=== PATIENT | female | born 1960 | race Caucasian/White ===

== ENCOUNTER 2023-08-18 08:45 | Emergency (ER) | payer SELFPAY ==
[2023-08-18 08:50] VITALS: BP 130/80; PULSE 67; RESP 18; TEMP 36.3; O2SAT 98; BMI 19.5
--- NOTE | 2023-08-18 08:56 | ED_ITS ---
HPI - SOB/Dyspnea General Chief Complaint: Shortness of Breath/Dyspnea Stated Complaint: SHORTNESS OF BREATH Time Seen by Provider: 08/18/23 08:55 History of Present Illness HPI Narrative: patient states three days ago she developed shortness of breath.she also has body aches and pains. She took a home Covid test that is negative. She does not have pulse oximetry at home. It is ninety-eight percent on room air here.she states that five or six weeks ago she did have Covid. She said she had minimal cough but at a very high fever at that time. She states that her sputum is still clear. She smokes regularly and has a [id number] tobacco history. She has not had a CT scan of her chest. She's not seen any blood in her sputum. She does not have any gastrointestinal symptoms today but with Covid she did. She does have a little bit of sore throat, additionally she has some body aches and pains but is not running a fever over the last three days. She did receive the influenza vaccine and Covid vaccine but has not had respiratory syncytial virus or pneumococcal vaccine. Related Data Home Medications Medication Instructions Recorded Confirmed No Known Home Medications 08/18/23 08/18/23 Allergies Allergy/AdvReac Type Severity Reaction Status Date / Time Penicillins AdvReac Intermediate Verified 08/18/23 08:49 [facility] Social History Smoking status: Current every day smoker Exam Narrative Exam Narrative: awakke alert oriented ?3 excellent story's historian. Pulse oximetry is normal. She has a wet raspy bronchospastic spastic cough. Her color is good her skin is warm and dry. Mucous members are moist and pink. She has no scleral icterus. No cranial facial trauma or injury. Her lungs showed scattered rhonchi and some wheezing. Heart sounds are normal with no arrhythmia or murmur. Extremities have no evidence of phlebitis edema tenderness or swelling. Neurological intact. Constitutional Vital Signs, click to edit/add: Last Vital Signs Temp 97.3 F L 08/18/23 08:50 Pulse 67 08/18/23 08:50 Resp 18 08/18/23 08:50 BP 130/80 08/18/23 08:50 Pulse Ox 98 08/18/23 08:50 Course Vital Signs Vital signs: Vital Signs Temperature 97.3 F L 08/18/23 08:50 Pulse Rate 67 08/18/23 08:50 Respiratory Rate 18 08/18/23 08:50 Blood Pressure 130/80 08/18/23 08:50 Pulse Oximetry 98 08/18/23 08:50 Temperature 97.3 F L 08/18/23 08:50 Pulse Rate 67 08/18/23 08:50 Respiratory Rate 18 08/18/23 08:50 Blood Pressure 130/80 08/18/23 08:50 Pulse Oximetry 98 08/18/23 08:50 MDM - SOB/Dyspnea MDM Narrative Medical decision making narrative: this patient told me that she's not had a CT scan and with her having the large smoking history one was done today. As it turns out she did have one previously but there's been no interval change and her findings are consistent with early emphysematous changes. There is no pneumonia. She is not a candidate for any antiviral therapy. I believe this is an exacerbation of chronic obstructive pulmonary disease. She will be placed on steroid/we'll teach her how to use an inhaler censored dual nebulizer didn't make her feel better. It should be placed on a Z-Garrick with her underlying chronic obstructive pulmonary disease Discharge Plan Discharge Chief Complaint: Shortness of Breath/Dyspnea Clinical Impression: Acute infective exacerbation of chronic obstructive airway disease Patient Disposition: Home, Self-Care Time of Disposition Decision: 11:26 Prescriptions / Home Meds: No Action No Known Home Medications Additional Instructions: Z-Paks/prednisone/albuterol Stand Alone Forms: Portal Instructions Referrals: Physician,Non-Staff, MD [Primary Care Provider] - 1 week
[2023-08-18 09:04] VITALS: PULSE 62
--- NOTE | 2023-08-18 09:10 | CT_ITS ---
[address] [address] Patient Name: RICARDO ELIAS MRN: [id number] date: 1960 Sex: F Assigned Patient Location: ER Current Patient Location: ER Accession/Order Number: [id number] Exam Date: 08/18/2023 10:10 Report Date: 08/18/2023 10:50 At the request of: MAE ANN Procedure: CT chest w con EXAMINATION: CT chest w con HISTORY: cough/shortness of breath/tobacco ?41 years ; shortness of breath with exertion, cough, chills, body aches COMPARISON: CTA chest 12/03/2021 TECHNIQUE: Multi-planar CT images were obtained without and/or with IV contrast as indicated by examination type. Axial, Coronal, and Sagittal images. Dose reduction techniques were achieved by using automated exposure control and/or adjustment of mA and/or kV according to patient size and/or use of iterative reconstruction technique. FINDINGS: LUNGS: Stable appearance of a few small nodules scattered within the lungs, largest is within posterior lateral right lower lobe, 6 mm. No new nodules or acute infiltrates. Mild emphysematous changes. PLEURA: No mass, effusion, or pneumothorax. VASCULATURE: No abnormality. ESTELLE: No mass or adenopathy. MEDIASTINUM: No mass or adenopathy. CARDIAC: Atherosclerotic coronary artery disease. No cardiac enlargement or pericardial effusion. AORTA: No aneurysm or dissection. CHEST WALL: No mass or axillary adenopathy. BONES: Stable marked compression fracture C7 and T6. Stable mild Compression fracture of T3. LIMITED ABDOMEN: No suspicious findings Limited images of the upper abdomen. OTHER: Negative. CT/CT chest w con IMPRESSION: 1. No pulmonary embolism, acute infiltrates, or specific findings to account for patient's symptoms. 2. Stable mild emphysematous changes and a few small scattered nodules; nonspecific but favoring benign etiology. 3. Stable multilevel compression fractures. No new findings. Electronically authenticated by: TREV PHILLIPS Date: 08/18/2023 10:50
[2023-08-18] MEDS: IPRATROPIUM/ALBUTEROL SULFATE 3 ML AMPUL.NEB IH (09:22)
[2023-08-18 09:37] LABS: pH VBG 7.476 (7.330-7.430)
[2023-08-18 09:38] LABS: Basophils Percent Auto 0.8 % (0.2-2.0); Eosinophils Absolute Auto 0.1 10^3/uL (0.0-0.7); Eosinophils Percent Auto 1.9 % (0.9-7.0); Hematocrit 42.7 % (36.0-48.0); Hemoglobin 13.8 g/dL (12.0-16.0); Immature Granulocytes Abs Auto 0.01 10^3/uL (0.00-0.03); Immature Granulocytes Pct Auto 0.2 % (0.0-0.5); Lymphocytes Absolute Auto 1.6 10^3/uL (1.2-3.8); Lymphocytes Percent Auto 31.1 % (20.5-60.0); Mean Corpuscular HGB Conc 32.3 g/dL (29.9-35.2); Mean Corpuscular Hemoglobin 29.8 pg (26.7-34.0); Mean Corpuscular Volume 92.2 fL (81.0-99.0); Mean Platelet Volume 10.2 fL (9.5-13.5); Monocytes Absolute Auto 0.4 10^3/uL (0.3-0.8); Neutrophils Absolute Auto 3.1 10^3/uL (1.4-6.5); Platelet Count 232 10^3/uL (150-450); Red Blood Count 4.63 10^6/uL (4.20-5.40); Red Cell Distribution Width 13.5 % (11.0-15.0); White Blood Count 5.3 10^3/uL (4.0-11.0)
[2023-08-18 09:56] LABS: Alanine Aminotransferase 50 U/L (14-59); Albumin Globulin Ratio 0.9; Albumin Level 3.3 g/dL (3.4-5.0); Alkaline Phosphatase 62 U/L (46-116); Anion Gap 15.1; Aspartate Amino Transferase 40 U/L (15-37); BUN Creatinine Ratio 14.1; Bilirubin Total 0.3 mg/dL (0.2-1.0); Calcium 9.3 mg/dL (8.5-10.1); Carbon Dioxide 23.7 mmol/L (21.0-32.0); Chloride 106 mmol/L (98-107); Estimated GFR (African America >60 (>=60); Estimated GFR (Non-African Ame >60 (>=60); Globulin 3.7 g/dL; Glucose 105 mg/dL (74-106); Potassium 3.8 mmol/L (3.5-5.1); Sodium 141 mmol/L (136-145)
[2023-08-18 10:05] LABS: Troponin I High Sensitivity 6.2 pg/mL (4.0-51.3)
[2023-08-18 10:41] VITALS: BP 128/78; PULSE 70; RESP 18; O2SAT 98
== END 2023-08-18 11:38 | disposition home or self-care (01) ==
PROVIDERS: Emergency Provider Emergency Medicine Emergency Medical Services
DX: J44.1 Chronic obstructive pulmonary disease with (acute) exacerbation (principal); R06.02 Shortness of breath; F17.200 Nicotine dependence, unspecified, uncomplicated
CPT/HCPCS: 36415; 71260; 80053; 82800; 83880; 84484; 85025; 94640; 99284; Q9967

== ENCOUNTER 2024-06-07 17:28 | Emergency (ER) | payer SELFPAY ==
--- OUTSIDE RECORDS SUMMARY | 2024-06-07 17:34 | XMS_ITS | CCD ---
Author Organization [facility] Care Team Providers Care Application Designer Name Role Phone DERAS, LETY VIOLETTA Unavailable Unavailabl e DERAS, LETY VIOLETTA Unavailable Unavailabl e DERAS, LETY VIOLETTA Unavailable Unavailabl e DERAS, LETY VIOLETTA Unavailable Unavailabl e DERAS, LETY VIOLETTA Unavailable Unavailabl e DERAS, LETY VIOLETTA Unavailable Unavailabl e DERAS, LETY VIOLETTA Unavailable Unavailabl e DERAS, LETY VIOLETTA Unavailable Unavailabl e ELIZABETH, GURPREET Unavailable Unavailable DERAS, LETY VIOLETTA Unavailable Unavailabl e SUNSHINEKI, GURPREET Unavailable Unavailable DERAS, LETY VIOLETTA Unavailable Unavailabl e Lupe Snider Primary Care Provider Herson Amin Unavailable Unavailable Primary Care Provider UnavailVilma Recinos Unavailable RODRIGO, DR ARCEO Consulting Unavailable MISC, DR ARCEO Primary Care Unavailable MISC, DR ARCEO Attending Unavailable MISC, DR ARCEO Admitting Unavailable KATHE WHITMAN Consulting Unavailable OCONEE, DR HERSON Martinez Consulting Unavailable REQUEST, DR ALVAREZ LISTED Primary Care Unavailfamilia CORCORAN, DR DE LUNA Attending Unavailable NILO, DR DE LUNA Admitting Unavailable NILO, DR DE LUNA Consulting Unavailable REQUEST, DR ALVAREZ LISTED Primary Care Unavaila solomon CORCORAN, DR DE LUNA Attending Unavailable NILO, DR DE LUNA Admitting Unavailable JUANA BOB Attending Unavailable JUANA BOB Admitting Unavailable JUANA BOB Consulting Unavailable RODRIGO, DR ARCEO Primary Care Unavailable FELICE Alonso, DR VIEIRA Consulting Unavailable FELICE Alonso, DR VIEIRA Attending Unavailable FELICE Alonso, DR VIEIRA Admitting Unavailable RODRIGO, DR ARCEO Primary Care Unavailable NATI PRADO Consulting Unavailable ALAN, DR TREV Dawkins Consulting Unavailable BETTY VIDES Attending Unavailable BETTY VIDES Admitting Unavailable MISC, DR ARCEO Primary Care Unavailable MAHESH ., BETTY Consulting Unavailable ISIDORO STONE Consulting Unavailable ARMINDA NELSON Unavailable PAY ., DR MONTANO Consulting Unavailable MISC, DR ARCEO Primary Care Unavailable PAY ., DR MONTANO Attending Unavailable PAY ., DR MONTANO Admitting Unavailable JUANA BOB Consulting Unavailable JUANA BOB Attending Unavailable JUANA BOB Admitting Unavailable MISC, DR ARCEO Primary Care Unavailable GRECHNY ., SAUL BRISENO Consulting Unavailabl e JUANA BOB Attending Unavailable JUANA BOB Admitting Unavailable MISC, DR ARCEO Primary Care Unavailable MISC, DR ARCEO Primary Care Unavailable MISC, DR ARCEO Attending Unavailable MISC, DR ARCEO Admitting Unavailable REQUEST, DR ALVAREZ LISTED Primary Care Unavaila ble NILO, DR DE LUNA Consulting Unavailable NILO, DR DE LUNA Attending Unavailable NILO, DR DE LUNA Admitting Unavailable REQUEST, DR ALVAREZ LISTED Primary Care Unavaila ble MISC, DR ARCEO Attending Unavailable MISC, DR ARCEO Admitting Unavailable WEST, DR HERSON Martinez Consulting Unavailable MISC, DR ARCEO Primary Care Unavailable MISC, DR ARCEO Attending Unavailable MISC, DR ARCEO Admitting Unavailable MISC, DR ARCEO Consulting Unavailable Awais Comer Unavailable Vilma Sharma Attending Unavailable Vilma Sharma Admitting Unavailable Nomi Corcoran Primary Care Unavailable DO Nomi Corcoran Primary Care Provider [phone] VARGHESE Sharma Attending Provider Allergies Allergy Classification Reported Allergen(s) Allergy Type Date of Onset Reaction(s) Facility (2 sources) Erythromycin Drug Allergy erythromycin [facility] Work Phone: (3 sources) Penicillins; Translations: [Penicillins] Allergy to substance 2 [facility] Repository (2 sources) -No Environmental Allergies Allergy to substance [facility] Work Phone: (7 sources) Mold Extract Drug Allergy Unknown [facility] Other (7 sources) Penicillin G Drug Allergy hives [facility] Other (6 sources) Substance with sulfonamide structure and antibacterial mechanism of action (substance) Drug allergy Unknown [facility] Other (1 source) Penicillin Drug Allergy [facility] Repository (1 source) Sulfonamides (Antibiotic) Drug allergy (disorder) [facility] Repository Medications Current Medications Medication Drug Class(es) Dates Sig (Normalized) Sig (Original) acetaminophen 325 mg / HYDROcodone bitartrate 5 mg oral tablet (15 sources) Opioid Agonist Start: 12-16-2022 take 1 tablet by mouth every six hours HYDROcodone-Acetami nophen 5-325 MG 1 tablet as needed Orally every 6 hrs for 2 days This prescription is provided until there is clarification with her surgeon regarding the amount of medication to dispense. Nov, Active Start: 12-14-2022 take 1 tablet by wilber th every twelve hours HYDROcodone-Acetaminophen 5-325 MG 1 tab let as needed Orally every 12 hrs for 7 days Nov, Active ALPRAZolam 1 mg oral tablet (8 sources) Benzodiazepine Start: 12-01-2021 take 1 mg by mouth twice daily Alprazolam Active 1 MG PO Twice daily December 01, 2021 12:00am ibuprofen 200 mg oral tablet (1 source) Nonsteroidal Anti-inflammatory Drug Start: 08-01-2019 Motrin IB 200 MG Oral Tablet 08/01/2019 Provider: loratadine 10 mg oral tablet (1 source) Start: 08-01-2019 Loratadine 10 MG Oral Tablet 08/01/2019 Provider: nystatin [id number] unt/ml oral suspension (1 source) Polyene Antifungal Start: 08-01-2019 Nystatin 10 0000 UNIT/ML Mouth/Throat Suspension 08/01/2019 Provider: Lupe Snider BLENDING TANK TENDER Completed/Discontinued Medications Medication Drug Class(es) Dates Sig (Normalized) Sig (Original) aspirin 325 mg oral tablet (2 sources) Platelet Aggregation Inhibitor, Nonsteroidal Anti-inflammatory Drug Start: 09-16-2018 End: 09-16-2018 Aspirin 325 MG OR TABS 09/16/2018 - 09/16/2018 Provider: Conversion Provider azithromycin 250 mg oral tablet (2 sources) Macrolide Antimicrobial Start: 09-06-2017 End: 09-06-2017 Azithromycin 250 MG OR TABS 09/06/2017 - 09/06/2017 Provider: Cetirizine (7 sources) Histamine-1 Receptor Antagonist ZyrTEC Allergy Not-Taking ZyrTEC Allergy A ctive Clindamycin (4 sources) Lincosamide Antibacterial Start: 05-24-2017 End: 05-24-2017 CLINDAMYCIN HCL 300 MG MISC 05/24/2017 - 05/24/2017 Provider: Start: 11-05-2015 End: 11-05-2015 CLINDAMYCIN HCL 150 MG MISC 11/05/2015 - 11/05/2015 Provider: dexamethasone 4 mg oral tablet (2 sources) Corticosteroid Start: 07-24-2015 End: 07-24-2015 Dexamethasone 4 MG OR TABS 07/24/2015 - 07/24/2015 Provider: krill oil (7 sources) Krill Oil Not-Ta david Krill Oil Active Multivitamin Adult - (7 sources) Multivitamin Rene lt - as directed Orally Not-Taking Multivitamin Rene lt - as directed Orally Active Probiotic - (7 sources) Probiotic - as d irected Orally Not-Taking Probiotic - as d irected Orally Active Problems Active Problems Problem Classification Problem Date Documented Da te Episodic/Chronic Anxiety disorders (7 sources) Anxiety disorder; Translations: [Anxiety disorder, unspecified] Chronic Crushing injury or internal injury (4 sources) Crushing injury of right index finger, initial encounter; Translations: [Crushing injury of right little finger, initial encounter] Onset: 11-30-2022 Episodic Disorders of lipid metabolism (8 sources) Pure hypercholesterolemi a; Translations: [Pure hypercholesterolemi a, unspecified] Onset: 08-11-2022 Chronic E Codes: Fall (1 source) Unspecified fall, initial encounter; Translations: [UNSPECIFIED FALL INITIAL ENCOUNTER] Onset: 12-13-2022 Episodic E Codes: Natural/environment (2 sources) Exposure to other specified factors, subsequent encounter; Translations: [Exposure to other specified factors, initial encounter] Onset: 12-30-2021 Episodic E Codes: Other specified and classifiable (1 source) Caught, crushed, jammed, or pinched between moving objects, initial encounter; Translations: [CAUGHT CRUSH/PINCH BTWN MOV OBJ INT] Onset: 12-01-2022 Episodic E Codes: Unspecified (1 source) Activity, roller skating (inline) and skateboarding; Translations: [ACTV ROLLER SKATING SKATEBOARDING] Onset: 12-13-2022 Episodic Essential hypertension (7 sources) Elevated blood pressure; Translations: [Essential (primary) hypertension] Chronic Genitourinary symptoms and ill-defined conditions (5 sources) Gross hematuria; Translations: [Hematuria, unspecified] Onset: 12-13-2017 Episodic Hepatitis (7 sources) Chronic hepatitis C; Translations: [Chronic viral hepatitis C] Chronic Mycoses (1 source) Candidiasis of mouth; Translations: [Candidiasis Oral Thrush] Onset: 08-01-2019 Episodic Nutritional deficiencies (8 sources) Vitamin D deficiency; Translations: [Vitamin D deficiency, unspecified] Onset: 08-11-2022 Chronic Osteoporosis (8 sources) Senile osteoporosis; Translations: [Age-related osteoporosis without current pathological fracture] Onset: 02-19-2022 Chronic Other aftercare (1 source) Other sea captain (current) drug therapy; Translations: [OTH REHEAT FURNACE OPERATOR CURRENT DRUG THERAPY] Onset: 12-14-2022 Episodic Other aftercare (1 source) group manager (current) use of aspirin; Translations: [REHEAT FURNACE OPERATOR CURRENT USE OF ASPIRIN] Onset: 12-13-2022 Episodic Other fractures (1 source) Unspecified displaced fracture of seventh cervical vertebra, subsequent encounter for fracture with routine healing; Translations: [UNS DSPL FX 7TH CERV SUB FX RTN HL] Onset: 12-14-2022 Episodic Other fractures (1 source) Unspecified displaced fracture of seventh cervical vertebra, initial encounter for closed fracture; Translations: [UNS DSPL FX 7TH CERV INIT CLOS FX] Onset: 12-13-2022 Episodic Other fractures (1 source) Unspecified fracture of third thoracic vertebra, initial encounter for closed fracture; Translations: [UNS FX THIRD THOR VERT INIT CLOS FX] Onset: 12-13-2022 Episodic Other fractures (1 source) Unspecified fracture of T5-T6 vertebra, initial encounter for closed fracture; Translations: [UNS FX T5-T6 VERT INITIAL CLOS FX] Onset: 12-13-2022 Episodic Other fractures (4 sources) Other displaced fracture of seventh cervical vertebra, initial encounter for closed fracture Episodic Other lower respiratory disease (1 source) Cough; Translations: [Cough, unspecified type] Episodic Other nervous system disorders (1 source) Other chronic pain; Translations: [OTHER CHRONIC PAIN] Onset: 12-30-2021 Chronic Other screening for suspected conditions (not mental disorders or infectious disease) (4 sources) Encounter for screening for diabetes mellitus; Translations: [Encounter for screening for malignant neoplasm of colon] Onset: 2019 Resolved: 10-20-2021 Episodic Other upper respiratory disease (7 sources) Seasonal allergy; Translations: [Other allergic rhinitis] Chronic Residual codes; unclassified (6 sources) Menopause present; Translations: [Asymptomatic menopausal state] Episodic Spondylosis; intervertebral disc disorders; other back problems (12 sources) Cervicalgia; Translations: [Dorsalgia, unspecified] Onset: 12-30-2021 Episodic Substance-related disorders (8 sources) Cigarette smoker ; Translations: [Nicotine dependence, cigarettes, uncomplicated] Onset: 12-14-2022 Chronic Superficial injury; contusion (2 sources) Contusion of chest; Translations: [Abrasion of right index finger, initial encounter] Onset: 08-13-2019 Episodic Unclassified (3 sources) LOW BACK PAIN, UNSPECIFIED; Translations: [LOW BACK PAIN, UNSPECIFIED] Onset: 02-19-2022 Unclassified (1 source) Other displaced fracture of seventh cervical vertebra, initial encounter for closed fracture; Translations: [Other displaced fracture of seventh cervical vertebra, initial encounter for closed fracture] Onset: 12-21-2022 Urinary tract infections (3 sources) Acute cystitis with hematuria; Translations: [Acute cystitis with hematuria] Onset: 12-15-2017 Episodic Past or Other Problems Problem Classification Problem Date Documented Da te Episodic/Chronic Abdominal pain (5 sources) Unspecified abdominal pain; Translations: [Generalized abdominal pain] Onset: 12-13-2017 Episodic Diabetes mellitus without complication (1 source) Other abnormal glucose; Translations: [OTHER ABNORMAL GLUCOSE] Onset: 08-11-2022 Episodic Diabetes mellitus without complication (4 sources) Diabetes mellitus without complication; Translations: [Questionnaires Phq-9 Total Score] Onset: 2019 External cause codes: Fall (2 sources) Fall (on) (from) unspecified stairs and steps, subsequent encounter; Translations: [Assessment of Fall on and From Stairs and Steps] Onset: 2019 Hepatitis (2 sources) Unspecified viral hepatitis C without hepatic coma; Translations: [Unspecified viral hepatitis C without hepatic coma] Onset: 12-16-2017 Resolved: 10-20-2021 Episodic Nonspecific chest pain (3 sources) Other chest pain; Translations: [OTHER CHEST PAIN] Onset: 12-29-2021 Episodic Other fractures (4 sources) Wedge compression fracture of unspecified lumbar vertebra, initial encounter for closed fracture; Translations: [WEDGE COMPRS FX UNS LV INIT ADARSH FX] Onset: 02-17-2022 Episodic Other fractures (1 source) Unspecified fracture of unspecified thoracic vertebra, initial encounter for closed fracture; Translations: [UNS FX UNS THOR VERT INIT CLOS FX] Onset: 12-30-2021 Episodic Unclassified (4 sources) Finding of body mass index; Translations: [Body Mass Index] Onset: 2019 Unclassified (1 source) LOW BACK PAIN, UNSPECIFIED; Translations: [LOW BACK PAIN, UNSPECIFIED] Onset: 02-26-2022 Viral infection (1 source) Zoster without complications; Translations: [ZOSTER WITHOUT COMPLICATIONS] Onset: 05-11-2022 Episodic Results Test Name Value Interpretation Reference Range Facility CT CSPINE WO CONon [address] C[address] WO CON [address] CSPINE WO CON CLINICAL HISTORY: Neck pain. COMPARISON: 02/16/2022. CT CERVICAL TECHNIQUE: Noncontrast axial CT images of the cervical spine were obtained. Sagittal and coronal reconstructions were provided for review. Dose reduction techniques were achieved by using automated exposure control and/or adjustment of mA and/or kV according to patient size and/or use of iterative reconstruction technique. CT CERVICAL FINDINGS: Nearly 50% compression fracture of C7 vertebral body. There is associated retropulsion of up to 5 mm causing up to at least mild to moderate central canal narrowing. There is subtle endplate irregularity at superior C6 which is age indeterminate but possibly chronic. Remaining cervical spine is intact. No significant malalignment. Multilevel posterior disc osteophyte complexes with up to mild central canal narrowing. Multilevel uncovertebral spurring and facet arthropathy with multilevel minimal to mild foraminal narrowing. Visualized lung apices clear. Temporomandibular joints maintained. Mastoid air cells are aerated. IMPRESSION: C7 relatively severe acute compression fracture with retropulsion and mild to moderate central canal narrowing. Recommend stabilization and MRI to assess for any associated cord injury. Subtle deformity at the superior endplate C6 is age-indeterminate. MRI could also help assess if acute. Otherwise relatively mild degenerative change of the cervical spine. Case discussed with Dr. Flower on date of study at 3:08 PM. Electronically authenticated by: ISIDORO STONE Date: 2022-12-09 15:10 Normal [facility] CT TSPINE WO CONon 3 CT TSPINE WO CON EXAMINATION: CT TSPI NE WO CON HISTORY: Pain between shoulder blades after falling COMPARISON: MRI T-spine 02/16/2022 TECHNIQUE: Axial, Coronal, and Sagittal CT images obtained without and with IV contrast. Dose reduction techniques were achieved by using automated exposure control and/or adjustment of mA and/or kV according to patient size and/or use of iterative reconstruction technique. FINDINGS: PARASPINAL AREA: Normal with no visible mass. DISCS: Early degenerative disc disease is present without visible focal protrusion or neural impingement. BONES: C7 compression fracture with moderate loss of height and retropulsion of posterior wall. Stable mild compression fracture of T3 and marked compression fracture of T6. OTHER: Negative. IMPRESSION: 1. Moderate-marked compression fracture with expansion resulting in retropulsion of the posterior wall and anterior displacement of the anterior wall. This is age indeterminant, but new since 02/16/2022. 2. Grossly stable compression fractures of T3 and T6. Electronically authenticated by: TREV PHILLIPS Date: 2022-12-09 13:45 Normal [facility] XR CSPINE 2_3 VIEWSon 2022 XR CSPINE 2_3 VIEWS PLAIN FILM OF THE CE RVICAL SPINE HISTORY: Neck pain after falling while rollerskating at the region yesterday in a 62-year-old female. TECHNIQUE: 2 lateral views of the cervical spine in extension and flexion are submitted for review. COMPARISON: None. FINDINGS: Flexion demonstrate straightening of the cervical spine with compression of the C7 vertebral body which is incompletely imaged. Bone mineralization is decreased. Evaluation of the C7 vertebral body on extension is severely limited due to patient's shoulder positioning and patient's hand. Normal cervical lordosis is otherwise maintained. There is approximately 50% compression of the C7 vertebral body seen on the flexion exam. Vertebral body heights are otherwise maintained. Prevertebral soft tissues measure within normal limits. Disc spaces are maintained. IMPRESSION: 1. Compression fracture of C7 which is incompletely imaged. MRI of the cervical spine is recommended for further evaluation. 2. Straightening of the cervical spine with flexion. Electronically authenticated by: ARMINDA NELSON Date: 2022-12-09 18:07 Normal [facility] XR HAND RT MIN 3Von 12-01-19 23 XR HAND RT MIN 3V EXAM: XR HAND RT MIN 3V HISTORY: Injury of right hand. COMPARISON: None. TECHNIQUE: 3 views of the right hand. FINDINGS: There is mild soft tissue swelling of the second digit. No acute fracture. Bony demineralization is present. Moderate osteoarthritic changes are present at the DIP joint of the second through the fifth digits. Well-corticated ossicle adjacent to the ulnar styloid likely related to remote injury. IMPRESSION: 1. Mild edema of the second finger without acute fracture. 2. Bony demineralization and osteoarthritis as documented. Electronically authenticated by: NATI PRADO Date: 2022-11-30 01:36 Normal [facility] CBC AUTO DIFFon 08-06-2022 BASO # 0.0 103/ul Normal 0.0-0.[address] [facility] Comment on above: Performed By: #### C BC #### [facility] [address] [place] [address] Dr. Ana Belcher Basophils/100 WBC (Bld) 0.4 % Normal 0.2-2.0 [facility] Comment on above: Performed By: #### C BC #### [facility] [address] [address] [address] Ana Belcher EO # 0.0 103/ul Normal 0.0-0.[address] [facility] Comment on above: Performed By: #### C BC #### [facility] [address] [place] [address] Dr. Ana Belcher Eosinophils/100 WBC (Bld) 0.4 % Critically low 0.9-7.[address] [facility] Comment on above: Performed By: #### C BC #### [facility] [address] [address] [address] Ana Belcher Erythrocyte distribution width (RBC) [Ratio] 13.2 % Normal 11.0-15.0 [facility] Comment on above: Performed By: #### C BC #### [facility] [address] [place] [address] Dr. Ana Belcher Hematocrit (Bld) [Volume fraction] 48.0 % Normal 36.0-48.0 [facility] Comment on above: Performed By: #### C BC #### [facility] [address] [place] [address] Dr. Ana Belcher Hemoglobin (Bld) [Mass/Vol] 16.0 g/dL Normal 12.0-16.0 [facility] Comment on above: Performed By: #### C BC #### [facility] [address] [place] [address] Dr. Ana Belcher IG # 0.04 10e3/ul Critically high 0.00-0.03 [facility] Comment on above: Performed By: #### C BC #### [facility] [address] [place] [address] Dr. Ana Belcher IG % 0.4 % Normal 0.0-0.5 [facility] Comment on above: Performed By: #### C BC #### [facility] [address] [place] [address] Dr. Ana Belcher LYMPH # 2.4 103/ul Normal 1.2-3.8 [facility] Comment on above: Performed By: #### C BC #### [facility] [address] [place] [address] Dr. Ana Belcher Lymphocytes/100 WBC (Bld) 25.9 % Normal 20.5-60.0 [facility] Comment on above: Performed By: #### C BC #### [facility] [address] [place] [address] Dr. Ana Belcher MANUAL DIFF REQ NO Normal [facility] Comment on above: Performed By: #### C BC #### [facility] [address] [place] [address] Dr. Ana Belcher MCH (RBC) [Entitic mass] 29.7 pg Normal 26.7-34.[address] [facility] Comment on above: Performed By: #### C BC #### [facility] [address] [place] [address] Dr. Ana Belcher MCHC (RBC) [Mass/Vol] 33.3 g/dL Normal 29.9-35.[address] [facility] Comment on above: Performed By: #### C BC #### [facility] [address] [address] [address] Ana Belcher MCV (RBC) [Entitic vol] 89.2 fL Normal 81.0-99.0 [facility] Comment on above: Performed By: #### C BC #### [facility] [address] [address] [address] Ana Belcher MONO # 0.7 103/ul Normal 0.3-0.8 [facility] Comment on above: Performed By: #### C BC #### [facility] [address] [place] [address] Dr. Ana Belcher Monocytes/100 WBC (Bld) 7.7 % Normal 1.7-12.0 [facility] Comment on above: Performed By: #### C BC #### [facility] [address] [place] [address] Dr. Ana Belchre NEUT # 6.0 103/ul Normal 1.4-6.5 [facility] Comment on above: Performed By: #### C BC #### [facility] [address] [place] [address] Dr. Ana Belcher Neutrophils/100 WBC (Bld) 65.2 % Normal 43.0-75.0 [facility] Comment on above: Performed By: #### C BC #### [facility] [address] [place] [address] Dr. Ana Belcher Platelet mean volume (Bld) [Entitic vol] 10.1 fL Normal 9.5-13.[address] [facility] Comment on above: Performed By: #### C BC #### [facility] [address] [place] [address] Dr. Ana Belcher PLT 261 103/ul Normal 150-[address] [facility] Comment on above: Performed By: #### C BC #### [facility] [address] [place] [address] Dr. Ana Belcher RBC 5.38 106/ul Normal 4.20-5.[address] [facility] Comment on above: Performed By: #### C BC #### [facility] [address] [place] [address] Dr. Ana Belcher WBC 9.3 103/ul Normal 4.0-11.0 [facility] Comment on above: Performed By: #### C BC #### [facility] [address] [address] [address] Ana Belcher GLYCOHEMOGLOBIN A1Con 2021 ADA RECOMMENDATION SEE BELOW Normal [facility] Comment on above: Result Comment: ADA RECOMMENDED LIMIT 4.0 - 6.0 ADA THERAPEUTIC TARGET < 7.0 ACTION SUGGESTED > 7.0 Performed By: #### A 1C #### [facility] [address] [address] [address] Ana Belcher Glucose [Mass/Vol] 111 mg/dL Normal [facility] Comment on above: Performed By: #### A 1C #### [facility] [address] [address] [address] Ana Belcher HbA1c (Bld) [Mass fraction] 5.5 % Normal 4.5-6.2 [facility] Comment on above: Performed By: #### A 1C #### [facility] [address] [address] [address] Ana Belcher LIPID PROFILEon 08-06-2022 CHOL-HDL RATIO NORM SEE BELOW Normal [facility] Comment on above: Result Comment: 3.3 - 4.4 LOW RISK 4.4 - 7.1 AVERAGE RISK 7.1 - 11.0 MODERATE RISK >11.0 HIGH RISK Performed By: #### L IPID, CMP ####[facility] [address] [place] [address]Dr. Ana Belcher Cholesterol [Mass/Vol] 191 mg/dL Normal <=[address] [facility] Comment on above: Performed By: #### L IPID, CMP ####[facility] [address] [place] [id number]. Ana Belcher Cholesterol in HDL [Mass/Vol] 61 mg/dL Critically high 40-60 [facility] Comment on above: Performed By: #### L IPID, CMP ####[facility] [address] [place] [id number]. Ana Belcher Cholesterol in LDL [Mass/Vol] 117.0 mg/dL Normal [facility] Comment on above: Performed By: #### L IPID, CMP ####[facility] [address]wkluc[address] [place] [address]Dr. Ana Belcher Cholesterol.total/C holesterol in HDL [Mass ratio] 3.1 {ratio} Normal [facility] Comment on above: Performed By: #### L IPID, CMP ####[facility] [address] [place] [address]Dr. Ana Belcher HDL NORMAL > or = 60 mg/dl - LO W CARDIOVASCULAR RISK <40 mg/dl - HIGH CARDIOVASCULAR RISK Normal [facility] Comment on above: Performed By: #### L IPID, CMP ####[facility] [address] [place] [address]Dr. Ana Belcher LDL CALC NORMAL SEE BELOW Normal [facility] Comment on above: Result Comment: <100 mg/dl OPTIMAL 100 - 129 mg/dl NEAR OR ABOVE OPTIMAL 130 - 159 mg/dl BORDERLINE HIGH 160 - 189 mg/dl HIGH >190 mg/dl VERY HIGH Performed By: #### L IPID, CMP ####[facility] [address] [place] [address]Dr. Ana Belcher Triglyceride [Mass/Vol] 65 mg/dL Normal <=[address] [facility] Comment on above: Performed By: #### L IPID, CMP ####[facility] [address]hqsey[address] [place] [address]Dr. Ana Belcher VLDL CALC 13.0 mg/dL Normal [facility] Comment on above: Performed By: #### L IPID, CMP ####[facility] Qcarugmlkg[address] [place]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 neck pain for many years. No pain or paresthesia in the extremities 3. CTA chest 12/03/2021 (report): T6 wedge shaped compression deformity, relatively severe. T3, T4, T5, T8 compression deformities 4. CT thoracic spine (more content not included)... Normal [facility] Provider Letteron 01-21-2022 Provider Letter (Inserted Image. Demetria ble to display) Nomi Corcoran DO [address] [id number] Re: Brie Farrell Date of Visit: 01/21/2022 Dear Nomi Corcoran DO, Thank you for your referral and allowing me to contribute to the care of your patient: Brie Farrell. Attached is my office note where you will find my assessment and recommendations from our encounter. My office?s contact information: [facility] [address], [phone] Let me know if you have any questions or concerns. Sincerely, ROHIT Myles Providers: The following document(s) were included in the letter: January 21, 2022 09:52:54 EDT - (01/21/2022) Neurosurgery Office Visit Note Normal [facility] Progress Noteon 01-13-2018 HIM IP Note OR Molecular Genetic Pathologist Normal [facility] Cult,Urine,CCon 12-27-2017 Cult,Urine,CC Specimen Description .URINE Performed at [address] [place] [address] Special Requests NOT REPORTEDCulture NO GROWTH Performed at [address] [place], [place] [id number] [phone] Report Status FINAL 12/27/2017 Normal [facility] Comment on above: Performed By: #### U AMIC ####[address] [place] [address] Progress Noteon 12-26-2017 HIM IP Note OR Molecular Genetic Pathologist Normal [facility] HIM IP Note OR Molecular Genetic Pathologist Normal [facility] Urinalysis w/ Microon 2017 ----- Normal [facility] Comment on above: Performed By: #### U AMIC ####[address] [place] [address] Acetaminophen mass conc Negative Normal NEG [facility] Comment on above: Performed By: #### U AMIC ####[address] [place] [address] Bilirubin (direct) Negative Normal NEG [facility] Comment on above: Performed By: #### U AMIC ####[address] [place] [address] Hemoglobin mass conc (Bld) 2+ Abnormal NEG [facility] Comment on above: Performed By: #### U AMIC ####[address] [place] [address] Nitrite,Ur Negative Normal NEG [facility] Comment on above: Performed By: #### U AMIC ####[address] [place] [address] Turbidity CLEAR Normal CLEAR [facility] Comment on above: Performed By: #### U AMIC ####[address] [place] [address] Urine WBC's None Normal 0-5 [facility] Comment on above: Performed By: #### U AMIC ####[address] [place] [address] Urine, color YELLOW Normal YEL [facility] Comment on above: Performed By: #### U AMIC ####[address] [place] [address] Urine, epithelial cells in sediment 0 TO 2 Normal 0-25 [facility] Comment on above: Result Comment: Perf ormed at [address] [place] [address] Performed By: #### U AMIC ####[address] [place] [address] Urine, erythrocytes None Normal 0-2 [facility] Comment on above: Performed By: #### U AMIC ####[address] [place] [address] Urine, glucose presence Negative Normal NEG [facility] Comment on above: Performed By: #### U AMIC ####[address] [place] [address] Urine, leukocyte esterase presence Negative Normal NEG [facility] Comment on above: Performed By: #### U AMIC ####[address] [place] [address] Urine, pH 5.5 [pH] Normal 5.0-9.0 [facility] Comment on above: Performed By: #### U AMIC ####[address] [place] [address] Urine, protein presence Negative Normal NEG [facility] Comment on above: Performed By: #### U AMIC ####[address] [place] [address] Urine, specific gravity 1.015 Normal 1.010-1.020 [facility] Comment on above: Performed By: #### U AMIC ####[address] [place] [address] Urobilinogen,Ur Normal Normal NORM [facility] Comment on above: Performed By: #### U AMIC ####[address] [place] [address] Comment NOT REPORTED Normal [facility] Comment on above: Performed By: #### U AMIC ####[address] [place] [address] Epithelial, Renal NOT REPORTED Normal 0 [facility] Comment on above: Performed By: #### U AMIC ####[address] [place] [address] Mucus Strands NOT REPORTED Normal NONE [facility] Comment on above: Performed By: #### U AMIC ####[address] [place] [address] Other Observations NOT REPORTED Normal NREQ [facility] Comment on above: Performed By: #### U AMIC ####[address] [place] [address] Trichomonas NOT REPORTED Normal NONE [facility] Comment on above: Performed By: #### U AMIC ####[address] [place] [address] Urine, amorphous sediment presence in sediment NOT REPORTED Normal NONE [facility] Comment on above: Performed By: #### U AMIC ####[address] [place] [address] Urine, bacteria in sediment NOT REPORTED Normal NONE [facility] Comment on above: Performed By: #### U AMIC ####[address] [place] [address] Urine, casts in sediment NOT REPORTED Normal [facility] Comment on above: Performed By: #### U AMIC ####[address] , [place] [phone] Urine, crystals in sediment NOT REPORTED Normal NONE [facility] Comment on above: Performed By: #### U AMIC ####[address] , [place] [id number] Urine, yeast presence in sediment NOT REPORTED Normal NONE [facility] Comment on above: Performed By: #### U AMIC ####[address] [place] [address] HCV RNA,Quant,PCRon 12-21-19 18 HCV RNA,Quant,PCR Specimen Description .PLASMA Performed at [address] [place], [place] [id number] [phone] Special Requests NOT REPORTEDDirect Exam HCV RNA DETECTED [id number] IU/ML (6.79 LOG IU/ML) This test is a sensitive method for quantitating HCV RNA viral loads in plasma. It utilizes RT-PCR in the FDA approved Nicole Ampliprep/Taqman 48 System. This test is intended for detecting and quantifying HCV RNA viral loads in the range of 15 IU/mL to 100,000,000 IU/mL (1.18 log IU/mL to 8.00 log IU/mL). Patients should have confirmed HCV infection prior to RNA quantification. This test has been developed to monitor disease progression and efficacy of anti-HCV drug therapy. This test has been optimized for HCV genotypes 1-6. Results reported to the appropriate Health Department Performed at [address] [id number] [phone] Report Status FINAL 12/20/2017 Normal [facility] Comment on above: Performed By: #### H CVQ ####[address] [phone] [place] [address] HIV Ag/Abon 12-15-2017 HIV Ag/Ab NONREACTIVE Normal NR [facility] Comment on above: Result Comment: No l aboratory evidence of HIV infection. If acute HIV infection is suspected, consider testing for HIV-1 RNA.Performed at [address] [address] Performed By: #### Aury BC, AHCV, HIVCMB ####[address] [address] #### CP, LIPR ####[address] [place] [address] Hep C Abon 12-15-2017 Hep C Ab REACTIVE Abnormal NR [facility] Comment on above: Result Comment: The hepatitis C procedure used in our laboratory is a Chemiluminescent test specific for three recombinant HCV antigens. A negative anti-HCV result indicates that the antibodies to hepatitis C virus are not present at this time.Individuals with reactive anti-HCV should be considered infected and infectious until proven otherwise. Confirmation of all equivocal or reactive results is recommended by ordering HCV RNA by PCR.Performed at [address] [address] Performed By: #### Aury VALERO, AHCV, HIVCMB ####[address] [address] #### CP, LIPR ####[address] [place] [address] Progress Noteon 12-15-2017 HIM IP Note OR Molecular Genetic Pathologist Normal [facility] CBCon 12-14-2017 Erythrocyte distribution width Auto Ratio (RBC) 13.1 % Normal 11.8-14.4 [facility] Comment on above: Performed By: #### Aury BC, AHCV, HIVCMB ####[address] [address] #### CP, LIPR ####[address] [place] [address] Erythrocytes (RBC) 0.0 per 100 WBC Normal 0.0 M [facility] Comment on above: Result Comment: Perf ormed at [address] [address] Performed By: #### C BC, AHCV, HIVCMB ####[address] [address] #### CP, LIPR ####[address] [place] [address] Erythrocytes (RBC) 4.94 10*6/uL Normal 3.95-5.[address] [facility] Comment on above: Performed By: #### C BC, AHCV, HIVCMB ####[address] [address] #### CP, LIPR ####[address] [place] [address] Hematocrit (HCT) 44.6 % Normal 36.3-47.1 [facility] Comment on above: Performed By: #### C BC, AHCV, HIVCMB ####[address] [address] #### CP, LIPR ####[address] [place] [address] Hemoglobin mass conc (Bld) 14.5 g/dL Normal 11.9-15.1 [facility] Comment on above: Performed By: #### C BC, AHCV, HIVCMB ####[address] [address] #### CP, LIPR ####[address] [place] [address] MCH 29.4 pg Normal 25.2-33.5 [facility] Comment on above: Performed By: #### C BC, AHCV, HIVCMB ####[address] [address] #### CP, LIPR ####[address] [place] [address] MCHC mass conc (RBC) 32.5 g/dL Normal 28.4-34.8 [facility] Comment on above: Performed By: #### C BC, AHCV, HIVCMB ####[address] [address] #### CP, LIPR ####[address] [place] [address] MCV 90.3 fL Normal 82.6-102.9 [facility] Comment on above: Performed By: #### C BC, AHCV, HIVCMB ####[address] [address] #### CP, LIPR ####[address] [place] [id number] Platelet mean volume (PMV) 9.1 fL Normal 8.1-13.5 [facility] Comment on above: Performed By: #### C BC, AHCV, HIVCMB ####[address] [address] #### CP, LIPR ####[address] , [place] [address] Platelets 271 10*3/uL Normal 138-453 [facility] Comment on above: Performed By: #### C BC, AHCV, HIVCMB ####[address] [address] #### CP, LIPR ####[address] , [place] [address] WBC (Leukocytes) 5.0 10*3/uL Normal 3.5-11.3 [facility] Comment on above: Performed By: #### C BC, AHCV, HIVCMB ####[address] [address] #### CP, LIPR ####[address] [place] [address] Comp Metabolic Profon 2017 (cont.) Normal [facility] Comment on above: Result Comment: Aver age GFR for 50-59 years old: 93 mL/min/1.73sq mChronic Kidney Disease: <60 mL/min/1.73sq mKidney failure: <15 mL/min/1.73sq meGFR calculated using average adult body mass. Additional eGFR calculator available at:[email or web address]_[email or web address].htm Performed By: #### C BC, AHCV, HIVCMB ####[address] [address] #### CP, LIPR ####[address] [place] [address] Alanine aminotransferase (ALT) 39 U/L High 5-33 [facility] Comment on above: Performed By: #### C BC, AHCV, HIVCMB ####[address] [address] #### CP, LIPR ####[address] [place] [address] Albumin 4.3 g/dL Normal 3.5-5.2 [facility] Comment on above: Performed By: #### C BC, AHCV, HIVCMB ####[address] [address] #### CP, LIPR ####[address] [place] [address] Albumin/Globulin Ratio 1.3 {ratio} Normal 1.0-2.5 [facility] Comment on above: Performed By: #### C BC, AHCV, HIVCMB ####[address] [address] #### CP, LIPR ####[address] [place] [address] Alkaline Phos 54 U/L Normal 35-104 [facility] Comment on above: Performed By: #### C BC, AHCV, HIVCMB ####[address] [address] #### CP, LIPR ####[address] [place] [address] Anion gap 10 mmol/L Normal 9-17 [facility] Comment on above: Performed By: #### C BC, AHCV, HIVCMB ####[address] [address] #### CP, LIPR ####[address] [place] [address] Aspartate aminotransferase (AST) 37 U/L High <32 [facility] Comment on above: Performed By: #### C BC, AHCV, HIVCMB ####[address] [address] #### CP, LIPR ####[address] [place] [address] Bilirubin Ql (U) 0.51 mg/dL Normal 0.3-1.2 [facility] Comment on above: Performed By: #### C BC, AHCV, HIVCMB ####[address] [address] #### CP, LIPR ####[address] [place] [address] BUN/CRE Ratio 25 High 9-20 [facility] Comment on above: Performed By: #### C BC, AHCV, HIVCMB ####[address] [address] #### CP, LIPR ####[address] [place] [address] Calcium 9.6 mg/dL Normal 8.6-10.4 [facility] Comment on above: Performed By: #### C BC, AHCV, HIVCMB ####[address] [address] #### CP, LIPR ####[address] [place] [address] Chloride 101 mmol/L Normal 98-107 [facility] Comment on above: Performed By: #### C BC, AHCV, HIVCMB ####[address] [address] #### CP, LIPR ####[address] [place] [address] CO2 28 mmol/L Normal 20-31 [facility] Comment on above: Performed By: #### C BC, AHCV, HIVCMB ####[address] [address] #### CP, LIPR ####[address] [place] [address] Creatinine 0.57 mg/dL Normal 0.50-0.90 [facility] Comment on above: Performed By: #### C BC, AHCV, HIVCMB ####[address] [address] #### CP, LIPR ####[address] [place] [address] eGFR (non-black) mL/min/{1.73_m2} Normal >60 [facility] Comment on above: Performed By: #### C BC, AHCV, HIVCMB ####[address] [address] #### CP, LIPR ####[address] [place] [address] Glucose mass conc 99 mg/dL Normal 70-99 [facility] Comment on above: Performed By: #### C BC, AHCV, HIVCMB ####[address] [address] #### CP, LIPR ####[address] [place] [address] Potassium molar conc 4.5 mmol/L Normal 3.7-5.3 [facility] Comment on above: Performed By: #### C BC, AHCV, HIVCMB ####[address] [address] #### CP, LIPR ####[address] [place] [address] Protein 7.6 g/dL Normal 6.4-8.3 [facility] Comment on above: Performed By: #### C BC, AHCV, HIVCMB ####[address] [address] #### CP, LIPR ####[address] [place] [address] Sodium 139 mmol/L Normal 135-144 [facility] Comment on above: Performed By: #### C BC, AHCV, HIVCMB ####[address] [address] #### CP, LIPR ####[address] [place] [address] Staging: Normal [facility] Comment on above: Result Comment: Stag e 1: Some kidney damage normal GFRStage 2: Mild kidney damage GFR 60-89Stage 3: Moderate kidney damage GFR 30-59Stage 4: Severe kidney damage GFR 15-29Stage 5: Severe kidney damage GFR <15ESRD - chronic treatment by dialysis or transplantPerformed at [address] [place], [place] [address] [phone] Performed By: #### C BC, AHCV, HIVCMB ####[address] [address] #### CP, LIPR ####[address] [place] [address] Urea nitrogen 14 mg/dL Normal 6-20 [facility] Comment on above: Performed By: #### C BC, AHCV, HIVCMB ####[address] [address] #### CP, LIPR ####[address] [place] [address] Cult,Urineon 12-14-2017 Cult,Urine Specimen Description .CLEAN CATCH URINE Performed at [address] [place], [place] [address]83 [phone] Special Requests NOT REPORTEDCulture ESCHERICHIA COLI 50 to 100,000 CFU/ML Performed at [address] [address] Report Status FINAL 12/14/2017SUSCEPTIBILITYOrg anism ECMethod MICAmikacin NOT REPORTEDAmpicillin 8 SUSCEPTIBLEAmpicillin/Sulba ctam NOT REPORTEDAztreonam <=1 SUSCEPTIBLECefazolin <=4 SUSCEPTIBLE Cefazolin sensitivity results can be used to predict the effectiveness of oral cephalosporins (eg. Cephalexin) in uncomplicated Urinary Tract Infections due to E. coli, K. pneumoniae, and P. mirabilis Cefepime NOT REPORTEDCeftriaxone <=1 SUSCEPTIBLECiprofloxacin <=0.25 SUSCEPTIBLEErtapenem NOT REPORTEDESBL NEGATIVEGentamicin <=1 SUSCEPTIBLEMeropenem NOT REPORTEDNitrofurantoin <=16 SUSCEPTIBLETigecycline NOT REPORTEDTobramycin <=1 SUSCEPTIBLETrimethoprim/Sul fa <=20 SUSCEPTIBLEPiperacillin/Darrick obactam <=4 SUSCEPTIBLE Normal [facility] Comment on above: Performed By: #### U RC ####[address] [phone] [place] [address] Lipid Profileon 12-14-2017 Cholesterol 211 mg/dL High <200 [facility] Comment on above: Result Comment: Chol esterol Guidelines: <200 Desirable 200-240 Borderline >240 Undesirable Performed By: #### C BC, AHCV, HIVCMB ####[address] [address] #### CP, LIPR ####[address] [place] [id number] Cholesterol to HDL Ratio 2.6 {ratio} Normal <5 [facility] Comment on above: Performed By: #### C BC, AHCV, HIVCMB ####[address] [address] #### CP, LIPR ####[address] [place] [address] HDL Cholesterol 80 mg/dL Normal >40 [facility] Comment on above: Result Comment: HDL Guidelines: <40 Undesirable 40-59 Borderline >59 Desirable Performed By: #### C BC, AHCV, HIVCMB ####[address] [address] #### CP, LIPR ####[address] [place] [address] LDL Cholesterol 116 mg/dL Normal 0-130 [facility] Comment on above: Result Comment: LDL Guidelines: <100 Desirable 100-129 Near to/above Desirable 130-159 Borderline >159 UndesirableDirect (measured) LDL and calculated LDL are not interchangeable tests. Performed By: #### C BC, AHCV, HIVCMB ####[address] [address] #### CP, LIPR ####[address] [place] [address] Triglyceride 76 mg/dL Normal <150 [facility] Comment on above: Result Comment: Trig lyceride Guidelines: <150 Desirable 150- 199 Borderline 200-499 High >499 Very high Based on AHA Guidelines for fasting triglyceride, May 2012.Performed at [address] [place] [address] Performed By: #### C BC, AHCV, HIVCMB ####[address] [address] #### CP, LIPR ####[address] [place] [address] Cholesterol in VLDL mass conc NOT REPORTED Normal 1-30 [facility] Comment on above: Performed By: #### C BC, AHCV, HIVCMB ####[place] [place] [address] [place] [address] #### CP, LIPR ####[address] [place] [address] Progress Noteon 12-14-2017 HIM IP Note OR Molecular Genetic Pathologist Normal [facility] CT ABDOMEN PELVIS WO CONTRAS Ton 12-13-2017 CT ABDOMEN PELVIS WO CONTRAST FINAL REPORTEXAM: CT ABDOMEN PELVIS WO CONTRASTHISTORY: Right flank pain and hematuria. TECHNIQUE: Routine noncontrast CT scan of the abdomen and pelvis. Sagittal and coronal reconstructions were obtained. PRIORS: None.FINDINGS: No acute findings at the lung bases. Noncontrast imaging to the liver, spleen, pancreas, and kidneys are grossly unremarkable for acute disease. No renal stones or hydronephrosis.GI tract is nonobstructed. Evaluation of the GI tract is limited due to nondistention of the bowel and noncontrast imaging. No obvious, acute GI or mesenteric abnormalities. No free fluid. No fluid collections.No acute osseous findings.IMPRESSION: Impression: No significant findings. Interpreted by:Herson Cárdenas, MDSigned by:Herson Cárdenas MD12/13/18Final result Normal [facility] Urinalysis w/ Microon 2017 ----- Normal [facility] Comment on above: Performed By: #### U AMIC ####[address] [place] [address] Acetaminophen mass conc Negative Normal NEG [facility] Comment on above: Performed By: #### U AMIC ####[address] [place] [address] Bilirubin (direct) Negative Normal NEG [facility] Comment on above: Performed By: #### U AMIC ####[address] [place] [address] Hemoglobin mass conc (Bld) 1+ Abnormal NEG [facility] Comment on above: Performed By: #### U AMIC ####[address] [place] [address] Nitrite,Ur Negative Normal NEG [facility] Comment on above: Performed By: #### U AMIC ####[address] [place] [address] Turbidity CLEAR Normal CLEAR [facility] Comment on above: Performed By: #### U AMIC ####[address] [place] [address] Urine WBC's 20 TO 50 Normal 0-5 [facility] Comment on above: Performed By: #### U AMIC ####[address] [place] [address] Urine, bacteria in sediment TRACE Abnormal NONE [facility] Comment on above: Result Comment: Perf ormed at [address] [place] [address] Performed By: #### U AMIC ####[address] [place] [address] Urine, color YELLOW Normal YEL [facility] Comment on above: Performed By: #### U AMIC ####[address] [place] [address] Urine, epithelial cells in sediment 2 TO 5 Normal 0-25 [facility] Comment on above: Performed By: #### U AMIC ####[address] [place] [address] Urine, erythrocytes 0 TO 2 Normal 0-2 [facility] Comment on above: Performed By: #### U AMIC ####[address] [place] [address] Urine, glucose presence Negative Normal NEG [facility] Comment on above: Performed By: #### U AMIC ####[address] [place] [address] Urine, leukocyte esterase presence SMALL Abnormal NEG [facility] Comment on above: Performed By: #### U AMIC ####[address] [place] [address] Urine, pH 5.5 [pH] Normal 5.0-9.0 [facility] Comment on above: Performed By: #### U AMIC ####[address] [place] [address] Urine, protein presence Negative Normal NEG [facility] Comment on above: Performed By: #### U AMIC ####[address] [place] [address] Urine, specific gravity 1.010 Normal 1.010-1.020 [facility] Comment on above: Performed By: #### U AMIC ####[address] [place] [address] Urobilinogen,Ur Normal Normal NORM [facility] Comment on above: Performed By: #### U AMIC ####[address] [place] [address] Comment NOT REPORTED Normal [facility] Comment on above: Performed By: #### U AMIC ####[address] [place] [address] Epithelial, Renal NOT REPORTED Normal 0 [facility] Comment on above: Performed By: #### U AMIC ####[address] [place] [address] Mucus Strands NOT REPORTED Normal NONE [facility] Comment on above: Performed By: #### U AMIC ####[address] [place] [address] Other Observations NOT REPORTED Normal NREQ [facility] Comment on above: Performed By: #### U AMIC ####[address] [place] [address] Trichomonas NOT REPORTED Normal NONE [facility] Comment on above: Performed By: #### U AMIC ####[address] [place] [address] Urine, amorphous sediment presence in sediment NOT REPORTED Normal [facility] Comment on above: Performed By: #### U AMIC ####[address] [place] [address] Urine, casts in sediment NOT REPORTED Normal [facility] Comment on above: Performed By: #### U AMIC ####[address] [place] [address] Urine, crystals in sediment NOT REPORTED Normal NONE [facility] Comment on above: Performed By: #### U AMIC ####[address] [place] [address] Urine, yeast presence in sediment NOT REPORTED Normal [facility] Comment on above: Performed By: #### U AMIC ####[address] [place] [address] Vital Signs Date Time Vital Sign Value Performing Clinician Facility 12-23-2022 16:40-0400 Body height 160.02 cm Awais Comer Other [facility] Other 12-23-2022 16:40-0400 Body mass index (BMI) [Ratio] 21.25 kg/m2 Awais Comer Other [facility] Other 12-23-2022 16:40-0400 Body weight 54.43 kg Awais Comer Other [facility] Other 12-14-2022 15:30-0400 Body height 160.02 cm Vilma Sharma Other [facility] Other 12-14-2022 15:30-0400 Body mass index (BMI) [Ratio] 21.25 kg/m2 Vilma Sharma Other [facility] Other 12-14-2022 15:30-0400 Body weight 54.43 kg Vilma Sharma Other [facility] Other 10-20-2021 16:45-0500 Body height 160.02 cm Herson Amin Other [facility] Other 10-20-2021 16:45-0500 Body mass index (BMI) [Ratio] 21.61 kg/m2 Herson Amin Other [facility] Other 10-20-2021 16:45-0500 Body weight 55.34 kg Herson Amin Other [facility] Other 08-13-2019 10:12-0500 BMI (Body Mass Index) 21.5 kg/m2 Lupe Snider [facility] Work Phone: 08-13-2019 10:12-0500 Body Temperature 99.6 [degF] Lupe [facility] Work Phone: 08-13-2019 10:12-0500 Body weight 49.9 kg Lupe [facility] Work Phone: 08-13-2019 10:12-0500 BP Diastolic 78 mm[Hg] Lupe [facility] Work Phone: 08-13-2019 10:12-0500 BP Systolic 110 mm[Hg] Lupe [facility] Work Phone: 08-13-2019 10:12-0500 BSA (Body Surface Area) 1.45 m2 Lupe [facility] Work Phone: 08-13-2019 10:12-0500 Height 152.4 cm Lupe [facility] Work Phone: 08-13-2019 10:12-0500 Pulse (Heart Rate) 80 /min [facility] Work Phone: 08-13-2019 10:12-0500 Pulse Oximetry 96 % Lupe [facility] Work Phone: 08-13-2019 10:12-0500 Respiratory Rate 14 /min Lupe [facility] Work Phone: 08-01-2019 12:12-0500 BMI (Body Mass Index) 21.5 kg/m2 Lupe [facility] Work Phone: 08-01-2019 12:12-0500 Body Temperature 98.8 [degF] [facility]pe [facility] Work Phone: 08-01-2019 12:12-0500 Body weight 49.9 kg Lupe [facility] Work Phone: 08-01-2019 12:12-0500 BP Diastolic 80 mm[Hg] [facility] Work Phone: 08-01-2019 12:12-0500 BP Systolic 130 mm[Hg] Lupe [facility] Work Phone: 08-01-2019 12:12-0500 BSA (Body Surface Area) 1.45 m2 Lupe [facility] Work Phone: 08-01-2019 12:12-0500 Height 152.4 cm Lupe [facility] Work Phone: 08-01-2019 12:12-0500 Pulse (Heart Rate) 87 /min Lupe [facility] Work Phone: 08-01-2019 12:12-0500 Pulse Oximetry 96 % Lupe [facility] Work Phone: 08-01-2019 12:12-0500 Respiratory Rate 14 /min Lupe [facility] Work Phone: 2019 15:40-0500 BMI (Body Mass Index) 21.5 kg/m2 Lupe [facility] Work Phone: 2019 15:40-0500 Body Temperature 98 [degF] Lupe [facility] Work Phone: 2019 15:40-0500 Body weight 49.9 kg Lupe [facility] Work Phone: 2019 15:40-0500 BP Diastolic 80 mm[Hg] Lupe [facility] Work Phone: 2019 15:40-0500 BP Systolic 104 mm[Hg] [facility] 2019 15:40-0500 BSA (Body Surface Area) 1.45 m2 Lupe [facility] Work Phone: 2019 15:40-0500 Height 152.4 cm Lupe [facility] Work Phone: 2019 15:40-0500 Pulse (Heart Rate) 84 /[facility] 15:40-0500 Pulse Oximetry 95 % Lupe Tylor [facility] Work Phone: Encounters Encounter Date Encounter Type Care Provider Facility Start: 12-23-2022 End: 12-23-2022 ambulatory Awais Comer Other [facility] [employer] Other Start: 12-23-2022 Office outpatient visit 15 minutes Awais Comer [facility] Neuro[facility] Start: 12-21-2022 End: 12-21-2022 ambulatory Vilma Sharma Facility:[facility] Start: 12-21-2022 End: 12-21-2022 ambulatory DO Nomi Corcoran Work Phone: [facility] Work Phone: Start: 12-21-2022 End: 12-21-2022 Patient encounter procedure DO Nomi Corcoran Work Phone: [facility] Work Phone: Start: 12-16-2022 End: 12-16-2022 ambulatory Vilma Sharma Other [facility] [employer] Other Start: 12-16-2022 Telephone encounter Vilma Sharma [facility] Start: 12-15-2022 End: 12-15-2022 ambulatory Vilma Sharma Other [place] [employer] Other Start: 12-15-2022 Telephone encounter Vilma Sharma [facility] Neurosurgery Start: 12-14-2022 End: 12-14-2022 ambulatory Vilma Sharma Other [facility] [employer] Other Start: 12-14-2022 Office outpatient ne w 45 minutes Vilma Sharma [facility] Start: 12-14-2022 Telephone encounter Vilma Sharma [facility] Start: 12-13-2022 End: 12-13-2022 ambulatory JUANA BOB Facility:[facility] Start: 12-09-2022 End: 12-09-[address] TREV PHILLIPS Facility:[facility] Start: 11-30-2022 End: 11-30-[address] ISHA VIVEROS . Facility:[facility] Start: 11-26-2022 ambulatory NONE LISTED REQUEST Facility:[facility] Start: 08-24-2022 End: 08-24-2022 Phys/qhp telephone evaluation 11-20 min Aliza Guadarrama MD Work Phone: [facility] Comment on above: Cough, unspecified t ype (Primary Dx) Start: 08-06-2022 End: 08-07-[address] HERSON VANCE Facility:[facility] Start: 05-10-2022 End: 05-10-[address] CHARMAINE BATRES . Facility:[facility] Start: 05-10-2022 ambulatory NONE LISTED REQUEST Facility:[facility] Start: 05-04-2022 ambulatory NONE LISTED REQUEST Facility:[facility] Start: 03-04-[address] DOCTOR WALLACE Facility :[facility] Start: 02-26-2022 End: 02-26-2022 ambulatory JUANA BOB Facility:[facility] Start: 02-17-2022 End: 02-18-[address] HERSON VANCE Facility:[facility] Start: 02-16-2022 End: 02-17-[address] DOCTOR WALLACE Facility:[facility] Start: 12-29-2021 End: 12-29-2021 ambulatory SAUL IRVING . Facility:[facility] Start: 10-20-2021 End: 10-20-2021 ambulatory Herson Amin Other [facility] Other Start: 10-20-2021 Office outpatient ne w 45 minutes Herson Amin [facility] Gastroenterology Start: 08-13-2019 End: 08-13-2019 Established patient Porsche Vega Work Phone: [facility] Work Phone: Start: 08-01-2019 End: 08-01-2019 Established patient Lupe Snider Work Phone: [facility] Work Phone: Start: 2019 End: 2019 New patient Lupe Serratoer Work Phone: [facility] Work Phone: Start: 12-26-2017 End: 12-27-2017 Ambulatory GURPREET JOHNSON [facility] Start: 12-16-2017 End: 12-17-2017 Ambulatory [facility] Start: 12-14-2017 End: 12-15-2017 Ambulatory [facility] Start: 12-13-2017 End: 12-16-2017 Ambulatory [facility] Procedures Date Procedure Procedure Detail Performing Clinician Start: 12-21-2022 Dual energy X-ray absorptiometry DO Nomi Corcoran Work Phone: Start: 08-13-2019 Diast bp <80 mm hg [facility] [place] Work Phone: Start: 08-13-2019 Syst bp lt 130 mm hg Cy nthia [place] Work Phone: Start: 08-01-2019 Diast bp 80-89 mm hg Ca ssie Tylor Work Phone: Start: 08-01-2019 Syst bp ge 130 - 139mm hg Lupe Tylor Work Phone: Start: 2019 CARDIOVASCULAR DISORDERS Lupe Tylor Start: 2019 Diast bp <80 mm hg Sameera cifuentes [facility] Work Phone: Start: 2019 Hysterectomy Lupe [facility] Start: 2019 ORTHOPEDIC DISORDERS Ca ssie Tylor Start: 2019 Pt-focused hlth risk assmt score doc stnd instrm Lupe Tylor Work Phone: Start: 2019 Syst bp lt 130 mm hg Ca ssie Tylor Work Phone: Start: 12-26-2017 EKG 12-LEAD LETY SANFORD Start: 12-26-2017 URINE CULTURE CLEAN CATCH LETY YOUNGMAN Start: 12-26-2017 URINALYSIS WITH MICROSCOPIC LETY DERAS Start: 12-16-2017 HEPATITIS C RNA, PCR NO WILFRID DERAS Start: 12-14-2017 CBC LETY SANFORD Start: 12-14-2017 COMPREHENSIVE METABO LIC PANEL LETY DERAS Start: 12-14-2017 HEPATITIS C ANTIBODY NO WILFRID DERAS Start: 12-14-2017 HIV SCREEN LETY SANFORD Start: 12-14-2017 Lipid panel LETY SANFORD Start: 12-13-2017 Ct abdomen & pelvis w/o contrast material LETY DERAS Start: 12-13-2017 URINALYSIS WITH MICROSCOPIC LETY DERAS Start: 12-13-2017 URINE CULTURE LETY SAGE H/O: hysterectomy Herson garcia Other Screening for malign ant neoplasm of colon Herson Amin Other Plan of Treatment Date Care Activity Detail Author Start: 02-03-2026 Cholesterol [Mass/vo lume] in Serum or Plasma [facility]olesterol [facility] Start: 05-22-2022 Influenza vaccination Influenza Vacc ine (#1) [facility] Start: 2011 Measurement of occul t blood in single stool specimen FIT [facility] Start: 2011 Screening for malign ant neoplasm of colon CRC Screening [facility] Start: 2011 Shingles (RZV) Vacci ne (1 of 2) Shingles (RZV) Vaccine (1 of 2) [facility] Start: 2001 Screening for malign ant neoplasm of breast Mammography [facility] Start: 1982 Screening for malign ant neoplasm of cervix Pap Smear [facility] Start: 1979 Hepatitis C screening [facility] Start: 1979 Tetanus + diphtheria + acellular pertussis vaccine (product) Tdap Booster [facility] Start: 1976 HIV screening HIV Test [facility] Start: 1961 Screening for malign ant neoplasm of colon Colonoscopy [facility] Immunizations Immunization Date Immunization Notes Care Provider Stacy aguilera 07-13-2021 COVID-19 mRNA, Comirnatjinny (Pfizer) DO Nomi Corcoran Work Phone: [facility] 12-10-2020 COVID-19 mRNA, Comirnaty (Pfizer) DO Nomi Nilo Work Phone: [facility] 11-25-2020 diphtheria, tetanus toxoids and pertussis vaccine Aliza Guadarrama MD Work Phone: [facility] 11-13-2020 COVID-19 mRNA, Comirnaty (Pfizer) DO Nomi Corcoran Work Phone: [facility] Payers Date Payer Category Payer Medicaid PERSON MEDICA[place] [id number] 2020-Present [address] [address] [place] [address] Medicaid HMO [id number] 2017 Unknown [id number] 2014 Unknown [id number] 1961 Unknown [id number] 1961 Unknown [id number] [id number] 1961 Unknown [id number] [id number] 1961 Unknown [id number] [id number] 1961 Unknown [id number] [id number] 1961 Unknown [id number] [id number] 1961 Unknown [id number] [id number] 1961 Unknown [id number] [id number] 1961 Unknown [id number] [id number] 1961 Unknown [id number] [id number] 1961 Unknown [id number] [id number] 1961 Unknown [id number] [id number] 1961 Unknown [id number] [id number] 1959 Medicaid [id number] [id number] 1959 Self-pay Self-pay [id number] Unknown [id number] [id number] [facility] [id number] Social History Date Type Detail Facility Assertion [facility] Work Phone: Assertion Alcohol consumpt ion screening (procedure) [facility] Work Phone: Assertion Gender identity finding (finding) [facility] Work Phone: Assertion Finding of sexua l orientation (finding) [facility] Work Phone: Assertion Tobacco user (finding) [facility] Work Phone: Tobacco smoking status Unknown if ever smoked [facility] Work Phone: Sex Assigned At Sex Assigned At [facility] Other Start: 1960 Sex Assigned At Not on file [facility] Start: 12-01-2021 Tobacco smoking status NHIS Smoker (finding) [facility] Start: 1960 Sex Assigned At Female [facility] NEGATED: Highlighted row Assertion Illicit drug use (finding) [facility] Work Phone: NEGATED: Highlighted row Assertion Misuse of prescription only drugs (finding) [facility] Work Phone: NEGATED: Highlighted row Assertion She has not had 4 or more drinks in a day within the past year. [facility] Work Phone: NEGATED: Highlighted row Assertion Current drinker of alcohol (finding) [facility] Work Phone: NEGATED: Highlighted row Assertion Finding relating to drug misuse behavior (finding) [facility] Work Phone: NEGATED: Highlighted row Assertion Exposure to pollution (event) [facility] Work Phone: NEGATED: Highlighted row Assertion Tobacco user (finding) [facility] Work Phone: Mental Status Date Assessment Result Facility Cognitive function No disorienta tion was observed Finding related to orientation (finding) [facility] Work Phone: Clinical Notes 10-20-2021 to 12-23-2022 Note Date & Type Note Facility 12-23-2022 Evaluation note Encounter Date Diagnosis Assessment Notes December, Other closed displaced fracture of seventh cervical vertebra, initial encounter (ICD-10 - S12.690A) I spoke with the patient's insurance company today and got approval of an MRI that is needed. This MRI will tell me if the fracture is acute will also give me an idea if there is cord compression and/or signal change. Today the patient comes with no collar on as directed she states she has no pain but her neck is stiff and that she knows how her neck is and is taking care of herself without a collar and refuses to wear the collar. I do not feel comfortable with this situation. I will not give her a back to work I do not think it safe until I know more about the condition of her spinal cord her spinal canal etc. I have asked her to obtain an MRI of the cervical spine and a dynamic neck x-ray. [facility] Other 04-27-2023 Evaluation note* Encounter Date Diagnosis Assessment Notes Treatment Notes Treatment Clinical Notes 27 Apr, 2023 Other closed displaced fracture of seventh cervical vertebra, initial encounter (ICD-10 - S12.690A) [facility] Other 04-26-2023 Evaluation note* Encounter Date Diagnosis Assessment Notes Treatment Notes Treatment Clinical Notes Nov, Other closed displaced fracture of seventh cervical vertebra, initial encounter (ICD-10 - S12.690A) [facility] Other 04-25-2023 Evaluation note* Encounter Date Diagnosis Assessment Notes Treatment Notes Treatment Clinical Notes Nov, Other closed displaced fracture of seventh cervical vertebra, initial encounter (ICD-10 - S12.690A) I reviewed images face to face with patient and Independently reviewed the CT scan of the cervical spine and the plain x-rays showing a C7 fracture with probable or possible comminution. It is impossible to tell how much of the canal is exactly compromised the mortise or any cord compression. Because of this and the acute fracture will need an MRI of the cervical spine to evaluate the spinal cord specifically. Physical therapy will have no input into the outcome of this. In addition the patient has known osteoporosis has not had a DEXA scan for 3 years and needs a study. Based on these findings we will reevaluate in approximately 1 week-10 days and proceed with interventional procdures In the meantime we have given the patient pain medication as a bridge, OARRS Reviewed. She is to continue wearing the collar until follow up. Medical decision making shows a new problem to me with further workup planned or suggested with the potential for extensive treatment options that were considered with the most applicable given this patient's situation as noted above. Treatment options considered include a combination of physical therapy approaches, pharmacologic management, and interventional procedures. Those most applicable to the patient were discussed at this time. Risk of complications and/or morbidity and mortality is high given that acute and chronic pain poses a threat to life and bodily function if undertreated, poorly treated or with failure to maintain adequate treatment and timely follow up. Given the serious and fluctuating nature of pain with extensive consideration for whenever pain changes, there always remains the possibility of prolonged functional impairment requiring constant patient reassessment and high-level medical decision making. The amount and complexity of data reviewed is high given that patient labs, radiology reports, and other test were obtained, reviewed and summarized as applicable from the physician portal and/or outside medical records. Pertinent positive and negative findings were considered in medical decision-making. [facility] Other 01-03-2023 History of Present illness Narrative* Aliza Guadarrama MD - 08/24/2022 10:25 PM EST Phone numbers Preferred Documentation: Mode: Telephone Patient Patient Work Phone: Patient Cell Phone: Preferred phone: [phone] Consent: I confirmed patient understanding of the risks and benefits of telehealth visits and obtained consent to proceed with the telehealth visit. Location of Patient: Home of patient On Jul 28, she tested positive for COVID She then felt better, but on Aug 17 she started having fever of 102 - 103 till today + Cough + Shortness of breath IMP and PLAN Fever, cough, ad shortness of breath Come to medical attention to be evaluated for possible pneumoniae Aliza Guadarrama MD documented in this [id number] Evaluation note* Encounter Date Diagnosis Assessment Notes Treatment Notes Treatment Clinical Notes Oct, Hepatitis C (ICD-10 - B19.20) PT WOULD LIKE TO ADDRESS THIS AFTER HER COLONOSCOPY TREATMENT AND TESTING EXPLAINED TO PATIENT IN DETAIL SHE WILL CALL WHEN SHE IS READY TO START THIS PROCESS Oct, Screen for colon cancer (ICD-10 - Z12.11) COLONOSCOPY [facility] Other Evaluation note* Diagnosis Cough, unspecified type- Primary documented [facility] Other evaluation noteNo assessment information available [facility] Work Phone: Hiswdvo general Narrative - Reported* Type Description Date Medical History allergies Medical History anxiety Medical History arthritis Medical History hepatitis c Medical History IBS Medical History liver disease Medical History osteoarthritis Medical History osteoporosis Surgical History liver biopsy Surgical History total hysterectomy 1992 Surgical History skin graft to right hand Surgical History lymph node removed from necks [facility] Other Histeip general Narrative - Reported* Type Description Date Medical History allergies Medical History anxiety Medical History arthritis Medical History hepatitis c Medical History IBS Medical History liver disease Medical History osteoarthritis Medical History osteoporosis Surgical History liver biopsy Surgical History total hysterectomy 1992 Surgical History skin graft to right hand Surgical History lymph node removed from necks Hospitalization History see surg Hx [facility] [employer] Other Summary Purpose Family History Description Last Updated unknown family history, pt is adopted Relationship Condition Age at Onset Recorded Date/T taylor Not Specified Adopted Unknown Advance Directives Advance Directive Response Recorded Date/ Time Advance Directives No November 27 7:22am Reason for Referral No Reason for Referral RecordedNo Reason for Referral RecordedNo InformationNo InformationNo InformationNo InformationNo InformationNo InformationNo Information Assessments Findings Encounter Date Assessment of fall on and fr om stairs and steps Medical New Patient with Lupe Snider [facility] 2019 Body mass index [Body mass i ndex (BMI) 21.0-21.9 adult] Medical New Patient with Lupe Snider [facility] 2019 Diabetes Risk Test Score was two score 2019 Medical New Patient with Lupe Snider [facility] 2019 [place] Score was two 2019 [facility] New Patient with Lupe Snider [facility] 2019 PHQ-9: total score was 0 2019 [facility] New Patient with Lupe Snider [facility] 2019 Findings Encounter Date Contusion of back wall of thorax Medical Established Patient with Porsche Vega [facility] 08/13/2019 Z68.21 - Body mass index (BM I) 21.0-21.9 adult Medical Established Patient with Porsche Vega [facility] 08/13/2019 Body mass index [Body mass i ndex (BMI) 21.0-21.9 adult] Medical Established Patient with Lupe Snider [facility] 08/01/2019 Oral thrush [Candidal stomatitis] Medica l Established Patient with Lupe Snider [facility] 08/01/2019 Assessment of fall on and fr om stairs and steps Medical New Patient with Lupe Snider [facility] 2019 Body mass index [Body mass i ndex (BMI) 21.0-21.9 adult] Medical New Patient with Lupe Snider [facility] 2019 Diabetes Risk Test Score was two score 2019 Medical New Patient with Lupe Snider [facility] 2019 [place] Score was two 2019 [facility] New Patient with Lupe Snider [employer] 2019 PHQ-9: total score was 0 2019 [facility] New Patient with Lupe Snider [employer] 2019 Instructions Instructions not supported for this document type No Instructions Recorded Instructions not supported for this document type No Instructions Recorded History of Present Illness History of Present Illness not supported for this document type No History of Present Illness Recorded History of Present Illness not supported for this document type No History of Present Illness Recorded Review of System Review of Systems not supported for this document type No Review of Systems Recorded Review of Systems not supported for this document type No Review of Systems Recorded Physical Exam Physical Exam not supported for this document type No Physical Exam Recorded Physical Exam not supported for this document type No Physical Exam Recorded Chief Complaint and Reason for Visit Chief Complaint [id number] Additional Source Comments INFORMATION SOURCE (unrecogn ized section and content) DATE CREATED AUTHOR 02/23/2018 [facility] DATE CREATED AUTHOR AUTHOR'S ORGANIZ ATION 02/23/2018 [facility] DATE CREATED AUTHOR AUTHOR'S ORGANIZ ATION 04/16/2022 [facility] DATE CREATED AUTHOR AUTHOR'S ORGANIZ ATION 12/15/2022 [facility] DATE CREATED AUTHOR AUTHOR'S ORGANIZ ATION 12/22/2022 [facility] Evaluations & Outcomes (unre cognized section and content) Includes: Evaluations & Outcomes for active GoalsNo Outcomes Recorded Includes: Evaluations & Outcomes for active GoalsNo Outcomes Recorded REASON FOR VISIT (unrecogniz ed section and content) follow up MRI/dexa Reason Comments Cough Care Teams (unrecognized sec tion and content) Team Status: Active Member Role Status Dates Nomi Corcoran DO Primary Care Provider Active Team Status: Inactive Member Role Status Dates Nomi Corcoran DO Primary Care Provider Active VARGHESE Linder Attending Provider Active Goals (unrecognized section and content) Goals may be documented in a n alternate section FOR RECORDS PERTAINING TO PATIENTS WHO ARE OR HAVE BEEN ENROLLED IN A CHEMICAL DEPENDENCY/SUBSTANCEABUSE PROGRAM, SOME INFORMATION MAY BE OMITTED. This clinical summary was aggregated from multiple sources. Caution should be exercised in using it in the provision of clinical care. This summary normalizes information from multiple sources, and as a consequence, information in this document may materially change the coding, format and clinical context of patient data. In addition, data may be omitted in some cases. CLINICAL DECISIONS SHOULD BE BASED ON THE PRIMARY CLINICAL RECORDS. [employer] [facility]. provides no warranty or guarantee of the accuracy or completeness of information in this document.
[2024-06-07 17:39] VITALS: BP 143/80; PULSE 72; TEMP 36.8; O2SAT 96; BMI 18.6
--- NOTE | 2024-06-07 17:54 | ED_ITS ---
HPI HPI - Back Pain/Injury General Chief Complaint: Back Pain/Injury Stated Complaint: Back Injury Time Seen by Provider: 06/07/24 17:50 Source: patient Mode of arrival: walk-in Limitations: no limitations History of Present Illness HPI Narrative: Patient is a 63-year-old female who presents to the emergency department for evaluation of an injury to her back. She states that her basement door is metal, it swung and hit her in the back of the right ribs. She sustained small abrasions to the area and was concerned because she is recovering from COVID and wanted to make sure that everything will be okay. She had no fall to the ground, no head injury or other associated injuries. She is noted to be ambulatory, standing and sitting without difficulty. She is moving upper extremities without difficulty. She does not take blood thinners. Related Data Home Medications ?Medication ?Instructions ?Recorded ?Confirmed prednisone 20 mg tablet 20 mg PO Q12H 06/07/24 06/07/24 Allergies Allergy/AdvReac Type Severity Reaction Status Date / Time Penicillins AdvReac Intermediate Hives Verified 06/07/24 17:39 Opioid HPI Opioid Management Most Recent Opioid Data: No Data to Display Review of Systems ROS Constitutional Denies: fever or chills Ears, nose, mouth, and throat Denies: throat pain or nasal congestion Respiratory Reports: cough; Denies: shortness of breath Gastrointestinal Denies: nausea or vomiting Integumentary/Breast Denies: rash Neurological Denies: numbness in extremities or weakness in extremities Hematologic/Lymphatic Denies: easy bruising or easy bleeding PFSH PFSH Social History Smoking status: Current every day smoker Little interest or pleasure in doing things: not at all Feeling down, depressed, or hopeless: not at all Exam Narrative Exam Narrative: Gen.: Awake, alert, in no distress Head: Normocephalic, atraumatic ENT: Moist mucous membranes Respiratory: No respiratory distress, lungs clear bilaterally; abrasions noted over the right posterior chest wall, no bony point tenderness or obvious deformity of the thoracic spine Cardio: Regular rate and rhythm Extremities: Moves extremities equally, no injuries noted Psych: Normal mood and affect Neuro: No focal neuro deficit Skin: Warm, dry, intact Constitutional Vital Signs, click to edit/add: Last Vital Signs Temp 98.2 F 06/07/24 17:39 Pulse 72 06/07/24 17:39 Resp 16 06/07/24 17:39 BP 143/80 H 06/07/24 17:39 Pulse Ox 96 06/07/24 17:39 O2 Del Method Room Air 06/07/24 17:39 Course Vital Signs Vital signs: Vital Signs Temperature 98.2 F 06/07/24 17:39 Pulse Rate 72 06/07/24 17:39 Respiratory Rate 16 06/07/24 17:39 Blood Pressure 143/80 H 06/07/24 17:39 Pulse Oximetry 96 06/07/24 17:39 Oxygen Delivery Method Room Air 06/07/24 17:39 Temperature 98.2 F 06/07/24 17:39 Pulse Rate 72 06/07/24 17:39 Respiratory Rate 16 06/07/24 17:39 Blood Pressure 143/80 H 06/07/24 17:39 Pulse Oximetry 96 06/07/24 17:39 Oxygen Delivery Method Room Air 06/07/24 17:39 MDM - Back Pain/Injury MDM Narrative Medical decision making narrative: This patient is ambulatory, stable vital signs with no evidence of major injury. She was sent for x-rays of the ribs and spine. These x-ray results are pending. She complained to nursing of 7 out of 10 pain but when Toradol was ordered for her, she stated that that medication would interfere with serotonin and she refused the medications. While waiting for her x-ray results, the patient became agitated and tried to walk out of the ambulance bay, when she was redirected by nursing staff she became agitated and hostile stating that we are holding her hostage. She demanded her ID and wanted to leave. She was made aware that she has not hostage and she is free to leave the emergency department at any time, she eloped prior to the remainder of her evaluation. SUPERVISED APC VISIT, PHYSICIAN ATTESTATION: Based on the medical record the care appears appropriate. ? Medical Records Attestation: I reviewed the patient's medical records. Discharge Plan Discharge Stand Alone Forms: Portal Instructions Chief Complaint: Back Pain/Injury Clinical Impression: Contusion of right back wall of thorax Patient Disposition: Left Against Medical Advice Time of Disposition Decision: 18:44 Prescriptions / Home Meds: No Action prednisone 20 mg tablet 20 mg PO Q12H Rx Instructions: x 5 days Print Language: Sinhala Referrals: Physician,Non-Staff, MD [Primary Care Provider] - 1 week
--- NOTE | 2024-06-07 18:02 | XR_ITS ---
The [address] [address] Patient Name: RICARDO ELIAS MRN: [id number] date: 1960 Sex: F Assigned Patient Location: ER Current Patient Location: ED.MAIN Accession/Order Number: [id number] Exam Date: 06/07/2024 17:58 Report Date: 06/07/2024 19:12 At the request of: SUZANNA IRVING Procedure: XR ribs RT min 3V w CXR1V EXAM: XR ribs RT min 3V w CXR1V TECHNIQUE: PA view chest. PA view of the ribs above diaphragm, PA view ribs below diaphragm, oblique view ribs above diaphragm, oblique view ribs below diaphragm HISTORY: Contusion. COMPARISON: CT scan 08/18/2023 FINDINGS: The heart and mediastinum are unremarkable. Lungs are clear of any acute infiltrate, effusion or mass. There is no pneumothorax. Deformity of the right ninth rib posteriorly suspicious for acute rib fracture. No lytic or blastic lesion. No pneumothorax. XR/XR ribs RT min 3V w CXR1V IMPRESSION: Suspicious for nondisplaced fracture of the right ninth rib posteriorly. Electronically authenticated by: YOGESH BUENO Date: 06/07/2024 19:12
== END 2024-06-07 18:55 | disposition left against medical advice (07) ==
PROVIDERS: Emergency Provider Emergency Medicine
DX: S20.221A Contusion of right back wall of thorax, initial encounter (principal); W20.8XXA Other cause of strike by thrown, projected or falling object, initial encounter; F17.200 Nicotine dependence, unspecified, uncomplicated; Z53.29 Procedure and treatment not carried out because of patient's decision for other reasons
CPT/HCPCS: 71101; 99283

== ENCOUNTER 2024-10-05 11:36 | Emergency (ER) | payer OTHER, SELFPAY ==
[2024-10-05 11:48] VITALS: BP 127/83; PULSE 96; TEMP 36.8; O2SAT 96; BMI 19.0
--- OUTSIDE RECORDS SUMMARY | 2024-10-05 12:05 | XMS_ITS | CCD ---
Author Organization [facility] Care Team Providers Care X Ray Developer Name Role Phone DERAS, LETY VIOLETTA Unavailable [...] Unavailabl e Lupe Snider Primary Care Provider [phone] Herson Amin Unavailable Unavailable Primary Care Provider UnavailVilma Recinos Unavailable RODRIGO, DR ARCEO Consulting Unavailable MISC, DR ARCEO Primary Care Unavailable MISC, DR ARCEO Attending Unavailable MISC, DR ARCEO Admitting Unavailable KATHE WHITMAN Consulting Unavailable LEHIGH, DR HERSON Martinez Consulting Unavailable REQUEST, DR ALVAREZ LISTED Primary Care Unavaila solomon CORCORAN, DR DE LUNA Attending Unavailable NILO, DR DE LUNA Admitting Unavailable NILO, DR DE LUNA Consulting Unavailable REQUEST, DR ALVAREZ LISTED Primary Care Unavaila solomon CORCORAN, DR DE LUNA Attending Unavailable NILO, DR DE LUNA Admitting Unavailable JUNAA BOB Attending Unavailable JUANA BOB Admitting Unavailable [...] Admitting Unavailable JUANA BOB Consulting Unavailable JUANA BBO Attending Unavailable JUANA BOB Admitting Unavailable MISC, [...] Unavailable DO Nomi Corcoran Primary Care Provider VARGHESE Sharma Attending Provider Fahad Portillo DO Primary Care Provider FAHAD PORTILLO Attending Unavailable FAHAD PORTILLO Attending Unavailable FAHAD PORTILLO Attending Unavailable Allergies Allergy Classification Reported Allergen(s) Allergy Type Date of Onset Reaction(s) Facility (2 sources) Erythromycin Drug Allergy erythromycin [facility] Work Phone: (3 sources) Penicillins; Translations: [Penicillins] Allergy to substance 2 [facility] Repository (2 sources) -No Environmental Allergies Allergy to substance [facility] Work Phone: (7 sources) Mold Extract Drug Allergy Unknown [facility] Other (7 sources) Penicillin G Drug Allergy hives [facility] Other (6 sources) Substance with sulfonamide structure and antibacterial mechanism of action (substance) Drug allergy Unknown [facility] Other (1 source) Penicillin Drug Allergy [facility] (1 source) Sulfonamides (Antibiotic) Drug allergy (disorder) [facility] Repository Medications Current Medications Medication Drug Class(es) [...] Active Start: 12-14-2022 take 1 tablet by wilbre th every twelve hours HYDROcodone-Acetaminophen 5-325 MG 1 tab let as needed Orally every 12 hrs for 7 days Nov, Active ALPRAZolam 1 mg oral tablet (16 sources) Benzodiazepine Start: 10-03-2024 End: 11-02-2024 ALPRAZolam (Xanax) 1 MG tablet Indications: Anxiety attack (CMS/HCC) , Insomnia, unspecified type Take 1 tablet (1 mg) by mouth as needed at bedtime for anxiety or sleep 30 tablet 10/03/2024 11/02/2024 Active Start: 07-04-2024 End: 08-03-2024 ALPRAZolam (Xanax) 1 MG tabl et Indications: Anxiety attack (CMS/HCC) , Insomnia, unspecified type Take 1 tablet (1 mg) by mouth as needed at bedtime for anxiety or sleep 30 tablet 07/04/2024 07/17/2024 Discontinued (Therapy completed) Start: 12-01-2021 take 1 mg by mouth twice daily Alprazolam Active 1 MG PO Twice daily December 01, 2021 12:00am cholecalciferol 0.01 mg oral capsule (8 sources) Vitamin D take 1 capsule by mouth once daily cholecalciferol (Vitamin D-3) 10 MCG (400 UNIT) capsule Indications: Vitamin D Deficiency Take 400 Units by mouth Daily Active ibuprofen 200 mg oral tablet (1 source) Nonsteroidal Anti-inflammatory Drug Start: 019 Motrin IB 200 MG Oral Tablet 08/01/2019 Provider: krill oil 500 mg oral capsule (15 sources) take 1 tablet by mouth once daily Krill Oil 500 MG capsule Take 1 tablet by mouth Daily Active Krill Oil Not-Ta david Krill Oil Active loratadine 10 mg oral tablet (9 sources) Start: 08-01-2019 Loratadine 10 MG Oral Tablet 08/01/2019 Provider: Multiple Vitamin (multivitamin) tablet (8 sources) take 1 tablet by mouth once daily Multiple Vitamin (multivitamin) tablet Indications: Vitamin Deficiency Take 1 tablet by mouth Daily Active nystatin 323871 unt/ml oral suspension (1 source) Polyene Antifungal Start: 08-01-2019 Nystatin 213781 UNIT/ML Mouth/Throat Suspension 08/01/2019 Provider: Lupe Snider PRETZEL COOKER triamcinolone acetonide 1 mg/ml topical cream (8 sources) Corticosteroid Start: 07-04-2024 End: 07-18-2024 triamcinolone (Kenalog) 0.1 % cream Indications: Dermatitis Apply topically 2 (two) times a day for 14 days 15 g 07/04/2024 07/18/2024 Active triamcinolone (K enalog) 0.1 % cream Apply 1 application topically in the morning and 1 application before bedtime. Active Completed/Discontinued Medications Medication Drug Class(es) Dates Sig [...] MG OR TABS 07/24/2015 - 07/24/2015 Provider: Multivitamin Adult - (7 sources) Multivitamin Rene lt - as directed Orally Not-Taking Multivitamin Rene lt - as directed Orally Active Probiotic - (7 sources) Probiotic - as d irected Orally Not-Taking Probiotic - as d irected Orally Active Problems Active Problems Problem Classification Problem Date Documented Da te Episodic/Chronic Allergic reactions (6 sources) Inflammatory dermatosis; Translations: [Dermatitis, unspecified] 07-11-2024 Episodic Anxiety disorders (11 sources) Anxiety disorder; Translations: [Anxiety disorder, unspecified] 07-04-2024 Chronic Crushing injury or internal injury (4 sources) Crushing injury of right index finger, initial encounter; Translations: [Crushing injury of right little finger, initial encounter] Onset: 11-30-2022 Episodic Diseases of mouth; excluding dental (2 sources) Mucocele of mouth; Translations: [Other lesions of oral mucosa] 07-17-2024 Episodic Disorders of lipid metabolism (8 sources) [...] C; Translations: [Chronic viral hepatitis C] Chronic Hepatitis (4 sources) Unspecified viral hepatitis C without hepatic coma; Translations: [Viral hepatitis C] Onset: 12-16-2017 Resolved: 10-20-2021 Episodic Mycoses (1 source) Candidiasis of mouth; Translations: [Candidiasis Oral Thrush] Onset: 08-01-2019 Episodic Nutritional deficiencies (8 sources) Vitamin D deficiency; Translations: [Vitamin D deficiency, unspecified] Onset: 08-11-2022 Chronic Osteoporosis (10 sources) Senile osteoporosis; Translations: [Age-related osteoporosis without current pathological fracture] Onset: 02-19-2022 07-04-2024 Chronic Other aftercare (1 source) Other intermediate (current) drug therapy; Translations: [[employer]ER HELPER DISTILLERY CURRENT DRUG THERAPY] Onset: 12-14-2022 Episodic Other aftercare (1 source) long term acute care registered nurse (current) use of aspirin; Translations: [MILLER HELPER DISTILLERY CURRENT USE OF ASPIRIN] Onset: 12-13-2022 Episodic [...] conditions (not mental disorders or infectious disease) (8 sources) Encounter for screening for diabetes mellitus; Translations: [Encounter for screening for malignant neoplasm of colon] Onset: 2019 Resolved: 10-20-2021 Episodic Other upper respiratory disease (9 sources) Seasonal allergy; Translations: [Other allergic rhinitis] 07-04-2024 Chronic Residual codes; unclassified (6 sources) Menopause present; Translations: [Asymptomatic menopausal state] Episodic Residual codes; unclassified (4 sources) Insomnia; Translations: [Insomnia, unspecified] 07-04-2024 Episodic Residual codes; unclassified (2 sources) Nicotine user; Translations: [Tobacco use] 07-04-2024 Episodic Spondylosis; intervertebral disc disorders; other back [...] and From Stairs and Steps] Onset: 2019 Nonspecific chest pain (3 sources) Other chest [...] by: ISIDORO STONE Date: 2022-12-09 15:[address] [facility] [address] TSPINE WO CONon 3 CT TSPINE [...] by: TREV PHILLIPS Date: 2022-12-09 13:45 Normal [facility] XR CSPINE 2_3 VIEWSon 2022 XR CSPINE [...] ARMINDA NELSON Date: 2022-12-09 18:07 Normal [facility] XR HAND RT MIN 3Von 12-01-19 23 [...] NATI PRADO Date: 2022-11-30 01:36 Normal [facility] CBC AUTO DIFFon 08-06-2022 BASO # 0.0 103/ul Normal 0.0-0.1 [facility] Comment on above: Performed By: #### C BC #### [facility] [address] [place] [address] Dr. Ana Belcher Basophils/100 WBC (Bld) 0.4 % Normal 0.2-2.0 [facility] Comment on above: Performed By: #### C BC #### [facility] [address] [place] [address] Dr. Ana Belcher EO # 0.0 103/ul Normal 0.0-0.7 [facility] Comment on above: Performed By: #### C BC #### [facility] [address] [place] [address] Dr. Ana Belcher Eosinophils/100 WBC (Bld) 0.4 % Critically low 0.9-7.0 [facility] Comment on above: Performed By: #### C BC #### [facility] [address] [place] [address] Dr. Ana Belcher Erythrocyte distribution width (RBC) [Ratio] 13.2 % Normal 11.0-15.0 [facility] Comment on above: Performed By: #### C BC #### [facility] [address] [place] [address] Dr. Ana Belcher Hematocrit (Bld) [Volume fraction] 48.0 % Normal 36.0-48.0 [facility] Comment on above: Performed By: #### C BC #### [facility] [address] [place] [address] Dr. Ana Belcher Hemoglobin (Bld) [Mass/Vol] 16.0 g/dL Normal 12.0-16.0 [facility] Comment on above: Performed By: #### C BC #### [facility] [address] [place] [address] Dr. Ana Belcher IG # 0.04 10e3/ul Critically high 0.00-0.03 [facility] Comment on above: Performed By: #### C BC #### [facility] [address] [place] [address] Dr. Ana Belcher IG % 0.4 % Normal 0.0-0.5 [facility] Comment on above: Performed By: #### C BC #### [facility] [address] [place] [address] Dr. Ana Belcher LYMPH # 2.4 103/ul Normal 1.2-3.8 [facility] Comment on above: Performed By: #### C BC #### [facility] [address] [place] [address] Dr. Ana Belcher Lymphocytes/100 WBC (Bld) 25.9 % Normal 20.5-60.0 [facility] Comment on above: Performed By: #### C BC #### [facility] [address] [place] [address] Dr. Ana Belcher MANUAL DIFF REQ NO Normal [facility] Comment on above: Performed By: #### C BC #### [facility] [address] [place] [address] Dr. Ana Belcher MCH (RBC) [Entitic mass] 29.7 pg Normal 26.7-34.0 [facility] Comment on above: Performed By: #### C BC #### [facility] [address] [place] [address] Dr. Ana Belcher MCHC (RBC) [Mass/Vol] 33.3 g/dL Normal 29.9-35.2 [facility] Comment on above: Performed By: #### C BC #### [facility] [address] [place] [address] Dr. Ana Belcher MCV (RBC) [Entitic vol] 89.2 fL Normal 81.0-99.0 [facility] Comment on above: Performed By: #### C BC #### [facility] [address] [address] [address] Ana Belcher MONO # 0.7 103/ul Normal 0.3-0.8 [facility] Comment on above: Performed By: #### C BC #### [facility] [address] [place] [address] Dr. Ana Belcher Monocytes/100 WBC (Bld) 7.7 % Normal 1.7-12.0 [facility] Comment on above: Performed By: #### C BC #### [facility] [address] [place] [address] Dr. Ana Belcher NEUT # 6.0 103/ul Normal 1.4-6.5 [facility] Comment on above: Performed By: #### C BC #### [facility] [address] [place] [address] Dr. Ana Belcher Neutrophils/100 WBC (Bld) 65.2 % Normal 43.0-75.0 [facility] Comment on above: Performed By: #### C BC #### [facility] [address] [place] [address] Dr. Ana Belcher Platelet mean volume (Bld) [Entitic vol] 10.1 fL Normal 9.5-13.5 [facility] Comment on above: Performed By: #### C BC #### [facility] [address] [place] [address] Dr. Ana Belcher PLT 261 103/ul Normal 150-450 [facility] Comment on above: Performed By: #### C BC #### [facility] [address] [place] [address] Dr. Ana Belcher RBC 5.38 106/ul Normal 4.20-5.40 [facility] Comment on above: Performed By: #### C BC #### [facility] [address] [address] [address] Ana Belcher WBC 9.3 103/ul Normal 4.0-11.0 [facility] Comment on above: Performed By: #### C BC #### [facility] [address] [address] [address] Ana Belcher GLYCOHEMOGLOBIN A1Con 2021 ADA RECOMMENDATION SEE BELOW Normal [facility] Comment on above: Result Comment: ADA RECOMMENDED LIMIT 4.0 - 6.0 ADA THERAPEUTIC TARGET < 7.0 ACTION SUGGESTED > 7.0 Performed By: #### A 1C #### [facility] [address] [place] [address] Dr. Ana Belcher Glucose [Mass/Vol] 111 mg/dL Normal [facility] Comment on above: Performed By: #### A 1C #### [facility] [address] [address] [address] Ana Belcher HbA1c (Bld) [Mass fraction] 5.5 % Normal 4.5-6.2 [facility] Comment on above: Performed By: #### A 1C #### [facility] [address] [place] [address] Dr. Ana Belcher LIPID PROFILEon 08-06-2022 CHOL-HDL RATIO NORM SEE BELOW Normal [facility] Comment on above: Result Comment: 3.3 - 4.4 LOW RISK 4.4 - 7.1 AVERAGE RISK 7.1 - 11.0 MODERATE RISK >11.0 HIGH RISK Performed By: #### L IPID, CMP ####[facility] [address] [address]Dr. Ana Belcher Cholesterol [Mass/Vol] 191 mg/dL Normal <=200 [facility] Comment on above: Performed By: #### L IPID, CMP ####[facility] [address] [id number]. Ana Belcher Cholesterol in HDL [Mass/Vol] 61 mg/dL Critically high 40-60 [facility] Comment on above: Performed By: #### L IPID, CMP ####[facility] [address] [address]Dr. Ana Belcher Cholesterol in LDL [Mass/Vol] 117.0 mg/dL Normal [facility] Comment on above: Performed By: #### L IPID, CMP ####[facility] [address] [address]Dr. Ana Belcher Cholesterol.total/C holesterol in HDL [Mass ratio] 3.1 {ratio} Normal [facility] Comment on above: Performed By: #### L IPID, CMP ####[facility] [address] [address]Dr. Ana Belcher HDL NORMAL > or = 60 mg/dl - LO W CARDIOVASCULAR RISK <40 mg/dl - HIGH CARDIOVASCULAR RISK Normal [facility] Comment on above: Performed By: #### L IPID, CMP ####[facility] [address] [place], [place] [address]Dr. Ana Belcher LDL CALC NORMAL SEE BELOW Normal [facility] Comment on above: Result Comment: <100 mg/dl OPTIMAL 100 - 129 mg/dl NEAR OR ABOVE OPTIMAL 130 - 159 mg/dl BORDERLINE HIGH 160 - 189 mg/dl HIGH >190 mg/dl VERY HIGH Performed By: #### L IPID, CMP ####[facility] [address] [address]Dr. Ana Belcher Triglyceride [Mass/Vol] 65 mg/dL Normal <=150 [facility] Comment on above: Performed By: #### L IPID, CMP ####[facility] [address] [address]Dr. Ana Belcher VLDL CALC 13.0 mg/dL Normal [facility] Comment on above: Performed By: #### L IPID, CMP ####[facility] [address] [address]Dr. Ana Belcher PROF 14(COMP METB)on 022 Albumin [Mass/Vol] 4.1 g/dL Normal 3.4-5.0 [facility] Comment on above: Performed By: #### L IPID, CMP ####[facility] [address] [address]Dr. Ana Belcher Albumin/Globulin [Mass ratio] 1.0 {ratio} Normal [facility] Comment on above: Performed By: #### L IPID, CMP ####[facility] [address] [address]Dr. Ana Belcher ALP [Catalytic activity/Vol] 69 U/L Normal 46-116 [facility] Comment on above: Performed By: #### L IPID, CMP ####[facility] [address] [place], [place] [address]Dr. Ana Belcher ALT [Catalytic activity/Vol] 67 U/L Critically high 14-59 [facility] Comment on above: Performed By: #### L IPID, CMP ####[facility] [address] [place], [place] [address]Dr. Ana Belcher Anion gap [Moles/Vol] 13.9 mmol/L Normal [facility] Comment on above: Performed By: #### L IPID, CMP ####[facility] [address] [place], [place] [address]Dr. Ana Belcher AST [Catalytic activity/Vol] 53 U/L Critically high 15-37 [facility] Comment on above: Performed By: #### L IPID, CMP ####[facility] [address] [place], [place] [address]Dr. Ana Belcher Bilirubin [Mass/Vol] 0.6 mg/dL Normal 0.2-1.0 [facility] Comment on above: Performed By: #### L IPID, CMP ####[facility] [address] [place], [place] [address]Dr. Ana Belcher Calcium [Mass/Vol] 9.6 mg/dL Normal 8.5-10.1 [facility] Comment on above: Performed By: #### L IPID, CMP ####[facility] [address] [place], [place] [address]Dr. Ana Belcher Chloride [Moles/Vol] 102 mmol/L Normal 98-107 [facility] Comment on above: Performed By: #### L IPID, CMP ####[facility] [address] [address]Dr. Ana Belcher CO2 [Moles/Vol] 25.5 mmol/L Normal 21.0-32.0 [facility] Comment on above: Performed By: #### L IPID, CMP ####[facility] [address] [address]Dr. Ana Ye Creatinine [Mass/Vol] 0.70 mg/dL Normal 0.55-1.02 [facility] Comment on above: Performed By: #### L IPID, CMP ####[facility] [address] [address]Dr. Ana Ye EGFR-AF FAROESE >60 Normal >=60 [facility] Comment on above: Performed By: #### L IPID, CMP ####[facility] [address] [place], [place] [address]Dr. Ana Belcher EGFR-NON AF FAROESE >60 Normal >=60 [facility] Comment on above: Performed By: #### L IPID, CMP ####[facility] [address] [address]Dr. Ana Ye Globulin (S) [Mass/Vol] 4.0 g/dL Normal [facility] Comment on above: Performed By: #### L IPID, CMP ####[facility] [address] [address]Dr. Ana Belcher Glucose [Mass/Vol] 109 mg/dL Critically high 74-106 [facility] Comment on above: Performed By: #### L IPID, CMP ####[facility] [address] [address]Dr. Ana Belcher Potassium [Moles/Vol] 3.4 mmol/L Critically low 3.5-5.1 [facility] Comment on above: Performed By: #### L IPID, CMP ####[facility] [address] [address]Dr. Ana Belcher Protein [Mass/Vol] 8.1 g/dL Normal 6.4-8.2 [facility] Comment on above: Performed By: #### L IPID, CMP ####[facility] [address] [address]Dr. Ana Belcher Sodium [Moles/Vol] 138 mmol/L Normal 136-145 [facility] Comment on above: Performed By: #### L IPID, CMP ####[facility] [address] [address]DrGavin Belcher Urea nitrogen [Mass/Vol] 23.0 mg/dL Critically high 7.0-18.0 [facility] Comment on above: Performed By: #### L IPID, CMP ####[facility] [address] [address]Dr. Ana Belcher Urea nitrogen/Creatinine [Mass ratio] 32.9 mg/mg Normal [facility] Comment on above: Performed By: #### L IPID, CMP ####[facility] [address] [place], [place] [address]Dr. Ana Belcher UA (CLEAN/CATCH) MARKER MACHINE ATTENDANT/MICRO I F IND.on 08-06-2022 Bilirubin Ql (U) SMALL Abnormal NEGATIVE [facility] Comment on above: Performed By: #### U ACSFIDENCIO UMICRO #### [facility] [address] [place] [address] Dr. Ana Belcher Clarity (U) CLEAR Normal CLEAR [facility] Comment on above: Performed By: #### U ACSFIDENCIO UMICRO #### [facility] [address] [address] [address] Ana Belcher Color (U) DK. YELLOW Normal YELLOW [facility] Comment on above: Performed By: #### U ACSFIDENCIO UMICRO #### [facility] [address] [address] [address] Ana Belcher Glucose Ql (U) Negative Normal NEGATIVE [facility] Comment on above: Performed By: #### U ACSIND, UMICRO #### [facility] [address] [address] [address] Ana Belcher Hemoglobin Ql (U) MODERATE Abnormal NEGATIVE [facility] Comment on above: Performed By: #### U ACSIND, UMICRO #### [facility] [address] [address] [address] Ana Belcher Ketones Ql (U) TRACE Abnormal NEGATIVE [facility] Comment on above: Performed By: #### U ACSIND, UMICRO #### [facility] [address] [address] [address] Ana Belcher LEUKOCYTES Negative Normal NEGATIVE [facility] Comment on above: Performed By: #### U ACSIND, UMICRO #### [facility] [address] [address] [address] Ana Belcher Nitrite Ql (U) Negative Normal NEGATIVE [facility] Comment on above: Performed By: #### U ACSIND, UMICRO #### [facility] [address] [address] [address] Ana Belhcer pH (U) 5.0 [pH] Normal 5-9 [facility] Comment on above: Performed By: #### U ACSFIDENCIO, UMICRO #### [facility] [address] [place] [address] Dr. Ana Belcher SPEC GRAVITY >=1.030 Abnormal 1.005-<=1.02 5 [facility] Comment on above: Performed By: #### U ACSFIDENCIO, UMICRO #### [facility] [address] [address] [address] Ana Belcher UA PROTEIN TRACE Normal NEGATIVE/ TRACE [facility] Comment on above: Performed By: #### U ACSFIDENCIO, UMICRO #### [facility] [address] [place] [address] Dr. Ana Belcher UR MICRO IND INDICATED Normal [facility] Comment on above: Performed By: #### U ACSFIDENCIO, UMICRO #### [facility] [address] [address] [address] Ana Belcher Urobilinogen Qn (U) 0.2 {Bi'U}/dL Normal 0.2 - 1. 0 [facility] Comment on above: Performed By: #### U ACSIND, UMICRO #### [facility] [address] [address] [address] Ana Belcher URINE MICROSCOPIC ONLYon BACTERIA NONE SEEN Normal NONE SEEN [facility] Comment on above: Performed By: #### U TRENT UMICRO ####[facility] [address] [address]Dr. Ana Belcher Bacteria identified Cx Nom (U) NOT INDICATED Normal [facility] Comment on above: Performed By: #### U TRENT UMICRO ####[facility] [address] [address]Dr. Ana Belcher CAST NONE SEEN Normal NONE SEEN [facility] Comment on above: Performed By: #### U KAREEM NEWMANICRO ####[facility] [address] [address]DrGavin Belcher Crystals LM Nom (Urine sed) NONE SEEN Normal NONE SEEN [facility] Comment on above: Performed By: #### KAREEM CASILLASICRO ####[facility] [address] [address]Dr. Ana Belcher Epithelial cells LM Ql (Urine sed) FEW Abnormal NONE SEEN /RARE [facility] Comment on above: Performed By: #### KAREEM CASILLASICRO ####[facility] [address] [address]Dr. Ana Belcher MUCOUS NONE SEEN Normal NONE SEEN [facility] Comment on above: Performed By: #### U TRENT UMICRO ####[facility] [address] [address]Dr. Ana eBlcher RBC 5-10 Abnormal 0-2 [facility] Comment on above: Performed By: #### U TRENT UMICRO ####[facility] [address] [address]DrGavin Belcher WBC NONE SEEN Normal NONE SEEN [facility] Comment on above: Performed By: #### U TRENT UMICRO ####[facility] [address] [address]DrGavin Belcher VITAMIN D 25 OHon 08-06-2022 VIT D 25-OH 47.2 ng/mL Normal [facility] Comment on above: Performed By: #### V ITAD ####[facility] [address] [place], [place] [address]Vc. Ana Belcher VIT D RANGES SEE BELOW Normal [facility] Comment on above: Result Comment: <20 ng/mL Vit D deficient 20 - <30 ng/mL Vit D insufficient 30 - 100 ng/mL Vit D sufficient >100 ng/mL Potential Toxicity Performed By: #### V ITAD ####[facility] [address] [place], [place] [address]Np. Ana Belcher XR KUB 1 VIEWon 08-06-2022 XR [...] HERSON VANCE Date: 2022-08-06 15:26 Normal [facility] Neurosurgery Office/Clinic N oteon 03-01-2022 Neurosurgery Office/Clinic [...] pain. She went to the ED in [place], a CTA chest was done which showed [...] CT thorac (more content not included)... Normal [facility] Provider Letteron 03-01-2022 Provider Letter (Inserted Image. Demetria ble to display) Nomi Corcoran DO [address] [id number] Re: Brie Farrell Date of Visit: 03/01/2022 Dear Nomi Corcoran DO, Thank you for allowing me to contribute to the care of your patient: Brie Farrell. Attached is my office note where you will find my assessment and recommendations from our encounter. My office?s contact information: [facility] [address] [place], [phone] Let me know if you have any questions or concerns. Sincerely, ROHIT Myles Providers: The following document(s) were included in the letter: March 01, 2022 12:05:06 EDT - (03/01/2022) Neurosurgery Office Visit Note Normal [facility] MRI LSPINE WO CONon 02-18-[address] [facility] WO CON EXAMINATION: MRI LSP [...] by: HERSON VANCE Date: 2022-02-17 17:39 Normal [facility] MRI CSPINE WO CONon 02-17-20 22 MRI [...] by: KATHE WHITMAN Date: 2022-02-16 14:44 Normal [facility] MRI TSPINE WO CONon 02-17-20 22 MRI [facility] WO CON EXAM: MRI TSPINE WO CON [...] KATHE WHITMAN Date: 2022-02-16 14:55 Normal [facility] Neurosurgery Office/Clinic N josé manuelet[place] 01-21-2022 Neurosurgery Office/Clinic Note Chief Complaint Patient [...] pain. She went to the ED in [place], a CTA chest was done which showed [...] thoracic spine (more content not included)... Normal [facility] Provider Letteron 01-21-2022 Provider Letter (Inserted Image. Demetria ble to display) Nomi Corcoran DO [address] [phone] Re: Brie Farrell Date of Visit: 01/21/2022 Dear Nomi Corcoran DO, Thank you for your referral and allowing me to contribute to the care of your patient: Brie Farrell. Attached is my office note where you will find my assessment and recommendations from our encounter. My office?s contact information: [facility] [address], [phone] Let me know if you have any questions or concerns. Sincerely, ROHIT Myles Providers: The following document(s) were included in the letter: January 21, 2022 09:52:54 EDT - (01/21/2022) Neurosurgery Office Visit Note Normal [facility] Progress Noteon 01-13-2018 HIM IP Note OR Hog Buyer Normal [facility] Cult,Urine,CCon 12-27-2017 Cult,Urine,CC Specimen Description .URINE Performed at [address] [place] [address] Special Requests NOT REPORTEDCulture NO GROWTH Performed at [address] [id number] [phone] Report Status FINAL 12/27/2017 [facility] Comment on above: Performed By: #### U AMIC ####[address] [place] [address] Progress Noteon 12-26-2017 HIM IP Note OR Hog Buyer Normal [facility] HIM IP Note OR Hog Buyer Normal [facility] Urinalysis w/ Microon 2017 ----- Normal [facility] Comment on above: Performed By: #### U AMIC ####[address] [place] [address] Acetaminophen mass conc Negative Normal NEG [facility] Comment on above: Performed By: #### U AMIC ####[address] [place] [address] Bilirubin (direct) Negative Normal NEG [facility] Comment on above: Performed By: #### U AMIC ####[address] [place] [address] Hemoglobin mass conc (Bld) 2+ Abnormal NEG [facility] Comment on above: Performed By: #### U AMIC ####[address] [place] [address] Nitrite,Ur Negative Normal NEG [facility] Comment on above: Performed By: #### U AMIC ####[address] [place] [address] Turbidity CLEAR Normal CLEAR [facility] Comment on above: Performed By: #### U AMIC ####[address] [place] [address] Urine WBC's None Normal 0-5 [facility] Comment on above: Performed By: #### U AMIC ####[address] [place] [address] Urine, color YELLOW Normal YEL [facility] Comment on above: Performed By: #### U AMIC ####[address] [place] [address] Urine, epithelial cells in sediment 0 TO 2 Normal 0-25 [facility] Comment on above: Result Comment: Perf ormed at [facility] [address] [place] [address] Performed By: #### U AMIC ####[address] [place] [address] Urine, erythrocytes None Normal 0-2 [facility] Comment on above: Performed By: #### U AMIC ####[address] [place] [address] Urine, glucose presence Negative Normal NEG [facility] Comment on above: Performed By: #### U AMIC ####[address] [place] [address] Urine, leukocyte esterase presence Negative Normal NEG [facility] Comment on above: Performed By: #### U AMIC ####[address] [place] [address] Urine, pH 5.5 [pH] Normal 5.0-9.0 [facility] Comment on above: Performed By: #### U AMIC ####[address] [place] [address] Urine, protein presence Negative Normal NEG [facility] Comment on above: Performed By: #### U AMIC ####[address] [place] [address] Urine, specific gravity 1.015 Normal 1.010-1.020 [facility] Comment on above: Performed By: #### U AMIC ####[address] [place] [address] Urobilinogen,Ur Normal Normal NORM [facility] Comment on above: Performed By: #### U AMIC ####[address] [place] [address] Comment NOT REPORTED Normal [facility] Comment on above: Performed By: #### U AMIC ####[address] [place] [address] Epithelial, Renal NOT REPORTED Normal 0 [facility] Comment on above: Performed By: #### U AMIC ####[address] [place] [address] Mucus Strands NOT REPORTED Normal NONE [facility] Comment on above: Performed By: #### U AMIC ####[address] [place] [address] Other Observations NOT REPORTED Normal NREQ [facility] Comment on above: Performed By: #### U AMIC ####[address] [place] [address] Trichomonas NOT REPORTED Normal NONE [facility] Comment on above: Performed By: #### U AMIC ####[address] [place] [address] Urine, amorphous sediment presence in sediment NOT REPORTED Normal NONE [facility] Comment on above: Performed By: #### U AMIC ####[address] [place] [address] Urine, bacteria in sediment NOT REPORTED Normal NONE [facility] Comment on above: Performed By: #### U AMIC ####[address] [place] [address] Urine, casts in sediment NOT REPORTED Normal [facility] Comment on above: Performed By: #### U AMIC ####[address] [place] [address] Urine, crystals in sediment NOT REPORTED Normal NONE [facility] Comment on above: Performed By: #### U AMIC ####[address] [place] [address] Urine, yeast presence in sediment NOT REPORTED Normal NONE [facility] Comment on above: Performed By: #### U AMIC ####[address] [place] [address] HCV RNA,Quant,PCRon 12-21-19 18 HCV RNA,Quant,PCR Specimen Description .PLASMA Performed at [address] [place], [place] [id number] [phone] Special Requests NOT REPORTEDDirect Exam HCV RNA DETECTED [id number] IU/ML (6.79 LOG IU/ML) This test is [...] to the appropriate Health Department Performed at [address] [place], [place] [id number] [phone] Report Status FINAL 12/20/2017 [facility] Comment on above: Performed By: #### H CVQ ####[address] [place] [phone] , [place] [id number] HIV Ag/Abon 12-15-2017 HIV Ag/Ab NONREACTIVE Normal NR [facility] Comment on above: Result Comment: No l aboratory evidence of HIV infection. If acute HIV infection is suspected, consider testing for HIV-1 RNA.Performed at [address] [address] Performed By: #### C BC, AHCV, HIVCMB ####[address] [address] #### CP, LIPR ####[address] [place], [place] [id number] Hep C Abon 12-15-2017 Hep C Ab REACTIVE Abnormal NR [facility] Comment on above: Result Comment: The hepatitis [...] by ordering HCV RNA by PCR.Performed at [address] [address] Performed By: #### C MARYLU, AHCV, HIVCMB ####[address] [address] #### CP, LIPR ####[address] [place], [place] [address] Progress Noteon 12-15-2017 HIM IP Note OR Hog Buyer Normal [facility] CBCon 12-14-2017 Erythrocyte distribution width Auto Ratio (RBC) 13.1 % Normal 11.8-14.4 [facility] Comment on above: Performed By: #### C BC, AHCV, HIVCMB ####[address] [address] #### CP, LIPR ####[address] [place], [place] [address] Erythrocytes (RBC) 0.0 per 100 WBC Normal 0.0 M [facility] Comment on above: Result Comment: Perf ormed at [address] [address] Performed By: #### C BC, AHCV, HIVCMB ####[address] [address] #### CP, LIPR ####[address] [place] [id number] Erythrocytes (RBC) 4.94 10*6/uL Normal 3.95-5.11 [facility] Comment on above: Performed By: #### C BC, AHCV, HIVCMB ####[address] [address] #### CP, LIPR ####[address] [place] [address] Hematocrit (HCT) 44.6 % Normal 36.3-47.1 [facility] Comment on above: Performed By: #### C BC, AHCV, HIVCMB ####[address] [address] #### CP, LIPR ####[address] [place] [address] Hemoglobin mass conc (Bld) 14.5 g/dL Normal 11.9-15.1 [facility] Comment on above: Performed By: #### C BC, AHCV, HIVCMB ####[address] [address] #### CP, LIPR ####[address] [place] [address] MCH 29.4 pg Normal 25.2-33.5 [facility] Comment on above: Performed By: #### C BC, AHCV, HIVCMB ####[address] [address] #### CP, LIPR ####[address] [place] [address] MCHC mass conc (RBC) 32.5 g/dL Normal 28.4-34.8 [facility] Comment on above: Performed By: #### C BC, AHCV, HIVCMB ####[address] [address] #### CP, LIPR ####[address] [place] [address] MCV 90.3 fL Normal 82.6-102.9 [facility] Comment on above: Performed By: #### C BC, AHCV, HIVCMB ####[address] [address] #### CP, LIPR ####[address] , [place] [address] Platelet mean volume (PMV) 9.1 fL Normal 8.1-13.5 [facility] Comment on above: Performed By: #### C BC, AHCV, HIVCMB ####[address] [address] #### CP, LIPR ####[address] , [place] [address] Platelets 271 10*3/uL Normal 138-453 [facility] Comment on above: Performed By: #### C BC, AHCV, HIVCMB ####[address] [address] #### CP, LIPR ####[address] , [facility] WBC (Leukocytes) 5.0 10*3/uL Normal 3.5-11.3 [facility] Comment on above: Performed By: #### C BC, AHCV, HIVCMB ####[address] [place] [address] #### CP, LIPR ####[address] [place] [address] Comp Metabolic Profon 2017 (cont.) Normal [facility] Comment on above: Result Comment: Aver age GFR for 50-59 years old: 93 mL/min/1.73sq mChronic Kidney Disease: <60 mL/min/1.73sq mKidney failure: <15 mL/min/1.73sq meGFR calculated using average adult body mass. Additional eGFR calculator available at:http://www.Cleeng/multiple_crcl_2012.htm Performed By: #### C BC, AHCV, HIVCMB ####[address] [address] #### CP, LIPR ####[address] , [place] [address] Alanine aminotransferase (ALT) 39 U/L High 5-33 [facility] Comment on above: Performed By: #### C BC, AHCV, HIVCMB ####[address] [address] #### CP, LIPR ####[address] , [place] [address] Albumin 4.3 g/dL Normal 3.5-5.2 [facility] Comment on above: Performed By: #### C BC, AHCV, HIVCMB ####[address] [address] #### CP, LIPR ####[address] [place] [address] Albumin/Globulin Ratio 1.3 {ratio} Normal 1.0-2.5 [facility] Comment on above: Performed By: #### C BC, AHCV, HIVCMB ####[address] [address] #### CP, LIPR ####[address] [place] [address] Alkaline Phos 54 U/L Normal 35-104 [facility] Comment on above: Performed By: #### C BC, AHCV, HIVCMB ####[address] [address] #### CP, LIPR ####[address] [place] [address] Anion gap 10 mmol/L Normal 9-17 [facility] Comment on above: Performed By: #### C BC, AHCV, HIVCMB ####[address] [address] #### CP, LIPR ####[address] [place] [phone] Aspartate aminotransferase (AST) 37 U/L High <32 [facility] Comment on above: Performed By: #### C BC, AHCV, HIVCMB ####[address] [address] #### CP, LIPR ####[address] [place] [address] Bilirubin Ql (U) 0.51 mg/dL Normal 0.3-1.2 [facility] Comment on above: Performed By: #### C BC, AHCV, HIVCMB ####[address] [address] #### CP, LIPR ####[address] [place] [address] BUN/CRE Ratio 25 High 9-20 [facility] Comment on above: Performed By: #### C BC, AHCV, HIVCMB ####[address] [address] #### CP, LIPR ####[address] [place] [address] Calcium 9.6 mg/dL Normal 8.6-10.4 [facility] Comment on above: Performed By: #### C BC, AHCV, HIVCMB ####[address] [address] #### CP, LIPR ####[address] [place] [address] Chloride 101 mmol/L Normal 98-107 [facility] Comment on above: Performed By: #### C BC, AHCV, HIVCMB ####[address] [address] #### CP, LIPR ####[address] [place] [address] CO2 28 mmol/L Normal 20-31 [facility] Comment on above: Performed By: #### C BC, AHCV, HIVCMB ####[address] [address] #### CP, LIPR ####[address] [place] [address] Creatinine 0.57 mg/dL Normal 0.50-0.90 [facility] Comment on above: Performed By: #### C BC, AHCV, HIVCMB ####[address] [address] #### CP, LIPR ####[address] [place] [address] eGFR (non-black) mL/min/{1.73_m2} Normal >60 [facility] Comment on above: Performed By: #### C BC, AHCV, HIVCMB ####[address] [address] #### CP, LIPR ####[address] [place] [address] Glucose mass conc 99 mg/dL Normal 70-99 [facility] Comment on above: Performed By: #### C BC, AHCV, HIVCMB ####[address] [address] #### CP, LIPR ####[address] [place] [address] Potassium molar conc 4.5 mmol/L Normal 3.7-5.3 [facility] Comment on above: Performed By: #### C BC, AHCV, HIVCMB ####[address] [address] #### CP, LIPR ####[address] [place] [address] Protein 7.6 g/dL Normal 6.4-8.3 [facility] Comment on above: Performed By: #### C BC, AHCV, HIVCMB ####[address] [address] #### CP, LIPR ####[address] [place] [address] Sodium 139 mmol/L Normal 135-144 [facility] Comment on above: Performed By: #### C BC, AHCV, HIVCMB ####[address] [address] #### CP, LIPR ####[address] [place] [address] Staging: Normal [facility] Comment on above: Result Comment: Stag e 1: Some kidney damage normal GFRStage 2: Mild kidney damage GFR 60-89Stage 3: Moderate kidney damage GFR 30-59Stage 4: Severe kidney damage GFR 15-29Stage 5: Severe kidney damage GFR <15ESRD - chronic treatment by dialysis or transplantPerformed at [address] [place] [id number] [phone] Performed By: #### C BC, AHCV, HIVCMB ####[address] [address] #### CP, LIPR ####[address] [place] [address] Urea nitrogen 14 mg/dL Normal 6-20 [facility] Comment on above: Performed By: #### C BC, AHCV, HIVCMB ####[address] [address] #### CP, LIPR ####[address] [place] [address] Cult,Urineon 12-14-2017 Cult,Urine Specimen Description .CLEAN CATCH URINE Performed at [address] [place], [place] 7[address]50 [phone] Special Requests NOT REPORTEDCulture ESCHERICHIA COLI 50 to 100,000 CFU/ML Performed at [address] [address] [phone] Report Status FINAL 12/14/2017SUSCEPTIBILITYOrg anism ECMethod MICAmikacin [...] fa <=20 SUSCEPTIBLEPiperacillin/Darrick obactam <=4 SUSCEPTIBLE Normal [facility] Comment on above: Performed By: #### U RC ####[address] [phone] [place] [address] Lipid Profileon 12-14-2017 Cholesterol 211 mg/dL High <200 [facility] Comment on above: Result Comment: Chol esterol Guidelines: <200 Desirable 200-240 Borderline >240 Undesirable Performed By: #### C BC, AHCV, HIVCMB ####[address] [address] #### CP, LIPR ####[address] [place] [address] Cholesterol to HDL Ratio 2.6 {ratio} Normal <5 [facility] Comment on above: Performed By: #### C BC, AHCV, HIVCMB ####[address] [address] #### CP, LIPR ####[address] [place] [address] HDL Cholesterol 80 mg/dL Normal >40 [facility] Comment on above: Result Comment: HDL Guidelines: <40 Undesirable 40-59 Borderline >59 Desirable Performed By: #### C BC, AHCV, HIVCMB ####[address] [address] #### CP, LIPR ####[address] [place] [address] LDL Cholesterol 116 mg/dL Normal 0-130 [facility] Comment on above: Result Comment: LDL Guidelines: <100 Desirable 100-129 Near to/above Desirable 130-159 Borderline >159 UndesirableDirect (measured) LDL and calculated LDL are not interchangeable tests. Performed By: #### C BC, AHCV, HIVCMB ####[facility] [address] [place] [address] #### CP, LIPR ####[address] [place] [address] Triglyceride 76 mg/dL Normal <150 [facility] Comment on above: Result Comment: Trig lyceride Guidelines: <150 Desirable 150- 199 Borderline 200-499 High >499 Very high Based on AHA Guidelines for fasting triglyceride, May 2012.Performed at [address] [place] [address] Performed By: #### C BC, AHCV, HIVCMB ####[address] [address] #### CP, LIPR ####[address] [place] [address] Cholesterol in VLDL mass conc NOT REPORTED Normal 09-20 [facility] Comment on above: Performed By: #### C BC, AHCV, HIVCMB ####[address] [address] #### CP, LIPR ####[address] [place] [address] Progress Noteon 12-14-2017 HIM IP Note OR Hog Buyer Normal [facility] CT ABDOMEN PELVIS WO CONTRAS Ton 12-13-2017 [...] osseous findings.IMPRESSION: Impression: No significant findings. Interpreted by:IVANNA Leblancigned by:Herson Cárdenas MD18Final result Normal [facility] Urinalysis w/ Microon 2017 ----- Normal [facility] Comment on above: Performed By: #### U AMIC ####[address] [place] [address] Acetaminophen mass conc Negative Normal NEG [facility] Comment on above: Performed By: #### U AMIC ####[address] [place] [address] Bilirubin (direct) Negative Normal NEG [facility] Comment on above: Performed By: #### U AMIC ####[address] [place] [address] Hemoglobin mass conc (Bld) 1+ Abnormal NEG [facility] Comment on above: Performed By: #### U AMIC ####[address] [place] [address] Nitrite,Ur Negative Normal NEG [facility] Comment on above: Performed By: #### U AMIC ####[address] [place] [address] Turbidity CLEAR Normal CLEAR [facility] Comment on above: Performed By: #### U AMIC ####[address] [place] [address] Urine WBC's 20 TO 50 Normal 0-5 [facility] Comment on above: Performed By: #### U AMIC ####[address] [place] [address] Urine, bacteria in sediment TRACE Abnormal NONE [facility] Comment on above: Result Comment: Perf ormed at [address] [place] [address] Performed By: #### U AMIC ####[address] [place] [address] Urine, color YELLOW Normal YEL [facility] Comment on above: Performed By: #### U AMIC ####[address] [place] [address] Urine, epithelial cells in sediment 2 TO 5 Normal 0-25 [facility] Comment on above: Performed By: #### U AMIC ####[address] [place] [address] Urine, erythrocytes 0 TO 2 Normal 0-2 [facility] Comment on above: Performed By: #### U AMIC ####[address] [place] [address] Urine, glucose presence Negative Normal NEG [facility] Comment on above: Performed By: #### U AMIC ####[address] [place] [address] Urine, leukocyte esterase presence SMALL Abnormal NEG [facility] Comment on above: Performed By: #### U AMIC ####[address] [place] [address] Urine, pH 5.5 [pH] Normal 5.0-9.0 [facility] Comment on above: Performed By: #### U AMIC ####[address] [place] [address] Urine, protein presence Negative Normal NEG [facility] Comment on above: Performed By: #### U AMIC ####[address] [place] [address] Urine, specific gravity 1.010 Normal 1.010-1.020 [facility] Comment on above: Performed By: #### U AMIC ####[address] [place] [address] Urobilinogen,Ur Normal Normal NORM [facility] Comment on above: Performed By: #### U AMIC ####[address] [place] [address] Comment NOT REPORTED Normal [facility] Comment on above: Performed By: #### U AMIC ####[address] [place] [address] Epithelial, Renal NOT REPORTED Normal 0 [facility] Comment on above: Performed By: #### U AMIC ####[address] [place] [address] Mucus Strands NOT REPORTED Normal NONE [facility] Comment on above: Performed By: #### U AMIC ####[address] [place] [address] Other Observations NOT REPORTED Normal NREQ [facility] Comment on above: Performed By: #### U AMIC ####[address] [place] [address] Trichomonas NOT REPORTED Normal NONE [facility] Comment on above: Performed By: #### U AMIC ####[address] [place] [address] Urine, amorphous sediment presence in sediment NOT REPORTED Normal [facility] Comment on above: Performed By: #### U AMIC ####[address] [place] [address] Urine, casts in sediment NOT REPORTED Normal [facility] Comment on above: Performed By: #### U AMIC ####[address] [place] [address] Urine, crystals in sediment NOT REPORTED Normal [facility] Comment on above: Performed By: #### U AMIC ####[address] [place] [address] Urine, yeast presence in sediment NOT REPORTED Normal NONE [facility] Comment on above: Performed By: #### U AMI ####[facility] [place] [address] Vital Signs Date Time Vital Sign Value Performing Clinician Facility 10-03-2024 15:49-0500 Body height 160 cm Fahad Baint DO Work Phone: [facility] 10-03-2024 15:49-0500 Body mass index (BMI) [Ratio] 19.13 kg/m2 Fahad Bandar DO Work Phone: [facility] 10-03-2024 15:49-0500 Body temperature 98.01 [degF] Fahad Castillouitt DO Work Phone: [facility] 10-03-2024 15:49-0500 Body weight 48.99 kg Fahad Castillouitt DO Work Phone: [facility] 10-03-2024 15:49-0500 Diastolic blood pressure 60 mm[Hg] Fahad Bandar DO Work Phone: [facility] 10-03-2024 15:49-0500 Heart rate 68 /min Fahad Bandar DO Work Phone: [facility] 10-03-2024 15:49-0500 Respiratory rate 20 /min Fahad Castillouitt DO Work Phone: [facility] 10-03-2024 15:49-0500 SaO2% (BldA) [Mass fraction] 96 % Fahad Castillouitt DO Work Phone: [facility] 10-03-2024 15:49-0500 Systolic blood pressure 100 mm[Hg] Fahad Bandar DO Work Phone: [facility] 07-17-2024 15:10-0500 Body height 160 cm Fahad Bandar DO Work Phone: [facility] 07-17-2024 15:10-0500 Body mass index (BMI) [Ratio] 18.25 kg/m2 Fahad Bandar DO Work Phone: [facility] 07-17-2024 15:10-0500 Body temperature 98.01 [degF] Fahad Bandar DO Work Phone: [facility] 07-17-2024 15:10-0500 Body weight 46.72 kg Fahad Bandar DO Work Phone: [facility] 07-17-2024 15:10-0500 Diastolic blood pressure 82 mm[Hg] Fahad Bandar DO Work Phone: [facility] 07-17-2024 15:10-0500 Heart rate 77 /min Fahad Abndar DO Work Phone: [facility] 07-17-2024 15:10-0500 Respiratory rate 20 /min Fahad Bandar DO Work Phone: [facility] 07-17-2024 15:10-0500 SaO2% (BldA) [Mass fraction] 96 % Fahad Bandar DO Work Phone: [facility] 07-17-2024 15:10-0500 Systolic blood pressure 126 mm[Hg] Fahad Bandar DO Work Phone: [facility] 07-11-2024 10:19-0500 Body height 160 cm Fahad Bandar DO Work Phone: [facility] 07-11-2024 10:19-0500 Body mass index (BMI) [Ratio] 18.42 kg/m2 Fahad Bandar DO Work Phone: [facility] 07-11-2024 10:19-0500 Body temperature 98.29 [degF] Fahad Bandar DO Work Phone: [facility] 07-11-2024 10:19-0500 Body weight 47.17 kg Fahad Bandar DO Work Phone: [facility] 07-11-2024 10:19-0500 Diastolic blood pressure 84 mm[Hg] Fahad Bandar DO Work Phone: [facility] 07-11-2024 10:19-0500 Heart rate 84 /min Fahad Bandar DO Work Phone: [facility] 07-11-2024 10:19-0500 Respiratory rate 20 /min Fahad Bandar DO Work Phone: [facility] 07-11-2024 10:19-0500 SaO2% (BldA) [Mass fraction] 96 % Fahad Bandar DO Work Phone: [facility] 07-11-2024 10:19-0500 Systolic blood pressure 132 mm[Hg] Fahad Bandar DO Work Phone: [facility] 07-04-2024 14:51-0500 Body height 160 cm Fahad Bandar DO Work Phone: [facility] 07-04-2024 14:51-0500 Body mass index (BMI) [Ratio] 18.78 kg/m2 Fahad Bandar DO Work Phone: [facility] 07-04-2024 14:51-0500 Body temperature 98.2 [degF] Fahad Castillouitt DO Work Phone: [facility] 07-04-2024 14:51-0500 Body weight 48.08 kg Fahad Castillouitt DO Work Phone: [facility] 07-04-2024 14:51-0500 Diastolic blood pressure 82 mm[Hg] Fahad Bandar DO Work Phone: [facility] 07-04-2024 14:51-0500 Heart rate 78 /min Fahad Bandar DO Work Phone: [facility] 07-04-2024 14:51-0500 Respiratory rate 20 /min Fahad Bandar DO Work Phone: [facility] 07-04-2024 14:51-0500 SaO2% (BldA) [Mass fraction] 98 % Fahad Bandar DO Work Phone: [facility] 07-04-2024 14:51-0500 Systolic blood pressure 120 mm[Hg] Fahad Bandar DO Work Phone: [facility] 12-23-2022 16:40-0400 Body height 160.02 cm Awaisjeniffer Comer Other [employer] Other 12-23-2022 16:40-0400 Body mass index (BMI) [Ratio] 21.25 kg/m2 Awais Comer Other [employer] Other 12-23-2022 16:40-0400 Body weight 54.43 kg Awais Nahomi Other [employer] Other 12-14-2022 15:30-0400 Body height 160.02 cm Vilma Sharma Other [employer] Other 12-14-2022 15:30-0400 Body mass index (BMI) [Ratio] 21.25 kg/m2 Vilma Sharma Other [employer] Other 12-14-2022 15:30-0400 Body weight 54.43 kg Vilma Sharma Other [employer] Other 10-20-2021 16:45-0500 Body height 160.02 cm Herson Amin Other [employer] Other 10-20-2021 16:45-0500 Body mass index (BMI) [Ratio] 21.61 kg/m2 Herson Amin Other [employer] [facility] 10-20-2021 16:45-0500 Body weight 55.34 kg Herson Amin Other [employer] [facility] 08-13-2019 10:12-0500 BMI (Body Mass Index) 21.5 kg/m2 Lupe Snider [facility] Work Phone: 08-13-2019 10:12-0500 Body Temperature 99.6 [degF] [facility]pe [facility] Work Phone: 08-13-2019 10:12-0500 Body weight 49.9 kg [facility] Work Phone: 08-13-2019 10:12-0500 BP Diastolic 78 mm[Hg] [facility] Work Phone: 08-13-2019 10:12-0500 BP Systolic 110 mm[Hg] Lupe [facility] Work Phone: 08-13-2019 10:12-0500 BSA (Body Surface Area) 1.45 m2 Lupe [facility] Work Phone: 08-13-2019 10:12-0500 Height 152.4 cm Lupe [facility] Work Phone: 08-13-2019 10:12-0500 Pulse (Heart Rate) 80 /min [facility] Work Phone: 08-13-2019 10:12-0500 Pulse Oximetry 96 % Lupe [facility] Work Phone: 08-13-2019 10:12-0500 Respiratory Rate 14 /min Lupe [facility] Work Phone: 08-01-2019 12:12-0500 BMI (Body Mass Index) 21.5 kg/m2 Lupe [facility] Work Phone: 08-01-2019 12:12-0500 Body Temperature 98.8 [degF] Lupe [facility] Work Phone: 08-01-2019 12:12-0500 Body weight 49.9 kg Lupe [facility] Work Phone: 08-01-2019 12:12-0500 BP Diastolic 80 mm[Hg] Lupe [facility] Work Phone: 08-01-2019 12:12-0500 BP Systolic 130 mm[Hg] Lupe [facility] Work Phone: 08-01-2019 12:12-0500 BSA (Body Surface Area) 1.45 m2 Lupe [facility] Work Phone: 08-01-2019 12:12-0500 Height 152.4 cm [facility] Work Phone: 08-01-2019 12:12-0500 Pulse (Heart Rate) 87 /min Lupe [facility] Work Phone: 08-01-2019 12:12-0500 Pulse Oximetry 96 % Lupe [facility] Work Phone: 08-01-2019 12:12-0500 Respiratory Rate 14 /min Lupe [facility] Work Phone: 2019 15:40-0500 BMI (Body Mass Index) 21.5 kg/m2 [facility] Work Phone: 2019 15:40-0500 Body Temperature 98 [degF] Lupe [facility] Work Phone: 2019 15:40-0500 Body weight 49.9 kg [facility] Work Phone: 2019 15:40-0500 BP Diastolic 80 mm[Hg] Lupe [facility] Work Phone: 2019 15:40-0500 BP Systolic 104 mm[Hg] [facility] Work Phone: 2019 15:40-0500 BSA (Body Surface Area) 1.45 m2 Lupe [facility] Work Phone: 2019 15:40-0500 Height 152.4 cm [facility] Work Phone: 2019 15:40-0500 Pulse (Heart Rate) 84 /min [facility] Work Phone: 2019 15:40-0500 Pulse Oximetry 95 % [facility] Work Phone: Encounters Encounter Date Encounter Type Care Provider Facility Start: 10-03-2024 End: 10-03-2024 Office outpatient visit 25 minutes Fahad Bandar DO Work Phone: [employer] [facility] Comment on above: Anxiety attack (CMS/ HCC) (Primary Dx); Insomnia, unspecified type Start: 07-17-2024 End: 07-17-2024 Office outpatient visit 15 minutes Fahad Bandar DO Work Phone: [facility] Comment on above: Dermatitis (Primary Dx); Mucocele of mouth Start: 07-17-2024 End: 07-17-2024 ambulatory FAHAD BANDAR Not Available Start: 07-11-2024 End: 07-11-2024 Office outpatient visit 15 minutes Fahad Bandar DO Work Phone: [facility] [employer] Comment on above: Dermatitis (Primary Dx) Start: 07-11-2024 End: 07-11-2024 ambulatory FAHAD BANDAR Not Available Start: 07-04-2024 End: 07-04-2024 ambulatory FAHAD BANDAR Not Available Start: 07-04-2024 End: 07-04-2024 Office outpatient new 45 minutes Fahad Bandar DO Work Phone: [employer] [facility] Comment on above: Anxiety attack (CMS/ HCC) (Primary Dx); Insomnia, unspecified type; Dermatitis; Screening for lipid disorders; Hepatitis C virus infection without hepatic coma, unspecified chronicity (CMS/HCC); Seasonal allergies; Age related osteoporosis, unspecified pathological fracture presence (CMS/HCC); Encounter for screening mammogram for malignant neoplasm of breast; Nicotine use Start: 07-04-2024 End: 07-04-2024 Bamboo flowsheet Fahad Bandar DO Work Phone: [facility] [employer] Start: 07-04-2024 End: 07-04-2024 Bamboo flowsheet Fahad Bandar DO Work Phone: [facility] Start: 12-23-2022 End: 12-23-2022 ambulatory Awais Comer Other [employer] Other Start: 12-23-2022 Office outpatient visit 15 minutes Awais Comer [facility] Start: 12-21-2022 End: 12-21-2022 ambulatory Vilma Sharma Facility:[facility] Start: 12-21-2022 End: 12-21-2022 ambulatory DO Nomi Patelrer Work Phone: [facility] Work Phone: Start: 12-21-2022 End: 12-21-2022 Patient encounter procedure DO Nomi Patelrer Work Phone: [facility] Work Phone: Start: 12-16-2022 End: 12-16-2022 ambulatory Vilma Sharma Other [employer] Other Start: 12-16-2022 Telephone encounter Vilma Sharma [facility] Start: 12-15-2022 End: 12-15-2022 ambulatory Vilma Sharma Other [employer] Other Start: 12-15-2022 Telephone encounter Vilma Sharma [facility] Start: 12-14-2022 End: 12-14-2022 ambulatory Vilma Sharma Other [employer] Other Start: 12-14-2022 Office outpatient ne w 45 minutes Vilma Sharma [facility] Start: 12-14-2022 Telephone encounter Vilma Sharma [facility] Start: 12-13-2022 End: 12-13-2022 ambulatory JUANA BOB Facility:[facility] Start: 12-09-2022 End: 12-09-[address] TREV PHILLIPS Facility:[facility] Start: 11-30-2022 End: 04-11-[address] ISHA VIVEROS . Facility:[facility] Start: 11-26-2022 ambulatory NONE LISTED REQUEST Facility:[facility] Start: 08-24-2022 End: 08-24-2022 Phys/qhp telephone evaluation 11-20 min Aliza Guadarrama MD Work Phone: [facility] Comment on above: [...] 10-20-2021 End: 10-20-2021 ambulatory Herson Amin Other [employer] Other Start: 10-20-2021 Office outpatient ne w 45 minutes Herson Amin [facility] G[facility] Start: 08-13-2019 End: 08-13-2019 Established patient Porsche Vega Work Phone: [facility] Work Phone: Start: 08-01-2019 End: 08-01-2019 Established patient Lupe Snider Work Phone: [facility] Work Phone: Start: 2019 End: 2019 New patient Lupe Snider Work Phone: [facility] Work Phone: Start: 12-26-2017 End: 12-27-2017 Ambulatory GURPREET JOHNSON [facility] Start: 12-16-2017 End: 12-17-2017 Ambulatory [facility] Start: 12-14-2017 End: 12-15-2017 Ambulatory [facility] Start: 12-13-2017 End: 12-16-2017 Ambulatory [facility] Procedures Date Procedure Procedure Detail Performing Clinician Start: 12-21-2022 Dual energy X-ray absorptiometry DO Nomi Corcoran Work Phone: Start: 12-01-2021 Colonoscopy Fahad Valdes itt DO Work Phone: Start: 04-29-2021 Mammography Fahad Valdes itt DO Work Phone: Start: 08-13-2019 Diast bp <80 mm hg Cynt hia [place] Work Phone: Start: 08-13-2019 Syst bp lt 130 mm hg Cy nthia [place] Work Phone: Start: 08-01-2019 Diast bp 80-89 mm hg Ca ssie Tylor Work Phone: Start: 08-01-2019 Syst bp ge 130 - 139mm hg Lupe Tylor Work Phone: Start: 2019 CARDIOVASCULAR DISORDERS Lupe Tylor Start: 2019 Diast bp <80 mm hg Sameera ie Tylor Work Phone: Start: 2019 Hysterectomy Lupe Tab er Start: 2019 ORTHOPEDIC DISORDERS Ca ssie Tylor Start: 2019 Pt-focused hlth risk assmt score doc stnd instrm Lupe Tylor Work Phone: Start: 2019 Syst bp lt 130 mm hg Ca ssie Tylor Work Phone: Start: 12-26-2017 EKG 12-LEAD LETY SANFORD Start: 12-26-2017 URINE CULTURE CLEAN CATCH LETY DERAS Start: 12-26-2017 URINALYSIS WITH MICROSCOPIC LETY DERAS [...] URINE CULTURE LETY SAGE H/O: hysterectomy Herson Cortes s Other Screening for malign ant neoplasm of colon Herson Amin Other Plan of Treatment Date Care Activity Detail Author Start: 12-02-2031 Screening for malign ant neoplasm of colon [facility] Start: 02-03-2026 Cholesterol [Mass/volume] in Serum or Plasma [facility] Start: 12-26-2024 End: 12-26-2024 Patient encounter procedure 12/26/2024 3:40 PM EDT Office Visit [facility] [address] [place] [id number] Fahad Portillo DO [address] [place] [address] [facility] Start: 10-03-2024 End: 10-03-2024 Patient encounter procedure 10/03/2024 3:40 PM EST Office Visit [facility] [address] [place] [id number] Fahad Portillo DO [address] [place] [address] [facility] Start: 07-04-2024 End: 07-04-2025 CBC panel - Blood by Automated count CBC Lab Routine Hepatitis C virus infection without hepatic coma, unspecified chronicity (CMS/HCC) Seasonal allergies Expected: 07/04/2024 (Approximate), Expires: 07/04/[address] [facility] Comment on above: Expected: 07/04/2024 (Approximate), Expires: 07/04/2025 Start: 07-04-2024 End: 07-04-2025 Comprehensive metabolic 2000 panel - Serum or Plasma Comprehensive metabolic panel Lab Routine Hepatitis C virus infection without hepatic coma, unspecified chronicity (CMS/HCC) Seasonal allergies Expected: 07/04/2024 (Approximate), Expires: 07/04/[address] [facility] Work Phone: Comment on above: Expected: 07/04/2024 (Approximate), Expires: 07/04/2025 Start: 07-04-2024 End: 07-04-2025 Lipid 1996 panel - Serum or Plasma Lipid panel Lab Routine Screening for lipid disorders Expected: 07/04/2024 (Approximate), Expires: 07/04/[address] [facility] Comment on above: Expected: 07/04/2024 (Approximate), Expires: 07/04/2025 Start: 07-04-2024 End: 09-03-2025 MG Breast - bilateral Screening Bilateral screening mammogram Imaging Routine Encounter for screening mammogram for malignant neoplasm of breast Expected: 07/04/2024, Expires: 09/03/[address] [facility] Comment on above: Expected: 07/04/2024 , Expires: 09/03/2025 Start: 04-22-2024 Influenza vaccination Influenza Vacc ine (#1) [facility] Start: 05-22-2022 Influenza vaccination Influ[facility] Start: 04-29-2022 Screening for malign ant neoplasm of breast Mammogram [facility] Start: 2011 Measurement of occul t blood [...] Hepatitis C screening Hepatitis C An tibody [facility] Start: 1979 Tetanus + diphtheria + acellular pertussis vaccine (product) Tdap Booster [facility] Start: 1976 HIV screening HIV Test [facility] Start: 1961 Screening for malign ant neoplasm of colon [facility] Immunizations Immunization Date Immunization Notes Care Provider Stacy aguilera 06-02-2023 Influenza, injectabl e, Madin Kelly Canine Kidney, preservative free, quadrivalent Fahad Bandar DO Work Phone: [facility] 06-02-2023 influenza virus vaccine, unspecified formulation Fahad Bandar DO Work Phone: [facility] 07-13-2021 COVID-19 mRNA Comirnaty (Pfizer) DO [employer] Work Phone: [facility] 06-08-2021 influenza, injectabl e, quadrivalent, preservative free Fahad Bandar DO Work Phone: [facility] 12-10-2020 COVID-19 mRNA, Comirnaty (Pfizer) DO [employer] Work Phone: [facility] 11-25-2020 diphtheria, tetanus toxoids and pertussis vaccine Aliza Guadarrama MD Work Phone: [facility] 11-25-2020 tetanus toxoid, reduced diphtheria toxoid, and acellular pertussis vaccine, adsorbed Fahad Bandar DO Work Phone: [facility] 11-13-2020 COVID-19 mRNA, Comirnaty (Pfizer) DO [employer] Work Phone: [facility] 05-21-2020 influenza, injectabl e, quadrivalent, preservative free Fahad Bandar DO Work Phone: [facility] Payers Date Payer Category Payer Private Health Insurance [id number] 2024 Private Health Insurance [id number] 2020 Medicaid [place] P[place] MEDICAID [id number] 2020-Present [address] [address] [place] [address] Medicaid HMO [id number] 2017 Unknown [id number] 2014 Unknown [id number] 1961 Unknown [id number] [id number] 93 1961 Unknown [id number] [id number] 93 1961 Unknown [id number] [id number] 93 1961 Unknown [id number] [id number] 93 1961 Unknown [id number] [id number] 93 1961 Unknown [id number] 2.16.840.1.692727.3.579.2.5 93 1961 Unknown [id number] 2.16.840.1.061963.3.579.2.5 93 1961 Unknown [id number] 2.16.840.1.592121.3.579.2.5 93 1961 Unknown [id number] 2.16.840.1.662277.3.579.2.5 93 1961 Unknown [id number] 2.16.840.1.427086.3.579.2.5 93 1961 Unknown [id number] 2.16.840.1.784641.3.579.2.5 93 1961 Unknown [id number] 2.16.840.1.225411.3.579.2.5 93 1961 Unknown [id number] 2.16.840.1.008125.3.579.2.5 93 1961 Unknown [id number] 2.16.840.1.513132.3.579.2.1 259 1961 Unknown [id number] 2.16.840.1.367226.3.579.2.1 259 1961 Unknown [id number] 2.16.840.1.462476.3.579.2.1 259 1959 Medicaid [id number] [id number] 1959 Self-pay Self-pay [id number] [id number] Unknown [id number] [id number] 31 Unknown [facility] [id number] Social History Date Type Detail Facility Assertion [facility] Work Phone: Assertion Alcohol consumpt ion screening (procedure) [facility] Work Phone: Assertion Gender identity finding (finding) [facility] Work Phone: Assertion Finding of sexua l orientation (finding) [facility] Work Phone: Assertion Tobacco user (finding) [facility] Work Phone: Tobacco smoking status Unknown if ever smoked [facility] Work Phone: Start: 07-04-2024 End: 07-11-2024 Sex Assigned At [employer] Other Start: 1960 Sex Assigned At Not on file [facility] Start: 12-01-2021 Tobacco smoking status NHIS Smoker (finding) [facility] Start: 1960 Sex Assigned At Female [facility] Start: 07-04-2024 Tobacco smoking status [facility] Smokes tobacco daily [facility] History of tobacco use Cigarette Smoker [facility] Start: 07-04-2024 Tobacco use and exposure Smokeless tobacco non-user [facility] Start: 07-11-2024 End: 10-03-2024 Alcoholic beverage intake Ex-drinker (finding) [facility] Start: 07-04-2024 End: 07-11-2024 History of Social function [facility] How often to you have a drink containing alcohol? Never [facility] Do you feel stress - tense, restless, nervous, or anxious, or unable to sleep at night because your mind is troubled all the time - these days [OSQ] Only a little [facility] Start: 01-17-2023 Alcohol Comment caffeine intak e: 1-2 cups per day pop and coffee [facility] NEGATED: Highlighted row Assertion Illicit drug use (finding) [facility] Work Phone: NEGATED: Highlighted row Assertion Misuse of prescription only drugs (finding) [facility] Work Phone: NEGATED: Highlighted row Assertion She has not had 4 or more drinks in a day within the past year. [facility] Work Phone: NEGATED: Highlighted row Assertion Current drinker of alcohol (finding) [facility] Work Phone: NEGATED: Highlighted row Assertion Finding relating to drug misuse behavior (finding) [facility] Work Phone: NEGATED: Highlighted row Assertion Exposure to pollution (event) [facility] Work Phone: NEGATED: Highlighted row Assertion Tobacco user (finding) [facility] Work Phone: Mental Status Date Assessment Result Facility Cognitive function No disorienta tion was observed Finding related to orientation (finding) [facility] Work Phone: Clinical Notes 10-20-2021 to 10-03-2024 Jennifer Del Valle, CHRIS - 10/03/2024 3:40 PM Daniella Portillo, DO - 10/03/2024 3:40 PM Daniella Portillo, DO - 07/17/2024 3:00 PM Daniella Portillo, DO - 07/11/2024 10:00 AM EST Note Date & Type Note Facility 10-03-2024 History of Presen t illness Narrative Patient requested note for work to get labs drawn. Printed for patient. 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 Images from the original note were not included. FAMILY MEDICINE NOTE Chief Complaint: Follow-up HPI: Reported feeling better than in the past couple of days. Mentioned recent work stress and the need for a refill of Xanax, which has been taken as prescribed with a 30 tablet supply for 90 days. Had issues with insurance that prevented fulfilling lab work and mammogram, but has since changed to [employer] insurance. Plans to visit a specialist on the and intends to complete the necessary lab work and mammogram in the coming weeks. SUBJECTIVE: PROBLEM LIST SURGICAL/SOCIAL ALLERGIES: There is no problem list on file for this patient. Past Surgical History: Procedure Laterality Date COLONOSCOPY W/ BIOPSIES AND POLYPECTOMY 12/01/2021 HYSTERECTOMY 1993 total LIVER BIOPSY OH REMOVAL NODES, NECK,CERV CMPLT SKIN GRAFT Right TOTAL ABDOMINAL HYSTERECTOMY Social History Tobacco Use Smoking status: Every Day Current packs/day: 1.00 Types: Cigarettes Smokeless tobacco: Never Substance Use Topics Alcohol use: Not Currently Comment: caffeine intake: 1-2 cups per day pop and coffee Drug use: Never No Known Allergies OBJECTIVE: 10/03/2024 3:49 PM 07/17/2024 3:10 PM 07/11/2024 10:19 AM Vitals BMI 19.13 kg/m2 18.25 kg/m2 18.42 kg/m2 BSA (m2) 1.48 m2 1.44 m2 1.45 m2 Systolic 100 126 132 Diastolic 60 82 84 Heart Rate 68 77 84 SpO2 96 % 96 % 96 % Temp 98 F 98 F 98.3 F Resp 20 20 20 Height (in) 5' 3 5' 3 5' 3 Weight (lb) 108 103 104 Physical Exam Constitutional: Appearance: Normal appearance. Cardiovascular: Rate and Rhythm: Normal rate and regular rhythm. Heart sounds: No murmur heard. No friction rub. No gallop. Pulmonary: Breath sounds: Normal breath sounds. No wheezing, rhonchi or rales. Abdominal: General: Abdomen is flat. Bowel sounds are normal. There is no distension. Palpations: Abdomen is soft. There is no mass. Tenderness: There is no abdominal tenderness. There is no guarding. Musculoskeletal: General: Normal range of motion. Skin: General: Skin is warm. Neurological: General: No focal deficit present. Mental Status: She is alert. Mental status is at baseline. Psychiatric: Mood and Affect: Mood normal. Behavior: Behavior normal. ASSESSMENT AND PLAN: Vaccinations - Patient has received flu and COVID vaccinations but has not yet received the RSV vaccine. - Patient plans to inquire about the RSV vaccine at the local pharmacy when picking up prescriptions. Lab Work and Mammogram - Lab work and mammogram have not been completed due to previous insurance issues. - Use existing paperwork to complete lab work and mammogram before visiting a specialist on October 25, 2024. Anxiety and Work Stress - Patient reports work stress and requires a refill of Xanax. - Refill Xanax prescription, 30 tablets for a 90-day supply. Patient's Medications New Prescriptions No medications on file Previous Medications CHOLECALCIFEROL (VITAMIN D-3) 10 MCG (400 UNIT) CAPSULE Take 400 Units by mouth Daily KRILL OIL 500 MG CAPSULE Take 1 tablet by mouth Daily LORATADINE (CLARITIN) 10 MG TABLET Take 10 mg by mouth Daily MULTIPLE VITAMIN (MULTIVITAMIN) TABLET Take 1 tablet by mouth Daily TRIAMCINOLONE (KENALOG) 0.1 % CREAM Apply 1 application topically in the morning and 1 application before bedtime. Modified Medications Modified Medication Previous Medication ALPRAZOLAM (XANAX) 1 MG TABLET ALPRAZolam (Xanax) 1 MG tablet Take 1 tablet (1 mg) by mouth as needed at bedtime for anxiety or sleep Take 1 tablet (1 mg) by mouth as needed at bedtime for anxiety or sleep Discontinued Medications No medications on file Follow up in about 3 months (around 12/31/2024) for chronic recheck. Fahad Portillo DO documented in this encounter [facility] 07-17-2024 History of Presen t illness Narrative Images from the original note were not included. Family Medicine Note Subjective: Chief Complaint: Mouth lesions HPI: 63-year-old female presents for a follow-up visit. Reports a persistent issue with a rash that has been ongoing and unusual in nature. Previously, the use of ointment typically resolves such issues within two to three days, but this time the condition has persisted. Noted a breakout on the nostril, which was unusual, and initially thought it might be due to a scratch. The rash on the nose was puffier on Tuesday morning, with no new dots but a noticeable thickening. Has not used mascara since the symptoms began. Describes a blood blister-like spot and hard bumps inside the lip, which are not painful but cause discomfort due to swelling. Reports tiny spots on the scalp that are itchy and become scabs when scratched. The redness of the rashes is slowly decreasing with the use of topical ointment. The oral lesions are not painful, but the lip remains slightly swollen. 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 Objective: Vitals: 07/17/24 1510 BP: 126/82 Pulse: 77 Resp: 20 Temp: 98 F SpO2: 96% Weight: 103 lb Height: 5' 3 Physical Exam: General: patient is alert, oriented, pleasant, in no acute distress Eyes: PERRLA, EOMI, noninjected bilaterally Nose: Moist mucosa throughout Ears: Bilateral tympanic membranes within normal limits, ear canals without obstruction bilaterally Mouth: small palpable papules on upper inner lip, there is 1 purple/black discoloration papule on left bottom lower lip (outer), the inner upper lip papules are slightly tender to touch. Cardiovascular: regular rate and rhythm with no murmurs, rubs or gallops Respiratory: lungs CTA bilaterally without rales, rhonchi or wheezing Abdominal: soft, nontender, normoactive BS in all 4 quadrants, no guarding, rebound or rigidity Skin: Maculopapular rash on medial palms bilaterally improving with decreasing erythema, the left nostril lesion is healed, there is still some puffiness of left upper eyelid around eyelash line however not erythematous or irritated anymore, no other major rashes noted on exam today Psych: alert, oriented, appropriate mood and affect Assessment/Plan: 1. Dermatitis (Primary) -Patient is still convinced these rashes are all related to shingles - Rashes are improving. Not typical of shingles as they are on both sides of the body and lack characteristic appearance. - Continue using the steroid cream on the eye. Apply warm compresses to reduce swelling. 2. Mucocele of mouth Advised of likely diagnosis of oral lesion being mucocele likely caused by trauma or irritation or idiopathic, no major treatment needed for this as they are benign and self-limited Follow-up: Follow up if symptoms worsen or fail to improve. documented in this encounter [facility] 07-11-2024 History of Presen t illness Narrative Images from the original note were not included. Family Medicine Note Subjective: Chief Complaint: Rash exacerbation HPI: The 63-year-old female patient reports a recent outbreak of rash affecting her eye and causing significant discomfort. She describes the pain as being along a nerve line and mentions that the medication she is currently taking is preventing the outbreak from worsening. She also reports having a sore spot on her nostril, which she says is a new development. She has been using the prescribed triamcinolone lotion from last visit on her hand and groin area. She also mentions an itchy sensation in her ear, which she describes as feeling shrunken. She reports that her symptoms worsened last while she was at work. She also mentions that she has been experiencing discomfort while driving, walking, and sitting. She has been using an old steroid ointment on her eyelid and has been prescribed eye drops, which she has not yet used due to uncertainty about their expiration date. She reports that the rash does not affect her eyeball, but rather her eyelid. She also mentions that she sometimes experiences relief from sinus pressure by pushing on her sinuses to make fluid come out of her eye. Objective: Vitals: 07/11/24 1019 BP: 132/84 Pulse: 84 Resp: 20 Temp: 98.3 F SpO2: 96% Weight: 104 lb Height: 5' 3 Physical Exam: General: patient is alert, oriented, pleasant, in no acute distress Eyes: PERRLA, EOMI, noninjected bilaterally Nose: Moist mucosa throughout Ears: Bilateral tympanic membranes within normal limits, ear canals without obstruction bilaterally Cardiovascular: regular rate and rhythm with no murmurs, rubs or gallops Respiratory: lungs CTA bilaterally without rales, rhonchi or wheezing Abdominal: soft, nontender, normoactive BS in all 4 quadrants, no guarding, rebound or rigidity Skin: persistent erythematous maculopapular rash on right hand medial palm, this is slightly improved since last visit, patient does have faint erythematous macular nonraised rash of left upper eyelid with 1 papule on left nostril with scab, no vesicles noted Psych: alert, oriented, appropriate mood and affect Assessment/Plan: 1. Dermatitis (Primary) - Patient is experiencing a a notable rash increase/flare. She reports this is how her shingles has presented in the past. - patient reports repeated shingles rashes however given her current displays symptoms I am not convinced that this is a shingles outbreak. Definitely a rash outbreak possibly a dermatitis unsure whether allergic or atopic. However appears her previous PCP was prescribing topical steroids that was helping and my triamcinolone cream that was sent at last visit was also helping again pointing away from shingles rash as this would likely exacerbate it if it was shingles - Patient is advised to continue using the topical steroid ointment on her eyelid and the topical [id number] hydrocortisone on her facial and inguinal regions. She is also advised to continue use of the topical triamcinolone lotion on her hands and extremities as needed. She had left over polymyxin- steroid eyedrops from the past and I advise I would not recommend this as she has does not have any ocular symptoms / signs on exam today. - did advise patient that we will write work note for the week however she is not contagious moving forward as there is low likelihood this is shingles also there is no vesicles for transmission either Follow-up: Follow up in about 3 months (around 10/11/2024) for Recheck. documented in this encounter [facility] 07-04-2024 History of Presen t illness Narrative Images from the original note were not included. Family Medicine Note Subjective: Chief Complaint: New Patient HPI: Pt is a 63 Yo female with PMH of Shingles/herpes who presents to the office today to establish care. Patient's previous PCP: Dr Doyle. Patient's current other providers: Dr Corcoran. Pt wanted to discuss the following today: Xanax for her shingles/herpes. Most recent labs were drawn around 1 1/2 years ago. She reports recurrent shingles, which she has been experiencing since puberty. The shingles typically appear on her hand and occasionally on her buttock and groin area. She also reports anxiety and insomnia, which she believes are contributing to her shingles. She used to take Xanax three times a day, but now prefers to take it only at night to help her sleep. She reports that she has been waking up in the middle of the night, which she believes is not good for her nerve pattern. She also mentions that she has had COVID-19 six times, the most recent being on June 04. She works at [employer] and has contracted COVID-19 from various workplaces in the past. She also mentions that she smokes, but not a lot, and rolls her own cigarettes using 100% pure pipe tobacco. She uses cannabis gummies for pain management. She has tried to quit smoking but experienced a shingles outbreak when she attempted to do so. She has tried Chantix to quit smoking but experienced severe nightmares and refuses to use it again. She also avoids serotonin inhibiting medications. Medical History: Past Medical History: Diagnosis Date Allergies Anxiety Arthritis Hepatitis C (CMS/HCC) IBS (irritable bowel syndrome) Liver disease Osteoarthritis Osteoporosis (CMS/HCC) Social History Substance and Sexual Activity Sexual Activity Not on file Social History: Tobacco Use: Tobacco Use: High Risk (07/04/2024) Patient History Smoking Tobacco Use: Every Day Smokeless Tobacco Use: Never Passive Exposure: Not on file Objective: Vitals: 07/04/24 1451 BP: 120/82 Pulse: 78 Resp: 20 Temp: 98.2 F SpO2: 98% Weight: 106 lb Height: 5' 3 Physical Exam: General: patient is alert, oriented, pleasant, in no acute distress Cardiovascular: regular rate and rhythm with no murmurs, rubs or gallops Respiratory: lungs CTA bilaterally without rales, rhonchi or wheezing Abdominal: soft, nontender, normoactive BS in all 4 quadrants, no guarding, rebound or rigidity Skin: erythematous macular papular rash right medial palm, one papule on L buttocks as well Psych: alert, oriented, appropriate mood and affect, talkative on exam today Assessment/Plan: 1. Anxiety attack (CMS/HCC) (Primary) - Patient reports experiencing anxiety and insomnia, which she believes are contributing to her rash. She previously administered Xanax (alprazolam) three times daily, but now prefers nocturnal administration to aid in sleep. - Prescribe Xanax (alprazolam) for nocturnal administration. Monitor the patient's sleep architecture and anxiety levels. - PDMP checked and no red flags - ALPRAZolam (Xanax) 1 MG tablet; Take 1 tablet (1 mg) by mouth as needed at bedtime for anxiety or sleep Dispense: 30 tablet; Refill: 0 2. Insomnia, unspecified type See above - ALPRAZolam (Xanax) 1 MG tablet; Take 1 tablet (1 mg) by mouth as needed at bedtime for anxiety or sleep Dispense: 30 tablet; Refill: 0 3. Dermatitis - Patient has a chronic history of recurrent herpes zoster, which she believes are precipitated by psychological stress and sleep disturbances. - the lesions that she is pointing to today could be early signs of herpes zoster however they are on both sides of the body which would be unlikely. The lesions on her hand appear as a possible eczema. Offered patient topical corticosteroid for treatment of hand rash and she was amenable to this plan. We will reassess her response to topical application of corticosteroid. It did advise patient not to use this cream on face or groin - triamcinolone (Kenalog) 0.1 % cream; Apply topically 2 (two) times a day for 14 days Dispense: 15 g; Refill: 0 4. Screening for lipid disorders Ordered annual labs - Lipid panel; Future - Lipid panel 5. Hepatitis C virus infection without hepatic coma, unspecified chronicity (CMS/HCC) Patient already has appointment scheduled with GI, Dr. Acevedo, advised her to keep that appointment and let us know if she needs labs ordered before that for him - Comprehensive metabolic panel; Future - CBC; Future - Comprehensive metabolic panel - CBC 6. Seasonal allergies Reportedly well controlled, continue loratadine - Comprehensive metabolic panel; Future - CBC; Future - Comprehensive metabolic panel - CBC 7. Age related osteoporosis, unspecified pathological fracture presence (CMS/HCC) Patient refuses treatment for osteoporosis, continue with supplements and reassess at future visits 8. Encounter for screening mammogram for malignant neoplasm of breast - Bilateral screening mammogram; Future - Bilateral screening mammogram 9. Nicotine use Patient not interested in medication use or smoking cessation right now she wants to cut back on around, has not tolerated Chantix in the past Patient reports that she will be getting COVID and influenza vaccine incoming weeks at her pharmacy. She also reports that she has had a complete hysterectomy and no longer has a cervix so no longer gets Pap smears. Patient reports that she is good for another 5 years from her last colonoscopy. We will check on getting records for this Follow-up: Follow up in about 3 months (around 10/04/2024) for Recheck. documented in this encounter [facility] 12-23-2022 Evaluation note Encounter Date Diagnosis Assessment [...] cervical spine and a dynamic neck x-ray. [facility] Other 04-27-2023 Evaluation note* Encounter Date Diagnosis Assessment Notes Treatment Notes Treatment Clinical Notes Nov, Other closed displaced fracture of seventh cervical vertebra, initial encounter (ICD-10 - S12.690A) [facility] Other 04-26-2023 Evaluation note* Encounter Date Diagnosis Assessment Notes Treatment Notes Treatment Clinical Notes Nov, Other closed displaced fracture of seventh cervical vertebra, initial encounter (ICD-10 - S12.690A) [facility] Other 04-25-2023 Evaluation note* Encounter Date Diagnosis [...] negative findings were considered in medical decision-making. [facility] Other 01-03-2023 History of Present illness Narrative* Aliza Guadarrama MD - 08/24/2022 10:25 PM EST Phone numbers Preferred Documentation: Mode: Telephone Patient Patient Work Phone: Patient Cell Phone: Preferred phone: [phone] Consent: I confirmed patient understanding of the [...] pneumoniae Aliza Guadarrama MD documented in this [id number] Evaluation note* Encounter Date Diagnosis Assessment Notes Treatment Notes Treatment Clinical Notes Oct, Hepatitis C (ICD-10 - B19.20) PT WOULD LIKE TO ADDRESS THIS AFTER HER COLONOSCOPY TREATMENT AND TESTING EXPLAINED TO PATIENT IN DETAIL SHE WILL CALL WHEN SHE IS READY TO START THIS PROCESS Oct, Screen for colon cancer (ICD-10 - Z12.11) COLONOSCOPY [facility] Other Evaluation note* Diagnosis Cough, unspecified type- Primary [facility] Other evaluation noteNo assessment information available [facility] Work Phone: Evaluation note* Diagnosis Dermatitis- Primary Contact dermatitis and other eczema, due to unspecified cause [facility] Diagnosis Anxiety attack (CMS/HCC)- Primary Panic disorder without agoraphobia Insomnia, unspecified type Dermatitis Contact dermatitis and other eczema, due to unspecified cause Screening for lipid disorders Hepatitis C virus infection without hepatic coma, unspecified chronicity (CMS/HCC) Seasonal allergies Allergic rhinitis, cause unspecified Age related osteoporosis, unspecified pathological fracture presence (CMS/HCC) Encounter for screening mammogram for malignant neoplasm of breast Nicotine use [facility] Diagnosis Dermatitis- Primary Contact dermatitis and other eczema, due to unspecified cause Mucocele of mouth Other and unspecified diseases of the oral soft tissues [facility] Diagnosis Anxiety attack (CMS/HCC)- Primary Panic disorder without agoraphobia Insomnia, unspecified type [facility] N[facility]ative - Reported* Type Description Date Medical History allergies Medical History anxiety Medical History arthritis Medical History hepatitis c Medical History IBS Medical History liver disease Medical History osteoarthritis Medical History osteoporosis Surgical History liver biopsy Surgical History total hysterectomy 1992 Surgical History skin graft to right hand Surgical History lymph node removed from necks [facility] Other History general Narrative - Reported* Type Description Date Medical History allergies Medical History anxiety Medical History arthritis Medical History hepatitis c Medical History IBS Medical History liver disease Medical History osteoarthritis Medical History osteoporosis Surgical History liver biopsy Surgical History total hysterectomy 1992 Surgical History skin graft to right hand Surgical History lymph node removed from necks Hospitalization History see surg Hx [facility] Other Summary Purpose Family History Description Last [...] steps Medical New Patient with [facility]pe [facility] 2019 Body mass index [Body mass i ndex (BMI) 21.0-21.9 adult] Medical New Patient with [facility] 2019 Diabetes Risk Test Score was two score 2019 Medical New Patient with [facility] Sn[facility] 2019 Fagerstrom Score was two 2019 [facility] New Patient with [facility]pe Snider [facility] 2019 PHQ-9: total score was 0 2019 [facility] New Patient with [facility]pe Snider [facility] 2019 Findings Encounter Date Contusion of back wall of thorax Medical Established Patient with Porsche Vega [facility] 08/13/2019 Z68.21 - Body mass index (BM I) 21.0-21.9 adult Medical Established Patient with [facility]orsche Sullivane [facility] 08/13/2019 Body mass index [Body mass i ndex (BMI) 21.0-21.9 adult] Medical Established Patient with [facility]pe Snider [facility] 08/01/2019 Oral thrush [Candidal stomatitis] Medica l Established Patient with Lupe Snider [facility] 08/01/2019 Assessment of fall on and fr om stairs and steps Medical New Patient with Lupe Snider [facility] 2019 Body mass index [Body mass i ndex (BMI) 21.0-21.9 adult] Medical New Patient with Lupe Snider [facility] 2019 Diabetes Risk Test Score was two score 2019 Medical New Patient with Lupe Snider [facility] 2019 Fagerstrom Score was two 2019 [facility] New Patient with Lupe Snider [facility] 2019 PHQ-9: total score was 0 2019 [facility] New Patient with Lupe Snider [facility] 2019 Instructions Instructions not supported for this [...] section and content) DATE CREATED AUTHOR 02/23/2018 [facility] DATE CREATED AUTHOR AUTHOR'S ORGANIZ ATION 02/23/2018 [facility] DATE CREATED AUTHOR AUTHOR'S ORGANIZ ATION 04/16/2022 [facility] DATE CREATED AUTHOR AUTHOR'S ORGANIZ ATION 12/15/2022 [facility] DATE CREATED AUTHOR AUTHOR'S ORGANIZ ATION 12/22/2022 [facility] DATE CREATED AUTHOR AUTHOR'S ORGANIZ ATION 07/20/2024 [facility] EPIC Evaluations & Outcomes (unre cognized section and content) Includes: Evaluations & Outcomes for active GoalsNo Outcomes Recorded Includes: Evaluations & Outcomes for active GoalsNo Outcomes Recorded REASON FOR VISIT (unrecogniz ed section and content) Reason Comments Cough Reason Comments Follow-up Care Teams (unrecognized sec tion and content) Team Status: Active Member Role Status Dates Nomi Corcoran DO Primary Care Provider Active Team Status: Inactive Member Role Status Dates Nomi Corcoran DO Primary Care Provider Active 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 07/04/24 X Ray Developer Relationship Specialty Start Date End Date Fahad Portillo DO [address] [place] [address] PCP - [facility] 07/04/24 X Ray Developer Relationship Specialty Start Date End Date Fahad Portillo DO [address] [place] [address] PCP - [facility] 07/04/24 X Ray Developer Relationship Specialty Start Date End Date Fahad Portillo DO [address] [place] [address] PCP - [facility] 07/04/24 X Ray Developer Relationship Specialty Start Date End Date Fahad Portillo DO [address] [place] [address] PCP - [facility] 07/04/24 Goals (unrecognized section and content) Goals may [...] BE BASED ON THE PRIMARY CLINICAL RECORDS. [facility] provides no warranty or guarantee of the accuracy or completeness of information in this document.
--- NOTE | 2024-10-05 15:02 | ED_ITS ---
Documented by User: Alondra Álvarez 10/05/24 15:03 HPI HPI - General Adult General Chief complaint: Back Pain/Injury Stated complaint: FALL Time Seen by Provider: 10/05/24 12:43 Mode of arrival: walk-in History of Present Illness HPI narrative: 64-year-old female presenting to the emergency room chief complaint of buttock pain. She slipped and fallen on the ice prior to arrival. She is able to ambulate. When he walked in the room she was walking around and getting in and out of her purse had no acute distress. Related Data Home Medications ?Medication ?Instructions ?Recorded ?Confirmed alprazolam 1 mg tablet 1 mg PO .Q24 PRN anxiety 10/05/24 10/05/24 Allergies Allergy/AdvReac Type Severity Reaction Status Date / Time Penicillins AdvReac Intermediate Hives Verified 06/07/24 17:39 Opioid HPI Opioid Management Most Recent Opioid Data: Last Pain Scale 8 10/05/24 12:39 10/05/24 Review of Systems ROS Narrative All Systems are negative except as noted/marked.All systems reviewed and otherwise negative PFSH PFSH Social History Smoking status: Current every day smoker Little interest or pleasure in doing things: not at all Feeling down, depressed, or hopeless: not at all Exam Narrative Exam Narrative: Nurses note and vital signs reviewed and patient is not hypoxic. General: The patient appears well and in no apparent distress. Patient is resting comfortably on cart. Skin: Warm, dry, no pallor noted. There is no rash noted. Head: Normocephalic, atraumatic Eye: Normal conjunctiva, no drainage, EOMI. PERRL Ears, Nose, Mouth, and Throat: oral mucosa is moist. Nares patent. Mouth without vesicles. Ear canals patent. Tm's without Erythema Cardiovascular: Regular Rate and Rhythm Respiratory: Patient is in no distress, no accessory muscle use, lungs are clear to auscultation, no wheezing, rales or rhonchi Back: non-tender, no CVA tenderness bilaterally to percussion. Musculoskeletal: The patient has no evidence of calf tenderness, no pitting edema, symmetrical pulses noted bilaterally Neurological: A&O x4, normal speech Psychiatric: Cooperative Constitutional Vital Signs, click to edit/add: Last Vital Signs Temp 98.2 F 10/05/24 11:48 Pulse 96 H 10/05/24 11:48 Resp 20 10/05/24 11:48 BP 127/83 10/05/24 11:48 Pulse Ox 96 10/05/24 11:48 O2 Del Method Room Air 10/05/24 11:48 Course Vital Signs Vital signs: Vital Signs Temperature 98.2 F 10/05/24 11:48 Pulse Rate 96 H 10/05/24 11:48 Respiratory Rate 20 10/05/24 11:48 Blood Pressure 127/83 10/05/24 11:48 Pulse Oximetry 96 10/05/24 11:48 Oxygen Delivery Method Room Air 10/05/24 11:48 Temperature 98.2 F 10/05/24 11:48 Pulse Rate 96 H 10/05/24 11:48 Respiratory Rate 10/05/24 11:48 Blood Pressure 127/83 10/05/24 11:48 Pulse Oximetry 96 10/05/24 11:48 Oxygen Delivery Method Room Air 10/05/24 11:48 Medical Decision Making MDM Narrative Medical decision making narrative: Patient left prior to x-rays being done in 1 to sign out AGAINST MEDICAL ADVICE. She states she had to leave because she had a ride available Medical Records Medical records reviewed: Yes I reviewed the patient's medical records Discharge Plan Discharge Stand Alone Forms: Portal Instructions Chief Complaint: Back Pain/Injury Patient Disposition: Left Against Medical Advice Prescriptions / Home Meds: No Action alprazolam 1 mg tablet 1 mg PO .Q24 PRN (Reason: anxiety) Print Language: Maori Referrals: Physician,Non-Staff, [Primary Care Provider] - 1 week Discharge Date/Time: 10/05/24 13:27 Documented by User: Kuldip Torre MD 10/05/24 17:33 HPI HPI - General Adult General Chief complaint: Back Pain/Injury Stated complaint: FALL Time Seen by Provider: 10/05/24 12:43 Related Data Home Medications ?Medication ?Instructions ?Recorded ?Confirmed alprazolam 1 mg tablet 1 mg PO .Q24 PRN anxiety 10/05/24 10/05/24 Allergies Allergy/AdvReac Type Severity Reaction Status Date / Time Penicillins AdvReac Intermediate Hives Verified 06/07/24 17:39 Opioid HPI Opioid Management Most Recent Opioid Data: 2 Last Pain Scale 8 10/05/24 12:39 10/05/24 PFSH PFSH Social History Smoking status: Current every day smoker Little interest or pleasure in doing things: not at all Feeling down, depressed, or hopeless: not at all Exam Constitutional Vital Signs, click to edit/add: Last Vital Signs Temp 98.2 F 10/05/24 11:48 Pulse 96 H 10/05/24 11:48 Resp 20 10/05/24 11:48 BP 127/83 10/05/24 11:48 Pulse Ox 96 10/05/24 11:48 O2 Del Method Room Air 10/05/24 11:48 Course Vital Signs Vital signs: Vital Signs Temperature 98.2 F 10/05/24 11:48 Pulse Rate 96 H 10/05/24 11:48 Respiratory Rate 20 10/05/24 11:48 Blood Pressure 127/83 10/05/24 11:48 Pulse Oximetry 96 10/05/24 11:48 Oxygen Delivery Method Room Air 10/05/24 11:48 Temperature 98.2 F 10/05/24 11:48 Pulse Rate 96 H 10/05/24 11:48 Respiratory Rate 20 10/05/24 11:48 Blood Pressure 127/83 10/05/24 11:48 Pulse Oximetry 96 10/05/24 11:48 Oxygen Delivery Method Room Air 10/05/24 11:48 Medical Decision Making MDM Narrative Medical decision making narrative: The patient is oriented to person, place, and time, demonstrating all yung elements of capacity to make decisions regarding the medical care offered. The patient speaks coherently and exhibits no evidence of having an altered level of consciousness or alcohol or drug intoxication to a point that would impair ability to delineate a choice. He/she is able to ambulate without difficulty. The patient demonstrates understanding and appreciation of the relevant information of the nature their medical condition, as well as the risks, benefits, and treatment alternatives (including nontreatment), Consequences of refusing care, and can appropriately communicative rational reasoning about the ir choice of care options. Patient is aware of a suspected diagnosis suggested by history and exam. The risks of refusing recommended care that were disclosed and acknowledged by the patient including , unforeseen complications, neurological dysfunction, permanent mental impairment, loss of limb, loss of sexual function, loss of current lifestyle, worsening chronic condition, long- term disability were disclosed. The patient understands they are welcome to return to the hospital anytime to receive the recommended care or any other care at any time, regardless of their ability to pay for such care. Discharge instructions were provided to the patient along with necessary prescriptions if indicated. Patient left prior to x-rays being done in 1 to sign out AGAINST MEDICAL ADVICE. She states she had to leave because she had a ride available Discharge Plan Discharge Stand Alone Forms: Portal Instructions Chief Complaint: Back Pain/Injury Patient Disposition: Left Against Medical Advice Prescriptions / Home Meds: No Action alprazolam 1 mg tablet 1 mg PO .Q24 PRN (Reason: anxiety) Print Language: Maori Referrals: Physician,Non-Staff, MD [Primary Care Provider] - 1 week Discharge Date/Time: 10/05/24 13:27
== END 2024-10-05 13:27 | disposition left against medical advice (07) ==
PROVIDERS: Emergency Provider Emergency Medicine
DX: M54.89 Other dorsalgia (principal); Z53.29 Procedure and treatment not carried out because of patient's decision for other reasons; F17.200 Nicotine dependence, unspecified, uncomplicated; S39.92XA Unspecified injury of lower back, initial encounter; W00.0XXA Fall on same level due to ice and snow, initial encounter
CPT/HCPCS: 99282

== ENCOUNTER 2024-10-13 16:06 | Outpatient (OUT) | payer OTHER, SELFPAY ==
--- NOTE | 2024-10-13 | XR_ITS ---
[address] [address] Patient Name: RICARDO ELIAS MRN: [id number] date: 1960 Sex: F Assigned Patient Location: [facility] Current Patient Location: [facility] Accession/Order Number: [id number] Exam Date: 10/13/2024 16:41 Report Date: 10/13/2024 16:43 At the request of: MARIELA PORTILLO DO Procedure: XR hip LT min 2V XR hip LT min 2V 10/13/2024 4:24 PM SIGNS AND SYMPTOMS: Posterior left hip pain after fall PROTOCOL: Frontal and frog-leg views of the left hip COMPARISON: None FINDINGS: There is mild narrowing of the left hip joint space. There is no fracture or dislocation. The bony ring of the pelvis is intact. There is enthesophyte formation along the left iliac wing. XR/XR hip LT min 2V IMPRESSION: No fracture or dislocation. Mild degenerative changes are noted in the left hip as above. Impression dictated by: Corbin Sweeney M.D.10/13/2024 4:43 PM Dictation Location: [place] [address] Electronically authenticated by: [id number] Date: 10/13/2024 16:43
--- OUTSIDE RECORDS SUMMARY | 2024-10-13 16:12 | XMS_ITS | CCD ---
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 Name Role Phone DERAS, LETY VIOLETTA Unavailable [...] Unavailable DERAS, LETY VIOLETTA Unavailable Unavailabl e Lpue Snider Primary Care Provider [phone] Herson Amni Unavailable Unavailable Primary Care Provider UnavailVilma Recinos Unavailable RODRIGO, DR ARCEO Consulting Unavailable MISC, DR ARCEO Primary Care Unavailable MISC, DR ARCEO Attending Unavailable MISC, DR ARCEO Admitting Unavailable KATHE WHITMAN Consulting Unavailable [place], DR HERSON Martinez Consulting Unavailable REQUEST, DR [...] DR ARCEO Primary Care Unavailable MAHESH ., BTETY Consulting Unavailable ISIDORO STONE Consulting Unavailable ARMINDA NELSON Unavailable PAY ., DR MONTANO Consulting Unavailable MISC, DR ARCEO Primary Care Unavailable PAY ., DR MONTANO Attending Unavailable PAY ., DR MONTANO Admitting Unavailable JUANA BOB Consulting Unavailable JUNAA BOB Attending Unavailable JUANA BOB Admitting Unavailable MISC, DR ARCEO Primary Care Unavailable GRECHNY ., SAUL BRISENO Consulting Unavailabl e JUANA BOB Attending Unavailable KATJUANA BROWNING Admitting Unavailable MISC, DR ARCEO Primary Care [...] Provider Fahad Portillo DO Primary Care Provider [phone] FAHAD PORTILLO Attending Unavailable FAHAD PORTILLO Attending Unavailable FAHAD PORTILLO Attending Unavailable FAHAD PORTILLO Attending Unavailable FAHAD PORTILLO Attending Unavailable Allergies Allergy Classification Reported Allergen(s) Allergy Type Date of Onset Reaction(s) Facility (2 sources) Erythromycin Drug Allergy erythromycin [employer] Work Phone: (3 sources) Penicillins; Translations: [Penicillins] Allergy to substance 2 [facility] Repository (2 sources) -No Environmental Allergies Allergy to substance [employer] Work Phone: (7 sources) Mold Extract Drug Allergy Unknown [employer] Other (7 sources) Penicillin G Drug Allergy hives [employer]eight Other (6 sources) Substance with sulfonamide structure and antibacterial mechanism of action (substance) Drug allergy Unknown [employer]eight Other (1 source) Penicillin Drug Allergy [facility] Repository (1 source) Sulfonamides (Antibiotic) Drug allergy (disorder) [facility] Repository Medications Current Medications Medication Drug Class(es) [...] Nov, Active ALPRAZolam 1 mg oral tablet (19 sources) Benzodiazepine Start: 10-03-2024 End: 11-03-2024 ALPRAZolam (Xanax) 1 MG tablet Indications: Anxiety attack (CMS/HCC) , Insomnia, unspecified type Take 1 tablet (1 mg) by mouth as needed at bedtime for anxiety or sleep 30 tablet 10/04/2024 11/03/2024 Active Start: 07-04-2024 End: 08-03-2024 ALPRAZolam (Xanax) [...] 2021 12:00am cholecalciferol 0.01 mg oral capsule (11 sources) Vitamin D take 1 capsule by mouth once daily cholecalciferol (Vitamin D-3) 10 MCG (400 UNIT) capsule Indications: Vitamin D Deficiency Take 400 Units by mouth Daily Active ibuprofen 200 mg oral tablet (1 source) Nonsteroidal Anti-inflammatory Drug Start: 019 Motrin IB 200 MG Oral Tablet 08/01/2019 Provider: krill oil 500 mg oral capsule (18 sources) take 1 tablet by mouth once daily Krill Oil 500 MG capsule Take 1 tablet by mouth Daily Active Krill Oil Not-Ta david Krill Oil Active loratadine 10 mg oral tablet (12 sources) Start: 08-01-2019 Loratadine 10 MG Oral Tablet 08/01/2019 Provider: meloxicam 15 mg oral tablet (2 sources) Nonsteroidal Anti-inflammatory Drug Start: 10-09-2024 End: 11-08-2024 take 1 tablet by mouth once daily meloxicam (Mobic) 15 MG tablet Indications: Left hip pain , Hematoma Take 1 tablet (15 mg) by mouth Daily 30 tablet 10/09/2024 11/08/2024 Active Multiple Vitamin (multivitamin) tablet (11 sources) take 1 tablet by mouth once daily Multiple Vitamin (multivitamin) tablet Indications: Vitamin Deficiency Take 1 tablet by mouth Daily Active nystatin 081167 unt/ml oral suspension (1 source) Polyene Antifungal Start: 08-01-2019 Nystatin 422197 UNIT/ML Mouth/Throat Suspension 08/01/2019 Provider: Lupe Snider APPLICATIONS INTERN triamcinolone acetonide 1 mg/ml topical cream (11 sources) Corticosteroid Start: 07-04-2024 End: 07-18-2024 triamcinolone [...] 05-24-2017 End: 05-24-2017 CLINDAMYCIN HCL 300 MG [facility] 05/24/2017 - 05/24/2017 Provider: Start: 11-05-2015 End: 11-05-2015 CLINDAMYCIN HCL 150 MG [facility] 11/05/2015 - 11/05/2015 Provider: dexamethasone 4 mg [...] unspecified] Onset: 08-11-2022 Chronic E Codes: Fall (3 sources) Unspecified fall, initial encounter; Translations: [Fall] Onset: 12-13-2022 10-09-2024 Episodic E Codes: Natural/environment (2 sources) Exposure [...] 07-04-2024 Chronic Other aftercare (1 source) Other usp (current) drug therapy; Translations: [OTH DETENTION CURRENT DRUG THERAPY] Onset: 12-14-2022 Episodic Other aftercare (1 source) penitentiary (current) use of aspirin; Translations: [FRESCO ARTIST CURRENT USE OF ASPIRIN] Onset: 12-13-2022 Episodic [...] initial encounter for closed fracture Episodic Other injuries and conditions due to external causes (2 sources) Hematoma; Translations: [Other injury of unspecified body region, initial encounter] 10-09-2024 Episodic Other lower respiratory disease (1 source) Cough; Translations: [Cough, unspecified type] Episodic Other nervous system disorders (1 source) Other chronic pain; Translations: [OTHER CHRONIC PAIN] Onset: 12-30-2021 Chronic Other non-traumatic joint disorders (2 sources) Hip pain; Translations: [Pain in left hip] 10-09-2024 Episodic Other screening for suspected conditions (not mental [...] by: ISIDORO STONE Date: 2022-12-09 15:10 Normal [facility] CT TSPINE WO CONon 3 CT TSPINE [...] by: TREV PHILLIPS Date: 2022-12-09 13:45 Normal [facility] XR CSPINE 2_3 VIEWSon [...] by: ARMINDA NELSON Date: 2022-12-09 18:07 Normal [facility] XR HAND RT MIN 3Von 12-01-19 [...] by: NATI PRADO Date: 2022-11-30 01:36 Normal [facility] CBC AUTO DIFFon 08-06-2022 BASO # 0.0 103/ul Normal 0.0-0.1 [facility] Comment on above: Performed By: #### C BC #### [facility] [address] [address] [address] Ana Belcher Basophils/100 WBC (Bld) 0.4 % Normal 0.2-2.0 [facility] Comment on above: Performed By: #### C BC #### [facility] [address] [address] [address] Ana Belcher EO # 0.0 103/ul Normal 0.0-0.7 [facility] Comment on above: Performed By: #### C BC #### [facility] [address] [place] [address] Dr. Ana Belcher Eosinophils/100 WBC (Bld) 0.4 % Critically low 0.9-7.0 [facility] Comment on above: Performed By: #### C BC #### [facility] [address] [place] [address] Dr. Ana Belcher Erythrocyte distribution width (RBC) [Ratio] 13.2 % Normal 11.0-15.0 [facility] Comment on above: Performed By: #### C BC #### [facility] [address] [place] [address] Dr. Ana Belcher Hematocrit (Bld) [Volume fraction] 48.0 % Normal 36.0-48.0 [facility] Comment on above: Performed By: #### C BC #### [facility] [address] [place] [address] Dr. Ana Belcher Hemoglobin (Bld) [Mass/Vol] 16.0 g/dL Normal 12.0-16.0 [facility] Comment on above: Performed By: #### C BC #### [facility] [address] [place] [address] Dr. Ana Belcher IG # 0.04 10e3/ul Critically high 0.00-0.03 [facility] Comment on above: Performed By: #### C BC #### [facility] [address] [place] [address] Dr. Ana Belcher IG % 0.4 % Normal 0.0-0.5 [facility] Comment on above: Performed By: #### C BC #### [facility] [address] [place] [address] Dr. Ana Belcher LYMPH # 2.4 103/ul Normal 1.2-3.8 [facility] Comment on above: Performed By: #### C BC #### [facility] [address] [place] [address] Dr. Ana Belcher Lymphocytes/100 WBC (Bld) 25.9 % Normal 20.5-60.0 [facility] Comment on above: Performed By: #### C BC #### [facility] [address] [place] [address] Dr. Ana Belcher MANUAL DIFF REQ NO Normal [facility] Comment on above: Performed By: #### C BC #### [facility] [address] [place] [address] Dr. Ana Belcher MCH (RBC) [Entitic mass] 29.7 pg Normal 26.7-34.0 [facility] Comment on above: Performed By: #### C BC #### [facility] [address] [place] [address] Dr. Ana Belcher MCHC (RBC) [Mass/Vol] 33.3 g/dL Normal 29.9-35.2 [facility] Comment on above: Performed By: #### C BC #### [facility] [address] [place] [address] Dr. Ana Belcher MCV (RBC) [Entitic vol] 89.2 fL Normal 81.0-99.0 [facility] Comment on above: Performed By: #### C BC #### [facility] [address] [place] [address] Dr. Ana Belcher MONO # 0.7 103/ul Normal 0.3-0.8 [facility] Comment on above: Performed By: #### C BC #### [facility] [address] [place] [address] Dr. Ana Belcher Monocytes/100 WBC (Bld) 7.7 % Normal 1.7-12.0 [facility] Comment on above: Performed By: #### C BC #### [facility] [address] [place] [address] Dr. Ana Belcher NEUT # 6.0 103/ul Normal 1.4-6.5 [facility] Comment on above: Performed By: #### C BC #### [facility] [address] [place] [address] Dr. Ana Belcher Neutrophils/100 WBC (Bld) 65.2 % Normal 43.0-75.0 [facility] Comment on above: Performed By: #### C BC #### [facility] [address] [address] [address] Ana Belcher Platelet mean volume (Bld) [Entitic vol] 10.1 fL Normal 9.5-13.5 [facility] Comment on above: Performed By: #### C BC #### [facility] [address] [address] [address] Ana Belcher PLT 261 103/ul Normal 150-450 [facility] Comment on above: Performed By: #### C BC #### [facility] [address] [place] [address] Dr. Ana Belcher RBC 5.38 106/ul Normal 4.20-5.40 [facility] Comment on above: Performed By: #### C BC #### [facility] [address] [place] [address] Dr. Ana Belcher WBC 9.3 103/ul Normal 4.0-11.0 [facility] Comment on above: Performed By: #### C BC #### [facility] [address] [place] [address] Dr. Ana Belcher GLYCOHEMOGLOBIN A1Con 2021 ADA RECOMMENDATION SEE BELOW Normal [facility] Comment on above: Result Comment: ADA RECOMMENDED LIMIT 4.0 - 6.0 ADA THERAPEUTIC TARGET < 7.0 ACTION SUGGESTED > 7.0 Performed By: #### A 1C #### [facility] [address] [place] [address] Dr. Ana Belcher Glucose [Mass/Vol] 111 mg/dL Normal [facility] Comment on above: Performed By: #### A 1C #### [facility] [address] [place] [address] Dr. Ana Belcher HbA1c (Bld) [Mass fraction] 5.5 % Normal 4.5-6.2 [facility] Comment on above: Performed By: #### A 1C #### [facility] [address] [place] [address] Dr. Ana Belcher LIPID PROFILEon 08-06-2022 CHOL-HDL RATIO NORM SEE BELOW Normal [facility] Comment on above: Result Comment: 3.3 - 4.4 LOW RISK 4.4 - 7.1 AVERAGE RISK 7.1 - 11.0 MODERATE RISK >11.0 HIGH RISK Performed By: #### L IPID, CMP ####[facility] [address] [id number]. Jazmynelan Belcher Cholesterol [Mass/Vol] 191 mg/dL Normal <=200 [facility] Comment on above: Performed By: #### L IPID, CMP ####[facility] [address] [id number]. Jazmynelan Belcher Cholesterol in HDL [Mass/Vol] 61 mg/dL Critically high 40-60 [facility] Comment on above: Performed By: #### L IPID, CMP ####[facility] [address] [place], [place] [address]Dr. Jazmynelan Belcher Cholesterol in LDL [Mass/Vol] 117.0 mg/dL Normal [facility] Comment on above: Performed By: #### L IPID, CMP ####[facility] [address] [place], [place] [id number]. Jazmynelan Belcher Cholesterol.total/C holesterol in HDL [Mass ratio] 3.1 {ratio} Normal [facility] Comment on above: Performed By: #### L IPID, CMP ####[facility] [address] [place], [place] [id number]. Jazmynelan Belcher HDL NORMAL > or = 60 mg/dl - LO W CARDIOVASCULAR RISK <40 mg/dl - HIGH CARDIOVASCULAR RISK Normal [facility] Comment on above: Performed By: #### L IPID, CMP ####[facility] [address] [address]Dr. Jazmynelan Belcher LDL CALC NORMAL SEE BELOW Normal [facility] Comment on above: Result Comment: <100 mg/dl OPTIMAL 100 - 129 mg/dl NEAR OR ABOVE OPTIMAL 130 - 159 mg/dl BORDERLINE HIGH 160 - 189 mg/dl HIGH >190 mg/dl VERY HIGH Performed By: #### L IPID, CMP ####[facility] [address] [place], [place] [address]Dr. Jazmynelan Belcher Triglyceride [Mass/Vol] 65 mg/dL Normal <=150 [facility] Comment on above: Performed By: #### L IPID, CMP ####[facility] [address] [address]Dr. Ana Belcher VLDL CALC 13.0 mg/dL Normal [facility] Comment on above: Performed By: #### L IPID, CMP ####[facility] [address] [place], [place] [address]Dr. Ana Belcher PROF 14(COMP METB)on 022 Albumin [Mass/Vol] 4.1 g/dL Normal 3.4-5.0 [facility] Comment on above: Performed By: #### L IPID, CMP ####[facility] [address] [place], [place] [address]Dr. Ana Belcher Albumin/Globulin [Mass ratio] 1.0 {ratio} Normal [facility] Comment on above: Performed By: #### L IPID, CMP ####[facility] [address] [place], [place] [address]Dr. Ana Belcher ALP [Catalytic activity/Vol] 69 U/L Normal 46-116 [facility] Comment on above: Performed By: #### L IPID, CMP ####[facility] [address] [place], [place] [address]Dr. Ana Belcher ALT [Catalytic activity/Vol] 67 U/L Critically high 14-59 [facility] Comment on above: Performed By: #### L IPID, CMP ####[facility] [address] [place], [place] [address]Dr. Ana Belcher Anion gap [Moles/Vol] 13.9 mmol/L Normal [facility] Comment on above: Performed By: #### L IPID, CMP ####[facility] [address] [place], [place] [address]Dr. Ana Belcher AST [Catalytic activity/Vol] 53 U/L Critically high 15-37 [facility] Comment on above: Performed By: #### L IPID, CMP ####[facility] [address] [place], [place] [address]Dr. Ana Belcher Bilirubin [Mass/Vol] 0.6 mg/dL Normal 0.2-1.0 [facility] Comment on above: Performed By: #### L IPID, CMP ####[facility] [address] [place], [place] [address]Dr. Ana Belcher Calcium [Mass/Vol] 9.6 mg/dL Normal 8.5-10.1 [facility] Comment on above: Performed By: #### L IPID, CMP ####[facility] [address] [place], [place] [address]Dr. Ana Belcher Chloride [Moles/Vol] 102 mmol/L Normal 98-107 [facility] Comment on above: Performed By: #### L IPID, CMP ####[facility] [address] [place], [place] [address]Dr. Ana Belcher CO2 [Moles/Vol] 25.5 mmol/L Normal 21.0-32.0 [facility] Comment on above: Performed By: #### L IPID, CMP ####[facility] [address] [place], [place] [address]Dr. Ana Belcher Creatinine [Mass/Vol] 0.70 mg/dL Normal 0.55-1.02 [facility] Comment on above: Performed By: #### L IPID, CMP ####[facility] [address] [place], [place] [address]Dr. Ana Belcher EGFR-AF SIERRA LEONEAN >60 Normal >=60 [facility] Comment on above: Performed By: #### L IPID, CMP ####[facility] [address] [place], [place] [address]Dr. Ana Belcher EGFR-NON AF SIERRA LEONEAN >60 Normal >=60 [facility] Comment on above: Performed By: #### L IPID, CMP ####[facility] [address] [place], [place] [address]Dr. Ana Belcher Globulin (S) [Mass/Vol] 4.0 g/dL Normal [facility] Comment on above: Performed By: #### L IPID, CMP ####[facility] [address] [address]Dr. Ana Belcher Glucose [Mass/Vol] 109 mg/dL Critically high 74-106 T [facility] Comment on above: Performed By: #### L IPID, CMP ####[facility] [address] [address]Dr. Ana Belcher Potassium [Moles/Vol] 3.4 mmol/L Critically low 3.5-5.1 [facility] Comment on above: Performed By: #### L IPID, CMP ####[facility] [address] [address]Dr. Ana Belcher Protein [Mass/Vol] 8.1 g/dL Normal 6.4-8.2 [facility] Comment on above: Performed By: #### L IPID, CMP ####[facility] [address] [place], [place] [address]Dr. Ana Belcher Sodium [Moles/Vol] 138 mmol/L Normal 136-145 [facility] Comment on above: Performed By: #### L IPID, CMP ####[facility] [address] [address]Dr. Ana Belcher Urea nitrogen [Mass/Vol] 23.0 mg/dL Critically high 7.0-18.0 [facility] Comment on above: Performed By: #### L IPID, CMP ####[facility] [address] [place], [place] [address]Dr. Ana Belcher Urea nitrogen/Creatinine [Mass ratio] 32.9 mg/mg Normal [facility] Comment on above: Performed By: #### L IPID, CMP ####[facility] [address] [address]Dr. Ana Belcher UA (CLEAN/CATCH) KITCHEN DESIGNER/MICRO I F IND.on 08-06-2022 Bilirubin Ql (U) SMALL Abnormal NEGATIVE [facility] Comment on above: Performed By: #### U ACSIND, UMICRO #### [facility] [address] [address] [address] Ana Belcher Clarity (U) CLEAR Normal CLEAR [facility] Comment on above: Performed By: #### U ACSIND, UMICRO #### [facility] [address] [address] [address] Ana Belcher Color (U) DK. YELLOW Normal YELLOW [facility] Comment on above: Performed By: #### U ACSIND, UMICRO #### [facility] [address] [place] [address] Dr. Ana Belcher Glucose Ql (U) Negative Normal NEGATIVE [facility] Comment on above: Performed By: #### U ACSIND, UMICRO #### [facility] [address] [place] [address] Dr. Ana Belcher Hemoglobin Ql (U) MODERATE Abnormal NEGATIVE [facility] Comment on above: Performed By: #### U ACSIND, UMICRO #### [facility] [address] [place] [address] Dr. Ana Belcher Ketones Ql (U) TRACE Abnormal NEGATIVE [facility] Comment on above: Performed By: #### U ACSIND, UMICRO #### [facility] [address] [place] [address] Dr. Ana Belcher LEUKOCYTES Negative Normal NEGATIVE [facility] Comment on above: Performed By: #### U ACSIND, UMICRO #### [facility] [address] [place] [address] Dr. Ana Belcher Nitrite Ql (U) Negative Normal NEGATIVE [facility] Comment on above: Performed By: #### U ACSFIDENCIO, UMICRO #### [facility] [address] [place] [address] Dr. Ana Belcher pH (U) 5.0 [pH] Normal 5-9 [facility] Comment on above: Performed By: #### U ACSIND, UMICRO #### [facility] [address] [place] [address] Dr. Ana Belcher SPEC GRAVITY >=1.030 Abnormal 1.005-<=1.02 5 [facility] Comment on above: Performed By: #### U ACSIND, UMICRO #### [facility] [address] [place] [address] Dr. Ana Belcher UA PROTEIN TRACE Normal NEGATIVE/ TRACE [facility] Comment on above: Performed By: #### U ACSIND, UMICRO #### [facility] [address] [address] [address] Ana Belcher UR MICRO IND INDICATED Normal [facility] Comment on above: Performed By: #### U ACSIND, UMICRO #### [facility] [address] [address] [address] Ana Belcher Urobilinogen Qn (U) 0.2 {Bi'U}/dL Normal 0.2 - 1. 0 [facility] Comment on above: Performed By: #### U ACSIND, UMICRO #### [facility] [address] [address] [address] Ana Belcher URINE MICROSCOPIC ONLYon BACTERIA NONE SEEN Normal NONE SEEN [facility] Comment on above: Performed By: #### U ACSIND, UMICRO ####[facility] [address] [address]DrGavin Belcher Bacteria identified Cx Nom (U) NOT INDICATED Normal [facility] Comment on above: Performed By: #### U ACSIND, UMICRO ####[facility] [address] [address]DrGavin Belcher CAST NONE SEEN Normal NONE SEEN [facility] Comment on above: Performed By: #### U ACSIND, UMICRO ####[facility] [address] [address]DrGavin Belcher Crystals LM Nom (Urine sed) NONE SEEN Normal NONE SEEN [facility] Comment on above: Performed By: #### U ACSIND, UMICRO ####[facility] [address] [address]DrGavin Belcher Epithelial cells LM Ql (Urine sed) FEW Abnormal NONE SEEN /RARE [facility] Comment on above: Performed By: #### U ACSIND, UMICRO ####[facility] [address] [address]DrGavin Belcher MUCOUS NONE SEEN Normal NONE SEEN [facility] Comment on above: Performed By: #### U TRENT UMICRO ####[facility] [address] [id number]. Ana Belcher RBC 5-10 Abnormal 0-2 [facility] Comment on above: Performed By: #### U TRENT UMICRO ####[facility] [address] [id number]. Ana Belcher WBC NONE SEEN Normal NONE SEEN [facility] Comment on above: Performed By: #### U TRENT UMICRO ####[facility] [address] [id number]. Ana Belcher VITAMIN D 25 OHon 08-06-2022 VIT D 25-OH 47.2 ng/mL Normal [facility] Comment on above: Performed By: #### V ITAD ####[facility] [address] [address]Dr. Ana Belcher VIT D RANGES SEE BELOW Normal [facility] Comment on above: Result Comment: <20 ng/mL Vit D deficient 20 - <30 ng/mL Vit D insufficient 30 - 100 ng/mL Vit D sufficient >100 ng/mL Potential Toxicity Performed By: #### V ITAD ####[facility] [address] [address]Dr. Ana Belcher XR KUB 1 VIEWon 08-06-2022 [...] HERSON VANCE Date: 2022-08-06 15:26 Normal [facility] Neurosurgery Office/Clinic N oteon 03-01-2022 Neurosurgery Office/Clinic [...] pain. She went to the ED in [place], a CTA chest was done which showed [...] CT thorac (more content not included)... Normal [facility] Provider Letteron 03-01-2022 Provider Letter (Inserted Image. Demetria ble to display) Nomi Corcoran DO [address] [phone] Re: Brie Farrell Date of Visit: 03/01/2022 Dear Nomi Corcoran DO, Thank you for allowing me to contribute to the care of your patient: Brie Farrell. Attached is my office note where you will find my assessment and recommendations from our encounter. My office?s contact information: [facility] [address], [phone] Let me know if you have any questions or concerns. Sincerely, ROHIT Myles Providers: The following document(s) were included in the letter: March 01, 2022 12:05:06 EDT - (03/01/2022) Neurosurgery Office Visit Note Normal [facility] MRI LSPINE WO CONon 02-18-20 MRI LSPINE WO CON EXAMINATION: MRI LSP INE WO [...] by: HERSON VANCE Date: 2022-02-17 17:39 Normal [facility] MRI JHON CHAVES CONon 02-17-20 22 MRI JHON CHAVES CON EXAM: MRI CSPRYAN WO CON CLINICAL INDICATION: Neck pain COMPARISON: [...] by: KATHE WHITMAN Date: 2022-02-16 14:44 Normal [facility] MRI TSPINE WO CONon 02-17-20 MRI TSPINE WO CON EXAM: MRI TSPINE WO CON [...] KATHE WHITMAN Date: 2022-02-16 14:55 Normal [facility] Neurosurgery Office/Clinic N oteon 01-21-2022 Neurosurgery Office/Clinic Note Chief Complaint Patient [...] pain. She went to the ED in [place], a CTA chest was done which showed [...] thoracic spine (more content not included)... Normal [facility] Provider Letteron 01-21-2022 Provider Letter (Inserted Image. Demetria ble to display) Nomi Corcoran DO [address] [id number] Re: Brie Farrell Date of Visit: 01/21/2022 Dear Nomi Corcoran DO, Thank you for your referral and allowing me to contribute to the care of your patient: Brie Farrell. Attached is my office note where you will find my assessment and recommendations from our encounter. My office?s contact information: [facility] [address] [place], [place], [phone] Let me know if you have any questions or concerns. Sincerely, ROHIT Myles Providers: The following document(s) were included in the letter: January 21, 2022 09:52:54 EDT - (01/21/2022) Neurosurgery Office Visit Note Normal [facility] Progress Noteon 01-13-2018 HIM IP Note OR Tree Driller Normal [facility] Cult,Urine,CCon 12-27-2017 Cult,Urine,CC Specimen Description .URINE Performed at [address] [place], [place] [id number] ([phone] Special Requests NOT REPORTEDCulture NO GROWTH Performed at [address] [id number] ([phone] Report Status FINAL 12/27/2017 [facility] Comment on above: Performed By: #### U AMIC ####[address] [place] [address] Progress Noteon 12-26-2017 HIM IP Note OR Tree Driller Normal [facility] HIM IP Note OR Tree Driller Normal [facility] Urinalysis w/ Microon 2017 ----- Normal [facility] Comment on above: Performed By: #### U AMIC ####[address] [place] [address] Acetaminophen mass conc Negative Normal NEG [facility] Comment on above: Performed By: #### U AMIC ####[address] [place] [address] Bilirubin (direct) Negative Normal NEG [facility] Comment on above: Performed By: #### U AMIC ####[address] [place] [address] Hemoglobin mass conc (Bld) 2+ Abnormal NEG [facility] Comment on above: Performed By: #### U AMIC ####[address] [place] [address] Nitrite,Ur Negative Normal NEG [facility] Comment on above: Performed By: #### U AMIC ####[address] [place] [address] Turbidity CLEAR Normal CLEAR [facility] Comment on above: Performed By: #### U AMIC ####[address] [place] [address] Urine WBC's None Normal 0-5 [facility] Comment on above: Performed By: #### U AMIC ####[address] [place] [id number] Urine, color YELLOW Normal YEL [facility] Comment on above: Performed By: #### U AMIC ####[address] [place] [id number] Urine, epithelial cells in sediment 0 TO 2 Normal 0-25 [facility] Comment on above: Result Comment: Perf ormed at [address] [place] [address] Performed By: #### U AMIC ####[address] [place] [address] Urine, erythrocytes None Normal 0-2 [facility] Comment on above: Performed By: #### U AMIC ####[address] [place] [address] Urine, glucose presence Negative Normal NEG [facility] Comment on above: Performed By: #### U AMIC ####[address] [place] [address] Urine, leukocyte esterase presence Negative Normal NEG [facility] Comment on above: Performed By: #### U AMIC ####[address] [place] [address] Urine, pH 5.5 [pH] Normal 5.0-9.0 [facility] Comment on above: Performed By: #### U AMIC ####[address] [place] [address] Urine, protein presence Negative Normal NEG [facility] Comment on above: Performed By: #### U AMIC ####[address] [place] [address] Urine, specific gravity 1.015 Normal 1.010-1.020 [facility] Comment on above: Performed By: #### U AMIC ####[address] [place] [address] Urobilinogen,Ur Normal Normal NORM [facility] Comment on above: Performed By: #### U AMIC ####[address] [place] [address] Comment NOT REPORTED Normal [facility] Comment on above: Performed By: #### U AMIC ####[address] [place] [address] Epithelial, Renal NOT REPORTED Normal 0 [facility] Comment on above: Performed By: #### U AMIC ####[address] [place] [address] Mucus Strands NOT REPORTED Normal NONE [facility] Comment on above: Performed By: #### U AMIC ####[address] [place] [id number] Other Observations NOT REPORTED Normal NREQ [facility] Comment on above: Performed By: #### U AMIC ####[address] [place] [address] Trichomonas NOT REPORTED Normal NONE [facility] Comment on above: Performed By: #### U AMIC ####[address] [place] [address] Urine, amorphous sediment presence in sediment NOT REPORTED Normal NONE [facility] Comment on above: Performed By: #### U AMIC ####[address] [place] [address] Urine, bacteria in sediment NOT REPORTED Normal NONE [facility] Comment on above: Performed By: #### U AMIC ####[address] [place] [id number] Urine, casts in sediment NOT REPORTED Normal [facility] Comment on above: Performed By: #### U AMIC ####[address] [place] [id number] Urine, crystals in sediment NOT REPORTED Normal NONE [facility] Comment on above: Performed By: #### U AMIC ####[address] [place] [id number] Urine, yeast presence in sediment NOT REPORTED Normal NONE [facility] Comment on above: Performed By: #### U AMIC ####[address] [place] [address] HCV RNA,Quant,PCRon 12-21-19 18 HCV RNA,Quant,PCR Specimen Description .PLASMA Performed at [address] [place] [address] Special Requests NOT REPORTEDDirect Exam HCV RNA DETECTED [id number] IU/ML (6.79 LOG IU/ML) This test is [...] to the appropriate Health Department Performed at [address] [address] Report Status FINAL 12/20/2017 Normal [facility] Comment on above: Performed By: #### H CVQ ####[address] [phone] [place], [place] [id number] HIV Ag/Abon 12-15-2017 HIV Ag/Ab NONREACTIVE Normal NR [facility] Comment on above: Result Comment: No l aboratory evidence of HIV infection. If acute HIV infection is suspected, consider testing for HIV-1 RNA.Performed at [address] [address] Performed By: #### C BC, AHCV, HIVCMB ####[address] [address] #### CP, LIPR ####[address] [place], [place] [id number] Hep C Abon 12-15-2017 Hep C Ab REACTIVE Abnormal NR [facility] Comment on above: Result Comment: [...] by ordering HCV RNA by PCR.Performed at [address] [address] Performed By: #### C BC, AHCV, HIVCMB ####[address] [address] #### CP, LIPR ####[address] [place] [address] Progress Noteon 12-15-2017 HIM IP Note OR Tree Driller Normal [facility] CBCon 12-14-2017 Erythrocyte distribution width Auto Ratio (RBC) 13.1 % Normal 11.8-14.4 [facility] Comment on above: Performed By: #### C BC, AHCV, HIVCMB ####[address] [address] #### CP, LIPR ####[address] [place] [id number] Erythrocytes (RBC) 0.0 per 100 WBC Normal 0.0 M [facility] Comment on above: Result Comment: Perf ormed at [address] [address] Performed By: #### C BC, AHCV, HIVCMB ####[address] [address] #### CP, LIPR ####[address] [place] [address] Erythrocytes (RBC) 4.94 10*6/uL Normal 3.95-5.11 [facility] Comment on above: Performed By: #### C BC, AHCV, HIVCMB ####[address] [address] #### CP, LIPR ####[address] [place] [address] Hematocrit (HCT) 44.6 % Normal 36.3-47.1 [facility] Comment on above: Performed By: #### C BC, AHCV, HIVCMB ####[address] [address] #### CP, LIPR ####[address] [place] [address] Hemoglobin mass conc (Bld) 14.5 g/dL Normal 11.9-15.1 [facility] Comment on above: Performed By: #### C BC, AHCV, HIVCMB ####[address] [address] #### CP, LIPR ####[address] [place] [address] MCH 29.4 pg Normal 25.2-33.5 [facility] Comment on above: Performed By: #### C BC, AHCV, HIVCMB ####[address] [address] #### CP, LIPR ####[address] [place] [address] MCHC mass conc (RBC) 32.5 g/dL Normal 28.4-34.8 [facility] Comment on above: Performed By: #### C BC, AHCV, HIVCMB ####[address] [address] #### CP, LIPR ####[address] [place] [address] MCV 90.3 fL Normal 82.6-102.9 [facility] Comment on above: Performed By: #### C BC, AHCV, HIVCMB ####[address] [address] #### CP, LIPR ####[address] [place] [address] Platelet mean volume (PMV) 9.1 fL Normal 8.1-13.5 [facility] Comment on above: Performed By: #### C BC, AHCV, HIVCMB ####[address] [address] #### CP, LIPR ####[address] [place] [address] Platelets 271 10*3/uL Normal 138-453 [facility] Comment on above: Performed By: #### C BC, AHCV, HIVCMB ####[address] [place] [place] [address] #### CP, LIPR ####[address] [place] [address] WBC (Leukocytes) 5.0 10*3/uL Normal 3.5-11.3 [facility] Comment on above: Performed By: #### C MARYLU, AHCV, HIVCMB ####[address] [address] #### CP, LIPR ####[address] [place] [address] Comp Metabolic Profon 2017 (cont.) Normal [facility] Comment on above: Result Comment: Aver age GFR for 50-59 years old: 93 mL/min/1.73sq mChronic Kidney Disease: <60 mL/min/1.73sq mKidney failure: <15 mL/min/1.73sq meGFR calculated using average adult body mass. Additional eGFR calculator available at:http://www.AdXpose.Total Eclipse/multiple_crcl_2012.htm Performed By: #### C BC, AHCV, HIVCMB ####[address] [address] #### CP, LIPR ####[address] [place] [address] Alanine aminotransferase (ALT) 39 U/L High 5-33 [facility] Comment on above: Performed By: #### C BC, AHCV, HIVCMB ####[address] [address] #### CP, LIPR ####[address] [place] [address] Albumin 4.3 g/dL Normal 3.5-5.2 [facility] Comment on above: Performed By: #### C BC, AHCV, HIVCMB ####[address] [address] #### CP, LIPR ####[address] [place] [address] Albumin/Globulin Ratio 1.3 {ratio} Normal 1.0-2.5 [facility] Comment on above: Performed By: #### C BC, AHCV, HIVCMB ####[address] [address] #### CP, LIPR ####[address] , [facility]83 Alkaline Phos 54 U/L Normal 35-104 [facility] Comment on above: Performed By: #### C BC, AHCV, HIVCMB ####[address] [address] #### CP, LIPR ####[address] [place] [address] Anion gap 10 mmol/L Normal 9-17 [facility] Comment on above: Performed By: #### C BC, AHCV, HIVCMB ####[address] [address] #### CP, LIPR ####[address] [place] [address] Aspartate aminotransferase (AST) 37 U/L High <32 [facility] Comment on above: Performed By: #### C BC, AHCV, HIVCMB ####[address] [address] #### CP, LIPR ####[address] [place] [address] Bilirubin Ql (U) 0.51 mg/dL Normal 0.3-1.2 [facility] Comment on above: Performed By: #### C BC, AHCV, HIVCMB ####[address] [address] #### CP, LIPR ####[address] [place] [address] BUN/CRE Ratio 25 High 9-20 [facility] Comment on above: Performed By: #### C BC, AHCV, HIVCMB ####[address] [address] #### CP, LIPR ####[address] , [facility]83 Calcium 9.6 mg/dL Normal 8.6-10.4 [facility] Comment on above: Performed By: #### C BC, AHCV, HIVCMB ####[address] [address] #### CP, LIPR ####[address] [place] [address] Chloride 101 mmol/L Normal 98-107 [facility] Comment on above: Performed By: #### C BC, AHCV, HIVCMB ####[address] [address] #### CP, LIPR ####[address] [place] [address] CO2 28 mmol/L Normal 20-31 [facility] Comment on above: Performed By: #### C BC, AHCV, HIVCMB ####[address] [address] #### CP, LIPR ####[address] [place] [address] Creatinine 0.57 mg/dL Normal 0.50-0.90 [facility] Comment on above: Performed By: #### C BC, AHCV, HIVCMB ####[address] [address] #### CP, LIPR ####[address] [place] [address] eGFR (non-black) mL/min/{1.73_m2} Normal >60 [facility] Comment on above: Performed By: #### C BC, AHCV, HIVCMB ####[address] [address] #### CP, LIPR ####[address] [place] [id number] Glucose mass conc 99 mg/dL Normal 70-99 [facility] Comment on above: Performed By: #### C BC, AHCV, HIVCMB ####[address] [address] #### CP, LIPR ####[address] [place] [address] Potassium molar conc 4.5 mmol/L Normal 3.7-5.3 [facility] Comment on above: Performed By: #### C BC, AHCV, HIVCMB ####[address] [address] #### CP, LIPR ####[address] [place] [address] Protein 7.6 g/dL Normal 6.4-8.3 [facility] Comment on above: Performed By: #### C BC, AHCV, HIVCMB ####[address] [address] #### CP, LIPR ####[address] [place] [address] Sodium 139 mmol/L Normal 135-144 [facility] Comment on above: Performed By: #### C BC, AHCV, HIVCMB ####[address] [address] #### CP, LIPR ####[address] [place] [id number] Staging: Normal [facility] Comment on above: Result Comment: Stag e 1: Some kidney damage normal GFRStage 2: Mild kidney damage GFR 60-89Stage 3: Moderate kidney damage GFR 30-59Stage 4: Severe kidney damage GFR 15-29Stage 5: Severe kidney damage GFR <15ESRD - chronic treatment by dialysis or transplantPerformed at [address] [place] [address] Performed By: #### C BC, AHCV, HIVCMB ####[address] [address] #### CP, LIPR ####[address] [place] [address] Urea nitrogen 14 mg/dL Normal 6-20 [facility] Comment on above: Performed By: #### C BC, AHCV, HIVCMB ####[address] [address] #### CP, LIPR ####[address] [place] [address] Cult,Urineon 12-14-2017 Cult,Urine Specimen Description .CLEAN CATCH URINE Performed at [address] [place] [address] Special Requests NOT REPORTEDCulture ESCHERICHIA COLI 50 to 100,000 CFU/ML Performed at [address] [address] Report Status FINAL 12/14/2017SUSCEPTIBILITYOrg anism ECMethod MICAmikacin [...] fa <=20 SUSCEPTIBLEPiperacillin/Darrick obactam <=4 SUSCEPTIBLE Normal [facility] Comment on above: Performed By: #### U RC ####[address] [phone] [place] [address] Lipid Profileon 12-14-2017 Cholesterol 211 mg/dL High <200 [facility] Comment on above: Result Comment: Chol esterol Guidelines: <200 Desirable 200-240 Borderline >240 Undesirable Performed By: #### C BC, AHCV, HIVCMB ####[address] [address] #### CP, LIPR ####[address] [place] [address] Cholesterol to HDL Ratio 2.6 {ratio} Normal <5 [facility] Comment on above: Performed By: #### C BC, AHCV, HIVCMB ####[address] [address] #### CP, LIPR ####[address] [place] [address] HDL Cholesterol 80 mg/dL Normal >40 [facility] Comment on above: Result Comment: HDL Guidelines: <40 Undesirable 40-59 Borderline >59 Desirable Performed By: #### C BC, AHCV, HIVCMB ####[address] [address] #### CP, LIPR ####[address] [place] [address] LDL Cholesterol 116 mg/dL Normal 0-130 [facility] Comment on above: Result Comment: LDL Guidelines: <100 Desirable 100-129 Near to/above Desirable 130-159 Borderline >159 UndesirableDirect (measured) LDL and calculated LDL are not interchangeable tests. Performed By: #### C BC, AHCV, HIVCMB ####[address] [address] #### CP, LIPR ####[address] [place] [address] Triglyceride 76 mg/dL Normal <150 [facility] Comment on above: Result Comment: Trig lyceride Guidelines: <150 Desirable 150- 199 Borderline 200-499 High >499 Very high Based on AHA Guidelines for fasting triglyceride, May 2012.Performed at [address] [place] [address] Performed By: #### C BC, AHCV, HIVCMB ####[address] [address] #### CP, LIPR ####[address] [place] [address] Cholesterol in VLDL mass conc NOT REPORTED Normal 1-30 [facility] Comment on above: Performed By: #### C BC, AHCV, HIVCMB ####[address] [address] #### CP, LIPR ####[address] [place] [address] Progress Noteon 12-14-2017 HIM IP Note OR Tree Driller Normal [facility] CT ABDOMEN PELVIS WO CONTRAS [...] significant findings. Interpreted by:IVANNA Leblancigned by:Herson Cárdenas MD12/13/18Final result Normal [facility] Urinalysis w/ Microon 2017 ----- Normal [facility] Comment on above: Performed By: #### U AMIC ####[address] [place] [address] Acetaminophen mass conc Negative Normal NEG [facility] Comment on above: Performed By: #### U AMIC ####[address] [place] [address] Bilirubin (direct) Negative Normal NEG [facility] Comment on above: Performed By: #### U AMIC ####[address] [place] [address] Hemoglobin mass conc (Bld) 1+ Abnormal NEG [facility] Comment on above: Performed By: #### U AMIC ####[address] [place] [address] Nitrite,Ur Negative Normal NEG [facility] Comment on above: Performed By: #### U AMIC ####[address] [place] [address] Turbidity CLEAR Normal CLEAR [facility] Comment on above: Performed By: #### U AMIC ####[address] [place] [address] Urine WBC's 20 TO 50 Normal 0-5 [facility] Comment on above: Performed By: #### U AMIC ####[address] [place] [address] Urine, bacteria in sediment TRACE Abnormal NONE [facility] Comment on above: Result Comment: Perf ormed at [address] [place] [address] Performed By: #### U AMIC ####[address] [place] [address] Urine, color YELLOW Normal YEL [facility] Comment on above: Performed By: #### U AMIC ####[address] [place] [address] Urine, epithelial cells in sediment 2 TO 5 Normal 0-25 [facility] Comment on above: Performed By: #### U AMIC ####[address] [place] [address] Urine, erythrocytes 0 TO 2 Normal 0-2 [facility] Comment on above: Performed By: #### U AMIC ####[address] [place] [address] Urine, glucose presence Negative Normal NEG [facility] Comment on above: Performed By: #### U AMIC ####[address] [place] [address] Urine, leukocyte esterase presence SMALL Abnormal NEG [facility] Comment on above: Performed By: #### U AMIC ####[address] [place] [address] Urine, pH 5.5 [pH] Normal 5.0-9.0 [facility] Comment on above: Performed By: #### U AMIC ####[address] [place] [address] Urine, protein presence Negative Normal NEG [facility] Comment on above: Performed By: #### U AMIC ####[address] [place] [address] Urine, specific gravity 1.010 Normal 1.010-1.020 [facility] Comment on above: Performed By: #### U AMIC ####[address] [place] [address] Urobilinogen,Ur Normal Normal NORM [facility] Comment on above: Performed By: #### U AMIC ####[address] [place] [address] Comment NOT REPORTED Normal [facility] Comment on above: Performed By: #### U AMIC ####[address] [place] [address] Epithelial, Renal NOT REPORTED Normal 0 [facility] Comment on above: Performed By: #### U AMIC ####[address] [place] [address] Mucus Strands NOT REPORTED Normal NONE [facility] Comment on above: Performed By: #### U AMIC ####[address] [place] [address] Other Observations NOT REPORTED Normal NREQ [facility] Comment on above: Performed By: #### U AMIC ####[address] [place] [address] Trichomonas NOT REPORTED Normal NONE [facility] Comment on above: Performed By: #### U AMIC ####[address] [place] [address] Urine, amorphous sediment presence in sediment NOT REPORTED Normal NONE [facility] Comment on above: Performed By: #### U AMIC ####[facility] [place] , [place] [id number] Urine, casts in sediment NOT REPORTED Normal [facility] Comment on above: Performed By: #### U AMIC ####[address] [place] [address] Urine, crystals in sediment NOT REPORTED Normal NONE [facility] Comment on above: Performed By: #### U AMIC ####[address] [place] [address] Urine, yeast presence in sediment NOT REPORTED Normal NONE [facility] Comment on above: Performed By: #### U AMIC ####[address] , [place] [id number] Vital Signs Date Time Vital Sign Value Performing Clinician Facility 10-09-2024 08:25-0500 Body height 160 cm Fahad Portillo DO Work Phone: [facility] 10-09-2024 08:25-0500 Body mass index (BMI) [Ratio] 19.13 kg/m2 Fahad Portillo DO Work Phone: [facility] 10-09-2024 08:25-0500 Body temperature 98.29 [degF] Fahad Portillo DO Work Phone: [facility] 10-09-2024 08:25-0500 Body weight 48.99 kg Fahad Baint DO Work Phone: [facility] 10-09-2024 08:25-0500 Diastolic blood pressure 60 mm[Hg] Fahad Bandar DO Work Phone: [facility] 10-09-2024 08:25-0500 Heart rate 78 /min Fahad Baint DO Work Phone: [facility] 10-09-2024 08:25-0500 Respiratory rate 20 /min Fahad Bandar DO Work Phone: [facility] 10-09-2024 08:25-0500 SaO2% (BldA) [Mass fraction] 95 % Fahad Bandar DO Work Phone: [facility] 10-09-2024 08:25-0500 Systolic blood pressure 98 mm[Hg] Fahad Bandar DO Work Phone: [facility] 10-03-2024 15:49-0500 Body height 160 cm Fahad Bandar DO Work Phone: [facility] 10-03-2024 15:49-0500 Body mass index (BMI) [Ratio] 19.13 kg/m2 Fahad Bandar DO Work Phone: [facility] 10-03-2024 15:49-0500 Body temperature 98.01 [degF] Fahad Bandar DO Work Phone: [facility] 10-03-2024 15:49-0500 Body weight 48.99 kg Fahad Bandar DO Work Phone: [facility] 10-03-2024 15:49-0500 Diastolic blood pressure 60 mm[Hg] Fahad Bandar DO Work Phone: [facility] 10-03-2024 15:49-0500 Heart rate 68 /min Fahad Bnadar DO Work Phone: [facility] 10-03-2024 15:49-0500 Respiratory rate 20 /min Fahad Bandar DO Work Phone: [facility] 10-03-2024 15:49-0500 SaO2% (BldA) [Mass fraction] 96 % Fahad Bandar DO Work Phone: [facility] 10-03-2024 15:49-0500 Systolic blood pressure 100 mm[Hg] Fahad Bandar DO Work Phone: [facility] 07-17-2024 15:10-0500 Body height 160 cm Fahad Bandar DO Work Phone: [facility] 07-17-2024 15:10-0500 Body mass index (BMI) [Ratio] 18.25 kg/m2 Fahad Castillouitt DO Work Phone: [facility] 07-17-2024 15:10-0500 Body temperature 98.01 [degF] Fahad Bandar DO Work Phone: [facility] 07-17-2024 15:10-0500 Body weight 46.72 kg Fahad Castillouitt DO Work Phone: [facility] 07-17-2024 15:10-0500 Diastolic blood pressure 82 mm[Hg] Fahad Bandar DO Work Phone: [facility] 07-17-2024 15:10-0500 Heart rate 77 /min Fahad Castillouitt DO Work Phone: [facility] 07-17-2024 15:10-0500 Respiratory rate 20 /min Fahad Castillouitt DO Work Phone: [facility] 07-17-2024 15:10-0500 SaO2% (BldA) [Mass fraction] 96 % Fahad Castillouitt DO Work Phone: [facility] 07-17-2024 15:10-0500 Systolic blood pressure 126 mm[Hg] Fahad Bandar DO Work Phone: [facility] 07-11-2024 10:19-0500 Body height 160 cm Fahad Castillouitt DO Work Phone: [facility] 07-11-2024 10:19-0500 Body mass index (BMI) [Ratio] 18.42 kg/m2 Fahad Bandar DO Work Phone: [facility] 07-11-2024 10:19-0500 Body temperature 98.29 [degF] Fahad Bandar DO Work Phone: [facility] 07-11-2024 10:19-0500 Body weight 47.17 kg Fahad Castillouitt DO Work Phone: [facility] 07-11-2024 10:19-0500 Diastolic blood pressure 84 mm[Hg] Fahad Bandar DO Work Phone: [facility] 07-11-2024 10:19-0500 Heart rate 84 /min Fahad Bandar DO Work Phone: [facility] 07-11-2024 10:19-0500 Respiratory rate 20 /min Fahad Bandar DO Work Phone: [facility] 07-11-2024 10:19-0500 SaO2% (BldA) [Mass fraction] 96 % Fahad Bandar DO Work Phone: [facility] 07-11-2024 10:19-0500 Systolic blood pressure 132 mm[Hg] Fahad Bandar DO Work Phone: [facility] 07-04-2024 14:51-0500 Body height 160 cm Fahad Bandar DO Work Phone: [facility] 07-04-2024 14:51-0500 Body mass index (BMI) [Ratio] 18.78 kg/m2 Fahad Bandar DO Work Phone: [facility] 07-04-2024 14:51-0500 Body temperature 98.2 [degF] Fahad Castillouitt DO Work Phone: [facility] 07-04-2024 14:51-0500 Body weight 48.08 kg Fahad Castillouitt DO Work Phone: [facility] 07-04-2024 14:51-0500 Diastolic blood pressure 82 mm[Hg] Fahad Bandar DO Work Phone: [facility] 07-04-2024 14:51-0500 Heart rate 78 /min Fahad Bandar DO Work Phone: [facility] 07-04-2024 14:51-0500 Respiratory rate 20 /min Fahad Bandar DO Work Phone: [facility] 07-04-2024 14:51-0500 SaO2% (BldA) [Mass fraction] 98 % Fahad Bandar DO Work Phone: [facility] 07-04-2024 14:51-0500 Systolic blood pressure 120 mm[Hg] Fahad Portillo DO Work Phone: [facility] 12-23-2022 16:40-0400 Body height 160.02 cm Awais Comer Other [employer] Other 12-23-2022 16:40-0400 Body mass index (BMI) [Ratio] 21.25 kg/m2 Awais Comer Other [employer] Other 12-23-2022 16:40-0400 Body weight 54.43 kg Awais Comer Other [employer] Other 12-14-2022 15:30-0400 Body height 160.02 cm [employer] Other [employer] Other 12-14-2022 15:30-0400 Body mass index (BMI) [Ratio] 21.25 kg/m2 [employer] Other [employer] Other 12-14-2022 15:30-0400 Body weight 54.43 kg [email or web address] Other [employer] Other 10-20-2021 16:45-0500 Body height 160.02 cm Herson Amin Other [employer] Other 10-20-2021 16:45-0500 Body mass index (BMI) [Ratio] 21.61 kg/m2 Herson Amin Other [employer] Other 10-20-2021 16:45-0500 Body weight 55.34 kg Herson Amin Other [employer] Other 08-13-2019 10:12-0500 BMI (Body Mass Index) 21.5 kg/m2 Lupe Snider [facility] Work Phone: 08-13-2019 10:12-0500 Body Temperature 99.6 [degF] [facility] Work Phone: 08-13-2019 10:12-0500 Body weight 49.9 kg [facility] Work Phone: 08-13-2019 10:12-0500 BP Diastolic 78 mm[Hg] [facility] Work Phone: 08-13-2019 10:12-0500 BP Systolic 110 mm[Hg] [facility] Work Phone: 08-13-2019 10:12-0500 BSA (Body Surface Area) 1.45 m2 [facility] Work Phone: 08-13-2019 10:12-0500 Height 152.4 cm [facility] Work Phone: 08-13-2019 10:12-0500 Pulse (Heart Rate) 80 /min Lupe [facility] Work Phone: 08-13-2019 10:12-0500 Pulse Oximetry 96 % [facility] Work Phone: 08-13-2019 10:12-0500 Respiratory Rate 14 /min [facility] Work Phone: 08-01-2019 12:12-0500 BMI (Body Mass Index) 21.5 kg/m2 [facility] Work Phone: 08-01-2019 12:12-0500 Body Temperature 98.8 [degF] [facility] Work Phone: 08-01-2019 12:12-0500 Body weight 49.9 kg Lu[facility] Work Phone: 08-01-2019 12:12-0500 BP Diastolic 80 mm[Hg] [facility] Work Phone: 08-01-2019 12:12-0500 BP Systolic 130 mm[Hg] [facility] Work Phone: 08-01-2019 12:12-0500 BSA (Body Surface Area) 1.45 m2 [facility]pe [facility] Work Phone: 08-01-2019 12:12-0500 Height 152.4 cm [facility] Work Phone: 08-01-2019 12:12-0500 Pulse (Heart Rate) 87 /min Lupe [facility] Work Phone: 08-01-2019 12:12-0500 Pulse Oximetry 96 % [facility] Work Phone: 08-01-2019 12:12-0500 Respiratory Rate 14 /min Lupe [facility] Work Phone: 2019 15:40-0500 BMI (Body Mass Index) 21.5 kg/m2 [facility] Work Phone: 2019 15:40-0500 Body Temperature 98 [degF] Lupe [facility] Work Phone: 2019 15:40-0500 Body weight 49.9 kg Lupe [facility] Work Phone: 2019 15:40-0500 BP Di[facility] 80 mm[facility]Hg[facility] 2019 15:40-0500 BP Systolic 104 mm[Hg] [facility] Work Phone: 2019 15:40-0500 BSA (Body Surface Area) 1.45 m2 Lupe [facility] Work Phone: 2019 15:40-0500 Height 152.4 cm [facility] Work Phone: 2019 15:40-0500 Pulse (Heart Rate) 84 /min Lupe [facility] Work Phone: 2019 15:40-0500 Pulse Oximetry 95 % Lupe Snider [facility] Work Phone: Encounters Encounter Date Encounter Type Care Provider Facility Start: 10-09-2024 End: 10-09-2024 Bamboo flowsheet Fahad Bandar DO Work Phone: [facility] Start: 10-09-2024 End: 10-09-2024 Bamboo flowsheet Fahad Bandar DO Work Phone: [facility] Start: 10-09-2024 End: 10-09-2024 ambulatory FAHAD BANDAR Not Available Start: 10-09-2024 End: 10-09-2024 Office outpatient visit 15 minutes Fahad Bandar DO Work Phone: [facility] Comment on above: Left hip pain (Prima ry Dx); Hematoma; Fall, initial encounter Start: 10-03-2024 End: 10-03-2024 Office outpatient visit 25 minutes Fahad Bandar DO Work Phone: [facility] Comment on above: Anxiety attack (CMS/ HCC) (Primary Dx); Insomnia, unspecified type Start: 10-03-2024 End: 10-03-2024 ambulatory FAHAD BANDAR Not Available Start: 07-17-2024 End: 07-17-2024 Office outpatient visit 15 minutes Fahad Bandar DO Work Phone: [facility] Comment on above: Dermatitis (Primary Dx); Mucocele of mouth Start: 07-17-2024 End: 07-17-2024 ambulatory FAHAD BANDAR Not Available Start: 07-11-2024 End: 07-11-2024 Office outpatient visit 15 minutes Fahad Bandar DO Work Phone: [facility] Comment on above: Dermatitis (Primary Dx) Start: 07-11-2024 End: 07-11-2024 ambulatory FAHAD BANDAR Not Available Start: 07-04-2024 End: 07-04-2024 ambulatory FAHAD PORTILLO Not Available Start: 07-04-2024 End: 07-04-2024 Office outpatient new 45 minutes Fahad Portillo DO Work Phone: [facility] Comment on above: Anxiety attack (CMS/ HCC) (Primary Dx); Insomnia, unspecified type; Dermatitis; Screening for lipid disorders; Hepatitis C virus infection without hepatic coma, unspecified chronicity (CMS/HCC); Seasonal allergies; Age related osteoporosis, unspecified pathological fracture presence (CMS/HCC); Encounter for screening mammogram for malignant neoplasm of breast; Nicotine use Start: 07-04-2024 End: 07-04-2024 Bamboo flowsheet Fahad Portillo DO Work Phone: [facility] Start: 07-04-2024 End: 07-04-2024 Bamboo flowsheet Fahad Portillo DO Work Phone: [facility] Start: 12-23-2022 End: 12-23-2022 ambulatory Awais Comer Other [facility] [employer] Other Start: 12-23-2022 Office outpatient visit 15 minutes Awais Comer [facility] Start: 12-21-2022 End: 12-21-2022 ambulatory Vilma Sharma Facility:[facility] Start: 12-21-2022 End: 12-21-2022 ambulatory DO Nomi Corcoran Work Phone: [facility] Work Phone: Start: 12-21-2022 End: 12-21-2022 Patient encounter procedure DO Nomi Corcoran Work Phone: [facility] Work Phone: Start: 12-16-2022 End: 12-16-2022 ambulatory Vilma Sharma Other [facility] [employer] Other Start: 12-16-2022 Telephone encounter Vilma Sharma [facility] Start: 12-15-2022 End: 12-15-2022 ambulatory Vilma Sharma Other [facility] [employer] Other Start: 12-15-2022 Telephone encounter Vilma Sharma [facility] Start: 12-14-2022 End: 12-14-2022 ambulatory Vilma Sharma Other [facility] [employer] Other Start: 12-14-2022 Office outpatient ne w 45 minutes Vilma Sharma [facility] Start: 12-14-2022 Telephone encounter Vilma Sharma [facility] Start: 12-13-2022 End: 12-13-2022 ambulatory JUANA BOB Facility:[facility] Start: 12-09-2022 End: 12-09-[address] TREV PHILLIPS Facility:[facility] Start: 11-30-2022 End: 11-30-[address] ISHA VIVEROS . Facility:[facility] Start: 11-26-2022 ambulatory NONE LISTED REQUEST Facility:[facility] Start: 08-24-2022 End: 08-24-2022 Phys/qhp telephone evaluation 11-20 min Aliza Guadarrama MD Work Phone: [facility] Comment on above: Cough, [...] 10-20-2021 End: 10-20-2021 ambulatory Herson Amin Other [employer] Other Start: 10-20-2021 Office outpatient ne w 45 minutes [facility] Start: 08-13-2019 End: 08-13-2019 Established patient Porsche Vega Work Phone: [facility] Work Phone: Start: 08-01-2019 End: 08-01-2019 Established patient Lupe Snider Work Phone: [facility] Work Phone: Start: 2019 End: 2019 New patient Lupe Snider Work Phone: [facility] Work Phone: Start: 12-26-2017 End: 12-27-2017 Ambulatory [facility] Start: 12-16-2017 End: 12-17-2017 Ambulatory [facility] Start: 12-14-2017 End: 12-15-2017 Ambulatory [facility] Start: 12-13-2017 End: 12-16-2017 [facility] Procedures Date Procedure Procedure Detail Performing Clinician Start: 12-21-2022 Dual energy X-ray absorptiometry DO Nomi Corcoran Work Phone: Start: 12-01-2021 Colonoscopy Fahad Castillou itt DO Work Phone: Start: 04-29-2021 Mammography Fahad Lucio itt DO Work Phone: Start: 08-13-2019 Diast bp <80 mm hg Cynt hia Silvia Work Phone: Start: 08-13-2019 Syst bp lt 130 mm hg Cy nthia Silvia Work Phone: Start: 08-01-2019 Diast bp 80-89 [...] NO WILFRID DERAS Start: 12-14-2017 CBC [facility]Y [facility] Start: 12-14-2017 COMPREHENSIVE METABO LIC PANEL [...] Screening for malign ant neoplasm of colon [facility] Start: 02-03-2026 Cholesterol [Mass/volume] in Serum or Plasma Cholesterol [facility] Start: 12-26-2024 End: 12-26-2024 Patient encounter procedure 12/26/2024 3:40 PM EDT Office Visit [facility] [address] [place] [address] Fahad Portillo, DO [address] [place] [address] [facility] Start: 10-15-2024 End: 10-15-2024 Patient encounter procedure 10/15/2024 10:20 AM EST Office Visit [facility] [address] [place] [address] Fahad Portillo, DO [address] [place] [address] [facility] Start: 10-03-2024 End: 10-03-2024 Patient encounter procedure 10/03/2024 3:40 PM EST Office Visit [facility] [address] [place] [address] Fahad Portillo, DO [address] [place] [address] [facility] Start: 07-04-2024 End: 07-04-2025 CBC panel - Blood by Automated count CBC Lab Routine Hepatitis C virus infection without hepatic coma, unspecified chronicity (CMS/HCC) Seasonal allergies Expected: 07/04/2024 (Approximate), Expires: 07/04/2025 [facility] Comment on above: Expected: 07/04/2024 (Approximate), Expires: 07/04/2025 Start: 07-04-2024 End: 07-04-2025 Comprehensive metabolic 2000 panel - Serum or Plasma Comprehensive metabolic panel Lab Routine Hepatitis C virus infection without hepatic coma, unspecified chronicity (CMS/HCC) Seasonal allergies Expected: 07/04/2024 (Approximate), Expires: 07/04/2025 [facility] Work Phone: Comment on above: Expected: 07/04/2024 (Approximate), Expires: 07/04/2025 Start: 07-04-2024 End: 07-04-2025 Lipid 1996 panel - Serum or Plasma Lipid panel Lab Routine Screening for lipid disorders Expected: 07/04/2024 (Approximate), Expires: 07/04/2025 [facility] Comment on above: Expected: 07/04/2024 (Approximate), Expires: 07/04/2025 Start: 07-04-2024 End: 09-03-2025 MG Breast - bilateral Screening Bilateral screening mammogram Imaging Routine Encounter for screening mammogram for malignant neoplasm of breast Expected: 07/04/2024, Expires: 09/03/2025 [facility] Comment on above: Expected: 07/04/2024 , Expires: 09/03/2025 Start: 04-22-2024 Influenza vaccination Influenza Vacc ine (#1) [facility] Start: 05-22-2022 Influenza vaccination Influenza Vacc ine (#1) [facility] Start: 04-29-2022 Screening for malign ant neoplasm of breast Mammogram [facility] Start: 2011 Measurement of occul t blood in single stool specimen FIT [facility] Start: 2011 Screening for malign ant neoplasm of colon CRC Screening [facility] Start: 2011 Shingles (RZV) Vacci ne (1 of 2) Shingles (RZV) Vaccine (1 of 2) [facility] Start: 2001 Screening for malign ant neoplasm of breast Mammography [facility] Start: 1982 Screening for malign ant neoplasm of cervix Pap Smear [facility] Start: 1979 Hepatitis C screening Hepatitis C An tibody [facility] Start: 1979 Tetanus + diphtheria + acellular pertussis vaccine (product) Tdap Booster [facility] Start: 1976 HIV screening HIV Test [facility] Start: 1961 Screening for malign ant neoplasm of colon [facility] Immunizations Immunization Date Immunization Notes Care Provider [facility] 06-02-2023 Influenza, injectabl e, Madin Kelly Canine Kidney, preservative free, quadrivalent Fahad Portillo DO Work Phone: [facility] 06-02-2023 influenza virus vaccine, unspecified formulation Fahad Portillo DO Work Phone: [facility] 07-13-2021 COVID-19 mRNA, Comirnaty (Pfizer) DO Nomi Corcoran Work Phone: [facility] 06-08-2021 influenza, injectabl e, quadrivalent, preservative free Fahad Bandar DO Work Phone: [facility] 12-10-2020 COVID-19 mRNA, Comirnaty (Pfizer) DO Langharrer Work Phone: [facility] 11-25-2020 diphtheria, tetanus toxoids and pertussis vaccine Aliza Guadarrama MD Work Phone: [facility] 11-25-2020 tetanus toxoid, reduced diphtheria toxoid, and acellular pertussis vaccine, adsorbed Fahad Bandar DO Work Phone: [facility] 11-13-2020 COVID-19 mRNA, Comirnaty (Pfizer) DO Langharrer Work Phone: [facility] 05-21-2020 influenza, injectabl e, quadrivalent, preservative free Fahad Bandar DO Work Phone: [facility] Payers Date Payer Category Payer Unknown [id number] 2024 Private Health Insurance [id number] 2024 Private Health Insurance [id number] 2020 Medicaid [employer] [id number] 2020-Present [address] [address] [place] [address] Medicaid HMO [id number] 2017 Unknown [id number] 2014 Unknown [id number] 1961 Unknown [id number] 93 1961 Unknown [id number] [id number] 93 1961 Unknown [id number] 2.16.840.1.394920.3.579.2.5 93 1961 Unknown [id number] 2.16.840.1.770999.3.579.2.5 93 1961 Unknown [id number] 2.16.840.1.488309.3.579.2.5 93 1961 Unknown [id number] 2.16.840.1.278348.3.579.2.5 93 1961 Unknown [id number] 2.16.840.1.927664.3.579.2.5 93 1961 Unknown [id number] 2.16.840.1.587548.3.579.2.5 93 1961 Unknown [id number] 2.16.840.1.016856.3.579.2.5 93 1961 Unknown [id number] 2.16.840.1.989227.3.579.2.5 93 1961 Unknown [id number] 2.16.840.1.445851.3.579.2.5 93 1961 Unknown [id number] 2.16.840.1.668042.3.579.2.5 93 1961 Unknown [id number] 2.16.840.1.762754.3.579.2.5 93 1961 Unknown [id number] 2.16.840.1.610292.3.579.2.1 259 1961 Unknown [id number] 2.16.840.1.545901.3.579.2.1 259 1961 Unknown [id number] 2.16.840.1.416143.3.579.2.1 259 1961 Unknown [id number] 2.16.840.1.756686.3.579.2.1 259 1961 Unknown [id number] 2.16.840.1.788164.3.579.2.1 259 1959 Medicaid [id number] [id number] 1959 Self-pay Self-pay [id number] [id number] Unknown [id number] [id number] 31 Unknown [facility] [id number] Social History Date Type Detail Facility [facility] Work Phone: Assertion Alcohol consumpt ion screening (procedure) [facility] Work Phone: Assertion Gender identity finding (finding) [facility] Work Phone: Assertion Finding of sexua l orientation (finding) [facility] Work Phone: Assertion Tobacco user (finding) [facility] Work Phone: Tobacco smoking status Unknown if ever smoked [facility] Work Phone: Start: 07-04-2024 End: 07-11-2024 Sex Assigned At [employer] Other Start: 1960 Sex Assigned At Not on file [facility] Start: 12-01-2021 Tobacco smoking status OKIS Smoker (finding) [facility] Start: 1960 Sex Assigned At Female [facility] Start: 07-04-2024 Tobacco smoking status OKIS Smokes tobacco daily [facility] History of tobacco use Cigarette Smoker [facility] Start: 07-04-2024 Tobacco use and exposure Smokeless tobacco non-user [facility] Start: 07-11-2024 End: 10-09-2024 Alcoholic beverage intake Ex-drinker (finding) [facility] [...] per day pop and coffee [facility] How often to you have a drink containing alcohol? Monthly or less [facility] How many standard drinks containing alcohol do you have on a typical day? 1 or 2 [facility] How often do you have 6 or more drinks on 1 occasion? Less than monthly [facility] NEGATED: Highlighted row Assertion Illicit drug use (finding) [facility] Work Phone: NEGATED: Highlighted row Assertion Misuse of prescription only drugs (finding) [facility] Work Phone: NEGATED: Highlighted row Assertion She has not had 4 or more drinks in a day within the past year. [facility] Work Phone: NEGATED: Highlighted row Assertion Current drinker of alcohol (finding) [facility] Work Phone: NEGATED: Highlighted row Assertion Finding relating to drug misuse behavior (finding) [facility] Work Phone: NEGATED: Highlighted row Assertion Exposure to pollution (event) [facility] Work Phone: NEGATED: Highlighted row Assertion Tobacco user (finding) [facility] Work Phone: Mental Status Date Assessment Result Facility Cognitive function No disorienta tion was observed Finding related to orientation (finding) [facility] Work Phone: Clinical Notes 10-20-2021 to 10-09-2024 Fahad Portillo, DO - 10/09/2024 8:00 AM Cliff Del Valle, MA - 10/03/2024 3:40 PM Daniella Portillo, DO - 10/03/2024 3:40 PM Daniella Portillo, DO - 07/17/2024 3:00 PM EST Note Date & Type Note Facility 10-09-2024 History of Presen t illness Narrative Images from the original note were not included. FAMILY MEDICINE NOTE Chief Complaint: Fall HPI: Hip Pain and Injury Fell on the ice on October 05, 2024, resulting in hip pain. Initially thought there was no fracture but experienced limping and pressure when sitting. The pain is located in the left hip, where there is a knot, smaller than before, but still causing discomfort. The pain sometimes radiates down the leg. She believes he issue stems from a previous incident on August 12, 2024, at work, where the patient was hit by a door, resulting in a croquet ball-sized swelling on the hip bone, which has since reduced. The patient has been limping and was taken off the work schedule for a week prior to this visit. No alcohol or drug use reported. SUBJECTIVE: PROBLEM LIST SURGICAL/SOCIAL ALLERGIES: There is no problem list on file for this patient. Past Surgical History: Procedure Laterality Date COLONOSCOPY W/ BIOPSIES AND POLYPECTOMY 12/01/2021 HYSTERECTOMY 1993 total LIVER BIOPSY SD REMOVAL NODES, NECK,CERV CMPLT SKIN GRAFT Right TOTAL ABDOMINAL HYSTERECTOMY Social History Tobacco Use Smoking status: Every Day Current packs/day: 1.00 Types: Cigarettes Smokeless tobacco: Never Substance Use Topics Alcohol use: Not Currently Comment: caffeine intake: 1-2 cups per day pop and coffee Drug use: Never No Known Allergies OBJECTIVE: 10/09/2024 8:25 AM 10/03/2024 3:49 PM 07/17/2024 3:10 PM Vitals BMI 19.13 kg/m2 19.13 kg/m2 18.25 kg/m2 BSA (m2) 1.48 m2 1.48 m2 1.44 m2 Systolic 98 100 126 Diastolic 60 60 82 Heart Rate 78 68 77 SpO2 95 % 96 % 96 % Temp 98.3 F 98 F 98 F Resp 20 20 20 Height (in) 5' 3 5' 3 5' 3 Weight (lb) 108 108 103 Visit Report Report Physical Exam Constitutional: Appearance: Normal appearance. Cardiovascular: [...] guarding. Musculoskeletal: General: Normal range of motion. Legs: Comments: 5/5 muscle strength in right lower extremity, 4/5 muscle strength in left lower extremity Palpable mass in left gluteal region that is exquisitely tender to palpation, measures approximately 1-2 cm Skin: General: Skin is warm. Neurological: General: No focal deficit present. Mental Status: She is alert. Mental status is at baseline. Psychiatric: Mood and Affect: Mood normal. Behavior: Behavior normal. ASSESSMENT AND PLAN: Assessment & Plan Left hip pain - Likely gluteal hematoma from fall, possibly irritating the sciatic nerve. No indication of fracture, but X-ray recommended to confirm. - Recommend hip X-ray to ensure no fracture. Prescribe meloxicam for inflammation and pain management. Advise icing the area, resting, and avoiding pressure on the left side. Orders: meloxicam (Mobic) 15 MG tablet; Take 1 tablet (15 mg) by mouth Daily Hematoma See above Orders: meloxicam (Mobic) 15 MG tablet; Take 1 tablet (15 mg) by mouth Daily Fall, initial encounter See above, sounds like mechanical fall secondary to ice Patient's Medications New Prescriptions MELOXICAM (MOBIC) 15 MG TABLET Take 1 tablet (15 mg) by mouth Daily Previous Medications ALPRAZOLAM (XANAX) 1 MG TABLET Take 1 tablet (1 mg) by mouth as needed at bedtime for anxiety or sleep CHOLECALCIFEROL (VITAMIN D-3) 10 MCG (400 UNIT) [...] and 1 application before bedtime. Modified Medications No medications on file Discontinued Medications No medications on file Follow up in about 1 week (around 10/16/2024) for recheck hip pain. Fahad Portillo DO documented in this encounter [facility] 10-03-2024 History of Presen t illness Narrative Patient requested note for work to get labs drawn. Printed for patient. Left up front to warp picker. Images from the original note were [...] and mammogram, but has since changed to [employer] insurance. Plans to visit a specialist on the and intends to complete the necessary lab work and mammogram in the coming weeks. SUBJECTIVE: PROBLEM LIST SURGICAL/SOCIAL ALLERGIES: There is no problem list on file for this patient. Past Surgical History: Procedure Laterality Date COLONOSCOPY W/ BIOPSIES AND POLYPECTOMY 12/01/2021 HYSTERECTOMY 1992 total LIVER BIOPSY SD REMOVAL NODES, NECK,CERV CMPLT SKIN GRAFT Right [...] Fahad Portillo DO documented in this encounter [facility] 07-17-2024 History of Presen t illness Narrative [...] fail to improve. documented in this encounter [facility] 07-11-2024 History of Presen t illness Narrative [...] ointment on her eyelid and the topical [id number] hydrocortisone on her facial and inguinal regions. [...] 10/11/2024) for Recheck. documented in this encounter [facility] 07-04-2024 History of Presen t illness Narrative [...] being on June 04. She works at [employer] and has contracted COVID-19 from various workplaces [...] 10/04/2024) for Recheck. documented in this encounter [facility] 12-23-2022 Evaluation note Encounter Date Diagnosis Assessment [...] cervical spine and a dynamic neck x-ray. [employer] Other 04-27-2023 Evaluation note* Encounter Date Diagnosis Assessment Notes Treatment Notes Treatment Clinical Notes Nov, Other closed displaced fracture of seventh cervical vertebra, initial encounter (ICD-10 - S12.690A) [facility] Other 04-26-2023 Evaluation note* Encounter Date Diagnosis Assessment Notes Treatment Notes Treatment Clinical Notes Nov, Other closed displaced fracture of seventh cervical vertebra, initial encounter (ICD-10 - S12.690A) [facility] Other 04-25-2023 Evaluation note* Encounter Date Diagnosis [...] negative findings were considered in medical decision-making. [facility] Other 01-03-2023 History of Present illness Narrative* Aliza Guadarrama MD - 08/24/2022 10:25 PM EST Phone numbers Preferred Documentation: Mode: Telephone Patient Patient Work Phone: Patient Cell Phone: Preferred phone: [phone] Consent: I confirmed patient understanding of the [...] pneumoniae Aliza Guadarrama MD documented in this [id number] Evaluation note* Encounter Date Diagnosis Assessment Notes Treatment Notes Treatment Clinical Notes Oct, Hepatitis C (ICD-10 - B19.20) PT WOULD LIKE TO ADDRESS THIS AFTER HER COLONOSCOPY TREATMENT AND TESTING EXPLAINED TO PATIENT IN DETAIL SHE WILL CALL WHEN SHE IS READY TO START THIS PROCESS Oct, Screen for colon cancer (ICD-10 - Z12.11) COLONOSCOPY [facility] [employer] Other Evaluation note* Diagnosis Cough, unspecified type- Primary [facility] [employer] Other evaluation noteNo assessment information available [facility] Work Phone: Evaluation note* Diagnosis Dermatitis- Primary [...] unspecified type [facility] Left hip pain- Primary Pain in joint, pelvic region and thigh Hematoma Contusion of unspecified site Fall, initial encounter [facility] - Reported* Type Description Date Medical History allergies Medical History anxiety Medical History arthritis Medical History hepatitis c Medical History IBS Medical History liver disease Medical History osteoarthritis Medical History osteoporosis Surgical History liver biopsy Surgical History total hysterectomy 1992 Surgical History skin graft to right hand Surgical History lymph node removed from necks [facility] Other History general Narrative - Reported* Type Description Date Medical History allergies Medical History anxiety Medical History arthritis Medical History hepatitis c Medical History IBS Medical History liver disease Medical History osteoarthritis Medical History osteoporosis Surgical History liver biopsy Surgical History total hysterectomy 1992 Surgical History skin graft to right hand Surgical History lymph node removed from necks Hospitalization History see surg Hx [facility] Other Summary Purpose Family History Description Last [...] steps Medical New Patient with Lupe Snider [facility] 2019 Body mass index [Body mass i ndex (BMI) 21.0-21.9 adult] Medical New Patient with Lupe Snider [facility] 2019 Diabetes Risk Test Score was two score 2019 Medical New Patient with Lupe Snider [facility] 2019 Fagerstrom Score was two 2019 [facility] New Patient with Lupe Snider [facility] 2019 PHQ-9: total score was [address] [facility] New Patient with Lupe Serratoer [facility] 2019 Findings Encounter Date Contusion of back wall of thorax Medical Established Patient with Porsche Sullivane [facility] 08/13/2019 Z68.21 - Body mass index (BM I) 21.0-21.9 adult Medical Established Patient with Porsche Sullivane [facility] 08/13/2019 Body mass index [Body mass i ndex (BMI) 21.0-21.9 adult] Medical Established Patient with Lupe Serratoer [facility] 08/01/2019 Oral thrush [Candidal stomatitis] Medica l Established Patient with Lupe Snider [facility] 08/01/2019 Assessment of fall on and fr om stairs and steps Medical New Patient with Lupe Snider [facility] 2019 Body mass index [Body mass i ndex (BMI) 21.0-21.9 adult] Medical New Patient with Luep Snider [facility] 2019 Diabetes Risk Test Score was two score 2019 Medical New Patient with Lupe Snider [facility]N 2019 Fagerstrom Score was two 2019 [facility] New Patient with Lupe Snider AP[facility] 2019 PHQ-9: total score was 0 2019 [facility] doris New Patient with Lupe Snider [facility] 2019 Instructions Instructions not supported for this [...] section and content) DATE CREATED AUTHOR 02/23/2018 [facility] DATE CREATED AUTHOR AUTHOR'S ORGANIZ ATION 02/23/2018 [facility] DATE CREATED AUTHOR AUTHOR'S ORGANIZ ATION 04/16/2022 [facility] DATE CREATED AUTHOR AUTHOR'S ORGANIZ ATION 12/15/2022 [facility] DATE CREATED AUTHOR AUTHOR'S ORGANIZ ATION 12/22/2022 [place] DATE CREATED AUTHOR AUTHOR'S ORGANIZ ATION 10/10/2024 [facility] EPIC Evaluations & Outcomes (unre cognized section and content) Includes: Evaluations & Outcomes for active GoalsNo Outcomes Recorded Includes: Evaluations & Outcomes for active GoalsNo Outcomes Recorded REASON FOR VISIT (unrecogniz ed section and content) Reason Comments Cough Reason Comments Follow-up Reason Comments Fall Care Teams (unrecognized sec tion and content) Team Status: Active Member Role Status Dates Nomi Corcoran DO Primary Care Provider Active Team Status: Inactive Member Role Status Dates Nomi Corcoran DO Primary Care Provider Active [employer] Linder Attending Provider Active [employer] Helper Relationship Specialty Start Date End Date Fahad Portillo DO [address] [place] [address] PCP - General Family Medicine 07/04/24 [employer] Relationship Specialty Start Date End Date Fahad Portillo DO [address] [place] [address] PCP - General Family Medicine 07/04/24 [employer] Relationship Specialty Start Date End Date Fahad Portillo DO [address] [place] [address] PCP - General Family Medicine 07/04/24 [employer] Relationship Specialty Start Date End Date Fahad Portillo DO [address] [place] [address] PCP - General Family Medicine 07/04/24 [employer] Helper Relationship Specialty Start Date End Date Fahad Portillo DO [address] [place] [address] PCP - General Family Medicine 07/04/24 [employer] Relationship Specialty Start Date End Date Fahad Portillo DO [address] [place] [address] PCP - General Family Medicine 07/04/24 [employer] Relationship Specialty Start Date End Date Fahad Portillo DO [address] [place] [address] PCP - General Family Medicine 07/04/24 Goals (unrecognized section and content) Goals [...] BE BASED ON THE PRIMARY CLINICAL RECORDS. [employer] [facility]. provides no warranty or guarantee of the accuracy or completeness of information in this document.
== END 2024-10-13 16:07 | disposition home or self-care (01) ==
LOC: RAD 16:08
PROVIDERS: PCP Student in an Organized Health Care Education/Training Program; Visit Provider Student in an Organized Health Care Education/Training Program
DX: M25.552 Pain in left hip (principal); W19.XXXD Unspecified fall, subsequent encounter
CPT/HCPCS: 73502

== ENCOUNTER 2024-11-28 09:22 | Outpatient (OUT) | payer OTHER, SELFPAY ==
--- OUTSIDE RECORDS SUMMARY | 2024-11-27 08:41 | XMS_ITS | CCD ---
Author Organization [facility] Care Team Providers [place] Nurse Name Role Phone DERAS, LETY VIOLETTA Unavailable [...] Unavailabl e Lupe Snider Primary Care Provider [phone] Herson Amin Unavailable Unavailable Primary Care Provider UnavailVilma Recinos Unavailable RODRIGO, DR ARCEO Consulting Unavailable MISC, DR ARCEO Primary Care Unavailable MISC, DR ARCEO Attending Unavailable MISC, DR ARCEO Admitting Unavailable KATHE WHITMAN Consulting Unavailable WASHINGTON, DR HERSON Martinez Consulting Unavailable REQUEST, DR [...] Unavailable FELICE Alonso, DR VIEIRA Admitting Unavailable RODIRGO, DR ARCEO Primary Care Unavailable NATI PRADO Consulting Unavailable ALAN, DR TREV Dawkins Consulting Unavailable BETTY VIDES Attending Unavailable BETTY VIDES Admitting Unavailable MISC, DR ARCEO Primary Care Unavailable MAHESH ., BETTY Consulting Unavailable ISIDORO STONE Consulting Unavailable ARMINDA NELSON Consulting Unavailable PAY ., DR MONTANO Consulting Unavailable MISC, DR ARCEO Primary Care Unavailable PAY ., DR MONTANO Attending Unavailable PAY ., DR MONTANO Admitting Unavailable JUANA BOB Consulting Unavailable JUANA BOB Attending Unavailable KATJUANA BROWNING Admitting Unavailable MISC, DR ARCEO Primary Care Unavailable GRECHNY ., SAUL BRISENO Consulting Unavailabl e JUANA BOB Attending Unavailable KATJUANA BROWNING D Admitting Unavailable MISC, DR ARCEO Primary Care [...] Provider Fahad Portillo DO Primary Care Provider [phone] FAHAD PORTILLO Attending Unavailable FAHAD PORTILLO Attending Unavailable FAHAD PORTILLO Attending Unavailable FAHAD PORTILLO Attending Unavailable FAHAD PORTILLO Attending Unavailable BANDARFAHAD HANKINS Attending Unavailable FAHAD PORTILLO Attending Unavailable Allergies Allergy Classification Reported Allergen(s) Allergy Type Date of Onset Reaction(s) Facility (2 sources) Erythromycin Drug Allergy erythromycin [facility] Work Phone: (3 sources) Penicillins; Translations: [Penicillins] Allergy to substance 2 [facility] Repository (2 sources) -No Environmental Allergies Allergy to substance [facility] Work Phone: (7 sources) Mold Extract Drug Allergy Unknown [employer] Other (7 sources) Penicillin G Drug Allergy hives [employer] Other (6 sources) Substance with sulfonamide structure and antibacterial mechanism of action (substance) Drug allergy Unknown [employer] Other (1 source) Penicillin Drug Allergy [facility] Repository (1 source) Sulfonamides (Antibiotic) Drug allergy (disorder) [facility]ository Medications Current Medications Medication Drug Class(es) [...] Nov, Active ALPRAZolam 1 mg oral tablet (20 sources) Benzodiazepine Start: 11-08-2024 End: 12-08-2024 ALPRAZolam (Xanax) 1 MG tablet Indications: Anxiety attack (CMS/HCC) , Insomnia, unspecified type Take 1 tablet (1 mg) by mouth as needed at bedtime for anxiety or sleep 30 tablet 11/08/2024 12/08/2024 Active Start: 10-03-2024 End: 11-03-2024 ALPRAZolam (Xanax) 1 MG tabl et Indications: [...] PO Twice daily December 01, 2021 12:00am azithromycin 250 mg oral tablet (3 sources) Macrolide Antimicrobial Start: 11-08-2024 azithromycin (Zithromax Z-Garrick) 250 MG tablet Indications: Bronchitis Take as directed 6 tablet 11/08/2024 Active Start: 09-06-2017 End: 09-06-2017 Azithromycin 250 MG OR TABS 09/06/2017 - 09/06/2017 Provider: cholecalciferol 0.01 mg oral capsule (15 sources) Vitamin D take 1 capsule by mouth once daily cholecalciferol (Vitamin D-3) 10 MCG (400 UNIT) capsule Indications: Vitamin D Deficiency Take 400 Units by mouth Daily Active ibuprofen 200 mg oral tablet (1 source) Nonsteroidal Anti-inflammatory Drug Start: 019 Motrin IB 200 MG Oral Tablet 08/01/2019 Provider: krill oil 500 mg oral capsule (20 sources) take 1 tablet by mouth once daily Krill Oil 500 MG capsule Take 1 tablet by mouth Daily Active Krill Oil Not-Ta david Krill Oil Active loperamide hydrochloride 2 mg oral tablet (1 source) Opioid Agonist Start: 11-15-2024 End: 11-20-2024 take 1 tablet by mouth four times daily as needed for diarrhea loperamide (Imodium A-D) 2 MG tablet Indications: Diarrhea, unspecified type Take 1 tablet (2 mg) by mouth 4 (four) times a day as needed for diarrhea for up to 5 days 20 tablet 11/15/2024 11/20/2024 Active loratadine 10 mg oral tablet (16 sources) Start: 08-01-2019 Loratadine 10 MG Oral Tablet 08/01/2019 Provider: meloxicam 15 mg oral tablet (5 sources) Nonsteroidal Anti-inflammatory Drug Start: 10-09-2024 End: 11-08-2024 take 1 tablet by mouth once daily meloxicam (Mobic) 15 MG tablet Indications: Left hip pain , Hematoma Take 1 tablet (15 mg) by mouth Daily 30 tablet 10/09/2024 11/08/2024 Active Multiple Vitamin (multivitamin) tablet (15 sources) take 1 tablet by mouth once daily Multiple Vitamin (multivitamin) tablet Indications: Vitamin Deficiency Take 1 tablet by mouth Daily Active nystatin 956006 unt/ml oral suspension (1 source) Polyene Antifungal Start: 08-01-2019 Nystatin 674113 UNIT/ML Mouth/Throat Suspension 08/01/2019 Provider: Lupe Snider CNP triamcinolone acetonide 1 mg/ml topical cream (15 sources) Corticosteroid Start: 07-04-2024 End: 07-18-2024 triamcinolone [...] TABS 09/16/2018 - 09/16/2018 Provider: Conversion Provider Cetirizine (7 sources) Histamine-1 Receptor Antagonist ZyrTEC Allergy Not-Taking ZyrTEC Allergy A ctive Clindamycin (4 sources) Lincosamide Antibacterial Start: 05-24-2017 End: 05-24-2017 CLINDAMYCIN HCL 300 MG [facility] 05/24/2017 - 05/24/2017 Provider: Start: 11-05-2015 End: 11-05-2015 CLINDAMYCIN HCL 150 MG [facility] 11/05/2015 - 11/05/2015 Provider: dexamethasone 4 mg [...] unspecified] Onset: 08-11-2022 Chronic E Codes: Fall (5 sources) Unspecified fall, initial encounter; Translations: [Fall] [...] 07-04-2024 Chronic Other aftercare (1 source) Other shelter (current) drug therapy; Translations: [OTH GROUP HOME CURRENT DRUG THERAPY] Onset: 12-14-2022 Episodic Other aftercare (1 source) [facility] (current) use of aspirin; Translations: [GROUP HOME CURRENT USE OF ASPIRIN] Onset: 12-13-2022 Episodic [...] initial encounter for closed fracture Episodic Other gastrointestinal disorders (1 source) Diarrhea; Translations: [Diarrhea, unspecified] 11-15-2024 Episodic Other injuries and conditions due to external causes (4 sources) Hematoma; Translations: [Other injury of unspecified body region, initial encounter] 10-09-2024 Episodic Other lower respiratory disease (1 source) Cough; Translations: [Cough, unspecified type] Episodic Other nervous system disorders (1 source) Other chronic pain; Translations: [OTHER CHRONIC PAIN] Onset: 12-30-2021 Chronic Other non-traumatic joint disorders (4 sources) Hip pain; Translations: [Pain in left [...] by: ISIDORO STONE Date: 2022-12-09 15:[address] [facility] [address] TSPINE WO CONon 3 CT [...] by: TREV PHILLIPS Date: 2022-12-09 13:45 Normal [facility] XR CSPINE 2_3 VIEWSon 2022 XR CSPINE [...] ARMINDA NELSON Date: 2022-12-09 18:07 Normal [facility] XR HAND RT MIN 3Von 12-01-19 23 [...] NATI PRADO Date: 2022-11-30 01:36 Normal [facility] CBC AUTO DIFFon 08-06-2022 BASO # 0.0 103/ul Normal 0.0-0.1 [facility] Comment on above: Performed By: #### C BC #### [facility] [address] [place] [address] Dr. Ana Belcher Basophils/100 WBC (Bld) 0.4 % Normal 0.2-2.0 [facility] Comment on above: Performed By: #### C BC #### [facility] [address] [place] [address] Dr. Ana Belcher EO # 0.0 103/ul Normal 0.0-0.7 [facility] Comment on above: Performed By: #### C BC #### [facility] [address] [place] [address] Dr. Ana Belcher Eosinophils/100 WBC (Bld) 0.4 % Critically low 0.9-7.0 [facility] Comment on above: Performed By: #### C BC #### [facility] [address] [place] [address] Dr. Ana Belcher Erythrocyte distribution width (RBC) [Ratio] 13.2 % Normal 11.0-15.0 [facility] Comment on above: Performed By: #### C BC #### [facility] [address] [place] [address] Dr. Ana Belcher Hematocrit (Bld) [Volume fraction] 48.0 % Normal 36.0-48.0 [facility] Comment on above: Performed By: #### C BC #### [facility] [address] [place] [address] Dr. Ana Belcher Hemoglobin (Bld) [Mass/Vol] 16.0 g/dL Normal 12.0-16.0 [facility] Comment on above: Performed By: #### C BC #### [facility] [address] [place] [address] Dr. Ana Belcher IG # 0.04 10e3/ul Critically high 0.00-0.03 [facility] Comment on above: Performed By: #### C BC #### [facility] [address] [place] [address] Dr. Ana Belcher IG % 0.4 % Normal 0.0-0.5 [facility] Comment on above: Performed By: #### C BC #### [facility] [address] [place] [address] Dr. Ana Belcher LYMPH # 2.4 103/ul Normal 1.2-3.8 [facility] Comment on above: Performed By: #### C BC #### [facility] [address] [place] [address] Dr. Ana Belcher Lymphocytes/100 WBC (Bld) 25.9 % Normal 20.5-60.0 [facility] Comment on above: Performed By: #### C BC #### [facility] [address] [place] [address] Dr. Ana Belcher MANUAL DIFF REQ NO Normal [facility] Comment on above: Performed By: #### C BC #### [facility] [address] [place] [address] Dr. Ana Belcher MCH (RBC) [Entitic mass] 29.7 pg Normal 26.7-34.0 [facility] Comment on above: Performed By: #### C BC #### [facility] [address] [place] [address] Dr. Ana Belcher MCHC (RBC) [Mass/Vol] 33.3 g/dL Normal 29.9-35.2 [facility] Comment on above: Performed By: #### C BC #### [facility] [address] [place] [address] Dr. Ana Belcher MCV (RBC) [Entitic vol] 89.2 fL Normal 81.0-99.0 [facility] Comment on above: Performed By: #### C BC #### [facility] [address] [place] [address] Dr. Ana Belcher MONO # 0.7 103/ul Normal 0.3-0.8 [facility] Comment on above: Performed By: #### C BC #### [facility] [address] [place] [address] Dr. Ana Belcher Monocytes/100 WBC (Bld) 7.7 % Normal 1.7-12.0 [facility] Comment on above: Performed By: #### C BC #### [facility] [address] [place] [address] Dr. Ana Belcher NEUT # 6.0 103/ul Normal 1.4-6.5 [facility] Comment on above: Performed By: #### C BC #### [facility] [address] [place] [address] Dr. Ana Belcher Neutrophils/100 WBC (Bld) 65.2 % Normal 43.0-75.0 [facility] Comment on above: Performed By: #### C BC #### [facility] [address] [place] [address] Dr. Ana Belcher Platelet mean volume (Bld) [Entitic vol] 10.1 fL Normal 9.5-13.5 [facility] Comment on above: Performed By: #### C BC #### [facility] [address] [place] [address] Dr. Ana Belcher PLT 261 103/ul Normal 150-450 [facility] Comment on above: Performed By: #### C BC #### [facility] [address] [place] [address] Dr. Ana Belcher RBC 5.38 106/ul Normal 4.20-5.40 [facility] Comment on above: Performed By: #### C BC #### [facility] [address] [place] [address] Dr. Ana Belcher WBC 9.3 103/ul Normal 4.0-11.0 [facility] Comment on above: Performed By: #### C BC #### [facility] [address] [address] [address] Ana Belcher GLYCOHEMOGLOBIN A1Con 2021 ADA RECOMMENDATION SEE BELOW Normal [facility] Comment on above: Result Comment: ADA RECOMMENDED LIMIT 4.0 - 6.0 ADA THERAPEUTIC TARGET < 7.0 ACTION SUGGESTED > 7.0 Performed By: #### A 1C #### [facility] [address] [address] [address] Ana Belcher Glucose [Mass/Vol] 111 mg/dL Normal [facility] Comment on above: Performed By: #### A 1C #### [facility] [address] [address] [address] Ana Belcher HbA1c (Bld) [Mass fraction] 5.5 % Normal 4.5-6.2 [facility] Comment on above: Performed By: #### A 1C #### [facility] [address] [address] [address] Ana Belcher LIPID PROFILEon 08-06-2022 CHOL-HDL RATIO NORM SEE BELOW Normal [facility] Comment on above: Result Comment: 3.3 - 4.4 LOW RISK 4.4 - 7.1 AVERAGE RISK 7.1 - 11.0 MODERATE RISK >11.0 HIGH RISK Performed By: #### L IPID, CMP ####[facility] [address] [id number]. Ana Belcher Cholesterol [Mass/Vol] 191 mg/dL Normal <=200 [facility] Comment on above: Performed By: #### L IPID, CMP ####[facility] [address] [id number]. Ana Belcher Cholesterol in HDL [Mass/Vol] 61 mg/dL Critically high 40-60 [facility] Comment on above: Performed By: #### L IPID, CMP ####[facility] [address] [id number]. Ana Belcher Cholesterol in LDL [Mass/Vol] 117.0 mg/dL Normal [facility] Comment on above: Performed By: #### L IPID, CMP ####[facility] [address] [address]Dr. Ana Belcher Cholesterol.total/C holesterol in HDL [Mass ratio] 3.1 {ratio} Normal [facility] Comment on above: Performed By: #### L IPID, CMP ####[facility] [address] [address]Dr. Ana Belcher HDL NORMAL > or = 60 mg/dl - LO W CARDIOVASCULAR RISK <40 mg/dl - HIGH CARDIOVASCULAR RISK Normal [facility] Comment on above: Performed By: #### L IPID, CMP ####[facility] [address] [address]Dr. Ana Belcher LDL CALC NORMAL SEE BELOW Normal [facility] Comment on above: Result Comment: <100 mg/dl OPTIMAL 100 - 129 mg/dl NEAR OR ABOVE OPTIMAL 130 - 159 mg/dl BORDERLINE HIGH 160 - 189 mg/dl HIGH >190 mg/dl VERY HIGH Performed By: #### L IPID, CMP ####[facility] [address] [place], [place] [address]Dr. Ana Belcher Triglyceride [Mass/Vol] 65 mg/dL Normal <=150 [facility] Comment on above: Performed By: #### L IPEAGLE, CMP ####[facility] [address] [place], [place] [address]Dr. Ana Belcher VLDL CALC 13.0 mg/dL Normal [facility] Comment on above: Performed By: #### L BRONSON, CMP ####[facility] [address] [place], [place] [address]Dr. Ana Belcher PROF 14(COMP METB)on 022 Albumin [Mass/Vol] 4.1 g/dL Normal 3.4-5.0 [facility] Comment on above: Performed By: #### L IPID, CMP ####[facility] [address] [place], [place] [address]Dr. Ana Belcher Albumin/Globulin [Mass ratio] 1.0 {ratio} Normal [facility] Comment on above: Performed By: #### L IPID, CMP ####[facility] [address] [address]Dr. Ana Belcher ALP [Catalytic activity/Vol] 69 U/L Normal 46-116 [facility] Comment on above: Performed By: #### L IPID, CMP ####[facility] [address] [place], [place] [address]Dr. Ana Belcher ALT [Catalytic activity/Vol] 67 U/L Critically high 14-59 [facility] Comment on above: Performed By: #### L IPID, CMP ####[facility] [address] [place], [place] [address]Dr. Ana Belcher Anion gap [Moles/Vol] 13.9 mmol/L Normal [facility] Comment on above: Performed By: #### L IPID, CMP ####[facility] [address] [place], [place] [address]Dr. Ana Belcher AST [Catalytic activity/Vol] 53 U/L Critically high 15-37 [facility] Comment on above: Performed By: #### L IPID, CMP ####[facility] [address] [place], [place] [address]Dr. Ana Belcher Bilirubin [Mass/Vol] 0.6 mg/dL Normal 0.2-1.0 [facility] Comment on above: Performed By: #### L IPID, CMP ####[facility] [address] [place], [place] [address]Dr. Ana Belcher Calcium [Mass/Vol] 9.6 mg/dL Normal 8.5-10.1 [facility] Comment on above: Performed By: #### L IPID, CMP ####[facility] [address] [place], [place] [address]Dr. Ana Belcher Chloride [Moles/Vol] 102 mmol/L Normal 98-107 [facility] Comment on above: Performed By: #### L IPID, CMP ####[facility] [address] [place], [place] [address]Dr. Ana Belcher CO2 [Moles/Vol] 25.5 mmol/L Normal 21.0-32.0 [facility] Comment on above: Performed By: #### L IPID, CMP ####[facility] [address] [phone]. Ana Belcher Creatinine [Mass/Vol] 0.70 mg/dL Normal 0.55-1.02 [facility] Comment on above: Performed By: #### L IPID, CMP ####[facility] [address] [phone]. Ana Belcher EGFR-AF EGYPTIAN >60 Normal >=60 [facility] Comment on above: Performed By: #### L IPID, CMP ####[facility] [address] [phone]. Ana Belcher EGFR-NON AF EGYPTIAN >60 Normal >=60 [facility] Comment on above: Performed By: #### L IPID, CMP ####[facility] [address] [address]Dr. Ana Belcher Globulin (S) [Mass/Vol] 4.0 g/dL Normal [facility] Comment on above: Performed By: #### L IPID, CMP ####[facility] [address] [address]Dr. Ana Belcher Glucose [Mass/Vol] 109 mg/dL Critically high 74-106 [facility] Comment on above: Performed By: #### L IPID, CMP ####[facility] [address] [address]Dr. Ana Belcher Potassium [Moles/Vol] 3.4 mmol/L Critically low 3.5-5.1 [facility] Comment on above: Performed By: #### L IPID, CMP ####[facility] [address] [address]Dr. Ana Belcher Protein [Mass/Vol] 8.1 g/dL Normal 6.4-8.2 [facility] Comment on above: Performed By: #### L IPID, CMP ####[facility] [address] [address]Dr. Ana Belcher Sodium [Moles/Vol] 138 mmol/L Normal 136-145 [facility] Comment on above: Performed By: #### L IPID, CMP ####[facility] [address] [address]DrGavin Belcher Urea nitrogen [Mass/Vol] 23.0 mg/dL Critically high 7.0-18.0 [facility] Comment on above: Performed By: #### L IPID, CMP ####[facility] [address] [address]DrGaivn Belcher Urea nitrogen/Creatinine [Mass ratio] 32.9 mg/mg Normal [facility] Comment on above: Performed By: #### L IPID, CMP ####[facility] [address] [address]DrGavin Belcher UA (CLEAN/CATCH) INVENTORY MANAGEMENT SPECIALIST/MICRO I F IND.on 08-06-2022 Bilirubin Ql (U) SMALL Abnormal NEGATIVE [facility] Comment on above: Performed By: #### U ACSIND, UMICRO #### [facility] [address] [address] [address] Ana Belcher Clarity (U) CLEAR Normal CLEAR [facility] Comment on above: Performed By: #### U ACSIND, UMICRO #### [facility] [address] [address] [address] Ana Belcher Color (U) DK. YELLOW Normal YELLOW [facility] Comment on above: Performed By: #### U ACSIND, UMICRO #### [facility] [address] [address] [address] Ana Belcher Glucose Ql (U) Negative Normal NEGATIVE [facility] Comment on above: Performed By: #### U ACSIND, UMICRO #### [facility] [address] [address] [address] Ana Belcher Hemoglobin Ql (U) MODERATE Abnormal NEGATIVE [facility] Comment on above: Performed By: #### U ACSIND, UMICRO #### [facility] [address] [address] [address] Ana Belcher Ketones Ql (U) TRACE Abnormal NEGATIVE [facility] Comment on above: Performed By: #### U ACSIND, UMICRO #### [facility] [address] [address] [address] Ana Belcher LEUKOCYTES Negative Normal NEGATIVE [facility] Comment on above: Performed By: #### U GEORGIA NEWMANRO #### [facility] [address] [address] [address] Ana Belcher Nitrite Ql (U) Negative Normal NEGATIVE [facility] Comment on above: Performed By: #### U GEORGIA NEWMANRO #### [facility] [address] [address] [address] Ana Belcher pH (U) 5.0 [pH] Normal 5-9 [facility] Comment on above: Performed By: #### U KATHRYN NEWMAN #### [facility] [address] [place] [address] Dr. Ana Belcher SPEC GRAVITY >=1.030 Abnormal 1.005-<=1.02 5 [facility] Comment on above: Performed By: #### GEORGIA CASILLASRO #### [facility] [address] [place] [address] Dr. Ana Belcher UA PROTEIN TRACE Normal NEGATIVE/ TRACE [facility] Comment on above: Performed By: #### U KATHRYN NEWMAN #### [facility] [address] [place] [address] Dr. Ana Belcher UR MICRO IND INDICATED Normal [facility] Comment on above: Performed By: #### U KATHRYN NEWMAN #### [facility] [address] [place] [address] Dr. Ana Belcher Urobilinogen Qn (U) 0.2 {Bi'U}/dL Normal 0.2 - 1. 0 [facility] Comment on above: Performed By: #### U GEORGIA NEWMANRO #### [facility] [address] [place] [address] Dr. Ana Belcher URINE MICROSCOPIC ONLYon BACTERIA NONE SEEN Normal NONE SEEN [facility] Comment on above: Performed By: #### U GEORGIA NEWMANRO ####[facility] [address] [address]Dr. Ana Belcher Bacteria identified Cx Nom (U) NOT INDICATED Normal [facility] Comment on above: Performed By: #### U ACSFIDENCIO, UMICRO ####[facility] [address] [address]Dr. Ana Belcher CAST NONE SEEN Normal NONE SEEN [facility] Comment on above: Performed By: #### U ACSFIDENCIO, UMICRO ####[facility] [address] [address]Dr. Ana Belcher Crystals LM Nom (Urine sed) NONE SEEN Normal NONE SEEN [facility] Comment on above: Performed By: #### U ACSFIDENCIO, UMICRO ####[facility] [address] [address]Dr. Ana Belcher Epithelial cells LM Ql (Urine sed) FEW Abnormal NONE SEEN /RARE [facility] Comment on above: Performed By: #### U ACSFIDENCIO, UMICRO ####[facility] [address] [address]Dr. Ana Belcher MUCOUS NONE SEEN Normal NONE SEEN [facility] Comment on above: Performed By: #### U ACSFIDENCIO, UMICRO ####[facility] [address] [address]Dr. Ana Belcher RBC 5-10 Abnormal 0-2 [facility] Comment on above: Performed By: #### U ACSFIDENCIO, UMICRO ####[facility] [address] [address]Dr. Ana Belcher WBC NONE SEEN Normal NONE SEEN [facility] Comment on above: Performed By: #### U ACSFIDENCIO, UMICRO ####[facility] [address] [address]Dr. Ana Belcher VITAMIN D 25 OHon 08-06-2022 VIT D 25-OH 47.2 ng/mL Normal [facility] Comment on above: Performed By: #### V ITAD ####[facility] [address] [place], [place] [address]Dr. Ana Belcher VIT D RANGES SEE BELOW Normal [facility] Comment on above: Result Comment: <20 ng/mL Vit D deficient 20 - <30 ng/mL Vit D insufficient 30 - 100 ng/mL Vit D sufficient >100 ng/mL Potential Toxicity Performed By: #### V ITAD ####[facility] [address] [place], [place] [address]YiGavin Belcher XR KUB 1 VIEWon 08-06-2022 XR [...] HERSON VANCE Date: 2022-08-06 15:26 Normal [facility] Neurosurgery Office/Clinic N oteon 03-01-2022 Neurosurgery Office/Clinic [...] pain. She went to the ED in [place], a CTA chest was done which showed [...] CT thorac (more content not included)... Normal [facility] Provider Letteron 03-01-2022 Provider Letter (Inserted Image. Demetria ble to display) Nomi Corcoran DO [address] [phone] Re: Brie Farrell Date of Visit: 03/01/2022 Dear Nomi Corcoran DO, Thank you for allowing me to contribute to the care of your patient: Brie Farrell. Attached is my office note where you will find my assessment and recommendations from our encounter. My office?s contact information: [facility] [address], [phone] Let me know if you have any questions or concerns. Sincerely, ROHIT Myles Providers: The following document(s) were included in the letter: March 01, 2022 12:05:06 EDT - (03/01/2022) Neurosurgery Office Visit Note Normal [facility] MRI LSPINE WO CONon 02-18-20 22 MRI [facility] WO CON EXAMINATION: MRI LSP INE WO [...] by: HERSON VANCE Date: 2022-02-17 17:39 Normal [facility] MRI CSPINE WO CONon 02-17-20 22 MRI [facility] WO CON EXAM: MRI CSPINE WO CON [...] by: KATHE WHITMAN Date: 2022-02-16 14:44 Normal [facility] MRI TSPINE WO CONon 02-17-20 22 MRI [facility] WO CON EXAM: MRI TSPINE WO [...] KATHE WHITMAN Date: 2022-02-16 14:55 Normal [facility] Neurosurgery Office/Clinic N oteon 01-21-2022 Neurosurgery Office/Clinic [...] pain. She went to the ED in [place], a CTA chest was done which showed [...] thoracic spine (more content not included)... Normal [facility] Provider Letteron 01-21-2022 Provider Letter (Inserted Image. Demetria ble to display) Nomi Corcoran DO [address] [phone] Re: Brie Farrell Date of Visit: 01/21/2022 Dear Nomi Corcoran DO, Thank you for your referral and allowing me to contribute to the care of your patient: Brie Farrell. Attached is my office note where you will find my assessment and recommendations from our encounter. My office?s contact information: [facility] [address], [phone] Let me know if you have any questions or concerns. Sincerely, ROHIT Myles Providers: The following document(s) were included in the letter: January 21, 2022 09:52:54 EDT - (01/21/2022) Neurosurgery Office Visit Note Normal [facility] Progress Noteon 01-13-2018 HIM IP Note OR Patient Registration Specialist Normal [facility] Cult,Urine,CCon 12-27-2017 Cult,Urine,CC Specimen Description .URINE Performed at [address] [place] [address] ([phone] Special Requests NOT REPORTEDCulture NO GROWTH Performed at [facility] [address] [place], [place] [id number] ([phone] Report Status FINAL 12/27/2017 Normal [facility] Comment on above: Performed By: #### U AMIC ####[address] [place] [address] Progress Noteon 12-26-2017 HIM IP Note OR Patient Registration Specialist Normal [facility] HIM IP Note OR Patient Registration Specialist Normal [facility] Urinalysis w/ Microon 2017 ----- Normal [facility] Comment on above: Performed By: #### U AMIC ####[address] [place] [address] Acetaminophen mass conc Negative Normal NEG [facility] Comment on above: Performed By: #### U AMIC ####[address] [place] [address] Bilirubin (direct) Negative Normal NEG [facility] Comment on above: Performed By: #### U AMIC ####[address] [place] [address] Hemoglobin mass conc (Bld) 2+ Abnormal NEG [facility] Comment on above: Performed By: #### U AMIC ####[address] [place] [address] Nitrite,Ur Negative Normal NEG [facility] Comment on above: Performed By: #### U AMIC ####[address] [place] [address] Turbidity CLEAR Normal CLEAR [facility] Comment on above: Performed By: #### U AMIC ####[address] [place] [address] Urine WBC's None Normal 0-5 [facility] Comment on above: Performed By: #### U AMIC ####[address] [place] [address] Urine, color YELLOW Normal YEL [facility] Comment on above: Performed By: #### U AMIC ####[address] [place] [address] Urine, epithelial cells in sediment 0 TO 2 Normal 0-25 [facility] Comment on above: Result Comment: Perf ormed at [address] [place] [address] Performed By: #### U AMIC ####[address] [place] [address] Urine, erythrocytes None Normal 0-2 [facility] Comment on above: Performed By: #### U AMIC ####[address] [place] [address] Urine, glucose presence Negative Normal NEG [facility] Comment on above: Performed By: #### U AMIC ####[address] [place] [address] Urine, leukocyte esterase presence Negative Normal NEG [facility] Comment on above: Performed By: #### U AMIC ####[address] [place] [address] Urine, pH 5.5 [pH] Normal 5.0-9.0 [facility] Comment on above: Performed By: #### U AMIC ####[address] [place] [address] Urine, protein presence Negative Normal NEG [facility] Comment on above: Performed By: #### U AMIC ####[address] [place] [address] Urine, specific gravity 1.015 Normal 1.010-1.020 [facility] Comment on above: Performed By: #### U AMIC ####[address] [place] [address] Urobilinogen,Ur Normal Normal NORM [facility] Comment on above: Performed By: #### U AMIC ####[address] [place] [address] Comment NOT REPORTED Normal [facility] Comment on above: Performed By: #### U AMIC ####[address] [place] [address] Epithelial, Renal NOT REPORTED Normal 0 [facility] Comment on above: Performed By: #### U AMIC ####[address] [place] [address] Mucus Strands NOT REPORTED Normal NONE [facility] Comment on above: Performed By: #### U AMIC ####[address] [place] [address] Other Observations NOT REPORTED Normal NREQ [facility] Comment on above: Performed By: #### U AMIC ####[address] [place] [address] Trichomonas NOT REPORTED Normal NONE [facility] Comment on above: Performed By: #### U AMIC ####[address] [place] [address] Urine, amorphous sediment presence in sediment NOT REPORTED Normal [facility] Comment on above: Performed By: #### U AMIC ####[address] [place] [address] Urine, bacteria in sediment NOT REPORTED Normal NONE [facility] Comment on above: Performed By: #### U AMIC ####[address] [place] [address] Urine, casts in sediment NOT REPORTED Normal [facility] Comment on above: Performed By: #### U AMIC ####[address] [place] [address] Urine, crystals in sediment NOT REPORTED Normal NONE [facility] Comment on above: Performed By: #### U AMIC ####[address] , [place] [address] Urine, yeast presence in sediment NOT REPORTED Normal NONE [facility] Comment on above: Performed By: #### U AMIC ####[address] , [place] [id number] HCV RNA,Quant,PCRon 12-21-19 18 HCV RNA,Quant,PCR Specimen Description .PLASMA Performed at [address] [place], [place] [address] [phone] Special Requests NOT REPORTEDDirect Exam HCV RNA DETECTED [id number] IU/ML (6.79 LOG IU/ML) This test is [...] to the appropriate Health Department Performed at [address] [address] Report Status FINAL 12/20/2017 Normal [facility] Comment on above: Performed By: #### H CVQ ####[address] [phone] , [place] [id number] HIV Ag/Abon 12-15-2017 HIV Ag/Ab NONREACTIVE Normal NR [facility] Comment on above: Result Comment: No l aboratory evidence of HIV infection. If acute HIV infection is suspected, consider testing for HIV-1 RNA.Performed at [address] [address] Performed By: #### C BC, AHCV, HIVCMB ####[address] [address] #### CP, LIPR ####[address] [place], [place] [id number] Hep C Abon 12-15-2017 Hep C Ab REACTIVE Abnormal NR [facility] Comment on above: Result Comment: The [...] by ordering HCV RNA by PCR.Performed at [address] [address] Performed By: #### C BC, AHCV, HIVCMB ####[address] [address] #### CP, LIPR ####[address] [place] [address] Progress Noteon 12-15-2017 HIM IP Note OR Patient Registration Specialist Normal [facility] CBCon 12-14-2017 Erythrocyte distribution width Auto Ratio (RBC) 13.1 % Normal 11.8-14.4 [facility] Comment on above: Performed By: #### C BC, AHCV, HIVCMB ####[address] [address] #### CP, LIPR ####[address] [place] [address] Erythrocytes (RBC) 0.0 per 100 WBC Normal 0.0 M [facility] Comment on above: Result Comment: Perf ormed at [address] [address] Performed By: #### C BC, AHCV, HIVCMB ####[address] [address] #### CP, LIPR ####[address] [place] [address] Erythrocytes (RBC) 4.94 10*6/uL Normal 3.95-5.11 [facility] Comment on above: Performed By: #### C BC, AHCV, HIVCMB ####[address] [address] #### CP, LIPR ####[address] [place] [address] Hematocrit (HCT) 44.6 % Normal 36.3-47.1 [facility] Comment on above: Performed By: #### C BC, AHCV, HIVCMB ####[address] [address] #### CP, LIPR ####[address] [place] [address] Hemoglobin mass conc (Bld) 14.5 g/dL Normal 11.9-15.1 [facility] Comment on above: Performed By: #### C BC, AHCV, HIVCMB ####[address] [address] #### CP, LIPR ####[address] [place] [address] MCH 29.4 pg Normal 25.2-33.5 [facility] Comment on above: Performed By: #### C BC, AHCV, HIVCMB ####[address] [address] #### CP, LIPR ####[address] [place] [address] MCHC mass conc (RBC) 32.5 g/dL Normal 28.4-34.8 [facility] Comment on above: Performed By: #### C BC, AHCV, HIVCMB ####[address] [address] #### CP, LIPR ####[address] [place] [address] MCV 90.3 fL Normal 82.6-102.9 [facility] Comment on above: Performed By: #### C BC, AHCV, HIVCMB ####[address] [address] #### CP, LIPR ####[address] [place] [address] Platelet mean volume (PMV) 9.1 fL Normal 8.1-13.5 [facility] Comment on above: Performed By: #### C BC, AHCV, HIVCMB ####[address] [address] #### CP, LIPR ####[address] [place] [address] Platelets 271 10*3/uL Normal 138-453 [facility] Comment on above: Performed By: #### C BC, AHCV, HIVCMB ####[address] [address] #### CP, LIPR ####[address] [place] [id number] WBC (Leukocytes) 5.0 10*3/uL Normal 3.5-11.3 [facility] Comment on above: Performed By: #### C BC, AHCV, HIVCMB ####[address] [address] #### CP, LIPR ####[address] [place] [address] Comp Metabolic Profon 2017 (cont.) Normal [facility] Comment on above: Result Comment: Aver age GFR for 50-59 years old: 93 mL/min/1.73sq mChronic Kidney Disease: <60 mL/min/1.73sq mKidney failure: <15 mL/min/1.73sq meGFR calculated using average adult body mass. Additional eGFR calculator available at:http://www.Aeromot/multiple_crcl_2012.htm Performed By: #### C BC, AHCV, HIVCMB ####[address] [address] #### CP, LIPR ####[address] [place] [address] Alanine aminotransferase (ALT) 39 U/L High 5-33 [facility] Comment on above: Performed By: #### C BC, AHCV, HIVCMB ####[address] [address] #### CP, LIPR ####[address] [place] [address] Albumin 4.3 g/dL Normal 3.5-5.2 [facility] Comment on above: Performed By: #### C BC, AHCV, HIVCMB ####[address] [address] #### CP, LIPR ####[address] [place] [address] Albumin/Globulin Ratio 1.3 {ratio} Normal 1.0-2.5 [facility] Comment on above: Performed By: #### C BC, AHCV, HIVCMB ####[address] [address] #### CP, LIPR ####[address] [place] [address] Alkaline Phos 54 U/L Normal 35-104 [facility] Comment on above: Performed By: #### C BC, AHCV, HIVCMB ####[address] [address] #### CP, LIPR ####[address] [place] [address] Anion gap 10 mmol/L Normal 9-17 [facility] Comment on above: Performed By: #### C BC, AHCV, HIVCMB ####[address] [address] #### CP, LIPR ####[address] [place] [address] Aspartate aminotransferase (AST) 37 U/L High <32 [facility] Comment on above: Performed By: #### C BC, AHCV, HIVCMB ####[address] [address] #### CP, LIPR ####[address] [place] [address] Bilirubin Ql (U) 0.51 mg/dL Normal 0.3-1.2 [facility] Comment on above: Performed By: #### C BC, AHCV, HIVCMB ####[address] [address] #### CP, LIPR ####[address] [place] [address] BUN/CRE Ratio 25 High 9-20 [facility] Comment on above: Performed By: #### C BC, AHCV, HIVCMB ####[address] [address] #### CP, LIPR ####[address] [place] [address] Calcium 9.6 mg/dL Normal 8.6-10.4 [facility] Comment on above: Performed By: #### C BC, AHCV, HIVCMB ####[address] [address] #### CP, LIPR ####[address] [place] [address] Chloride 101 mmol/L Normal 98-107 [facility] Comment on above: Performed By: #### C BC, AHCV, HIVCMB ####[address] [address] #### CP, LIPR ####[address] [place] [phone] CO2 28 mmol/L Normal 20-31 [facility] Comment on above: Performed By: #### C BC, AHCV, HIVCMB ####[address] [address] #### CP, LIPR ####[address] [place] [address] Creatinine 0.57 mg/dL Normal 0.50-0.90 [facility] Comment on above: Performed By: #### C BC, AHCV, HIVCMB ####[address] [address] #### CP, LIPR ####[address] [place] [phone] eGFR (non-black) mL/min/{1.73_m2} Normal >60 [facility] Comment on above: Performed By: #### C BC, AHCV, HIVCMB ####[address] [address] #### CP, LIPR ####[address] [place] [address] Glucose mass conc 99 mg/dL Normal 70-99 [facility] Comment on above: Performed By: #### C BC, AHCV, HIVCMB ####[address] [address] #### CP, LIPR ####[address] [place] [address] Potassium molar conc 4.5 mmol/L Normal 3.7-5.3 [facility] Comment on above: Performed By: #### C BC, AHCV, HIVCMB ####[address] [address] #### CP, LIPR ####[address] [place] [address] Protein 7.6 g/dL Normal 6.4-8.3 [facility] Comment on above: Performed By: #### C BC, AHCV, HIVCMB ####[address] [address] #### CP, LIPR ####[address] [place] [address] Sodium 139 mmol/L Normal 135-144 [facility] Comment on above: Performed By: #### C BC, AHCV, HIVCMB ####[address] [address] #### CP, LIPR ####[address] [place] [address] Staging: Normal [facility] Comment on above: Result Comment: Stag e 1: Some kidney damage normal GFRStage 2: Mild kidney damage GFR 60-89Stage 3: Moderate kidney damage GFR 30-59Stage 4: Severe kidney damage GFR 15-29Stage 5: Severe kidney damage GFR <15ESRD - chronic treatment by dialysis or transplantPerformed at [address] [place] [address] Performed By: #### C BC, AHCV, HIVCMB ####[address] [address] #### CP, LIPR ####[address] [place], [place] [address] Urea nitrogen 14 mg/dL Normal 6-20 [facility] Comment on above: Performed By: #### C BC, AHCV, HIVCMB ####[address] [address] #### CP, LIPR ####[address] [address] Cult,Urineon 12-14-2017 Cult,Urine Specimen Description .CLEAN CATCH URINE Performed at [address] [place] [address] ([phone] Special Requests NOT REPORTEDCulture ESCHERICHIA COLI 50 to 100,000 CFU/ML Performed at [address] [address] Report Status FINAL 12/14/2017SUSCEPTIBILITYOrg anism ECMethod MICAmikacin [...] fa <=20 SUSCEPTIBLEPiperacillin/Darrick obactam <=4 SUSCEPTIBLE Normal [facility] Comment on above: Performed By: #### U RC ####[address] [phone] [place] [address] Lipid Profileon 12-14-2017 Cholesterol 211 mg/dL High <200 [facility] Comment on above: Result Comment: Chol esterol Guidelines: <200 Desirable 200-240 Borderline >240 Undesirable Performed By: #### C BC, AHCV, HIVCMB ####[address] [address] #### CP, LIPR ####[address] [place] [address] Cholesterol to HDL Ratio 2.6 {ratio} Normal <5 [facility] Comment on above: Performed By: #### C BC, AHCV, HIVCMB ####[address] [address] #### CP, LIPR ####[address] [place] [address] HDL Cholesterol 80 mg/dL Normal >40 [facility] Comment on above: Result Comment: HDL Guidelines: <40 Undesirable 40-59 Borderline >59 Desirable Performed By: #### C BC, AHCV, HIVCMB ####[address] [address] #### CP, LIPR ####[address] [place] [address] LDL Cholesterol 116 mg/dL Normal 0-130 [facility] Comment on above: Result Comment: LDL Guidelines: <100 Desirable 100-129 Near to/above Desirable 130-159 Borderline >159 UndesirableDirect (measured) LDL and calculated LDL are not interchangeable tests. Performed By: #### C BC, AHCV, HIVCMB ####[address] [address] #### CP, LIPR ####[address] [place] [address] Triglyceride 76 mg/dL Normal <150 [facility] Comment on above: Result Comment: Trig lyceride Guidelines: <150 Desirable 150- 199 Borderline 200-499 High >499 Very high Based on AHA Guidelines for fasting triglyceride, May 2012.Performed at [address] [place] [address] Performed By: #### C BC, AHCV, HIVCMB ####[place] [address] [place] [address] #### CP, LIPR ####[address] [place] [address] Cholesterol in VLDL mass conc NOT REPORTED Normal 09-20 [facility] Comment on above: Performed By: #### C BC, AHCV, HIVCMB ####[place] [address] [place] [address] #### CP, LIPR ####[address] [place] [address] Progress Noteon 12-14-2017 HIM IP Note OR Patient Registration Specialist Normal [facility] CT ABDOMEN PELVIS WO CONTRAS Ton [...] by:IVANNA Leblancigned by:Herson Cárdenas MD12/13/18Final result Normal [facility] Urinalysis w/ Microon 2017 ----- Normal [facility] Comment on above: Performed By: #### U AMIC ####[address] [place] [address] Acetaminophen mass conc Negative Normal NEG [facility] Comment on above: Performed By: #### U AMIC ####[address] [place] [address] Bilirubin (direct) Negative Normal NEG [facility] Comment on above: Performed By: #### U AMIC ####[address] [place] [address] Hemoglobin mass conc (Bld) 1+ Abnormal NEG [facility] Comment on above: Performed By: #### U AMIC ####[address] [place] [address] Nitrite,Ur Negative Normal NEG [facility] Comment on above: Performed By: #### U AMIC ####[address] [place] [address] Turbidity CLEAR Normal CLEAR [facility] Comment on above: Performed By: #### U AMIC ####[address] [place] [address] Urine WBC's 20 TO 50 Normal 0-5 [facility] Comment on above: Performed By: #### U AMIC ####[address] [place] [address] Urine, bacteria in sediment TRACE Abnormal NONE [facility] Comment on above: Result Comment: Perf ormed at [address] [place] [address] Performed By: #### U AMIC ####[address] [place] [address] Urine, color YELLOW Normal YEL [facility] Comment on above: Performed By: #### U AMIC ####[address] [place] [address] Urine, epithelial cells in sediment 2 TO 5 Normal 0-25 [facility] Comment on above: Performed By: #### U AMIC ####[address] [place] [address] Urine, erythrocytes 0 TO 2 Normal 0-2 [facility] Comment on above: Performed By: #### U AMIC ####[address] [place] [address] Urine, glucose presence Negative Normal NEG [facility] Comment on above: Performed By: #### U AMIC ####[address] [place] [address] Urine, leukocyte esterase presence SMALL Abnormal NEG [facility] Comment on above: Performed By: #### U AMIC ####[address] [place] [address] Urine, pH 5.5 [pH] Normal 5.0-9.0 [facility] Comment on above: Performed By: #### U AMIC ####[address] [place] [address] Urine, protein presence Negative Normal NEG [facility] Comment on above: Performed By: #### U AMIC ####[address] [place] [address] Urine, specific gravity 1.010 Normal 1.010-1.020 [facility] Comment on above: Performed By: #### U AMIC ####[address] [place] [address] Urobilinogen,Ur Normal Normal NORM [facility] Comment on above: Performed By: #### U AMIC ####[address] [place] [address] Comment NOT REPORTED Normal [facility] Comment on above: Performed By: #### U AMIC ####[address] [place] [address] Epithelial, Renal NOT REPORTED Normal 0 [facility] Comment on above: Performed By: #### U AMIC ####[address] [place] [address] Mucus Strands NOT REPORTED Normal NONE [facility] Comment on above: Performed By: #### U AMIC ####[address] [place] [address] Other Observations NOT REPORTED Normal NREQ [facility] Comment on above: Performed By: #### U AMIC ####[address] [place] [address] Trichomonas NOT REPORTED Normal NONE [facility] Comment on above: Performed By: #### U AMIC ####[address] [place] [address] Urine, amorphous sediment presence in sediment NOT REPORTED Normal NONE [facility] Comment on above: Performed By: #### U AMIC ####[address] [place] [address] Urine, casts in sediment NOT REPORTED Normal [facility] Comment on above: Performed By: #### U AMIC ####[address] [place] [address] Urine, crystals in sediment NOT REPORTED Normal [facility] Comment on above: Performed By: #### U AMIC ####[address] [place] [address] Urine, yeast presence in sediment NOT REPORTED Normal NONE [facility] Comment on above: Performed By: #### U AMIC ####[address] [place] [address] Vital Signs Date Time Vital Sign Value Performing Clinician Facility 10-15-2024 10:26-0500 Body height 160 cm Fahad Bandar DO Work Phone: [facility] 10-15-2024 10:26-0500 Body mass index (BMI) [Ratio] 18.6 kg/m2 Fahad Baint DO Work Phone: [facility] 10-15-2024 10:26-0500 Body temperature 98.1 [degF] Fahad Castillouitt DO Work Phone: [facility] 10-15-2024 10:26-0500 Body weight 47.63 kg Fahad Baint DO Work Phone: [facility] 10-15-2024 10:26-0500 Diastolic blood pressure 64 mm[Hg] Fahad Baint DO Work Phone: [facility] 10-15-2024 10:26-0500 Heart rate 87 /min Fahad Baint DO Work Phone: [facility] 10-15-2024 10:26-0500 Respiratory rate 20 /min Fahad Baint DO Work Phone: [facility] 10-15-2024 10:26-0500 SaO2% (BldA) [Mass fraction] 97 % Fahad Baint DO Work Phone: [facility] 10-15-2024 10:26-0500 Systolic blood pressure 104 mm[Hg] Fahad Baint DO Work Phone: [facility] 10-09-2024 08:25-0500 Body height 160 cm Fahad Baint DO Work Phone: [facility] 10-09-2024 08:25-0500 Body mass index (BMI) [Ratio] 19.13 kg/m2 Fahad Castillouitt DO Work Phone: [facility] 10-09-2024 08:25-0500 Body temperature 98.29 [degF] Fahad Baint DO Work Phone: [facility] 10-09-2024 08:25-0500 Body weight 48.99 kg Fahad Baint DO Work Phone: [facility] 10-09-2024 08:25-0500 Diastolic blood pressure 60 mm[Hg] Fahad Bandar DO Work Phone: [facility] 10-09-2024 08:25-0500 Heart rate 78 /min Fahad Bandar DO Work Phone: [facility] 10-09-2024 08:25-0500 Respiratory rate 20 /min Fahad Bandar DO Work Phone: [facility] 10-09-2024 08:25-0500 SaO2% (BldA) [Mass fraction] 95 % Fahad Bandar DO Work Phone: [facility] 10-09-2024 08:25-0500 Systolic blood pressure 98 mm[Hg] Fahad Bandar DO Work Phone: [facility] 10-03-2024 15:49-0500 Body height 160 cm Fahad Bandar DO Work Phone: [facility] 10-03-2024 15:49-0500 Body mass index (BMI) [Ratio] 19.13 kg/m2 Fahad Bandar DO Work Phone: [facility] 10-03-2024 15:49-0500 Body temperature 98.01 [degF] Fahad Bandar DO Work Phone: [facility] 10-03-2024 15:49-0500 Body weight 48.99 kg Fahad Bandar DO Work Phone: [facility] 10-03-2024 15:49-0500 Diastolic blood pressure 60 mm[Hg] Fahad Bandar DO Work Phone: [facility] 10-03-2024 15:49-0500 Heart rate 68 /min Fahad Bandar DO Work Phone: [facility] 10-03-2024 15:49-0500 Respiratory rate 20 /min Fahad Bandar DO Work Phone: [facility] 10-03-2024 15:49-0500 SaO2% (BldA) [Mass fraction] 96 % Fahad Bandar DO Work Phone: [facility] 10-03-2024 15:49-0500 Systolic blood pressure 100 mm[Hg] Fahad Bandar DO Work Phone: [facility] 07-17-2024 15:10-0500 Body height 160 cm Fahad Bandar DO Work Phone: [facility] 07-17-2024 15:10-0500 Body mass index (BMI) [Ratio] 18.25 kg/m2 Fahad Bandar DO Work Phone: [facility] 07-17-2024 15:10-0500 Body temperature 98.01 [degF] Fahad Bandar DO Work Phone: [facility] 07-17-2024 15:10-0500 Body weight 46.72 kg Fahad Castillouitt DO Work Phone: [facility] 07-17-2024 15:10-0500 Diastolic blood pressure 82 mm[Hg] Fahad Bandar DO Work Phone: [facility] 07-17-2024 15:10-0500 Heart rate 77 /min Fahad Bandar DO Work Phone: [facility] 07-17-2024 15:10-0500 Respiratory rate 20 /min Fahad Castillouitt DO Work Phone: [facility] 07-17-2024 15:10-0500 SaO2% (BldA) [Mass fraction] 96 % Fahad Bandar DO Work Phone: [facility] 07-17-2024 15:10-0500 Systolic blood pressure 126 mm[Hg] Fahad Bandar DO Work Phone: [facility] 07-11-2024 10:19-0500 Body height 160 cm Fahad Bandar DO Work Phone: [facility] 07-11-2024 10:19-0500 Body mass index (BMI) [Ratio] 18.42 kg/m2 Fahad Bandar DO Work Phone: [facility] 07-11-2024 10:19-0500 Body temperature 98.29 [degF] Fahad Bandar DO Work Phone: [facility] 07-11-2024 10:19-0500 Body weight 47.17 kg Fahad Bandar DO Work Phone: [facility] 07-11-2024 10:19-0500 Diastolic blood pressure 84 mm[Hg] Fahad Bandar DO Work Phone: [facility] 07-11-2024 10:19-0500 Heart rate 84 /min Fahad Bandar DO Work Phone: [facility] 07-11-2024 10:19-0500 Respiratory rate 20 /min Fahad Bandar DO Work Phone: [facility] 07-11-2024 10:19-0500 SaO2% (BldA) [Mass fraction] 96 % Fahad Castillouitt DO Work Phone: [facility] 07-11-2024 10:19-0500 Systolic blood pressure 132 mm[Hg] Fahad Bandar DO Work Phone: [facility] 07-04-2024 14:51-0500 Body height 160 cm Fahad Castillouitt DO Work Phone: [facility] 07-04-2024 14:51-0500 Body mass index (BMI) [Ratio] 18.78 kg/m2 Fahad Bandar DO Work Phone: [facility] 07-04-2024 14:51-0500 Body temperature 98.2 [degF] Fahad Bandar DO Work Phone: [facility] 07-04-2024 14:51-0500 Body weight 48.08 kg Fahad Castillouitt DO Work Phone: [facility] 07-04-2024 14:51-0500 Diastolic blood pressure 82 mm[Hg] Fahad Bandar DO Work Phone: [facility] 07-04-2024 14:51-0500 Heart rate 78 /min Fahad Portillo DO Work Phone: [facility] 07-04-2024 14:51-0500 Respiratory rate 20 /min Fahad Portillo DO Work Phone: [facility] 07-04-2024 14:51-0500 SaO2% (BldA) [Mass fraction] 98 % Fahad Portillo DO Work Phone: [facility] 07-04-2024 14:51-0500 Systolic blood pressure 120 mm[Hg] Fahad Portillo DO Work Phone: [facility] 12-23-2022 16:40-0400 Body height 160.02 cm Awais Comer Other [employer] Other 12-23-2022 16:40-0400 Body mass index (BMI) [Ratio] 21.25 kg/m2 Awais Comer Other [employer] Other 12-23-2022 16:40-0400 Body weight 54.43 kg Awais Comer Other [employer] Other 12-14-2022 15:30-0400 Body height 160.02 cm Vilma Sharma Other [employer] Other 12-14-2022 15:30-0400 Body mass index (BMI) [Ratio] 21.25 kg/m2 Vilma Sharma Other [employer] Other 12-14-2022 15:30-0400 Body weight 54.43 kg Vilma Sharma Other [employer] Other 10-20-2021 16:45-0500 Body height 160.02 cm Herson Amin Other [employer] Other 10-20-2021 16:45-0500 Body mass index (BMI) [Ratio] 21.61 kg/m2 Herson Amin Other [employer] [facility] [employer] Other 10-20-2021 16:45-0500 Body weight 55.34 kg Herson Amin Other [employer] Other 08-13-2019 10:12-0500 BMI (Body Mass Index) 21.5 kg/m2 [facility] Work Phone: 08-13-2019 10:12-0500 Body Temperature 99.6 [degF] [facility] Work Phone: 08-13-2019 10:12-0500 Body weight 49.9 kg [facility] Work Phone: 08-13-2019 10:12-0500 BP Diastolic 78 mm[Hg] [facility] Work Phone: 08-13-2019 10:12-0500 BP Systolic 110 mm[Hg] [facility] Work Phone: 08-13-2019 10:12-0500 BSA (Body Surface Area) 1.45 m2 [facility] Work Phone: 08-13-2019 10:12-0500 Height 152.4 cm [facility] Work Phone: 08-13-2019 10:12-0500 Pulse (Heart Rate) 80 /min [facility] Work Phone: 08-13-2019 10:12-0500 Pulse Oximetry 96 % [facility] Work Phone: 08-13-2019 10:12-0500 Respiratory Rate 14 /min [facility] Work Phone: 08-01-2019 12:12-0500 BMI (Body Mass Index) 21.5 kg/m2 [facility] Work Phone: 08-01-2019 12:12-0500 Body Temperature 98.8 [degF] [facility] Work Phone: 08-01-2019 12:12-0500 Body weight 49.9 kg Lupe [facility] Work Phone: 08-01-2019 12:12-0500 BP Diastolic 80 mm[Hg] Lupe [facility] Work Phone: 08-01-2019 12:12-0500 BP Systolic 130 mm[Hg] [facility] Work Phone: 08-01-2019 12:12-0500 BSA (Body Surface Area) 1.45 m2 Lupe [facility] Work Phone: 08-01-2019 12:12-0500 Height 152.4 cm Lupe [facility] Work Phone: 08-01-2019 12:12-0500 Pulse (Heart Rate) 87 /min Lupe [facility] Work Phone: 08-01-2019 12:12-0500 Pulse Oximetry 96 % [facility] Work Phone: 08-01-2019 12:12-0500 Respiratory Rate 14 /min Lupe [facility] Work Phone: 2019 15:40-0500 BMI (Body Mass Index) 21.5 kg/m2 [facility] Work Phone: 2019 15:40-0500 Body Temperature 98 [degF] Lupe [facility] Work Phone: 2019 15:40-0500 Body weight 49.9 kg Lupe [facility] Work Phone: 2019 15:40-0500 BP Diastolic 80 mm[Hg] [facility] Work Phone: 2019 15:40-0500 BP Systolic 104 mm[Hg] Lupe [facility] Work Phone: 2019 15:40-0500 BSA (Body Surface Area) 1.45 m2 [facility] Work Phone: 2019 15:40-0500 Height 152.4 cm [facility] Work Phone: 2019 15:40-0500 Pulse (Heart Rate) 84 /min [facility] Work Phone: 2019 15:40-0500 Pulse Oximetry 95 % [facility] Work Phone: Encounters Encounter Date Encounter Type Care Provider Facility Start: 11-15-2024 End: 11-15-2024 Telephone encounter Fahad Portillo DO Work Phone: [facility] Start: 11-08-2024 End: 11-08-2024 ambulatory FAHAD PORTILLO Not Available Start: 10-15-2024 End: 10-15-2024 Bamboo flowsheet Fahad Portillo DO Work Phone: [facility] Start: 10-15-2024 End: 10-15-2024 Bamboo flowsheet Fahad Portillo DO Work Phone: [facility] Start: 10-15-2024 End: 10-15-2024 ambulatory FAHAD PORTILLO Not Available Start: 10-15-2024 End: 10-15-2024 Office outpatient visit 15 minutes Fahad Portillo DO Work Phone: [facility] Comment on above: Left hip pain (Prima ry Dx); Hematoma; Fall, subsequent encounter Start: 10-09-2024 End: 10-09-2024 Bamboo flowsheet Fahad Portillo DO Work Phone: [facility] Start: 10-09-2024 End: 10-09-2024 Bamboo flowsheet Fahad Bandar DO Work Phone: [facility] Start: 10-09-2024 End: 10-09-2024 ambulatory FAHAD BANDAR Not Available Start: 10-09-2024 End: 10-09-2024 Office outpatient visit 15 minutes Fahad Bandar DO Work Phone: [facility] Comment on above: Left hip pain (Prima ry Dx); Hematoma; Fall, initial encounter Start: 10-03-2024 End: 10-03-2024 Office outpatient visit 25 minutes Fahad Bandar DO Work Phone: [facility] Comment on above: Anxiety attack (CMS/ HCC) (Primary Dx); Insomnia, unspecified type Start: 10-03-2024 End: 10-03-2024 ambulatory FAHAD BANDAR Not Available Start: 07-17-2024 End: 07-17-2024 Office outpatient visit 15 minutes Fahad Bandar DO Work Phone: [facility] Comment on above: Dermatitis (Primary Dx); Mucocele of mouth Start: 07-17-2024 End: 07-17-2024 ambulatory FAHAD BANDAR Not Available Start: 07-11-2024 End: 07-11-2024 Office outpatient visit 15 minutes Fahad Bandar DO Work Phone: [facility] Comment on above: Dermatitis (Primary Dx) Start: 07-11-2024 End: 07-11-2024 ambulatory FAHAD BANDAR Not Available Start: 07-04-2024 End: 07-04-2024 ambulatory FAHAD BANDAR Not Available Start: 07-04-2024 End: 07-04-2024 Office outpatient new 45 minutes Fahad Bandar DO Work Phone: [facility] Comment on above: Anxiety attack (CMS/ HCC) (Primary Dx); Insomnia, unspecified type; Dermatitis; Screening for lipid disorders; Hepatitis C virus infection without hepatic coma, unspecified chronicity (CMS/HCC); Seasonal allergies; Age related osteoporosis, unspecified pathological fracture presence (CMS/HCC); Encounter for screening mammogram for malignant neoplasm of breast; Nicotine use Start: 07-04-2024 End: 07-04-2024 Bamboo flowsheet Fahad Portillo DO Work Phone: [facility] Start: 07-04-2024 End: 07-04-2024 Bamboo flowsheet Fahad Portillo DO Work Phone: [facility] Start: 12-23-2022 End: 12-23-2022 ambulatory Awais Comer Other [facility] [employer] Other Start: 12-23-2022 Office outpatient visit 15 minutes Awais Comer [facility] Start: 12-21-2022 End: 12-21-2022 ambulatory Vilma Sharma Facility:[facility] Start: 12-21-2022 End: 12-21-2022 ambulatory DO Nomi Patelrer Work Phone: [facility] Work Phone: Start: 12-21-2022 End: 12-21-2022 Patient encounter procedure DO Nomi Patelrer Work Phone: [facility] Work Phone: Start: 12-16-2022 End: 12-16-2022 ambulatory Vilma Sharma Other [facility] [employer] Other Start: 12-16-2022 Telephone encounter Vilma Sharma [facility] Start: 12-15-2022 End: 12-15-2022 ambulatory Vilma Sharma Other [facility] [employer] Other Start: 12-15-2022 Telephone encounter Vilma Sharma [facility] Start: 12-14-2022 End: 12-14-2022 ambulatory Vilma Sharma Other [facility] [employer] Other Start: 12-14-2022 Office outpatient ne w 45 minutes Vilma Sharma [facility] Start: 12-14-2022 Telephone encounter Vilma Sharma [facility] Start: 12-13-2022 End: 12-13-2022 ambulatory JUANA BOB Facility:[facility] Start: 12-09-2022 End: 12-09-[address] TREV PHILLIPS Facility:[facility] Start: 11-30-2022 End: 11-30-[address] ISHA VIVEROS . Facility:[facility] Start: 11-26-2022 ambulatory NONE LISTED REQUEST Facility:[facility] Start: 08-24-2022 End: 08-24-2022 Phys/qhp telephone evaluation 11-20 min Aliza Guadarrama MD Work Phone: [facility] Comment on above: [...] 10-20-2021 End: 10-20-2021 ambulatory Herson Amin Other [facility] [employer] Other Start: 10-20-2021 Office outpatient ne w 45 minutes Herson Amin [facility] Start: 08-13-2019 End: 08-13-2019 Established patient Porsche Vega Work Phone: [facility] Work Phone: Start: 08-01-2019 End: 08-01-2019 Established patient Lupe Snider Work Phone: [facility] Work Phone: Start: 2019 End: 2019 New patient Lupe Tylor Work Phone: [facility] Work Phone: Start: 12-26-2017 End: 12-27-2017 Ambulatory GURPREET JOHNSON [facility] Start: 12-16-2017 End: 12-17-2017 Ambulatory [facility] Start: 12-14-2017 End: 12-15-2017 Ambulatory [facility] Start: 12-13-2017 End: 12-16-2017 Ambulatory [facility] Procedures Date Procedure Procedure Detail Performing Clinician [...] Start: 2019 Diast bp <80 mm hg [place] Tylor Work Phone: Start: 2019 Hysterectomy Lupe Tab er Start: 2019 ORTHOPEDIC DISORDERS Ca ssie Tylor Start: 2019 Pt-focused hlth risk assmt score doc stnd instrm Lupe Tylor Work Phone: Start: 2019 Syst bp lt 130 mm hg Ca ssie Tylor Work Phone: Start: 12-26-2017 EKG 12-LEAD LETY AKERS RMRONNA Start: 12-26-2017 URINE CULTURE CLEAN CATCH LETY DERAS Start: 12-26-2017 URINALYSIS WITH MICROSCOPIC LETY DERAS Start: 12-16-2017 HEPATITIS C RNA, PCR NO WILFRID DERAS Start: 12-14-2017 CBC LETY AKERS RMRONNA Start: 12-14-2017 COMPREHENSIVE METABO LIC PANEL LETY DERAS Start: 12-14-2017 HEPATITIS C ANTIBODY NO WILFRID DERAS Start: 12-14-2017 HIV SCREEN LETY AKERS RMRONNA Start: 12-14-2017 Lipid panel LETY SANFORD Start: 12-13-2017 Ct abdomen & pelvis w/o contrast material LETY DERAS Start: 12-13-2017 URINALYSIS WITH MICROSCOPIC LETY DERAS Start: 12-13-2017 URINE CULTURE LETY SAGE H/O: hysterectomy Herson Cortes s Other Screening for malign ant neoplasm of colon Herson Amin Other Plan of Treatment Date Care Activity Detail Author Start: 12-02-2031 Screening for malign ant neoplasm of colon [facility] Start: 02-03-2026 Cholesterol [Mass/volume] in Serum or Plasma Cholesterol [facility] Start: 12-26-2024 End: 12-26-2024 Patient encounter procedure 12/26/2024 3:40 PM EDT Office Visit [facility] [address] [place] [phone] Fahad Portillo DO [address] [place] [address] [facility] Start: 10-15-2024 End: 10-15-2024 Patient encounter procedure 10/15/2024 10:20 AM EST Office Visit [facility] [address] [place] [phone] Fahad Portillo DO [address] [place] [address] [facility] Start: 10-03-2024 End: 10-03-2024 Patient encounter procedure 10/03/2024 3:40 PM EST Office Visit [facility] [address] [place] [address] Fahad PortilloDO [address] [place] [address] [facility] Start: 07-04-2024 End: 07-04-2025 CBC panel - Blood by Automated count CBC Lab Routine Hepatitis C virus infection without hepatic coma, unspecified chronicity (CMS/HCC) Seasonal allergies Expected: 07/04/2024 (Approximate), Expires: 07/04/2025 [facility] Comment on above: Expected: 07/04/2024 (Approximate), Expires: 07/04/2025 Start: 07-04-2024 End: 07-04-2025 Comprehensive metabolic 2000 panel - Serum or Plasma Comprehensive metabolic panel Lab Routine Hepatitis C virus infection without hepatic coma, unspecified chronicity (CMS/HCC) Seasonal allergies Expected: 07/04/2024 (Approximate), Expires: 07/04/2025 [facility] Work Phone: Comment on above: Expected: 07/04/2024 (Approximate), Expires: 07/04/2025 Start: 07-04-2024 End: 07-04-2025 Lipid 1996 panel - Serum or Plasma Lipid panel Lab Routine Screening for lipid disorders Expected: 07/04/2024 (Approximate), Expires: 07/04/2025 [facility] Comment on above: Expected: 07/04/2024 (Approximate), Expires: 07/04/2025 Start: 07-04-2024 End: 09-03-2025 MG Breast - bilateral Screening Bilateral screening mammogram Imaging Routine Encounter for screening mammogram for malignant neoplasm of breast Expected: 07/04/2024, Expires: 09/03/2025 [facility] Comment on above: Expected: 07/04/2024 , Expires: 09/03/2025 Start: 04-22-2024 Influenza vaccination Influenza Vacc ine (#1) [facility] Start: 05-22-2022 Influenza vaccination Influenza Vacc ine (#1) [facility] Start: 04-29-2022 Screening for malign ant neoplasm of breast Mammogram [facility] Start: 2011 Measurement of occul t blood in single stool specimen FIT [facility] Start: 2011 Screening for malign ant neoplasm of colon CRC Screening [facility] Start: 2011 Shingles (RZV) Vacci ne (1 of 2) Shingles (RZV) Vaccine (1 of 2) [facility] Start: 2001 Screening for malign ant neoplasm of breast Mammography [facility] Start: 1982 Screening for malign ant neoplasm of cervix Pap Smear [facility] Start: 1979 Hepatitis C screening Hepatitis C An tibody [facility] Start: 1979 Tetanus + diphtheria + acellular pertussis vaccine (product) [facility] Start: 1976 HIV screening HIV Test [facility] Start: 1961 Screening for malign ant neoplasm of colon [facility] Immunizations Immunization Date Immunization Notes Care Provider Stacy munoz 07-17-2024 Seasonal, trivalent, recombinant, injectable influenza vaccine, preservative free Fahad Bandar DO Work Phone: [facility] 06-02-2023 Influenza, injectabl e, Madin [place] Canine Kidney, preservative free, quadrivalent Fahad Bandar DO Work Phone: [facility] 06-02-2023 influenza virus vaccine, unspecified formulation Fahad Bandar DO Work Phone: [facility] 07-13-2021 COVID-19 mRNA, Comirnaty (Pfizer) DO Nomi Corcoran Work Phone: [facility] 06-08-2021 influenza, injectabl e, quadrivalent, preservative free Fahad Bandar DO Work Phone: [facility] 12-10-2020 COVID-19 mRNA, Comirnaty (Pfizer) DO Nomi Nilo Work Phone: [facility] 11-25-2020 diphtheria, tetanus toxoids and pertussis vaccine Aliza Guadarrama MD Work Phone: [facility] 11-25-2020 tetanus toxoid, reduced diphtheria toxoid, and acellular pertussis vaccine, adsorbed Fahad Portillo DO Work Phone: [facility] 11-13-2020 COVID-19 mRNA, Comirnaty (Pfizer) DO Nomi Corcoran Work Phone: [facility] 05-21-2020 influenza, injectabl e, quadrivalent, preservative free Fahad Portillo DO Work Phone: [facility] Healthcare Payers Date Payer Category Payer Unknown [id number] 2024 Private Health Insurance [id number] 2024 Private Health Insurance [id number] 2020 Medicaid [employer] [id number] 2020-Present [address] [address] [place] [address] Medicaid HMO [id number] 2017 Unknown [id number] 2014 Unknown [id number] 1961 Unknown [id number] [id number] 93 1961 Unknown [id number] 2.16.840.1.785146.3.579.2.5 93 1961 Unknown [id number] 2.16.840.1.672107.3.579.2.5 93 1961 Unknown [id number] 2.16.840.1.353474.3.579.2.5 93 1961 Unknown [id number] 2.16.840.1.182758.3.579.2.5 93 1961 Unknown [id number] 2.16.840.1.956227.3.579.2.5 93 1961 Unknown [id number] 2.16.840.1.326831.3.579.2.5 93 1961 Unknown [id number] 2.16.840.1.421606.3.579.2.5 93 1961 Unknown [id number] 2.16.840.1.563140.3.579.2.5 93 1961 Unknown [id number] 2.16.840.1.075054.3.579.2.5 93 1961 Unknown [id number] 2.16.840.1.726826.3.579.2.5 93 1961 Unknown [id number] 2.16.840.1.212829.3.579.2.5 93 1961 Unknown [id number] 2.16.840.1.391186.3.579.2.5 93 1961 Unknown [id number] 2.16.840.1.674899.3.579.2.1 259 1961 Unknown [id number] 2.16.840.1.890624.3.579.2.1 259 1961 Unknown [id number] 2.16.840.1.647021.3.579.2.1 259 1961 Unknown [id number] 2.16.840.1.733427.3.579.2.1 259 1961 Unknown [id number] 2.16.840.1.129831.3.579.2.1 259 1961 Unknown [id number] 2.16.840.1.131847.3.579.2.1 259 1961 Unknown [id number] 2.16.840.1.985759.3.579.2.1 259 1959 Medicaid [id number] 1959 Self-pay Self-pay [id number] [id number] [id number] Unknown [id number] 2.16.840.1.880830.3.579.2.5 31 Unknown [facility] [id number] Social History Date Type Detail Facility Assertion [facility] Work Phone: Assertion Alcohol consumpt ion screening (procedure) [facility] Work Phone: Assertion Gender identity finding (finding) [facility] Work Phone: Assertion Finding of sexua l orientation (finding) [facility] Work Phone: Assertion Tobacco user (finding) [facility] Work Phone: Tobacco smoking status Unknown i f ever smoked Health [facility] Work Phone: Start: 07-11-2024 End: 11-08-2024 Sex Assigned At [employer] Other Start: 1960 Sex Assigned At Not on file [facility] Start: 12-01-2021 Tobacco smoking stat [facility] Smoker (finding) [facility] Start: 1960 Sex Assigned At Female F [facility] Start: 07-04-2024 Tobacco smoking stat [facility] Smokes tobacco daily [facility] History of tobacco use Cigarette Smoker [facility] Start: 07-04-2024 Tobacco use and exposure Smokeless tobacco non-user [facility] Start: 07-11-2024 End: 11-08-2024 Alcoholic beverage intake Ex-drinker (finding) [facility] Start: 07-11-2024 End: 11-08-2024 History of Social function [facility] How often to you hav e a drink containing alcohol? Never [facility] Do you feel stress - tense, restless, nervous, or anxious, or unable to sleep at night because your mind is troubled all the time - these days [OSQ] Only a little [facility] Start: 01-17-2023 Alcohol Comment caffeine intak e: 1-2 cups per day pop and coffee [facility] How often to you hav e a drink containing alcohol? Monthly or less [facility] How many standard drinks containing alcohol do you have on a typical day? 1 or 2 [facility] How often do you hav e 6 or more drinks on 1 occasion? Less than monthly [facility] Do you belong to any clubs or organizations such as taoism groups, unions, fraternal or athletic groups, or school groups? No [facility] Are you now , , , , never or living with a partner? [facility] How hard is it for y ou to pay for the very basics like food, housing, medical care, and heating Somewhat hard [facility] (I/We) worried annetta er (my/our) food would run out before (I/we) got money to buy more. Sometimes true [facility] NEGATED: Highlighted row Assertion Illicit drug use (finding) [facility] Work Phone: NEGATED: Highlighted row Assertion Misuse of prescription only drugs (finding) [facility] Work Phone: NEGATED: Highlighted row Assertion She has not had 4 or more drinks in a day within the past year. [facility] Work Phone: NEGATED: Highlighted row Assertion Current drinker of alcohol (finding) [facility] Work Phone: NEGATED: Highlighted row Assertion Finding relating to drug misuse behavior (finding) [facility] Work Phone: NEGATED: Highlighted row Assertion Exposure to pollution (event) [facility] Work Phone: NEGATED: Highlighted row Assertion Tobacco user (finding) [facility] Work Phone: Mental Status Date Assessment Result Facility Cognitive function No disorienta tion was observed Finding related to orientation (finding) [facility] Work Phone: Clinical Notes 10-20-2021 to 11-15-2024 Telephone Encounter - Jennifer Del Valle MA - 11/15/2024 3:53 PM EDTTelephone Encounter - Jennifer Del Valle MA - 11/15/2024 3:53 PM EDTTelephone Encounter - Fahad Portillo DO - 11/15/2024 3:23 PM EDT Note Date & Type Note Facility 11-15-2024 Telephone encount er Note Patient advised [facility] 11-15-2024 Miscellaneous Notes Formattin g of this note might be different from the original. Patient advised Please inform patient that it is somewhat common to have diarrhea after sinus infections and antibiotics. I have recommended probiotic pill or yogurt [id number]. I will send some Imodium that she can take to help with diarrhea as long as she is not having blood with her bowel movements or fevers and chills she can take the Imodium prn Message from Jennifer: Patient states she is still sick with diarrhea and possibly needs another round of antibiotics? Patient states she is unable to work until she gets better. documented in this encounter [facility] 11-15-2024 Telephone encount er Note Please inform patient that it is somewhat common to have diarrhea after sinus infections and antibiotics. I have recommended probiotic pill or yogurt [id number]. I will send some Imodium that she can take to help with diarrhea as long as she is not having blood with her bowel movements or fevers and chills she can take the Imodium prn [facility] 11-15-2024 Telephone encount er Note Message from Jennifer: Patient states she is still sick with diarrhea and possibly needs another round of antibiotics? Patient states she is unable to work until she gets better. [facility] 10-15-2024 History of Presen t illness Narrative Images from the original note were not included. FAMILY MEDICINE NOTE Chief Complaint: Hip Pain HPI: Hip Pain Reported loss of mobility over time with stiffness and a sensation of a knot on the hip bone. Underwent an X-ray, which revealed arthritis of the hip with joint space narrowing and possible bone spurs. Experienced a flare-up of arthritis following an injury, possibly from being hit by a refrigerator door over [place]. The pain was more internal, affecting mobility, and required leaving a skilled nursing visit due to discomfort. Meloxicam was taken but did not provide noticeable relief, and caused lightheadedness in the mornings. SUBJECTIVE: PROBLEM LIST SURGICAL/SOCIAL ALLERGIES: There is no problem list on file for this patient. Past Surgical History: Procedure Laterality Date COLONOSCOPY W/ BIOPSIES AND POLYPECTOMY 12/01/2021 HYSTERECTOMY 1992 total LIVER BIOPSY TN REMOVAL NODES, NECK,CERV CMPLT SKIN GRAFT Right TOTAL ABDOMINAL HYSTERECTOMY Social History Tobacco Use Smoking status: Every Day Current packs/day: 1.00 Types: Cigarettes Smokeless tobacco: Never Substance Use Topics Alcohol use: Not Currently Comment: caffeine intake: 1-2 cups per day pop and coffee Drug use: Never No Known Allergies OBJECTIVE: 10/15/2024 10:26 AM 10/09/2024 8:25 AM 10/03/2024 3:49 PM Vitals BMI 18.6 kg/m2 19.13 kg/m2 19.13 kg/m2 BSA (m2) 1.45 m2 1.48 m2 1.48 m2 Systolic 104 98 100 Diastolic 64 60 60 Heart Rate 87 78 68 SpO2 97 % 95 % 96 % Temp 98.1 F 98.3 F 98 F Resp 20 20 20 Height (in) 5' 3 5' 3 5' 3 Weight (lb) 105 108 108 Visit Report Report Report Physical Exam Constitutional: Appearance: Normal [...] abdominal tenderness. There is no guarding. Musculoskeletal: Right hip: No deformity or tenderness. Normal range of motion. Left hip: Tenderness present. No deformity. Decreased range of motion. Legs: Skin: General: Skin is warm. Neurological: General: No focal deficit present. Mental Status: She is alert. Mental status is at baseline. Psychiatric: Mood and Affect: Mood normal. Behavior: Behavior normal. ASSESSMENT AND PLAN: Hip Arthritis and Pain - X-ray shows mild arthritis of the hip with joint space narrowing and possible bone spurs. Pain likely exacerbated by a fall and hematoma rather than arthritis flare-up. - Continue taking meloxicam. Apply ice 20 minutes on, 20 minutes off when at home and experiencing flare-ups. Start stretching exercises at home. Write a work note for restricted activity until next Tuesday, with a gradual return to work. Patient's Medications New Prescriptions No medications on file Previous Medications ALPRAZOLAM (XANAX) 1 MG TABLET Take 1 tablet (1 mg) by mouth as needed at bedtime for anxiety or sleep CHOLECALCIFEROL (VITAMIN D-3) 10 MCG (400 UNIT) CAPSULE Take 400 Units by mouth Daily KRILL OIL 500 MG CAPSULE Take 1 tablet by mouth Daily LORATADINE (CLARITIN) 10 MG TABLET Take 10 mg by mouth Daily MELOXICAM (MOBIC) 15 MG TABLET Take 1 tablet (15 mg) by mouth Daily MULTIPLE VITAMIN (MULTIVITAMIN) TABLET Take 1 tablet by mouth Daily TRIAMCINOLONE (KENALOG) 0.1 % CREAM Apply 1 application topically in the morning and 1 application before bedtime. Modified Medications No medications on file Discontinued Medications No medications on file Follow up in about 6 weeks (around 11/26/2024) for chronic recheck. Fahad Portillo DO documented in this encounter [facility] 10-09-2024 History of Presen t illness Narrative [...] POLYPECTOMY 12/01/2021 HYSTERECTOMY 1993 total LIVER BIOPSY TN REMOVAL NODES, NECK,CERV CMPLT SKIN GRAFT Right [...] Fahad Portillo DO documented in this encounter [facility] 10-03-2024 History of Presen t illness Narrative Patient requested note for work to get labs drawn. Printed for patient. 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 Images from the original note were [...] and mammogram, but has since changed to [employer] insurance. Plans to visit a specialist on the and intends to complete the necessary lab work and mammogram in the coming weeks. SUBJECTIVE: PROBLEM LIST SURGICAL/SOCIAL ALLERGIES: There is no problem list on file for this patient. Past Surgical History: Procedure Laterality Date COLONOSCOPY W/ BIOPSIES AND POLYPECTOMY 12/01/2021 HYSTERECTOMY 1993 total LIVER BIOPSY TN REMOVAL NODES, NECK,CERV CMPLT SKIN GRAFT Right [...] Fahad Portillo DO documented in this encounter [facility] 07-17-2024 History of Presen t illness Narrative [...] fail to improve. documented in this encounter [facility] 07-11-2024 History of Presen t illness Narrative [...] ointment on her eyelid and the topical [id number] hydrocortisone on her facial and inguinal regions. [...] 10/11/2024) for Recheck. documented in this encounter [facility] 07-04-2024 History of Presen t illness Narrative Images from the original note were not included. Family Medicine Note Subjective: Chief Complaint: New Patient HPI: Pt is a 63 Yo female with PMH of Shingles/herpes who presents to the office today to establish care. Patient's previous PCP: Dr Corcoran'jose. Patient's current other providers: Dr Corcoran. Pt [...] being on June 04. She works at [employer] and has contracted COVID-19 from various workplaces [...] 10/04/2024) for Recheck. documented in this encounter [facility] 12-23-2022 Evaluation note Encounter Date Diagnosis Assessment [...] cervical spine and a dynamic neck x-ray. [employer] Other 04-27-2023 Evaluation note* Encounter Date Diagnosis Assessment Notes Treatment Notes Treatment Clinical Notes Nov, Other closed displaced fracture of seventh cervical vertebra, initial encounter (ICD-10 - S12.690A) [employer] Other 04-26-2023 Evaluation note* Encounter Date Diagnosis Assessment Notes Treatment Notes Treatment Clinical Notes Nov, Other closed displaced fracture of seventh cervical vertebra, initial encounter (ICD-10 - S12.690A) [employer] Other 04-25-2023 Evaluation note* Encounter Date Diagnosis [...] negative findings were considered in medical decision-making. [employer] Other 01-03-2023 History of Present illness Narrative* Aliza Guadarrama MD - 08/24/2022 10:25 PM EST Phone numbers Preferred Documentation: Mode: Telephone Patient Patient Work Phone: Patient Cell Phone: Preferred phone: [phone] Consent: I confirmed patient understanding of the [...] pneumoniae Aliza Guadarrama MD documented in this [id number] Evaluation note* Encounter Date Diagnosis Assessment Notes Treatment Notes Treatment Clinical Notes Oct, Hepatitis C (ICD-10 - B19.20) PT WOULD LIKE TO ADDRESS THIS AFTER HER COLONOSCOPY TREATMENT AND TESTING EXPLAINED TO PATIENT IN DETAIL SHE WILL CALL WHEN SHE IS READY TO START THIS PROCESS Oct, Screen for colon cancer (ICD-10 - Z12.11) COLONOSCOPY [facility] [employer] Other Evaluation note* Diagnosis Cough, unspecified type- Primary [facility] [employer] Other evaluation noteNo assessment information available [facility] Work Phone: Evaluation note* Diagnosis Dermatitis- Primary [...] [facility] encounter [facility] Diagnosis Left hip pain- Primary Pain in joint, pelvic region and thigh Hematoma Contusion of unspecified site Fall, subsequent encounter [facility] Diarrhea, unspecified type- Primary [facility] - Reported* Type Description Date Medical History allergies Medical History anxiety Medical History arthritis Medical History hepatitis c Medical History IBS Medical History liver disease Medical History osteoarthritis Medical History osteoporosis Surgical History liver biopsy Surgical History total hysterectomy 1992 Surgical History skin graft to right hand Surgical History lymph node removed from necks [employer] Other History general Narrative - Reported* Type Description Date Medical History allergies Medical History anxiety Medical History arthritis Medical History hepatitis c Medical History IBS Medical History liver disease Medical History osteoarthritis Medical History osteoporosis Surgical History liver biopsy Surgical History total hysterectomy 1992 Surgical History skin graft to right hand Surgical History lymph node removed from necks Hospitalization History see surg Hx [employer] Other Summary Purpose Family History Description Last [...] and steps Medical New Patient with Lupe Serratoer [facility] 2019 Body mass index [Body mass i ndex (BMI) 21.0-21.9 adult] Medical New Patient with Lupe Serratoer [facility] 2019 Diabetes Risk Test Score was two score 2019 Medical New Patient with Lupe Serratoer [facility] 2019 Fagerstrom Score was two 2019 [facility] New Patient with Lupe Serratoer [facility] 2019 PHQ-9: total score was 0 2019 [facility] New Patient with Lupe Serratoer [facility] 2019 Findings Encounter Date Contusion of back wall of thorax Medical Established Patient with Porsche Sullivnae [facility] 08/13/2019 Z68.21 - Body mass index (BM I) 21.0-21.9 adult Medical Established Patient with Porsche Silvia [facility] 08/13/2019 Body mass index [Body mass i ndex (BMI) 21.0-21.9 adult] Medical Established Patient with Lupe Snider [facility] 08/01/2019 Oral thrush [Candidal stomatitis] Medica l Established Patient with Lupe Snider 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 08/01/2019 Assessment of fall on and fr om stairs and steps Medical New Patient with Lupe Snider 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 2019 Body mass index [Body mass i ndex (BMI) 21.0-21.9 adult] Medical New Patient with Lupe Snider 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 2019 Diabetes Risk Test Score was two score 2019 Medical New Patient with Lupe Snider 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 2019 Fagerstrom Score was two 2019 [facility] New Patient with Lupe Snider 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 2019 PHQ-9: total score was 0 2019 [facility] New Patient with Lupe Snider 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 2019 Instructions Instructions not supported for this [...] section and content) DATE CREATED AUTHOR 02/23/2018 [facility] DATE CREATED AUTHOR AUTHOR'S ORGANIZ ATION 02/23/2018 [facility] DATE CREATED AUTHOR AUTHOR'S ORGANIZ ATION 04/16/2022 [facility] DATE CREATED AUTHOR AUTHOR'S ORGANIZ ATION 12/15/2022 [facility] DATE CREATED AUTHOR AUTHOR'S ORGANIZ ATION 12/22/2022 [facility] DATE CREATED AUTHOR AUTHOR'S ORGANIZ ATION 11/10/2024 [facility] EPIC Evaluations & Outcomes (unre cognized section and content) Includes: Evaluations & Outcomes for active GoalsNo Outcomes Recorded Includes: Evaluations & Outcomes for active GoalsNo Outcomes Recorded REASON FOR VISIT (unrecogniz ed section and content) Reason Comments Cough Reason Comments Follow-up Reason Comments Fall Reason Comments Hip Pain Care Teams (unrecognized sec tion and content) Team Status: Active Member Role Status Dates Nomi Corcoran DO Primary Care Provider Active Team Status: Inactive Member Role Status Dates Nomi Corcoran DO Primary Care Provider Active VARGH[employer] Linder Attending Provider Active [place] Nurse Relationship Specialty Start Date End Date Fahad Portillo [address] [place] [address] PCP - General Family Medicine 07/04/24 County Nurse Relationship Specialty Start Date End Date BandarFahad snyder [address] [place] [address] PCP - General Family Medicine 07/04/24 County Nurse Relationship Specialty Start Date End Date BandarFahad snyder [address] [place] [address] PCP - General Family Medicine 07/04/24 County Nurse Relationship Specialty Start Date End Date Bandar FahadDO [address] [place] [address] PCP - General Family Medicine 07/04/24 County Nurse Relationship Specialty Start Date End Date BandarFahad snyder [address] [place] [address] PCP - General Family Medicine 07/04/24 County Nurse Relationship Specialty Start Date End Date Bandar FahadDO [address] [place] [address] PCP - General Family Medicine 07/04/24 County Nurse Relationship Specialty Start Date End Date Bandar FahadDO [address] [place] [address] PCP - General Family Medicine 07/04/24 County Nurse Relationship Specialty Start Date End Date Fahad Portillo DO [address] [place] [address] PCP - General Family Medicine 07/04/24 County Nurse Relationship Specialty Start Date End Date Fahad Portillo DO [address] [place] [address] PCP - General Family Medicine 07/04/24 Goals [...] BE BASED ON THE PRIMARY CLINICAL RECORDS. [employer] provides no warranty or guarantee of the accuracy or completeness of information in this document.
[2024-11-28 09:36] LABS: Basophils Percent Auto 0.7 % (0.2-2.0); Eosinophils Absolute Auto 0.1 10^3/uL (0.0-0.7); Eosinophils Percent Auto 2.4 % (0.9-7.0); Hematocrit 45.3 % (36.0-48.0); Hemoglobin 14.7 g/dL (12.0-16.0); Immature Granulocytes Abs Auto 0.01 10^3/uL (0.00-0.03); Immature Granulocytes Pct Auto 0.2 % (0.0-0.5); Lymphocytes Absolute Auto 1.8 10^3/uL (1.2-3.8); Lymphocytes Percent Auto 38.3 % (20.5-60.0); Mean Corpuscular HGB Conc 32.5 g/dL (29.9-35.2); Mean Corpuscular Hemoglobin 29.9 pg (26.7-34.0); Mean Corpuscular Volume 92.3 fL (81.0-99.0); Mean Platelet Volume 9.5 fL (9.5-13.5); Monocytes Absolute Auto 0.5 10^3/uL (0.3-0.8); Monocytes Percent Auto 9.8 % (1.7-12.0); Neutrophils Absolute Auto 2.2 10^3/uL (1.4-6.5); Neutrophils Percent Auto 48.6 % (43.0-75.0); Platelet Count 252 10^3/uL (150-450); Red Blood Count 4.91 10^6/uL (4.20-5.40); Red Cell Distribution Width 13.1 % (11.0-15.0); White Blood Count 4.6 10^3/uL (4.0-11.0)
--- OUTSIDE RECORDS SUMMARY | 2024-11-28 09:38 | XMS_ITS | CCD ---
Author Organization [facility] Care Team Providers Care Cafeteria Counter Attendant Name Role Phone DERAS, LETY VIOLETTA Unavailable [...] ARCEO Admitting Unavailable KATHE WHITMAN Consulting Unavailable ANAHEIM, DR HERSON Martinez Consulting Unavailable REQUEST, DR [...] Facility (2 sources) Erythromycin Drug Allergy erythromycin [facility] Work Phone: (3 sources) Penicillins; Translations: [Penicillins] Allergy to substance 2 [facility] Repository (2 sources) -No Environmental Allergies Allergy to substance [facility] Work Phone: (7 sources) Mold Extract Drug Allergy Unknown [facility] Other (7 sources) Penicillin G Drug Allergy hives [facility] Other (6 sources) Substance with sulfonamide structure and antibacterial mechanism of action (substance) Drug allergy Unknown [facility] Other (1 source) Penicillin Drug Allergy [facility] Repository (1 source) Sulfonamides (Antibiotic) Drug allergy (disorder) [facility] Repository Medications Current Medications Medication Drug [...] 1 tablet by mouth Daily Active nystatin 946351 unt/ml oral suspension (1 source) Polyene Antifungal Start: 08-01-2019 Nystatin 898035 UNIT/ML Mouth/Throat Suspension 08/01/2019 Provider: Lupe Snider [...] 05-24-2017 End: 05-24-2017 CLINDAMYCIN HCL 300 MG [facility] [place] 05/24/2017 - 05/24/2017 Provider: Start: 11-05-2015 End: 11-05-2015 CLINDAMYCIN HCL 150 MG [facility] [place] 11/05/2015 - 11/05/2015 Provider: dexamethasone 4 mg [...] 07-04-2024 Chronic Other aftercare (1 source) Other snf (current) drug therapy; Translations: [OTH JAIL CURRENT DRUG THERAPY] Onset: 12-14-2022 Episodic Other aftercare (1 source) senior care (current) use of aspirin; Translations: [JAIL CURRENT USE OF ASPIRIN] Onset: 12-13-2022 Episodic [...] by: ISIDORO STONE Date: 2022-12-09 15:10 Normal [facility] CT TSPINE WO CONon 3 CT [...] by: TREV PHILLIPS Date: 2022-12-09 13:45 Normal [facility] XR CSPINE 2_3 VIEWSon 2022 XR [...] ARMINDA NELSON Date: 2022-12-09 18:07 Normal [facility] XR HAND RT MIN 3Von 12-01-19 [...] NATI PRADO Date: 2022-11-30 01:36 Normal [facility] CBC AUTO DIFFon 08-06-2022 BASO # 0.0 103/ul Normal 0.0-0.1 [facility] Comment on above: Performed By: #### C BC #### [facility] [address] [place] [address] Dr. Ana Belcher Basophils/100 WBC (Bld) 0.4 % Normal 0.2-2.0 [facility] Comment on above: Performed By: #### C BC #### [facility] [address] [place] [address] Dr. Ana Belcher EO # 0.0 103/ul Normal 0.0-0.7 [facility] Comment on above: Performed By: #### C BC #### [facility] [address] [place] [address] Dr. Ana Belcher Eosinophils/100 WBC (Bld) 0.4 % Critically low 0.9-7.0 [facility] Comment on above: Performed By: #### C BC #### [facility] [address] [place] [address] Dr. Ana Belcher Erythrocyte distribution width (RBC) [Ratio] 13.2 % Normal 11.0-15.0 [facility] Comment on above: Performed By: #### C BC #### [facility] [address] [place] [address] Dr. Ana Belcher Hematocrit (Bld) [Volume fraction] 48.0 % Normal 36.0-48.0 [facility] Comment on above: Performed By: #### C BC #### [facility] [address] [place] [address] Dr. Ana Belcher Hemoglobin (Bld) [Mass/Vol] 16.0 g/dL Normal 12.0-16.0 [facility] Comment on above: Performed By: #### C BC #### [facility] [address] [place] [address] Dr. Ana Belcher IG # 0.04 10e3/ul Critically high 0.00-0.03 [facility] Comment on above: Performed By: #### C BC #### [facility] [address] [place] [address] Dr. Ana Belcher IG % 0.4 % Normal 0.0-0.5 [facility] Comment on above: Performed By: #### C BC #### [facility] [address] [place] [address] Dr. Ana Belcher LYMPH # 2.4 103/ul Normal 1.2-3.8 [facility] Comment on above: Performed By: #### C BC #### [facility] [address] [place] [address] Dr. Ana Belcher Lymphocytes/100 WBC (Bld) 25.9 % Normal 20.5-60.0 [facility] Comment on above: Performed By: #### C BC #### [facility] [address] [place] [address] Dr. Ana Belcher MANUAL DIFF REQ NO Normal [facility] Comment on above: Performed By: #### C BC #### [facility] [address] [place] [address] Dr. Ana Belcher MCH (RBC) [Entitic mass] 29.7 pg Normal 26.7-34.0 [facility] Comment on above: Performed By: #### C BC #### [facility] [address] [place] [address] Dr. Ana Belcher MCHC (RBC) [Mass/Vol] 33.3 g/dL Normal 29.9-35.2 [facility] Comment on above: Performed By: #### C BC #### [facility] [address] [place] [address] Dr. Ana Belcher MCV (RBC) [Entitic vol] 89.2 fL Normal 81.0-99.0 [facility] Comment on above: Performed By: #### C BC #### [facility] [address] [place] [address] Dr. Ana Belcher MONO # 0.7 103/ul Normal 0.3-0.8 [facility] Comment on above: Performed By: #### C BC #### [facility] [address] [place] [address] Dr. Ana Belcher Monocytes/100 WBC (Bld) 7.7 % Normal 1.7-12.0 [facility] Comment on above: Performed By: #### C BC #### [facility] [address] [place] [address] Dr. Ana Belcher NEUT # 6.0 103/ul Normal 1.4-6.5 [facility] Comment on above: Performed By: #### C BC #### [facility] [address] [place] [address] Dr. Ana Belcher Neutrophils/100 WBC (Bld) 65.2 % Normal 43.0-75.0 [facility] Comment on above: Performed By: #### C BC #### [facility] [address] [place] [address] Dr. Ana Belcher Platelet mean volume (Bld) [Entitic vol] 10.1 fL Normal 9.5-13.5 [facility] Comment on above: Performed By: #### C BC #### [facility] [address] [place] [address] Dr. Ana Belcher PLT 261 103/ul Normal 150-450 [facility] Comment on above: Performed By: #### C BC #### [facility] [address] [place] [address] Dr. Ana Belcher RBC 5.38 106/ul Normal 4.20-5.40 [facility] Comment on above: Performed By: #### C BC #### [facility] [address] [place] [address] Dr. Ana Belcher WBC 9.3 103/ul Normal 4.0-11.0 [facility] Comment on above: Performed By: #### C BC #### [facility] [address] [address] [address] Ana Belcher GLYCOHEMOGLOBIN A1Con 2021 ADA RECOMMENDATION SEE BELOW Normal [facility] Comment on above: Result Comment: ADA RECOMMENDED LIMIT 4.0 - 6.0 ADA THERAPEUTIC TARGET < 7.0 ACTION SUGGESTED > 7.0 Performed By: #### A 1C #### [facility] [address] [address] [address] Ana Belcher Glucose [Mass/Vol] 111 mg/dL Normal [facility] Comment on above: Performed By: #### A 1C #### [facility] [address] [address] [address] Ana Belcher HbA1c (Bld) [Mass fraction] 5.5 % Normal 4.5-6.2 [facility] Comment on above: Performed By: #### A 1C #### [facility] [address] [address] [address] Ana Belcher LIPID PROFILEon 08-06-2022 CHOL-HDL RATIO NORM SEE BELOW Normal [facility] Comment on above: Result Comment: 3.3 - 4.4 LOW RISK 4.4 - 7.1 AVERAGE RISK 7.1 - 11.0 MODERATE RISK >11.0 HIGH RISK Performed By: #### L IPID, CMP ####[facility] [address] [id number]. Ana Belcher Cholesterol [Mass/Vol] 191 mg/dL Normal <=200 [facility] Comment on above: Performed By: #### L IPID, CMP ####[facility] [address] [address]Dr. Ana Belcher Cholesterol in HDL [Mass/Vol] 61 mg/dL Critically high 40-60 [facility] Comment on above: Performed By: #### L IPID, CMP ####[facility] [address] [address]Dr. Ana Belcher Cholesterol in LDL [Mass/Vol] 117.0 mg/dL Normal [facility] Comment on above: Performed By: #### L IPID, CMP ####[facility] [address] [address]Dr. Ana Belcher Cholesterol.total/C holesterol in HDL [Mass ratio] 3.1 {ratio} Normal [facility] Comment on above: Performed By: #### L IPID, CMP ####[facility] [address] [address]Dr. Ana Belcher HDL NORMAL > or = 60 mg/dl - LO W CARDIOVASCULAR RISK <40 mg/dl - HIGH CARDIOVASCULAR RISK Normal [facility] Comment on above: Performed By: #### L IPID, CMP ####[facility] [address] [address]Dr. Ana Belcher LDL CALC NORMAL SEE BELOW Normal [facility] Comment on above: Result Comment: <100 mg/dl OPTIMAL 100 - 129 mg/dl NEAR OR ABOVE OPTIMAL 130 - 159 mg/dl BORDERLINE HIGH 160 - 189 mg/dl HIGH >190 mg/dl VERY HIGH Performed By: #### L IPID, CMP ####[facility] [address] [place], [place] [address]Dr. Ana Belcher Triglyceride [Mass/Vol] 65 mg/dL Normal <=150 [facility] Comment on above: Performed By: #### L IPEAGLE, CMP ####[facility] [address] [place], [place] [address]Dr. Ana Belcher VLDL CALC 13.0 mg/dL Normal [facility] Comment on above: Performed By: #### L BRONSON, CMP ####[facility] [address] [place], [place] [address]Dr. Ana Belcher PROF 14(COMP METB)on 022 Albumin [Mass/Vol] 4.1 g/dL Normal 3.4-5.0 [facility] Comment on above: Performed By: #### L IPID, CMP ####[facility] [address] [place], [place] [address]Dr. Ana Belcher Albumin/Globulin [Mass ratio] 1.0 {ratio} Normal [facility] Comment on above: Performed By: #### L IPID, CMP ####[facility] [address] [address]Dr. Ana Belcher ALP [Catalytic activity/Vol] 69 U/L Normal 46-116 [facility] Comment on above: Performed By: #### L IPID, CMP ####[facility] [address] [place], [place] [address]Dr. Ana Belcher ALT [Catalytic activity/Vol] 67 U/L Critically high 14-59 [facility] Comment on above: Performed By: #### L IPID, CMP ####[facility] [address] [place], [place] [address]Dr. Ana Belcher Anion gap [Moles/Vol] 13.9 mmol/L Normal [facility] Comment on above: Performed By: #### L IPID, CMP ####[facility] [address] [place], [place] [address]Dr. Ana Belcher AST [Catalytic activity/Vol] 53 U/L Critically high 15-37 [facility] Comment on above: Performed By: #### L IPID, CMP ####[facility] [address] [place], [place] [address]Dr. Ana Belcher Bilirubin [Mass/Vol] 0.6 mg/dL Normal 0.2-1.0 [facility] Comment on above: Performed By: #### L IPID, CMP ####[facility] [address] [place], [place] [address]Dr. Ana Belcher Calcium [Mass/Vol] 9.6 mg/dL Normal 8.5-10.1 [facility] Comment on above: Performed By: #### L IPID, CMP ####[facility] [address] [place], [place] [address]Dr. Ana Belcher Chloride [Moles/Vol] 102 mmol/L Normal 98-107 [facility] Comment on above: Performed By: #### L IPID, CMP ####[facility] [address] [place], [place] [address]Dr. Ana Belcher CO2 [Moles/Vol] 25.5 mmol/L Normal 21.0-32.0 [facility] Comment on above: Performed By: #### L IPID, CMP ####[facility] [address] [address]Dr. Ana Belcher Creatinine [Mass/Vol] 0.70 mg/dL Normal 0.55-1.02 [facility] Comment on above: Performed By: #### L IPID, CMP ####[facility] [address] [address]Dr. Ana Belcher EGFR-AF CONGOLESE >60 Normal >=60 [facility] Comment on above: Performed By: #### L IPID, CMP ####[facility] [address] [address]Dr. Ana Belcher EGFR-NON AF CONGOLESE >60 Normal >=60 [facility] Comment on above: Performed By: #### L IPID, CMP ####[facility] [address] [address]Dr. Ana Belcher Globulin (S) [Mass/Vol] 4.0 g/dL Normal [facility] Comment on above: Performed By: #### L IPID, CMP ####[facility] [address] [address]Dr. Ana Belcher Glucose [Mass/Vol] 109 mg/dL Critically high 74-106 [facility] Comment on above: Performed By: #### L IPID, CMP ####[facility] [address] [address]Dr. Ana Belcher Potassium [Moles/Vol] 3.4 mmol/L Critically low 3.5-5.1 [facility] Comment on above: Performed By: #### L IPID, CMP ####[facility] [address] [address]Dr. Ana Belcher Protein [Mass/Vol] 8.1 g/dL Normal 6.4-8.2 [facility] Comment on above: Performed By: #### L IPID, CMP ####[facility] [address] [address]Dr. Ana Belcher Sodium [Moles/Vol] 138 mmol/L Normal 136-145 [facility] Comment on above: Performed By: #### L IPID, CMP ####[facility] [address] [address]DrGavin Belcher Urea nitrogen [Mass/Vol] 23.0 mg/dL Critically high 7.0-18.0 [facility] Comment on above: Performed By: #### L IPID, CMP ####[facility] [address] [address]DrGavin Belcher Urea nitrogen/Creatinine [Mass ratio] 32.9 mg/mg Normal [facility] Comment on above: Performed By: #### L IPID, CMP ####[facility] [address] [address]DrGavin Belcher UA (CLEAN/CATCH) PARTICIPANT ADMINISTRATOR/MICRO I F IND.on 08-06-2022 Bilirubin Ql (U) SMALL Abnormal NEGATIVE [facility] Comment on above: Performed By: #### U ACSIND, UMICRO #### [facility] [address] [address] [address] Ana Belcher Clarity (U) CLEAR Normal CLEAR [facility] Comment on above: Performed By: #### U ACSIND, UMICRO #### [facility] [address] [address] [address] Ana Belcher Color (U) DK. YELLOW Normal YELLOW [facility] Comment on above: Performed By: #### U ACSIND, UMICRO #### [facility] [address] [address] [address] Ana Belcher Glucose Ql (U) Negative Normal NEGATIVE [facility] Comment on above: Performed By: #### U ACSIND, UMICRO #### [facility] [address] [address] [address] Ana Belcher Hemoglobin Ql (U) MODERATE Abnormal NEGATIVE [facility] Comment on above: Performed By: #### U ACSIND, UMICRO #### [facility] [address] [address] [address] Ana Belcher Ketones Ql (U) TRACE Abnormal NEGATIVE [facility] Comment on above: Performed By: #### U ACSIND, UMICRO #### [facility] [address] [address] [address] Ana Belcher LEUKOCYTES Negative Normal NEGATIVE [facility] Comment on above: Performed By: #### U GEORGIA NEWMANRO #### [facility] [address] [address] [address] Ana Belcher Nitrite Ql (U) Negative Normal NEGATIVE [facility] Comment on above: Performed By: #### U GEORGIA NEWMANRO #### [facility] [address] [address] [address] Ana Belcher pH (U) 5.0 [pH] Normal 5-9 [facility] Comment on above: Performed By: #### U KATHRYN NEWMAN #### [facility] [address] [place] [address] Dr. Ana Belcher SPEC GRAVITY >=1.030 Abnormal 1.005-<=1.02 5 [facility] Comment on above: Performed By: #### GEORGIA CASILLASRO #### [facility] [address] [place] [address] Dr. Ana Belcher UA PROTEIN TRACE Normal NEGATIVE/ TRACE [facility] Comment on above: Performed By: #### U KATHRYN NEWMAN #### [facility] [address] [place] [address] Dr. Ana Belcher UR MICRO IND INDICATED Normal [facility] Comment on above: Performed By: #### U KATHRYN NEWMAN #### [facility] [address] [place] [address] Dr. Ana Belcher Urobilinogen Qn (U) 0.2 {Bi'U}/dL Normal 0.2 - 1. 0 [facility] Comment on above: Performed By: #### U GEORGIA NEWMANRO #### [facility] [address] [place] [address] Dr. Ana Belcher URINE MICROSCOPIC ONLYon BACTERIA NONE SEEN Normal NONE SEEN [facility] Comment on above: Performed By: #### U GEORGIA NEWMANRO ####[facility] [address] [address]Dr. Ana Belcher Bacteria identified Cx Nom (U) NOT INDICATED Normal [facility] Comment on above: Performed By: #### U ACSFIDENCIO, UMICRO ####[facility] [address] [address]Dr. Ana Belcher CAST NONE SEEN Normal NONE SEEN [facility] Comment on above: Performed By: #### U ACSFIDENCIO, UMICRO ####[facility] [address] [address]Dr. Ana Belcher Crystals LM Nom (Urine sed) NONE SEEN Normal NONE SEEN [facility] Comment on above: Performed By: #### U ACSFIDENCIO, UMICRO ####[facility] [address] [address]Dr. Ana Belcher Epithelial cells LM Ql (Urine sed) FEW Abnormal NONE SEEN /RARE [facility] Comment on above: Performed By: #### U ACSFIDENCIO, UMICRO ####[facility] [address] [address]Dr. Ana Belcher MUCOUS NONE SEEN Normal NONE SEEN [facility] Comment on above: Performed By: #### U ACSFIDENCIO, UMICRO ####[facility] [address] [address]Dr. Ana Belcher RBC 5-10 Abnormal 0-2 [facility] Comment on above: Performed By: #### U ACSFIDENCIO, UMICRO ####[facility] [address] [address]Dr. Ana Belcher WBC NONE SEEN Normal NONE SEEN [facility] Comment on above: Performed By: #### U ACSFIDENCIO, UMICRO ####[facility] [address] [address]Dr. Ana Belcher VITAMIN D 25 OHon 08-06-2022 VIT D 25-OH 47.2 ng/mL Normal [facility] Comment on above: Performed By: #### V ITAD ####[facility] [address] [place], [place] [address]Dr. Ana Belcher VIT D RANGES SEE BELOW Normal [facility] Comment on above: Result Comment: <20 ng/mL Vit D deficient 20 - <30 ng/mL Vit D insufficient 30 - 100 ng/mL Vit D sufficient >100 ng/mL Potential Toxicity Performed By: #### V ITAD ####[facility] [address] [place], [place] [address]XzGavin Belcher XR KUB 1 VIEWon 08-06-2022 XR [...] HERSON VANCE Date: 2022-08-06 15:26 Normal [facility] Neurosurgery Office/Clinic N oteon 03-01-2022 Neurosurgery [...] pain. She went to the ED in [place], a CTA chest was done which showed [...] CT thorac (more content not included)... Normal [facility] Provider Letteron 03-01-2022 Provider Letter (Inserted Image. Demetria ble to display) oNmi Corcoran DO [address] [phone] Re: Brie Farrell Date of Visit: 03/01/2022 Dear Nomi Corcoran DO, Thank you for allowing me to contribute to the care of your patient: Brie Farrell. Attached is my office note where you will find my assessment and recommendations from our encounter. My office?s contact information: [facility] [address], [phone] Let me know if you have any questions or concerns. Sincerely, ROHIT Myles Providers: The following document(s) were included in the letter: March 01, 2022 12:05:06 EDT - (03/01/2022) Neurosurgery Office Visit Note Normal [facility] MRI LSPINE WO CONon 02-18-20 22 MRI [facility] WO CON EXAMINATION: MRI LSP INE WO [...] by: HERSON VANCE Date: 2022-02-17 17:39 Normal [facility] MRI CSPINE WO CONon 02-17-20 22 MRI [facility] WO CON EXAM: MRI CSPINE WO CON [...] by: KATHE WHITMAN Date: 2022-02-16 14:44 Normal [facility] MRI TSPINE WO CONon 02-17-20 22 MRI [facility] WO CON EXAM: MRI TSPINE WO [...] KATHE WHITMAN Date: 2022-02-16 14:55 Normal [facility] Neurosurgery Office/Clinic N oteon 01-21-2022 Neurosurgery Office/Clinic [...] pain. She went to the ED in [place], a CTA chest was done which showed [...] thoracic spine (more content not included)... Normal [facility] Provider Letteron 01-21-2022 Provider Letter (Inserted Image. Demetria ble to display) Nomi Corcoran DO [address] [phone] Re: Brie Farrell Date of Visit: 01/21/2022 Dear Nomi Corcoran DO, Thank you for your referral and allowing me to contribute to the care of your patient: Brie Farrell. Attached is my office note where you will find my assessment and recommendations from our encounter. My office?s contact information: [facility] [address], [phone] Let me know if you have any questions or concerns. Sincerely, ROHIT Myles Providers: The following document(s) were included in the letter: January 21, 2022 09:52:54 EDT - (01/21/2022) Neurosurgery Office Visit Note Normal [facility] Progress Noteon 01-13-2018 HIM IP Note OR [employer]er Normal [facility] Cult,Urine,CCon 12-27-2017 Cult,Urine,CC Specimen Description .URINE Performed at [address] [place] [address] ([phone] Special Requests NOT REPORTEDCulture NO GROWTH Performed at [facility] [address] [place], [place] [id number] ([phone] Report Status FINAL 12/27/2017 Normal [facility] Comment on above: Performed By: #### U AMIC ####[address] [place] [address] Progress Noteon 12-26-2017 HIM IP Note OR [employer] [facility] Center HIM IP Note OR [employer] Normal [facility] Urinalysis w/ Microon 2017 ----- Normal [facility] Comment on above: Performed By: #### U AMIC ####[address] [place] [address] Acetaminophen mass conc Negative Normal NEG [facility] Comment on above: Performed By: #### U AMIC ####[address] [place] [address] Bilirubin (direct) Negative Normal NEG [facility] Comment on above: Performed By: #### U AMIC ####[address] [place] [address] Hemoglobin mass conc (Bld) 2+ Abnormal NEG [facility] Comment on above: Performed By: #### U AMIC ####[address] [place] [address] Nitrite,Ur Negative Normal NEG [facility] Comment on above: Performed By: #### U AMIC ####[address] [place] [address] Turbidity CLEAR Normal CLEAR [facility] Comment on above: Performed By: #### U AMIC ####[address] [place] [address] Urine WBC's None Normal 0-5 [facility] Comment on above: Performed By: #### U AMIC ####[address] [place] [address] Urine, color YELLOW Normal YEL [facility] Comment on above: Performed By: #### U AMIC ####[address] [place] [address] Urine, epithelial cells in sediment 0 TO 2 Normal 0-25 [facility] Comment on above: Result Comment: Perf ormed at [address] [place] [address] Performed By: #### U AMIC ####[address] [place] [address] Urine, erythrocytes None Normal 0-2 [facility] Comment on above: Performed By: #### U AMIC ####[address] [place] [address] Urine, glucose presence Negative Normal NEG [facility] Comment on above: Performed By: #### U AMIC ####[address] [place] [address] Urine, leukocyte esterase presence Negative Normal NEG [facility] Comment on above: Performed By: #### U AMIC ####[address] [place] [address] Urine, pH 5.5 [pH] Normal 5.0-9.0 [facility] Comment on above: Performed By: #### U AMIC ####[address] [place] [address] Urine, protein presence Negative Normal NEG [facility] Comment on above: Performed By: #### U AMIC ####[address] [place] [address] Urine, specific gravity 1.015 Normal 1.010-1.020 [facility] Comment on above: Performed By: #### U AMIC ####[address] [place] [address] Urobilinogen,Ur Normal Normal NORM [facility] Comment on above: Performed By: #### U AMIC ####[address] [place] [address] Comment NOT REPORTED Normal [facility] Comment on above: Performed By: #### U AMIC ####[address] [place] [address] Epithelial, Renal NOT REPORTED Normal 0 [facility] Comment on above: Performed By: #### U AMIC ####[address] [place] [address] Mucus Strands NOT REPORTED Normal NONE [facility] Comment on above: Performed By: #### U AMIC ####[address] [place] [address] Other Observations NOT REPORTED Normal NREQ [facility] Comment on above: Performed By: #### U AMIC ####[address] [place] [address] Trichomonas NOT REPORTED Normal NONE [facility] Comment on above: Performed By: #### U AMIC ####[address] [place] [address] Urine, amorphous sediment presence in sediment NOT REPORTED Normal [facility] Comment on above: Performed By: #### U AMIC ####[address] [place] [address] Urine, bacteria in sediment NOT REPORTED Normal NONE [facility] Comment on above: Performed By: #### U AMIC ####[address] [place] [address] Urine, casts in sediment NOT REPORTED Normal [facility] Comment on above: Performed By: #### U AMIC ####[address] [place] [address] Urine, crystals in sediment NOT REPORTED Normal NONE [facility] Comment on above: Performed By: #### U AMIC ####[address] , [place] [id number] Urine, yeast presence in sediment NOT REPORTED Normal NONE [facility] Comment on above: Performed By: #### U AMIC ####[address] , [place] [id number] HCV RNA,Quant,PCRon 12-21-19 18 HCV RNA,Quant,PCR Specimen Description .PLASMA Performed at [address] [place], [place] [id number] [phone] Special Requests NOT REPORTEDDirect Exam HCV RNA DETECTED [id number] IU/ML (6.79 LOG IU/ML) This test is [...] to the appropriate Health Department Performed at [address] [address] Report Status FINAL 12/20/2017 Normal [facility] Comment on above: Performed By: #### H CVQ ####[address] [phone] , [place] [id number] HIV Ag/Abon 12-15-2017 HIV Ag/Ab NONREACTIVE Normal NR [facility] Comment on above: Result Comment: No l aboratory evidence of HIV infection. If acute HIV infection is suspected, consider testing for HIV-1 RNA.Performed at [address] [address] Performed By: #### C BC, AHCV, HIVCMB ####[address] [address] #### CP, LIPR ####[address] [place], [place] [id number] Hep C Abon 12-15-2017 Hep C Ab REACTIVE Abnormal NR [facility] Comment on above: Result Comment: [...] by ordering HCV RNA by PCR.Performed at [address] [address] Performed By: #### C BC, AHCV, HIVCMB ####[address] [address] #### CP, LIPR ####[address] [place] [address] Progress Noteon 12-15-2017 HIM IP Note OR [employer] Normal [facility] CBCon 12-14-2017 Erythrocyte distribution width Auto Ratio (RBC) 13.1 % Normal 11.8-14.4 [facility] Comment on above: Performed By: #### C BC, AHCV, HIVCMB ####[address] [address] #### CP, LIPR ####[address] [place] [address] Erythrocytes (RBC) 0.0 per 100 WBC Normal 0.0 M [facility] Comment on above: Result Comment: Perf ormed at [address] [address] Performed By: #### C BC, AHCV, HIVCMB ####[address] [address] #### CP, LIPR ####[address] [place] [address] Erythrocytes (RBC) 4.94 10*6/uL Normal 3.95-5.11 [facility] Comment on above: Performed By: #### C BC, AHCV, HIVCMB ####[address] [address] #### CP, LIPR ####[address] [place] [address] Hematocrit (HCT) 44.6 % Normal 36.3-47.1 [facility] Comment on above: Performed By: #### C BC, AHCV, HIVCMB ####[address] [address] #### CP, LIPR ####[address] [place] [address] Hemoglobin mass conc (Bld) 14.5 g/dL Normal 11.9-15.1 [facility] Comment on above: Performed By: #### C BC, AHCV, HIVCMB ####[address] [address] #### CP, LIPR ####[address] [place] [address] MCH 29.4 pg Normal 25.2-33.5 [facility] Comment on above: Performed By: #### C BC, AHCV, HIVCMB ####[address] [address] #### CP, LIPR ####[address] [place] [address] MCHC mass conc (RBC) 32.5 g/dL Normal 28.4-34.8 [facility] Comment on above: Performed By: #### C BC, AHCV, HIVCMB ####[address] [address] #### CP, LIPR ####[address] [place] [address] MCV 90.3 fL Normal 82.6-102.9 [facility] Comment on above: Performed By: #### C BC, AHCV, HIVCMB ####[address] [address] #### CP, LIPR ####[address] [place] [address] Platelet mean volume (PMV) 9.1 fL Normal 8.1-13.5 [facility] Comment on above: Performed By: #### C BC, AHCV, HIVCMB ####[address] [address] #### CP, LIPR ####[address] [place] [address] Platelets 271 10*3/uL Normal 138-453 [facility] Comment on above: Performed By: #### C BC, AHCV, HIVCMB ####[address] [address] #### CP, LIPR ####[address] [place] [id number] WBC (Leukocytes) 5.0 10*3/uL Normal 3.5-11.3 [facility] Comment on above: Performed By: #### C BC, AHCV, HIVCMB ####[address] [address] #### CP, LIPR ####[address] [place] [address] Comp Metabolic Profon 2017 (cont.) Normal [facility] Comment on above: Result Comment: Aver age GFR for 50-59 years old: 93 mL/min/1.73sq mChronic Kidney Disease: <60 mL/min/1.73sq mKidney failure: <15 mL/min/1.73sq meGFR calculated using average adult body mass. Additional eGFR calculator available at:http://[email or web address]_[email or web address].htm Performed By: #### C BC, AHCV, HIVCMB ####[address] [address] #### CP, LIPR ####[address] [place] [address] Alanine aminotransferase (ALT) 39 U/L High 5-33 [facility] Comment on above: Performed By: #### C BC, AHCV, HIVCMB ####[address] [address] #### CP, LIPR ####[address] [place] [address] Albumin 4.3 g/dL Normal 3.5-5.2 [facility] Comment on above: Performed By: #### C BC, AHCV, HIVCMB ####[address] [address] #### CP, LIPR ####[address] [place] [address] Albumin/Globulin Ratio 1.3 {ratio} Normal 1.0-2.5 [facility] Comment on above: Performed By: #### C BC, AHCV, HIVCMB ####[address] [address] #### CP, LIPR ####[address] [place] [address] Alkaline Phos 54 U/L Normal 35-104 [facility] Comment on above: Performed By: #### C BC, AHCV, HIVCMB ####[address] [address] #### CP, LIPR ####[address] [place] [address] Anion gap 10 mmol/L Normal 9-17 [facility] Comment on above: Performed By: #### C BC, AHCV, HIVCMB ####[address] [address] #### CP, LIPR ####[address] [place] [address] Aspartate aminotransferase (AST) 37 U/L High <32 [facility] Comment on above: Performed By: #### C BC, AHCV, HIVCMB ####[address] [address] #### CP, LIPR ####[address] [place] [address] Bilirubin Ql (U) 0.51 mg/dL Normal 0.3-1.2 [facility] Comment on above: Performed By: #### C BC, AHCV, HIVCMB ####[address] [address] #### CP, LIPR ####[address] [place] [address] BUN/CRE Ratio 25 High 9-20 [facility] Comment on above: Performed By: #### C BC, AHCV, HIVCMB ####[address] [address] #### CP, LIPR ####[address] [place] [address] Calcium 9.6 mg/dL Normal 8.6-10.4 [facility] Comment on above: Performed By: #### C BC, AHCV, HIVCMB ####[address] [address] #### CP, LIPR ####[address] [place] [address] Chloride 101 mmol/L Normal 98-107 [facility] Comment on above: Performed By: #### C BC, AHCV, HIVCMB ####[address] [address] #### CP, LIPR ####[address] [place] [id number] CO2 28 mmol/L Normal 20-31 [facility] Comment on above: Performed By: #### C BC, AHCV, HIVCMB ####[address] [address] #### CP, LIPR ####[address] [place] [address] Creatinine 0.57 mg/dL Normal 0.50-0.90 [facility] Comment on above: Performed By: #### C BC, AHCV, HIVCMB ####[address] [address] #### CP, LIPR ####[address] [place] [phone] eGFR (non-black) mL/min/{1.73_m2} Normal >60 [facility] Comment on above: Performed By: #### C BC, AHCV, HIVCMB ####[address] [address] #### CP, LIPR ####[address] [place] [address] Glucose mass conc 99 mg/dL Normal 70-99 [facility] Comment on above: Performed By: #### C BC, AHCV, HIVCMB ####[address] [address] #### CP, LIPR ####[address] [place] [address] Potassium molar conc 4.5 mmol/L Normal 3.7-5.3 [facility] Comment on above: Performed By: #### C BC, AHCV, HIVCMB ####[address] [address] #### CP, LIPR ####[address] [place] [address] Protein 7.6 g/dL Normal 6.4-8.3 [facility] Comment on above: Performed By: #### C BC, AHCV, HIVCMB ####[address] [address] #### CP, LIPR ####[address] [place] [address] Sodium 139 mmol/L Normal 135-144 [facility] Comment on above: Performed By: #### C BC, AHCV, HIVCMB ####[address] [address] #### CP, LIPR ####[address] [place] [address] Staging: Normal [facility] Comment on above: Result Comment: Stag e 1: Some kidney damage normal GFRStage 2: Mild kidney damage GFR 60-89Stage 3: Moderate kidney damage GFR 30-59Stage 4: Severe kidney damage GFR 15-29Stage 5: Severe kidney damage GFR <15ESRD - chronic treatment by dialysis or transplantPerformed at [address] [place] [address] Performed By: #### C BC, AHCV, HIVCMB ####[address] [address] #### CP, LIPR ####[address] [place], [place] [address] Urea nitrogen 14 mg/dL Normal 6-20 [facility] Comment on above: Performed By: #### C BC, AHCV, HIVCMB ####[address] [address] #### CP, LIPR ####[address] [id number] Cult,Urineon 12-14-2017 Cult,Urine Specimen Description .CLEAN CATCH URINE Performed at [address] [place] [address] [phone] Special Requests NOT REPORTEDCulture ESCHERICHIA COLI 50 to 100,000 CFU/ML Performed at [address] [address] Report Status FINAL 12/14/2017SUSCEPTIBILITYOrg anism ECMethod MICAmikacin [...] fa <=20 SUSCEPTIBLEPiperacillin/Darrick obactam <=4 SUSCEPTIBLE Normal [facility] Comment on above: Performed By: #### U RC ####[address] [phone] [place] [address] Lipid Profileon 12-14-2017 Cholesterol 211 mg/dL High <200 [facility] Comment on above: Result Comment: Chol esterol Guidelines: <200 Desirable 200-240 Borderline >240 Undesirable Performed By: #### C BC, AHCV, HIVCMB ####[address] [address] #### CP, LIPR ####[address] [place] [address] Cholesterol to HDL Ratio 2.6 {ratio} Normal <5 [facility] Comment on above: Performed By: #### C BC, AHCV, HIVCMB ####[address] [address] #### CP, LIPR ####[address] [place] [address] HDL Cholesterol 80 mg/dL Normal >40 [facility] Comment on above: Result Comment: HDL Guidelines: <40 Undesirable 40-59 Borderline >59 Desirable Performed By: #### C BC, AHCV, HIVCMB ####[address] [address] #### CP, LIPR ####[address] [place] [address] LDL Cholesterol 116 mg/dL Normal 0-130 [facility] Comment on above: Result Comment: LDL Guidelines: <100 Desirable 100-129 Near to/above Desirable 130-159 Borderline >159 UndesirableDirect (measured) LDL and calculated LDL are not interchangeable tests. Performed By: #### C BC, AHCV, HIVCMB ####[address] [address] #### CP, LIPR ####[address] [place] [address] Triglyceride 76 mg/dL Normal <150 [facility] Comment on above: Result Comment: Trig lyceride Guidelines: <150 Desirable 150- 199 Borderline 200-499 High >499 Very high Based on AHA Guidelines for fasting triglyceride, May 2012.Performed at [address] [place] [address] Performed By: #### C BC, AHCV, HIVCMB ####[place] [address] [place] [address] #### CP, LIPR ####[address] [place] [address] Cholesterol in VLDL mass conc NOT REPORTED Normal 09-20 [facility] Comment on above: Performed By: #### C BC, AHCV, HIVCMB ####[place] [place] [address] #### CP, LIPR ####[address] [place] [address] Progress Noteon 12-14-2017 HIM IP Note OR [employer] Normal [facility] CT ABDOMEN PELVIS WO CONTRAS [...] by:IVANNA Leblancigned by:Herson Cárdenas MD12/13/18Final result Normal [facility] Urinalysis w/ Microon 2017 ----- Normal [facility] Comment on above: Performed By: #### U AMIC ####[address] [place] [address] Acetaminophen mass conc Negative Normal NEG [facility] Comment on above: Performed By: #### U AMIC ####[address] [place] [address] Bilirubin (direct) Negative Normal NEG [facility] Comment on above: Performed By: #### U AMIC ####[address] [place] [address] Hemoglobin mass conc (Bld) 1+ Abnormal NEG [facility] Comment on above: Performed By: #### U AMIC ####[address] [place] [address] Nitrite,Ur Negative Normal NEG [facility] Comment on above: Performed By: #### U AMIC ####[address] [place] [address] Turbidity CLEAR Normal CLEAR [facility] Comment on above: Performed By: #### U AMIC ####[address] [place] [address] Urine WBC's 20 TO 50 Normal 0-5 [facility] Comment on above: Performed By: #### U AMIC ####[address] [place] [address] Urine, bacteria in sediment TRACE Abnormal NONE [facility] Comment on above: Result Comment: Perf ormed at [address] [place] [address] Performed By: #### U AMIC ####[address] [place] [address] Urine, color YELLOW Normal YEL [facility] Comment on above: Performed By: #### U AMIC ####[address] [place] [address] Urine, epithelial cells in sediment 2 TO 5 Normal 0-25 [facility] Comment on above: Performed By: #### U AMIC ####[address] [place] [address] Urine, erythrocytes 0 TO 2 Normal 0-2 [facility] Comment on above: Performed By: #### U AMIC ####[address] [place] [address] Urine, glucose presence Negative Normal NEG [facility] Comment on above: Performed By: #### U AMIC ####[address] [place] [address] Urine, leukocyte esterase presence SMALL Abnormal NEG [facility] Comment on above: Performed By: #### U AMIC ####[address] [place] [address] Urine, pH 5.5 [pH] Normal 5.0-9.0 [facility] Comment on above: Performed By: #### U AMIC ####[address] [place] [address] Urine, protein presence Negative Normal NEG [facility] Comment on above: Performed By: #### U AMIC ####[address] [place] [address] Urine, specific gravity 1.010 Normal 1.010-1.020 [facility] Comment on above: Performed By: #### U AMIC ####[address] [place] [address] Urobilinogen,Ur Normal Normal NORM [facility] Comment on above: Performed By: #### U AMIC ####[address] [place] [address] Comment NOT REPORTED Normal [facility] Comment on above: Performed By: #### U AMIC ####[address] [place] [address] Epithelial, Renal NOT REPORTED Normal 0 [facility] Comment on above: Performed By: #### U AMIC ####[address] [place] [address] Mucus Strands NOT REPORTED Normal NONE [facility] Comment on above: Performed By: #### U AMIC ####[address] [place] [address] Other Observations NOT REPORTED Normal NREQ [facility] Comment on above: Performed By: #### U AMIC ####[address] [place] [address] Trichomonas NOT REPORTED Normal NONE [facility] Comment on above: Performed By: #### U AMIC ####[address] [place] [address] Urine, amorphous sediment presence in sediment NOT REPORTED Normal NONE [facility] Comment on above: Performed By: #### U AMIC ####[address] [place] [address] Urine, casts in sediment NOT REPORTED Normal [facility] Comment on above: Performed By: #### U AMIC ####[address] [place] [address] Urine, crystals in sediment NOT REPORTED Normal [facility] Comment on above: Performed By: #### U AMIC ####[address] [place] [address] Urine, yeast presence in sediment NOT REPORTED Normal NONE [facility] Comment on above: Performed By: #### U AMIC ####[address] [place] [address] Vital Signs Date Time Vital Sign Value Performing Clinician Facility 10-15-2024 10:26-0500 Body height 160 cm Fahad Bandar DO Work Phone: [facility] 10-15-2024 10:26-0500 Body mass index (BMI) [Ratio] 18.6 kg/m2 Fahad Baint DO Work Phone: [facility] 10-15-2024 10:26-0500 Body temperature 98.1 [degF] Fahad Castillouitt DO Work Phone: [facility] 10-15-2024 10:26-0500 Body weight 47.63 kg Fahad Baint DO Work Phone: [facility] 10-15-2024 10:26-0500 Diastolic blood pressure 64 mm[Hg] Fahad Baint DO Work Phone: [facility] 10-15-2024 10:26-0500 Heart rate 87 /min Fahad Baint DO Work Phone: [facility] 10-15-2024 10:26-0500 Respiratory rate 20 /min Fahad Baint DO Work Phone: [facility] 10-15-2024 10:26-0500 SaO2% (BldA) [Mass fraction] 97 % Fahad Baint DO Work Phone: [facility] 10-15-2024 10:26-0500 Systolic blood pressure 104 mm[Hg] Fahad Baint DO Work Phone: [facility] 10-09-2024 08:25-0500 Body height 160 cm Fahad Baint DO Work Phone: [facility] 10-09-2024 08:25-0500 Body mass index (BMI) [Ratio] 19.13 kg/m2 Fahad Castillouitt DO Work Phone: [facility] 10-09-2024 08:25-0500 Body temperature 98.29 [degF] Fahad Baint DO Work Phone: [facility] 10-09-2024 08:25-0500 Body weight 48.99 kg Fahad Baint DO Work Phone: [facility] 10-09-2024 08:25-0500 Diastolic blood pressure 60 mm[Hg] Fahad Bandar DO Work Phone: [facility] 10-09-2024 08:25-0500 Heart rate 78 /min Fahad Bandar DO Work Phone: [facility] 10-09-2024 08:25-0500 Respiratory rate 20 /min Fahad Bandar DO Work Phone: [facility] 10-09-2024 08:25-0500 SaO2% (BldA) [Mass fraction] 95 % Fahad Bandar DO Work Phone: [facility] 10-09-2024 08:25-0500 Systolic blood pressure 98 mm[Hg] Fahad Bandar DO Work Phone: [facility] 10-03-2024 15:49-0500 Body height 160 cm Fahad Bandar DO Work Phone: [facility] 10-03-2024 15:49-0500 Body mass index (BMI) [Ratio] 19.13 kg/m2 Fahad Bandar DO Work Phone: [facility] 10-03-2024 15:49-0500 Body temperature 98.01 [degF] Fahad Bandar DO Work Phone: [facility] 10-03-2024 15:49-0500 Body weight 48.99 kg Fahad Bandar DO Work Phone: [facility] 10-03-2024 15:49-0500 Diastolic blood pressure 60 mm[Hg] Fahad Bandar DO Work Phone: [facility] 10-03-2024 15:49-0500 Heart rate 68 /min Fahad Bandar DO Work Phone: [facility] 10-03-2024 15:49-0500 Respiratory rate 20 /min Fahad Bandar DO Work Phone: [facility] 10-03-2024 15:49-0500 SaO2% (BldA) [Mass fraction] 96 % Fahad Bandar DO Work Phone: [facility] 10-03-2024 15:49-0500 Systolic blood pressure 100 mm[Hg] Fahad Bandar DO Work Phone: [facility] 07-17-2024 15:10-0500 Body height 160 cm Fahad Bandar DO Work Phone: [facility] 07-17-2024 15:10-0500 Body mass index (BMI) [Ratio] 18.25 kg/m2 Fahad Bandar DO Work Phone: [facility] 07-17-2024 15:10-0500 Body temperature 98.01 [degF] Fahad Bandar DO Work Phone: [facility] 07-17-2024 15:10-0500 Body weight 46.72 kg Fahad Castillouitt DO Work Phone: [facility] 07-17-2024 15:10-0500 Diastolic blood pressure 82 mm[Hg] Fahad Bandar DO Work Phone: [facility] 07-17-2024 15:10-0500 Heart rate 77 /min Fahad Bandar DO Work Phone: [facility] 07-17-2024 15:10-0500 Respiratory rate 20 /min Fahad Castillouitt DO Work Phone: [facility] 07-17-2024 15:10-0500 SaO2% (BldA) [Mass fraction] 96 % Fahad Bandar DO Work Phone: [facility] 07-17-2024 15:10-0500 Systolic blood pressure 126 mm[Hg] Fahad Bandar DO Work Phone: [facility] 07-11-2024 10:19-0500 Body height 160 cm Fahad Bandar DO Work Phone: [facility] 07-11-2024 10:19-0500 Body mass index (BMI) [Ratio] 18.42 kg/m2 Fahad Bandar DO Work Phone: [facility] 07-11-2024 10:19-0500 Body temperature 98.29 [degF] Fahad Bandar DO Work Phone: [facility] 07-11-2024 10:19-0500 Body weight 47.17 kg Fahad Bandar DO Work Phone: [facility] 07-11-2024 10:19-0500 Diastolic blood pressure 84 mm[Hg] Fahad Bandar DO Work Phone: [facility] 07-11-2024 10:19-0500 Heart rate 84 /min Fahad Bandar DO Work Phone: [facility] 07-11-2024 10:19-0500 Respiratory rate 20 /min Fahad Bandar DO Work Phone: [facility] 07-11-2024 10:19-0500 SaO2% (BldA) [Mass fraction] 96 % Fahad Castillouitt DO Work Phone: [facility] 07-11-2024 10:19-0500 Systolic blood pressure 132 mm[Hg] Fahad Bandar DO Work Phone: [facility] 07-04-2024 14:51-0500 Body height 160 cm Fahad Castillouitt DO Work Phone: [facility] 07-04-2024 14:51-0500 Body mass index (BMI) [Ratio] 18.78 kg/m2 Fahad Bandar DO Work Phone: [facility] 07-04-2024 14:51-0500 Body temperature 98.2 [degF] Fahad Bandar DO Work Phone: [facility] 07-04-2024 14:51-0500 Body weight 48.08 kg Fahad Castillouitt DO Work Phone: [facility] 07-04-2024 14:51-0500 Diastolic blood pressure 82 mm[Hg] Fahad Bandar DO Work Phone: [facility] 07-04-2024 14:51-0500 Heart rate 78 /min Fahad Portillo DO Work Phone: [facility] Social IQ (Social Influence Quotient) 07-04-2024 14:51-0500 Respiratory rate 20 /min Fahad Portillo DO Work Phone: [facility] Social IQ (Social Influence Quotient) 07-04-2024 14:51-0500 SaO2% (BldA) [Mass fraction] 98 % Fahad Portillo DO Work Phone: [facility] 07-04-2024 14:51-0500 Systolic blood pressure 120 mm[Hg] Fahad Portillo DO Work Phone: [facility] Social IQ (Social Influence Quotient) 12-23-2022 16:40-0400 Body height 160.02 cm Awais oCmer Other [facility] 12-23-2022 16:40-0400 Body mass index (BMI) [Ratio] 21.25 kg/m2 Awais Comer Other [facility] 12-23-2022 16:40-0400 Body weight 54.43 kg Awais Comer Other [facility] 12-14-2022 15:30-0400 Body height 160.02 cm Vilma Sharma Other [facility] 12-14-2022 15:30-0400 Body mass index (BMI) [Ratio] 21.25 kg/m2 Vilma Sharma Other [facility] 12-14-2022 15:30-0400 Body weight 54.43 kg Vilma Sharma Other [facility] 10-20-2021 16:45-0500 Body height 160.02 cm Herson Amin Other [facility] 10-20-2021 16:45-0500 Body mass index (BMI) [Ratio] 21.61 kg/m2 Herson Amin Other [facility] Other 10-20-2021 16:45-0500 Body weight 55.34 kg Herson Amin Other [facility] 08-13-2019 10:12-0500 BMI (Body Mass Index) 21.5 kg/m2 [facility] Work Phone: 08-13-2019 10:12-0500 Body Temperature 99.6 [degF] [facility] Work Phone: 08-13-2019 10:12-0500 Body weight 49.9 kg [facility] Work Phone: 08-13-2019 10:12-0500 BP Diastolic 78 mm[Hg] [facility] Work Phone: 08-13-2019 10:12-0500 BP Systolic 110 mm[Hg] [facility] Work Phone: 08-13-2019 10:12-0500 BSA (Body Surface Area) 1.45 m2 [facility] Work Phone: 08-13-2019 10:12-0500 Height 152.4 cm [facility] Work Phone: 08-13-2019 10:12-0500 Pulse (Heart Rate) 80 /min [facility] Work Phone: 08-13-2019 10:12-0500 Pulse Oximetry 96 % [facility] Work Phone: 08-13-2019 10:12-0500 Respiratory Rate 14 /min [facility] Work Phone: 08-01-2019 12:12-0500 BMI (Body Mass Index) 21.5 kg/m2 [facility] Work Phone: 08-01-2019 12:12-0500 Body Temperature 98.8 [degF] [facility] Work Phone: 08-01-2019 12:12-0500 Body weight 49.9 kg [facility] Work Phone: 08-01-2019 12:12-0500 BP Diastolic 80 mm[Hg] [facility] Work Phone: 08-01-2019 12:12-0500 BP Systolic 130 mm[Hg] [facility] Work Phone: 08-01-2019 12:12-0500 BSA (Body Surface Area) 1.45 m2 [facility] Work Phone: 08-01-2019 12:12-0500 Height 152.4 cm [facility] Work Phone: 08-01-2019 12:12-0500 Pulse (Heart Rate) 87 /min [facility] Work Phone: 08-01-2019 12:12-0500 Pulse Oximetry 96 % [facility] Work Phone: 08-01-2019 12:12-0500 Respiratory Rate 14 /min [facility] Work Phone: 2019 15:40-0500 BMI (Body Mass Index) 21.5 kg/m2 [facility] Work Phone: 2019 15:40-0500 Body Temperature 98 [degF] [facility] Work Phone: 2019 15:40-0500 Body weight 49.9 kg [facility] Work Phone: 2019 15:40-0500 BP Diastolic 80 mm[Hg] [facility] Work Phone: 2019 15:40-0500 BP Systolic 104 mm[Hg] [facility] Work Phone: 2019 15:40-0500 BSA (Body Surface Area) 1.45 m2 [facility] Work Phone: 2019 15:40-0500 Height 152.4 cm [facility] Work Phone: 2019 15:40-0500 Pulse (Heart Rate) 84 /min [facility] Work Phone: 2019 15:40-0500 Pulse Oximetry 95 % [facility] Work Phone: Encounters Encounter Date Encounter Type [...] Bamboo flowsheet Fahad Bandar DO Work Phone: [facility] Start: 10-09-2024 End: 10-09-2024 ambulatory FAHAD BANDAR Not Available Start: 10-09-2024 End: 10-09-2024 Office outpatient visit 15 minutes Fahad Bandar DO Work Phone: [facility] Comment on above: Left hip pain (Prima ry Dx); Hematoma; Fall, initial encounter Start: 10-03-2024 End: 10-03-2024 Office outpatient visit 25 minutes Fahad Bandar DO Work Phone: [facility] Comment on above: Anxiety attack (CMS/ HCC) (Primary Dx); Insomnia, unspecified type Start: 10-03-2024 End: 10-03-2024 ambulatory FAHAD BANDAR Not Available Start: 07-17-2024 End: 07-17-2024 Office outpatient visit 15 minutes Fahad Bandar DO Work Phone: [facility] Comment on above: Dermatitis (Primary Dx); Mucocele of mouth Start: 07-17-2024 End: 07-17-2024 ambulatory FAHAD BANDAR Not Available Start: 07-11-2024 End: 07-11-2024 Office outpatient visit 15 minutes Fahad Bandar DO Work Phone: [facility] Comment on above: Dermatitis (Primary Dx) Start: 07-11-2024 End: 07-11-2024 ambulatory FAHAD BANDAR Not Available Start: 07-04-2024 End: 07-04-2024 ambulatory FAHAD BANDAR Not Available Start: 07-04-2024 End: 07-04-2024 Office outpatient new 45 minutes Fahad Bandar DO Work Phone: [facility] Comment on above: Anxiety attack (CMS/ HCC) (Primary Dx); Insomnia, unspecified type; Dermatitis; Screening for lipid disorders; Hepatitis C virus infection without hepatic coma, unspecified chronicity (CMS/HCC); Seasonal allergies; Age related osteoporosis, unspecified pathological fracture presence (CMS/HCC); Encounter for screening mammogram for malignant neoplasm of breast; Nicotine use Start: 07-04-2024 End: 07-04-2024 Bamboo flowsheet Fahad Portillo DO Work Phone: [facility] Start: 07-04-2024 End: 07-04-2024 Bamboo flowsheet Fahad Portillo DO Work Phone: [facility] Start: 12-23-2022 End: 12-23-2022 ambulatory Awais Comer Other [facility] Other Start: 12-23-2022 Office outpatient visit [address] [facility] Start: 12-21-2022 End: 12-21-2022 ambulatory Vilma Sharma Facility:[facility] Start: 12-21-2022 End: 12-21-2022 ambulatory DO Nomi Patelrer Work Phone: [facility] Work Phone: Start: 12-21-2022 End: 12-21-2022 Patient encounter procedure DO Nomi Patelrer Work Phone: [facility] Work Phone: Start: 12-16-2022 End: 12-16-2022 ambulatory Vilma Sharma Other [facility] Other Start: 12-16-2022 Telephone encounter Vilma Sharma [facility] Start: 12-15-2022 End: 12-15-2022 ambulatory Vilma Sharma Other [facility] Other Start: 12-15-2022 Telephone encounter Vilma Sharma [facility] Start: 12-14-2022 End: 12-14-2022 ambulatory Vilma Sharma Other [facility] Other Start: 12-14-2022 Office outpatient ne w [address] [facility] Start: 12-14-2022 Telephone encounter Vilma Sharma [facility] Start: 12-13-2022 End: 12-13-2022 ambulatory JUANA BOB Facility:[facility] Start: 12-09-2022 End: 12-09-[address] TREV PHILLIPS Facility:[facility] Start: 11-30-2022 End: 11-30-[address] ISHA VIVEROS . Facility:[facility] Start: 11-26-2022 ambulatory NONE LISTED REQUEST Facility:[facility] Start: 08-24-2022 End: 08-24-2022 Phys/qhp telephone evaluation 11-20 min Aliza Guadarrama MD Work Phone: [facility] Comment on [...] 10-20-2021 End: 10-20-2021 ambulatory Herson Amin Other [facility] Other Start: 10-20-2021 Office outpatient ne w 45 minutes Herson Amin [facility] Start: 08-13-2019 End: 08-13-2019 Established patient Porsche Vega Work Phone: [facility] Work Phone: Start: 08-01-2019 End: 08-01-2019 Established patient Lupe Snider Work Phone: [facility] Work Phone: Start: 2019 End: 2019 New patient Lupe Tylor Work Phone: [facility] Work Phone: Start: 12-26-2017 End: 12-27-2017 Ambulatory GURPREET JOHNSON [facility] Start: 12-16-2017 End: 12-17-2017 Ambulatory [facility] Start: 12-14-2017 End: 12-15-2017 Ambulatory [facility] Start: 12-13-2017 End: 12-16-2017 Ambulatory [facility] Procedures Date Procedure Procedure Detail Performing Clinician [...] Start: 2019 Diast bp <80 mm hg [place] Tylor Work Phone: Start: 2019 Hysterectomy [...] Screening for malign ant neoplasm of colon [facility] Start: 02-03-2026 Cholesterol [Mass/volume] in Serum or Plasma Cholesterol [facility] Start: 12-26-2024 End: 12-26-2024 Patient encounter procedure 12/26/2024 3:40 PM EDT Office Visit [facility] [address] [place] [id number] Fahad Portillo DO [address] [place] [address] [facility] Start: 10-15-2024 End: 10-15-2024 Patient encounter procedure 10/15/2024 10:20 AM EST Office Visit [facility] [address] [place] [id number] Fahad Portillo DO [address] [place] [address] [facility] Start: 10-03-2024 End: 10-03-2024 Patient encounter procedure 10/03/2024 3:40 PM EST Office Visit [facility] [address] [place] [address] Fahad PortilloDO [address] [place] [address] [facility] Start: 07-04-2024 End: 07-04-2025 CBC panel - Blood by Automated count CBC Lab Routine Hepatitis C virus infection without hepatic coma, unspecified chronicity (CMS/HCC) Seasonal allergies Expected: 07/04/2024 (Approximate), Expires: 07/04/2025 [facility] Comment on above: Expected: 07/04/2024 (Approximate), Expires: 07/04/2025 Start: 07-04-2024 End: 07-04-2025 Comprehensive metabolic 2000 panel - Serum or Plasma Comprehensive metabolic panel Lab Routine Hepatitis C virus infection without hepatic coma, unspecified chronicity (CMS/HCC) Seasonal allergies Expected: 07/04/2024 (Approximate), Expires: 07/04/2025 [facility] Work Phone: Comment on above: Expected: 07/04/2024 (Approximate), Expires: 07/04/2025 Start: 07-04-2024 End: 07-04-2025 Lipid 1996 panel - Serum or Plasma Lipid panel Lab Routine Screening for lipid disorders Expected: 07/04/2024 (Approximate), Expires: 07/04/2025 [facility] Comment on above: Expected: 07/04/2024 (Approximate), Expires: 07/04/2025 Start: 07-04-2024 End: 09-03-2025 MG Breast - bilateral Screening Bilateral screening mammogram Imaging Routine Encounter for screening mammogram for malignant neoplasm of breast Expected: 07/04/2024, Expires: 09/03/2025 [facility] Comment on above: Expected: 07/04/2024 , Expires: 09/03/2025 Start: 04-22-2024 Influenza vaccination Influenza Vacc ine (#1) [facility] Start: 05-22-2022 Influenza vaccination Influenza Vacc ine (#1) [facility] Start: 04-29-2022 Screening for malign ant neoplasm of breast Mammogram [facility] Start: 2011 Measurement of occul t blood in single stool specimen [facility] Start: 2011 Screening for malign ant neoplasm of colon CRC Screening [facility] Start: 2011 Shingles (RZV) Vacci ne (1 of 2) Shingles (RZV) Vaccine (1 of 2) [facility] Start: 2001 Screening for malign ant neoplasm of breast Mammography [facility] Start: 1982 Screening for malign ant neoplasm of cervix Pap Smear [facility] Start: 1979 Hepatitis C screening Hepatitis C An tibody [facility] Start: 1979 Tetanus + diphtheria + acellular pertussis vaccine (product) [facility] Start: 1976 HIV screening HIV Test [facility] Start: 1961 Screening for malign ant neoplasm of colon [facility] Immunizations Immunization Date Immunization Notes Care Provider Stacy munoz 07-17-2024 Seasonal, trivalent, recombinant, injectable influenza vaccine, preservative free Fahad Bandar DO Work Phone: [facility] 06-02-2023 Influenza, injectabl e, Madin [place] Canine Kidney, preservative free, quadrivalent Fahad Bandar DO Work Phone: [facility] 06-02-2023 influenza virus vaccine, unspecified formulation Fahad Bandar DO Work Phone: [facility] 07-13-2021 COVID-19 mRNA, Comirnaty (Pfizer) DO Nomi Corcoran Work Phone: [facility] 06-08-2021 influenza, injectabl e, quadrivalent, preservative free Fahad Bandar DO Work Phone: [facility] 12-10-2020 COVID-19 mRNA, Comirnaty (Pfizer) DO Nomi Nilo Work Phone: [facility] 11-25-2020 diphtheria, tetanus toxoids and pertussis vaccine Aliza Guadarrama MD Work Phone: [facility] 11-25-2020 tetanus toxoid, reduced diphtheria toxoid, and acellular pertussis vaccine, adsorbed Fahad Portillo DO Work Phone: [facility] 11-13-2020 COVID-19 mRNA, Comirnaty (Pfizer) DO Nomi Corcoran Work Phone: [facility] 05-21-2020 influenza, injectabl e, quadrivalent, preservative free Fahad Portillo DO Work Phone: [facility] Healthcare Payers Date Payer Category Payer Unknown [id number] 2024 Private Health Insurance [id number] 2024 Private Health Insurance [id number] 2020 Medicaid [employer] [id number] 2020-Present [address] [address] [place] [address] Medicaid HMO [id number] 2017 Unknown [id number] 2014 Unknown [id number] 1961 Unknown [id number] [id number] 93 1961 Unknown [id number] 2.16.840.1.488817.3.579.2.5 93 1961 Unknown [id number] 2.16.840.1.463887.3.579.2.5 93 1961 Unknown [id number] 2.16.840.1.667288.3.579.2.5 93 1961 Unknown [id number] 2.16.840.1.470744.3.579.2.5 93 1961 Unknown [id number] 2.16.840.1.151962.3.579.2.5 93 1961 Unknown [id number] 2.16.840.1.781006.3.579.2.5 93 1961 Unknown [id number] 2.16.840.1.162472.3.579.2.5 93 1961 Unknown [id number] 2.16.840.1.061235.3.579.2.5 93 1961 Unknown [id number] 2.16.840.1.844352.3.579.2.5 93 1961 Unknown [id number] 2.16.840.1.673646.3.579.2.5 93 1961 Unknown [id number] 2.16.840.1.923067.3.579.2.5 93 1961 Unknown [id number] 2.16.840.1.391317.3.579.2.5 93 1961 Unknown [id number] 2.16.840.1.511875.3.579.2.1 259 1961 Unknown [id number] 2.16.840.1.773779.3.579.2.1 259 1961 Unknown [id number] 2.16.840.1.775702.3.579.2.1 259 1961 Unknown [id number] 2.16.840.1.385793.3.579.2.1 259 1961 Unknown [id number] 2.16.840.1.526735.3.579.2.1 259 1961 Unknown [id number] 2.16.840.1.010624.3.579.2.1 259 1961 Unknown [id number] 2.16.840.1.932128.3.579.2.1 259 1959 Medicaid [id number] [id number] 1959 Self-pay Self-pay [id number] 2.16.840.1.021643.3.140.1.7 2999.5.4 Unknown [id number] 2.16.840.1.267838.3.579.2.5 31 Unknown [facility] [id number] Social History Date Type Detail Facility [facility] Work Phone: Assertion Alcohol consumpt ion screening (procedure) [facility] Work Phone: Assertion Gender identity finding (finding) [facility] Work Phone: Assertion Finding of sexua l orientation (finding) [facility] Work Phone: Assertion Tobacco user (finding) [facility] Work Phone: Tobacco smoking status Unknown i f ever smoked [facility] Work Phone: Start: 07-11-2024 End: 11-08-2024 Sex Assigned At [facility] Start: 1960 Sex Assigned At [facility] Start: 12-01-2021 Tobacco smoking stat [facility] Smoker (finding) [facility] Start: 1960 Sex Assigned At Female F [facility] Start: 07-04-2024 Tobacco smoking stat [facility] Smokes tobacco daily [facility] History of [...] to any clubs or organizations such as sikhism groups, unions, fraternal or athletic groups, or [...] Highlighted row Assertion Illicit drug use (finding) [facility] Work Phone: NEGATED: Highlighted row Assertion Misuse of prescription only drugs (finding) [facility] Work Phone: NEGATED: Highlighted row Assertion She has not had 4 or more drinks in a day within the past year. [facility] Work Phone: NEGATED: Highlighted row Assertion Current drinker of alcohol (finding) [facility] Work Phone: NEGATED: Highlighted row Assertion Finding relating to drug misuse behavior (finding) [facility] Work Phone: NEGATED: Highlighted row Assertion Exposure to pollution (event) [facility] Work Phone: NEGATED: Highlighted row Assertion Tobacco user (finding) [facility] Work Phone: Mental Status Date Assessment Result Facility Cognitive function No disorienta tion was observed Finding related to orientation (finding) [facility] Work Phone: Clinical Notes 10-20-2021 to 11-15-2024 Telephone Encounter - Jennifer Del Valle MA - 11/15/2024 3:53 PM EDTTelephone Encounter - Jennifer Del Valle MA - 11/15/2024 3:53 PM EDTTelephone Encounter - Fahad Portillo DO - 11/15/2024 3:23 PM EDT Note Date & Type Note Facility 11-15-2024 Telephone encount er Note Patient advised [facility] 11-15-2024 Miscellaneous Notes Formattin g of this note might be different from the original. Patient advised Please inform patient that it is somewhat common to have diarrhea after sinus infections and antibiotics. I have recommended probiotic pill or yogurt [id number]. I will send some Imodium that she [...] she gets better. documented in this encounter [facility] 11-15-2024 Telephone encount er Note Please inform patient that it is somewhat common to have diarrhea after sinus infections and antibiotics. I have recommended probiotic pill or yogurt [id number]. I will send some Imodium that she can take to help with diarrhea as long as she is not having blood with her bowel movements or fevers and chills she can take the Imodium prn [facility] 11-15-2024 Telephone encount er Note Message from Jennifer: Patient states she is still sick with diarrhea and possibly needs another round of antibiotics? Patient states she is unable to work until she gets better. [facility] 10-15-2024 History of Presen t illness Narrative [...] being hit by a refrigerator door over [place]. The pain was more internal, affecting mobility, and required leaving a fdc visit due to discomfort. Meloxicam was taken but did not provide noticeable relief, and caused lightheadedness in the mornings. SUBJECTIVE: PROBLEM LIST SURGICAL/SOCIAL ALLERGIES: There is no problem list on file for this patient. Past Surgical History: Procedure Laterality Date COLONOSCOPY W/ BIOPSIES AND POLYPECTOMY 12/01/2021 HYSTERECTOMY 1992 total LIVER BIOPSY SC REMOVAL NODES, NECK,CERV CMPLT SKIN GRAFT Right [...] Fahad Portillo DO documented in this encounter [facility] 10-09-2024 History of Presen t illness Narrative [...] POLYPECTOMY 12/01/2021 HYSTERECTOMY 1993 total LIVER BIOPSY SC REMOVAL NODES, NECK,CERV CMPLT SKIN GRAFT Right [...] Fahad Portillo DO documented in this encounter [facility] 10-03-2024 History of Presen t illness Narrative Patient requested note for work to get labs drawn. Printed for patient. Left up front to moss picker. Images from the original note were [...] and mammogram, but has since changed to [employer] insurance. Plans to visit a specialist on the and intends to complete the necessary lab work and mammogram in the coming weeks. SUBJECTIVE: PROBLEM LIST SURGICAL/SOCIAL ALLERGIES: There is no problem list on file for this patient. Past Surgical History: Procedure Laterality Date COLONOSCOPY W/ BIOPSIES AND POLYPECTOMY 12/01/2021 HYSTERECTOMY 1993 total LIVER BIOPSY SC REMOVAL NODES, NECK,CERV CMPLT SKIN GRAFT Right [...] Fahad Portillo DO documented in this encounter [facility] 07-17-2024 History of Presen t illness Narrative [...] fail to improve. documented in this encounter [facility] 07-11-2024 History of Presen t illness Narrative [...] ointment on her eyelid and the topical [id number] hydrocortisone on her facial and inguinal regions. [...] 10/11/2024) for Recheck. documented in this encounter [facility] 07-04-2024 History of Presen t illness Narrative [...] being on June 04. She works at [employer] and has contracted COVID-19 from various workplaces [...] 10/04/2024) for Recheck. documented in this encounter [facility] 12-23-2022 Evaluation note Encounter Date Diagnosis Assessment [...] cervical spine and a dynamic neck x-ray. [facility] 04-27-2023 Evaluation note* Encounter Date Diagnosis Assessment Notes Treatment Notes Treatment Clinical Notes Nov, Other closed displaced fracture of seventh cervical vertebra, initial encounter (ICD-10 - S12.690A) [facility] 04-26-2023 Evaluation note* Encounter Date Diagnosis Assessment Notes Treatment Notes Treatment Clinical Notes Nov, Other closed displaced fracture of seventh cervical vertebra, initial encounter (ICD-10 - S12.690A) [facility] 04-25-2023 Evaluation note* Encounter Date Diagnosis [...] negative findings were considered in medical decision-making. [facility] 01-03-2023 History of Present illness Narrative* Aliza Guadarrama MD - 08/24/2022 10:25 PM EST Phone numbers Preferred Documentation: Mode: Telephone Patient Patient Work Phone: Patient Cell Phone: Preferred phone: [phone] Consent: I confirmed patient understanding of the [...] pneumoniae Aliza Guadarrama MD documented in this [id number] Evaluation note* Encounter Date Diagnosis Assessment Notes Treatment Notes Treatment Clinical Notes Oct, Hepatitis C (ICD-10 - B19.20) PT WOULD LIKE TO ADDRESS THIS AFTER HER COLONOSCOPY TREATMENT AND TESTING EXPLAINED TO PATIENT IN DETAIL SHE WILL CALL WHEN SHE IS READY TO START THIS PROCESS Oct, Screen for colon cancer (ICD-10 - Z12.11) COLONOSCOPY [facility] Other Evaluation note* Diagnosis Cough, unspecified type- Primary [facility] Other evaluation noteNo assessment information available [facility] Work Phone: Evaluation note* Diagnosis Dermatitis- Primary [...] Surgical History lymph node removed from necks [facility] History general Narrative - Reported* Type Description Date Medical History allergies Medical History anxiety Medical History arthritis Medical History hepatitis c Medical History IBS Medical History liver disease Medical History osteoarthritis Medical History osteoporosis Surgical History liver biopsy Surgical History total hysterectomy 1992 Surgical History skin graft to right hand Surgical History lymph node removed from necks Hospitalization History see surg Hx Health Plan One Other Summary Purpose Family History Description Last [...] steps Medical New Patient with Lupe Serratoer [facility] 2019 Body mass index [Body mass i ndex (BMI) 21.0-21.9 adult] Medical New Patient with Lupe Serratoer [facility] 2019 Diabetes Risk Test Score was two score 2019 Medical New Patient with Lupe Serratoer [facility] 2019 Fagerstrom Score was two 2019 [facility] New Patient with Lupe Serratoer [facility] 2019 PHQ-9: total score was 0 2019 [facility] New Patient with Lupe Serratoer [facility] 2019 Findings Encounter Date Contusion of back wall of thorax Medical Established Patient with Porsche Sullivane [facility] 08/13/2019 Z68.21 - Body mass index (BM I) 21.0-21.9 adult Medical Established Patient with Porsche Silvia [facility] 08/13/2019 Body mass index [Body mass i ndex (BMI) 21.0-21.9 adult] Medical Established Patient with Lupe Snider [facility] 08/01/2019 Oral thrush [Candidal stomatitis] Medica l Established Patient with Lupe Snider [facility] 08/01/2019 Assessment of fall on and fr om stairs and steps Medical New Patient with Lupe Snider [facility] 2019 Body mass index [Body mass i ndex (BMI) 21.0-21.9 adult] Medical New Patient with Lupe Snider [facility] 2019 Diabetes Risk Test Score was two score 2019 Medical New Patient with Lupe Snider [facility] 2019 Fagerstrom Score was two 2019 [facility] New Patient with Lupe Snider PARAMEDICAL AIDE 2019 PHQ-9: total score was 0 2019 [facility] New Patient with Lupe Snider PARAMED[facility] AIDE 2019 Instructions Instructions not supported for this [...] section and content) DATE CREATED AUTHOR 02/23/2018 [facility] DATE CREATED AUTHOR AUTHOR'S ORGANIZ ATION 02/23/2018 [facility] DATE CREATED AUTHOR AUTHOR'S ORGANIZ ATION 04/16/2022 [facility] DATE CREATED AUTHOR AUTHOR'S ORGANIZ ATION 12/15/2022 [facility] DATE CREATED AUTHOR AUTHOR'S ORGANIZ ATION 12/22/2022 [facility] DATE CREATED AUTHOR AUTHOR'S ORGANIZ ATION 11/10/2024 [facility] Specialists EPIC Evaluations & Outcomes (unre [...] Provider Active VARGHESE Linder Attending Provider Active Cafeteria Counter Attendant Relationship Specialty Start Date End Date Fahad Portillo [address] [place] [address] PCP - General Family Medicine 07/04/24 Cafeteria Counter Attendant Relationship Specialty Start Date End Date BandarFahad snyder [address] [place] [address] PCP - General Family Medicine 07/04/24 Cafeteria Counter Attendant Relationship Specialty Start Date End Date BandarFahad snyder [address] [place] [address] PCP - General Family Medicine 07/04/24 Cafeteria Counter Attendant Relationship Specialty Start Date End Date Bandar FahadDO [address] [place] [address] PCP - General Family Medicine 07/04/24 Cafeteria Counter Attendant Relationship Specialty Start Date End Date BandarFahad snyder [address] [place] [address] PCP - General Family Medicine 07/04/24 Cafeteria Counter Attendant Relationship Specialty Start Date End Date Bandar FahadDO [address] [place] [address] PCP - General Family Medicine 07/04/24 Cafeteria Counter Attendant Relationship Specialty Start Date End Date Bandar FahadDO [address] [place] [address] PCP - General Family Medicine 07/04/24 Cafeteria Counter Attendant Relationship Specialty Start Date End Date Fahad Portillo DO [address] [place] [address] PCP - General Family Medicine 07/04/24 Cafeteria Counter Attendant Relationship Specialty Start Date End Date Fahad Portillo DO [address] [place] [address] PCP - General Family Medicine 07/04/24 Goals [...] BE BASED ON THE PRIMARY CLINICAL RECORDS. [employer] provides no warranty or guarantee of the accuracy or completeness of information in this document.
[2024-11-28 10:00] LABS: Alanine Aminotransferase 48 U/L (14-59); Albumin Level 3.5 g/dL (3.4-5.0); Alkaline Phosphatase 77 U/L (46-116); Anion Gap 12.4; Aspartate Amino Transferase 41 U/L (15-37); BUN Creatinine Ratio 23.8; Bilirubin Total 0.3 mg/dL (0.2-1.0); Calcium 8.9 mg/dL (8.5-10.1); Carbon Dioxide 27.6 mmol/L (21.0-32.0); Chloride 105 mmol/L (98-107); Chol HDL Ratio 2.4; Cholesterol 200 mg/dL (<=200); Estimated GFR (African America >60 (>=60 mL/min/1.73m^2); Estimated GFR (Non-African Ame >60 (>=60 mL/min/1.73m^2); Globulin 3.5 g/dL; Glucose 100 mg/dL (74-106); HDL Cholesterol 83 mg/dL (40-60); Sodium 141 mmol/L (136-145); Triglycerides 51 mg/dL (<=150); VLDL CHOLESTEROL 10.2 mg/dL
== END 2024-11-28 09:23 | disposition home or self-care (01) ==
LOC: LAB 09:22
PROVIDERS: PCP Student in an Organized Health Care Education/Training Program; Visit Provider Student in an Organized Health Care Education/Training Program
DX: J30.2 Other seasonal allergic rhinitis (principal); B19.20 Unspecified viral hepatitis C without hepatic coma; Z13.220 Encounter for screening for lipoid disorders
CPT/HCPCS: 36415; 80053; 80061; 85025

== ENCOUNTER 2024-12-12 09:12 | Outpatient (OUT) | payer OTHER, SELFPAY ==
--- NOTE | 2024-12-12 09:21 | MM_ITS ---
Patient Name: RICARDO ELIAS MR#: [id number] : 1960 Exam Date: 12/12/2024 Ordering Doctor: Non-Staff Physician RADIOLOGY REPORT PROCEDURE: MM TOMOSYNTHESIS SCREENING BI COMPARISON: MG MAMM SCREEN 3D KHURRAM CAD, 04/29/2021. MG MAMM SCREEN KHURRAM W CAD, 02/18/2020. MAMMO KHRURAM DX, 12/11/2013. MAMMO KHURRAM SCREEN, 11/28/2013. INDICATIONS: Screening Calculator Name NCI Breast Cancer Risk Assessment Tool 5 Year Breast Cancer Risk 1.60% Lifetime Breast Cancer Risk 6.80% Personal Breast Cancer No Personal Ovarian Cancer No Treatments None Family Cancers None LOCATION: [facility] BREAST COMPOSITION: There are scattered areas of fibroglandular density. FINDINGS: RIGHT BREAST: No significant suspicious finding. LEFT BREAST: No significant suspicious finding. DIAGNOSTIC CATEGORY 1--NEGATIVE. RECOMMENDATIONS: ROUTINE MAMMOGRAM AND CLINICAL EVALUATION IN 12 MONTHS. PLEASE NOTE: A NORMAL MAMMOGRAM DOES NOT EXCLUDE THE POSSIBILITY OF BREAST CANCER. A CLINICALLY SUSPICIOUS PALPABLE LUMP SHOULD BE BIOPSIED. Dictated by: Kuldip Rivera DO on 12/12/2024 at 10:00 Approved by: Kuldip Rivera DO on 12/12/2024 at 10:12
== END 2024-12-12 09:13 | disposition home or self-care (01) ==
LOC: MAMMO 09:13
PROVIDERS: PCP Student in an Organized Health Care Education/Training Program
DX: Z12.31 Encounter for screening mammogram for malignant neoplasm of breast (principal)
CPT/HCPCS: 77063; 77067

== ENCOUNTER 2025-04-04 06:58 | Emergency (ER) | payer OTHER, SELFPAY ==
--- OUTSIDE RECORDS SUMMARY | 2025-04-01 09:00 | XMS_ITS | Encounter Summary ---
Author Organization [facility] Address [address] [place] [address] Care Team Providers Care Wood Lather Name Role Phone Fahad Pederson DO Primary Care Provider [phone] Encounter Details Date Type Department Care Team (Late st Contact Info) Description 04/01/2025 9:00 AM EDT [facility] [address] [place] [id number] Fahad Pederson DO [address] [facility] [address] [place] [address] Irritation of eye (Primary Dx); Insomnia, unspecified type; Anxiety attack Social History Tobacco Use Types Packs/Day Years Used Date Smoking Tobacco: Every Day Cigarettes Smokeless Tobacco: Never Alcohol Use Standard Drinks/Week Comments Not Currently 0 (1 standard drink = 0.6 oz pure alcohol) caffeine intake: 1-2 cups per day pop and coffee [id number] Health Literacy Answer Date Recor ded How often do you need to hav e someone help you when you read instructions, pamphlets, or other written material from your doctor or pharmacy? Never 11/08/2024 Social Connection and Isolat ion Panel [NHANES] Answer Date Recorded In a typical week, how many times do you talk on the phone with family, friends, or neighbors? More than three times a week 11/08/2024 How often do you get togethe r with friends or relatives? Once a week 11/08/2024 How often do you attend [facility] or sikh services? More than 4 times per year 11/08/2024 Do you belong to any clubs o r organizations such as roman catholic groups, unions, fraternal or athletic groups, or school groups? No 11/08/2024 How often do you attend meet ings of the clubs or organizations you belong to? Never 11/08/2024 Are you , , di vorced, , never , or living with a partner? 11/08/2024 AUDIT-C Answer Date Recorded Q1: How often do you have a drink containing alcohol? Never 04/01/2025 Q2: How many drinks containi ng alcohol do you have on a typical day when you are drinking? Patient does not drink Q3: How often do you have si x or more drinks on one occasion? Never 04/01/2025 Overall Financial Resource Strain (CARDIA) Answe r Date Recorded How hard is it for you to pa y for the very basics like food, housing, medical care, and heating? Somewhat hard 11/08/2024 PHQ-2 Answer Date Recorded Patient Health Questionnaire-2 Score 0 04/01/2025 [facility] - Occupational Stress Questionnaire Answer Date Recorded Do you feel stress - tense, restless, nervous, or anxious, or unable to sleep at night because your mind is troubled all the time - these days? Only a little 11/08/2024 Exercise Vital Sign Answer Date Recorde d On average, how many days pe r week do you engage in moderate to strenuous exercise (like a brisk walk)? 5 days 11/08/2024 On average, how many minutes do you engage in exercise at this level? 150+ min 11/08/2024 Hunger Vital Sign Answer Date Recorded Within the past 12 months, y ou worried that your food would run out before you got the money to buy more. Sometimes true Within the past 12 months, t he food you bought just didn't last and you didn't have money to get more. Sometimes true PRAPARE - Transportation Answer Date Re corded In the past 12 months, has l ack of transportation kept you from medical appointments or from getting medications? No 10/21 In the past 12 months, has l ack of transportation kept you from meetings, work, or from getting things needed for daily living? No 11/08/2024 Housing Stability Vital Sign Answer Rao e Recorded In the last 12 months, was t here a time when you were not able to pay the mortgage or rent on time? No 11/08/2024 In the past 12 months, how m any times have you moved where you were living? 0 11/08/2024 At any time in the past 12 m [facility], were you homeless or living in a fci (including now)? No 11/08/2024 Comments Unknown Sex and Gender Information Value Date Recorded Sex Assigned at Not on file Legal Sex Female 6:46 PM EDT Gender Identity Not on file Sexual Orientation Not on file documented as of this encounter Last Filed Vital Signs Vital Sign Reading Time Taken Comments Blood Pressure 112/72 04/01/2025 9:06 AM EDT Pulse 78 04/01/2025 9:06 AM EDT Temperature 35.6 C (96 F) 04/01/2025 9:06 AM EDT Respiratory Rate 20 04/01/2025 9:06 AM EDT Oxygen Saturation 97% 04/01/2025 9:06 AM EDT Inhaled Oxygen Concentration - - Weight 48.1 kg (106 lb) 04/01/2025 9:06 AM EDT Height 162.6 cm (5' 4 ) 04/01/2025 9:06 AM EDT Body Mass Index 18.19 04/01/2025 9:06 AM EDT documented in this encounter Functional Status * Audit-C Score Answer Date of Assessment Author 0 04/01/2025 9:05 AM EDT Tim Del Valle LPN * Question Answer Date of Assessment Author Q1: How often do you have a drink containing alcohol? Never 04/01/2025 9:05 AM EDT Jennifer Del Valle LPN Q2: How many drinks containing alcohol do you have on a typical day when you are drinking? Patient does not drink 04/01/2025 9:05 AM EDT Jennifer Del Valle LPN Q3: How often do you have six or more drinks on one occasion? Never 04/01/2025 9:05 AM EDT Jennifer Del Valle LPN * Over the past 2 weeks, how often have you been bothered by any of the following problems? Question Answer Date of Assessment Author Little interest or pleasure in doing things Not at all 04/01/2025 9:05 AM EDT Jennifer Del Valle LPN Feeling down, depressed, or hopeless Not at all 04/01/2025 9:05 AM EDT Jennifer Del Valle LPN Patient Health Questionnaire -2 Score 0 04/01/2025 9:05 AM EDT Jennifer Del Valle LPN documented as of this encounter Progress Notes * Fahad Pederson, - 04/01/2025 9:00 AM EDT Images from the original note were not included. FAMILY MEDICINE NOTE Chief Complaint: Sleep problems HPI: Patient present for follow up and states she is still having sleep problems and feels like she may need something to help her sleep. She feels this is temporary with her increased workload. Patient also broke out 3 weeks ago, but has gone away and not came back. Needs refills of eye drops and ointments for here eye irritation. SUBJECTIVE: Past Medical History SURGICAL/SOCIAL ALLERGIES: Past Medical History: Diagnosis Date Allergies Anxiety Arthritis Hepatitis C IBS (irritable bowel syndrome) Liver disease Osteoarthritis Osteoporosis Past Surgical History: Procedure Laterality Date COLONOSCOPY [...] day pop and coffee Drug use: Never Allergies Allergen Reactions Penicillins OBJECTIVE: 04/01/2025 9:06 AM 02/20/2025 8:49 AM 02/13/2025 8:05 AM Vitals BMI 18.19 kg/m2 18.02 kg/m2 19.13 kg/m2 BSA (m2) 1.47 m2 1.47 m2 1.48 m2 Systolic 112 132 140 Diastolic 72 86 72 Heart Rate 78 88 77 SpO2 97 % 97 % 94 % Temp 96 ??F 98.2 ??F Resp 20 20 20 Height (in) 5' 4 5' 4 5' 3 Weight (lb) 106 105 108 Visit Report Report Report Physical Exam Constitutional: Appearance: Normal appearance. Eyes: Conjunctiva/sclera: Conjunctivae normal. Cardiovascular: Rate and Rhythm: Normal rate and [...] normal. ASSESSMENT AND PLAN: Assessment & Plan Irritation of eye - Recurrent eye irritation. Polysporin ophthalmologic ointment continued. Prednisolone eye drops not refilled; recommendation to follow up with corporate counselor for further management of this med as Jer not prescribe it. - Refill of Polysporin ophthalmologic ointment. No refill of prednisolone eye drops; advised to consult corporate counselor. Orders: dvsoklew-hxolhawroz-tcgzwsrzb (Polysporin) ophthalmic ointment; Apply 1 application to both eyes inthe morning and 1 application in the evening and 1 application before bedtime. Insomnia, unspecified type Anxiety attack - Insomnia with increased workload. Preference for xanax over trazodone or Vistaril. Discussion regarding risks of xanax, especially with aging. - Short-term, as-needed xanax refill provided. Sleep hygiene information printed and given. Orders: ALPRAZolam (Xanax) 1 MG tablet; Take 1 tablet (1 mg) by mouth as needed at bedtime for anxiety or sleep Patient's Medications New Prescriptions No medications on file Previous Medications CHOLECALCIFEROL (VITAMIN D-3) 10 MCG (400 UNIT) CAPSULE Take 400 Units by mouth Daily CYCLOBENZAPRINE (FLEXERIL) 10 MG TABLET Take 1 tablet (10 mg) by mouth 3 (three) times a day as needed for muscle spasms GABAPENTIN (NEURONTIN) 300 MG CAPSULE Take 1 capsule (300 mg) by mouth at bedtime KRILL OIL 500 MG CAPSULE Take 1 tablet by mouth Daily LORATADINE (CLARITIN) 10 MG TABLET Take 10 mg by mouth Daily MULTIPLE VITAMIN (MULTIVITAMIN) TABLET Take 1 tablet by mouth Daily PREDNISOLONE ACETATE (PRED-FORTE) 1 % OPHTHALMIC SUSPENSION Administer 1 drop into both eyes in themorning and 1 drop at noon and 1 drop in the evening and 1 drop before bedtime. Modified Medications Modified Medication Previous Medication ALPRAZOLAM (XANAX) 1 MG TABLET ALPRAZolam (Xanax) 1 MG tablet Take 1 tablet (1 mg) by mouth as needed at bedtime for anxiety or sleep Take 1 tablet (1 mg) by mouth as needed at bedtime for anxiety or sleep Do not start before February 06, 2025. [id number]-[id number] (POLYSPORIN) OPHTHALMIC OINTMENT robscyop-qzrudjatxq-xwabrpice (Polysporin) ophthalmic ointment Apply 1 application to both eyes in the morning and 1 application in the evening and 1 application before bedtime. Apply 1 application to both eyes in the morning and 1 application before bedtime. Discontinued Medications No medications on file Follow up in about 3 months (around 07/02/2025) for chronic recheck. Fahad Pederson DO documented in this encounter Miscellaneous Notes * [facility] Education - Fahad Pederson DO - 04/01/2025 9:24 AM EDT Images from the original note were not included. [id number] Insomnia: Care Instructions Overview Insomnia is the inability to sleep well. Insomnia may make it hard for you to get to sleep, stay asleep, or sleep as long as you need to. This can make you tired and grouchy during the day. It can also make you forgetful, less effective at work, and unhappy. Insomnia can be linked to many things. These include health problems, medicines, and stressful events. Treatment may include treating problems that may be linked with your insomnia. Treatment also includes behavior and lifestyle changes. This may include cognitive behavioral therapy for insomnia (CBT-I). CBT-I uses different ways to help you change your thoughts and behaviors that may interfere withsleep. Your doctor can recommend specific things you can try. Examples include doing relaxation exercises, keeping regular bedtimes and wake times, limiting alcohol, and making healthy sleep habits. Some people decide to take medicine for a while to help with sleep. Follow-up care is a yung part of your treatment and safety. Be sure to make and go to all appointments, and call your doctor if you are having problems. It's also a good idea to know your test resultsand keep a list of the medicines you take. How can you care for yourself at home? Cognitive behavioral therapy for insomnia (CBT-I) ? If your doctor recommends CBT-I, follow your treatment plan. Your doctor will give you instructions that are unique for you. ? Your plan will likely include a few things that you can try at home. For example: o Try meditation or other relaxation techniques before you go to bed. o Go to bed at the same time every night, and wake up at the same time every morning. Do not take naps during the day. o Do not stay in bed awake for too long. If you can't fall asleep, or if you wake up in the middle of the night and can't get back to sleep within about 15 to 20 minutes, get out of bed and go to another room until you feel sleepy. o If watching the clock makes you anxious, turn it facing away from you so you cannot see the time. o If you worry when you lie down, start a worry book. Well before bedtime, write down your worries,and then set the book and your concerns aside. Healthy sleep habits ? If your doctor recommends it, try making healthy sleep habits. For example: o Keep your bedroom quiet, dark, and cool. o Do not have drinks with caffeine, such as coffee or black tea, for 8 hours before bed. o Do not smoke or use other types of tobacco near bedtime. Nicotine is a stimulant and can keep youawake. o Avoid drinking alcohol late in the evening, because it can cause you to wake in the middle of thenight. o Do not eat a big meal close to bedtime. If you are hungry, eat a light snack. o Do not drink a lot of water close to bedtime, because the need to urinate may wake you up during the night. o Do not read, watch TV, or use your phone in bed. Use the bed only for sleeping and sex. Medicine ? Be safe with medicines. Take your medicines exactly as prescribed. Call your doctor if you think you are having a problem with your medicine. ? Talk with your doctor before you try an usvz-ydx-yazzqdl medicine, herbal product, or supplement to try to improve your sleep. Your doctor can recommend how much to take and when to take it. Make sure your doctor knows all of the medicines, vitamins, herbal products, and supplements you take. ? You will get more details on the specific medicines your doctor prescribes. When should you call for help? Watch closely for changes in your health, and be sure to contact your doctor if: ? Your efforts to improve your sleep do not work. ? Your insomnia gets worse. ? You have been feeling down, depressed, or hopeless or have lost interest in things that you usually enjoy. Current as of: February 28, 2023 Content Version: 14.0 Care instructions adapted under license by your healthcare professional. If you have questions about a medical condition or this instruction, always ask your healthcare professional. [employer] disclaims any warranty or liability for your use of this information. ?? [id number] [employer]. documented in this encounter Plan of Treatment Not on file documented as of this encounter Visit Diagnoses Diagnosis Irritation of eye- Primary Insomnia, unspecified type Anxiety attack Panic disorder without agoraphobia documented in this encounter Additional Health Concerns Assessment Noted Time PHQ-9 Depression Total Score: 1 12/18/19 25 4:12 PM EDT documented as of this encounter Care Teams Wood Lather Relationship Specialty Start Date End Date Fahad Pederson DO [address] [facility] [address] [place] [address] PCP - General Family Medicine 02/12/25 documented as of this encounter
[2025-04-04 07:06] VITALS: BP 123/84; PULSE 80; TEMP 36.7; O2SAT 95; BMI 19.0
--- OUTSIDE RECORDS SUMMARY | 2025-04-04 07:32 | XMS_ITS | Encounter Summary ---
Author Organization [facility] Address [address] [place] [address] Care Team Providers Care Spinning Bath Patroller Name Role Phone Fahad Pederson DO Primary Care Provider [phone] Encounter Details Date Type Department Care Team (Late st Contact Info) Description 04/01/2025 Bamboo flowsheet [facility] [address] [place] [phone] Fahad Pederson DO [address] [facility] [address] [place] [address] Social History Tobacco Use Types Packs/Day Years [...] week 11/08/2024 How often do you attend [facility] or sabianist services? More than 4 times per year 11/08/2024 Do you belong to any clubs o r organizations such as denominational groups, unions, fraternal or athletic groups, or [...] Recorded Patient Health Questionnaire-2 Score 0 04/01/2025 [facility] ional [facility] - Occupational Stress Questionnaire Answer Date Recorded [...] any time in the past 12 m [facility], were you homeless or living in a detention (including now)? No 11/08/2024 Comments Unknown Sex and Gender Information Value Date Recorded Sex Assigned at Not on file Legal Sex Female 6:46 PM EDT Gender Identity Not on file Sexual Orientation Not on file documented as of this encounter Plan of Treatment Not on file documented as of this encounter Visit Diagnoses Not on filedocumented in this encounter Additional Health Concerns Assessment Noted Time PHQ-9 Depression Total Score: 1 12/18/19 4:12 PM EDT documented as of this encounter Care Teams Spinning Bath Patroller Relationship Specialty Start Date End Date Fahad Pederson DO [address] [address] PCP - General Family Medicine 02/12/25 documented as of this encounter
--- OUTSIDE RECORDS SUMMARY | 2025-04-04 07:32 | XMS_ITS | Encounter Summary ---
Author Organization [facility] Address [address] [place] [address] Care Team Providers Care Invasive Manager Name Role Phone Bg Fahad DO Primary Care Provider [phone] Fahad Pederson DO Primary Care Provider [phone] Encounter Details Date Type Department Care Team (Late st Contact Info) Description 07/09/2024 Orders Only [facility] [address] [place] [address] Fahad Pederson DO [address] [address] Social History Tobacco Use Types Packs/Day Years Used Date Smoking Tobacco: Every Day Cigarettes Smokeless Tobacco: Never Alcohol Use Standard Drinks/Week Comments Not Currently 0 (1 standard drink = 0.6 oz pure alcohol) caffeine intake: 1-2 cups per day pop and coffee AUDIT-C Answer Date Recorded Q1: How often do you have a drink containing alcohol? Never 07/11/2024 Q2: How many drinks containi ng alcohol do you have on a typical day when you are drinking? Patient does not drink Q3: How often do you have si x or more drinks on one occasion? Never 07/11/2024 PHQ-2 Answer Date Recorded Patient Health Questionnaire-2 Score 0 07/11/2024 [facility] of Occupat ional Health - Occupational Stress Questionnaire Answer Date Recorded Do you feel stress - tense, restless, nervous, or anxious, or unable to sleep at night because your mind is troubled all the time - these days? Only a little 07/04/2024 Comments Unknown Sex and Gender Information Value Date Recorded Sex Assigned at Not on file Legal Sex Female 6:46 PM EDT Gender Identity Not on file Sexual Orientation Not on file documented as of this encounter Functional Status * Audit-C Score Answer Date of Assessment Author 0 07/11/2024 10:18 AM Luis Tinsley LPN * Question Answer Date of Assessment Author Q1: How often do you have a drink containing alcohol? Never 07/11/2024 10:18 AM Jennifer Tinsley LP N Q2: How many drinks containing alcohol do you have on a typical day when you are drinking? Patient does not drink 07/11/2024 10:18 AM Jennifer Tinsley LPN Q3: How often do you have six or more drinks on one occasion? Never 07/11/2024 10:18 AM Jennifer Tinsley LP N * Over the past 2 weeks, how often have you been bothered by any of the following problems? Question Answer Date of Assessment Author Little interest or pleasure in doing things Not at all 07/11/2024 10:18 AM Jennifer Tinsley LP N Feeling down, depressed, or hopeless Not at all 07/11/2024 10:18 AM Jennifer Tinsley LP N Patient Health Questionnaire -2 Score 0 07/11/2024 10:18 AM Jennifer Tinsley LP N documented as of this encounter Plan of Treatment Not on file documented as of this encounter Procedures Procedure Name Priority Date/Time Associated Diagnosis Comments COLONOSCOPY DIAGNOSTIC Routine 12/01/2021 1:18 PM EDT documented in this encounter Results * COLONOSCOPY DIAGNOSTIC (12/01/2021 1:18 PM EDT) Anatomical Region Laterality Modality Radiographic Agata ging Fahad Pederson DO IMG XR PROCEDURES Final Result documented in this encounter Visit Diagnoses Not on filedocumented in this encounter Care Teams Invasive Manager Relationship Specialty Start Date End Date Fahad Pederson DO PCP - General Family Medicine 07/04/24 02/11/25 Fahad Pederson DO [address] [address] PCP - General Family Medicine 02/12/25 documented as of this encounter
--- OUTSIDE RECORDS SUMMARY | 2025-04-04 07:32 | XMS_ITS | Encounter Summary ---
Author Organization [facility] Address [address] [facility] [place] [address] Care Team Providers Care Cord Tire Builder Name Role Phone Fahad Pederson DO Primary Care Provider [phone] Fahad Pederson DO Primary Care Provider [phone] Reason for Visit * Reason Onset Date Comments Other 10/05/2024 call box wirer Encounter Details Date Type Department Care Team (Late st Contact Info) Description 10/05/2024 Telephone [facility] [address] [place] [place] [address] Fahad Pederson DO [address] [address] Other (call box wirer/) Social History Tobacco Use Types Packs/Day Years Used Date Smoking Tobacco: Every Day Cigarettes Smokeless Tobacco: Never Alcohol Use Standard Drinks/Week Comments Not Currently 0 (1 standard drink = 0.6 oz pure alcohol) caffeine intake: 1-2 cups per day pop and coffee AUDIT-C Answer Date Recorded Q1: How often do you have a drink containing alc ohol? Monthly or less 10/09/2024 Q2: How many drinks containi ng alcohol do you have on a typical day when you are drinking? 1 or 2 10/09/2024 Q3: How often do you have si x or more drinks on one occasion? Less than monthly 10/09/2024 PHQ-2 Answer Date Recorded Patient Health Questionnaire-2 Score 0 10/09/2024 [facility] of Occupat ional Health - Occupational Stress [...] on file documented as of this encounter Miscellaneous Notes * Telephone Encounter - Fahad Pederson DO - 10/05/2024 5:11 PM EST Order sent to [facility] * Telephone Encounter - Ana Sherman - 10/05/2024 2:30 PM EST Per Fahad Pederson DO I will try to send an x-ray order here in a little bit and on Tuesday have someone reach out to schedule Pt informed Pt request imaging to be done at [facility] * Telephone Encounter - Ana Sherman - 10/05/2024 2:05 PM EST Brie Farrell is a 64 y.o. female pt called in reporting that she fell and slipped on the ice this morning at 6 am. Pt fell on her left hip, Pt reports no loss of consciousness , pt pain is 8/10. Pt reports going to ER but signing herself out because of her ride. Pt is requesting out pt X-rays for her left hip and an appointment with Dr. Pederson as soon as possible. Call back number is [phone]. documented in this encounter Plan of Treatment Scheduled Orders Name Type Priority Associated Diagnoses Orde r Schedule XR hip left 2 or 3 views Imaging Routine Left hip pain Fall, subsequent encounter Expected: 10/05/2024, Expires: 10/05/2025 documented as of this encounter Visit Diagnoses Diagnosis Left hip pain- Primary Pain in joint, pelvic region and thigh Fall, subsequent encounter documented in this encounter Care Teams Cord Tire Builder Relationship Specialty Start Date End Date Fahad Pederson DO PCP - General Family Medicine 07/04/24 02/11/25 Fahad Pederson DO [address] [address] PCP - General Family Medicine 02/12/25 documented as of this encounter
--- OUTSIDE RECORDS SUMMARY | 2025-04-04 07:32 | XMS_ITS | Encounter Summary ---
Author Organization [facility] Address [address] [place] [address] Care Team Providers Care Centrifugal Extractor Operator Name Role Phone Fahad Pederson DO Primary Care Provider [phone] Fahad Pederson DO Primary Care Provider Encounter Details Date Type Department Care Team (Late st Contact Info) Description 12/12/2024 Abstract [facility] [address] [place] [address] Fahad Pederson DO [address] [address] Social History Tobacco Use Types Packs/Day Years [...] week 11/08/2024 How often do you attend [facility] or mosque services? More than 4 times per year 11/08/2024 Do you belong to any clubs o r organizations such as christianity groups, unions, fraternal or athletic groups, or school groups? No 11/08/2024 How often do you attend meet ings of the clubs or organizations you belong to? Never 11/08/2024 Are you , , di vorced, , never , or living with a partner? 11/08/2024 AUDIT-C Answer Date Recorded Q1: How often do you have a drink containing alcohol? Never 11/08/2024 Q2: How many drinks containi ng alcohol do you have on a typical day when you are drinking? Patient does not drink Q3: How often do you have si x or more drinks on one occasion? Never 11/08/2024 Overall Financial Resource Strain (CARDIA) Answe r Date Recorded How hard is it for you to pa y for the very basics like food, housing, medical care, and heating? Somewhat hard 11/08/2024 PHQ-2 Answer Date Recorded Patient Health Questionnaire-2 Score 0 10/15/2024 [facility] of Occupat ional Health - Occupational Stress [...] any time in the past 12 m [facility], were you homeless or living in a long-term (including now)? No 11/08/2024 Comments Unknown Sex and Gender Information Value Date Recorded Sex Assigned at Not on file Legal Sex Female 6:46 PM EDT Gender Identity Not on file Sexual Orientation Not on file documented as of this encounter Plan of Treatment Not on file documented as of this encounter Visit Diagnoses Not on filedocumented in this encounter Care Teams Centrifugal Extractor Operator Relationship Specialty Start Date End Date Fahad Pederson DO PCP - General Family Medicine 07/04/24 02/11/25 Fahad Pederson DO [address] [address] PCP - General Family Medicine 02/12/25 documented as of this encounter
--- OUTSIDE RECORDS SUMMARY | 2025-04-04 07:32 | XMS_ITS | Encounter Summary ---
Author Organization [facility] Address [address] [place] [address] Care Team Providers Care Test Equipment Mechanic Name Role Phone Alexx Dougherty DO Primary Care Provider [phone] Pcp, No Primary Care Provider Unavailabl e Pcp, No Primary Care Provider Unavailabl e Pcp, No Primary Care Provider Unavailabl e Source Comments In the event this information is protected by the Federal Confidentiality of Alcohol and Drug AbusePatient Records regulations: The Federal rules restrict any use of the information to criminally investigate or prosecute any alcohol or drug abuse patient.[facility] Encounter Details Date Type Department Care Team (Latest Contact Info) Description 04/19/2005 Prob Sum Review Provider, Nicole Social History Tobacco Use Types Packs/Day Years Used Date Smoking Tobacco: Never Assessed Comments No Sex and Gender Information Value Date Recorded Sex Assigned at Not on file Legal Sex Female 10:03 AM EST Gender Identity Not on file Sexual Orientation Not on file documented as of this encounter Plan of Treatment Not on file documented as of this encounter Visit Diagnoses Not on filedocumented in this encounter Care Teams Test Equipment Mechanic Relationship Specialty Start Date End Date Alexx Dougherty DO PCP - General 08/07/07 03/05/22 Pcp, No PCP - General 07/22/07 08/06/07 Pcp, No PCP - General 02/19/04 06/21/05 Pcp, No PCP - General 03/06/22 09/21/22 documented as of this encounter
--- OUTSIDE RECORDS SUMMARY | 2025-04-04 07:32 | XMS_ITS | Encounter Summary ---
Author Organization [facility] Address [address] [place] [address] Care Team Providers Care Soft Tile Setter Name Role Phone Fahad Pederson DO Primary Care Provider [phone] Encounter Details Date Type Department Care Team (Late st Contact Info) Description 04/03/2025 Bamboo flowsheet [facility] [address] [place] [address] Fahad Pederson DO [address] [facility] [address] [place] [address] Social History Tobacco Use Types Packs/Day Years [...] week 11/08/2024 How often do you attend [facility] or uatsdin services? More than 4 times per year 11/08/2024 Do you belong to any clubs o r organizations such as yarsanism groups, unions, fraternal or athletic groups, or [...] Recorded Patient Health Questionnaire-2 Score 0 04/01/2025 [facility] of Occupat ional [facility] - Occupational Stress Questionnaire Answer Date [...] any time in the past 12 m [facility], were you homeless or living in a halfway (including now)? No 11/08/2024 Comments Unknown Sex [...] documented as of this encounter Care Teams Soft Tile Setter Relationship Specialty Start Date End Date Fahad Pederson DO [address] [address] PCP - General Family Medicine 02/12/25 documented as of this encounter
--- OUTSIDE RECORDS SUMMARY | 2025-04-04 07:32 | XMS_ITS | Encounter Summary ---
Author Organization [facility] Address [address] [place] [address] Care Team Providers Care Tricot Knitting Machine Operator Name Role Phone Fahad Pederson DO Primary Care Provider [phone] Fahad Pederson DO Primary Care Provider [phone] Encounter Details Date Type Department Care Team (Late st Contact Info) Description 11/28/2024 Orders Only [facility] [address] [place] [address] Fahad Pederson DO [address] [address] Social History Tobacco Use Types Packs/Day Years [...] week 11/08/2024 How often do you attend [facility] or confucianism services? More than 4 times per year 11/08/2024 Do you belong to any clubs o r organizations such as alevism groups, unions, fraternal or athletic groups, or [...] Patient Health Questionnaire-2 Score 0 10/15/2024 [facility] of Occupat ional Health - [...] any time in the past 12 m [facility], were you homeless or living in a senior care (including now)? No 11/08/2024 Comments Unknown Sex and Gender Information Value Date Recorded Sex Assigned at Not on file Legal Sex Female 6:46 PM EDT Gender Identity Not on file Sexual Orientation Not on file documented as of this encounter Plan of Treatment Not on file documented as of this encounter Procedures Procedure Name Priority Date/Time Associated Diagnosis Comments CBC Routine 11/28/2024 10:22 AM EDT COMPREHENSIVE METABOLIC PANEL Routine 11/27/2024 11:44 AM EDT documented in this encounter Results * CBC (11/28/2024 10:22 AM EDT) Blood Venous blood specimen / Unknown Fahad Pederson DO LAB BLOOD ORDERABLES Final Resu lt * Comprehensive metabolic panel (11/27/2024 11:44 AM EDT) Blood Venous blood specimen / Unknown Fahad Pederson DO LAB BLOOD ORDERABLES Final Resu lt documented in this encounter Visit Diagnoses Not on filedocumented in this encounter Care Teams Tricot Knitting Machine Operator Relationship Specialty Start Date End Date Fahad Pederson DO PCP - General Family Medicine 07/04/24 02/11/25 Fahad Pederson DO [address] [place] [address] PCP - General Family Medicine 02/12/25 documented as of this encounter
--- OUTSIDE RECORDS SUMMARY | 2025-04-04 07:32 | XMS_ITS | Encounter Summary ---
Author Organization [facility] Address [address] [place] [address] Care Team Providers Care Quarter Inspector Name Role Phone Fahad Pederson DO Primary Care Provider [phone] Fahad Pederson DO Primary Care Provider Encounter Details Date Type Department Care Team (Late st Contact Info) Description 12/12/2024 Results [facility] [address] [place] [address] Fahad Pederson DO [address] [facility] [address] [place] [address] MAMMOGRAM* Social History Tobacco Use Types Packs/Day Years [...] week 11/08/2024 How often do you attend [facility] or confucianism services? More than 4 times per year 11/08/2024 Do you belong to any clubs o r organizations such as druze groups, unions, fraternal or athletic groups, or [...] Recorded Patient Health Questionnaire-2 Score 0 10/15/2024 [facility] of Occupat ional [facility] - Occupational Stress Questionnaire Answer [...] any time in the past 12 m [facility], were you homeless or living in a chcf (including now)? No 11/08/2024 Comments Unknown Sex and Gender Information Value Date Recorded Sex Assigned at Not on file Legal Sex Female 6:46 PM EDT Gender Identity Not on file Sexual Orientation Not on file documented as of this encounter Plan of Treatment Not on file documented as of this encounter Visit Diagnoses Not on filedocumented in this encounter Care Teams Quarter Inspector Relationship Specialty Start Date End Date Fahad Pederson DO PCP - General Family Medicine 07/04/24 02/11/25 Fahad Pederson DO [address] [address] PCP - General Family Medicine 02/12/25 documented as of this encounter
--- OUTSIDE RECORDS SUMMARY | 2025-04-04 07:32 | XMS_ITS | Encounter Summary ---
Author Organization [facility] Address [address] [place] [address] Care Team Providers Care Fuel Retrofitting Technician Name Role Phone Fahad Pederson DO Primary Care Provider [phone] Encounter Details Date Type Department Care Team (Latest Contact Info) Description 03/27/2025 Travel Social History Tobacco Use Types Packs/Day Years [...] week 11/08/2024 How often do you attend chur ch or uatsdin services? More than 4 times per year 11/08/2024 Do you belong to any clubs o r organizations such as jehovah's witness groups, unions, fraternal or athletic groups, or school groups? No 11/08/2024 How often do you attend meet ings of the clubs or organizations you belong to? Never 11/08/2024 Are you , , di vorced, , never , or living with a partner? 11/08/2024 AUDIT-C Answer Date Recorded Q1: How often do you have a drink containing alcohol? Never 02/20/2025 Q2: How many drinks containi ng alcohol do you have on a typical day when you are drinking? Patient does not drink Q3: How often do you have si x or more drinks on one occasion? Never 02/20/2025 Overall Financial Resource Strain (CARDIA) Answe r Date Recorded How hard is it for you to pa y for the very basics like food, housing, medical care, and heating? Somewhat hard 11/08/2024 PHQ-2 Answer Date Recorded Patient Health Questionnaire-2 Score 0 02/20/2025 [facility] of Occupat ional Health - [...] any time in the past 12 m [facility], were you homeless or living in a assisted (including now)? No 11/08/2024 Comments Unknown Sex [...] documented as of this encounter Care Teams Fuel Retrofitting Technician Relationship Specialty Start Date End Date Fahad Pederson DO [address] [address] PCP - General Family Medicine 02/12/25 documented as of this encounter
--- OUTSIDE RECORDS SUMMARY | 2025-04-04 07:32 | XMS_ITS | Encounter Summary ---
Author Organization [facility] Address [address] [place] [address] Care Team Providers Care Charge Preparation Technician Name Role Phone Nomi Velez DO Primary Care Provider [phone] Fahad Pederson DO Primary Care Provider [phone] Fahad Pederson DO Primary Care Provider [phone] Encounter Details Date Type Department Care Team (Late st Contact Info) Description 01/17/2023 Abstract [facility] [address] [place] [address] Nomi Velez DO [address] [place] [address] Social History Tobacco Use Types Packs/Day Years Used Date Smoking Tobacco: Every Day Cigarettes Tobacco Cessation:Ready to Q uit: Not Asked; Counseling Given: Not Answered Alcohol Use Standard Drinks/Week Comments Not Currently 0 (1 standard drink = 0.6 oz pure alcohol) caffeine intake: 1-2 cups per day pop and coffee Comments Unknown Sex and Gender Information Value Date Recorded Sex Assigned at Not on file Legal Sex Female 6:46 PM EDT Gender Identity Not on file Sexual Orientation Not on file documented as of this encounter Plan of Treatment Not on file documented as of this encounter Visit Diagnoses Not on filedocumented in this encounter Care Teams Charge Preparation Technician Relationship Specialty Start Date End Date Nomi Velez DO [address] [place] [address] PCP - General Family Medicine 12/28/22 07/03/24 Fahad Pederson DO [address] [place] [address] PCP - General Family Medicine 07/04/24 02/11/25 Fahad Pederson DO [address] [address] PCP - General Family Medicine 02/12/25 documented as of this encounter
--- OUTSIDE RECORDS SUMMARY | 2025-04-04 07:32 | XMS_ITS | Encounter Summary ---
Author Organization [facility] Address [address] [place] [address] Care Team Providers Care Petroleum Refining Firer Name Role Phone Fahad Pederson DO Primary Care Provider [phone] Fahad Pederson DO Primary Care Provider [phone] Encounter Details Date Type Department Care Team (Late st Contact Info) Description 11/08/2024 Abstract [facility] [address] [place] [address] Fahad Pederson DO [address] [address] Social History Tobacco Use Types Packs/Day Years [...] week 11/08/2024 How often do you attend [facility] or scientology services? More than 4 times per year 11/08/2024 Do you belong to any clubs o r organizations such as caodaism groups, unions, fraternal or athletic groups, or [...] Recorded Patient Health Questionnaire-2 Score 0 10/15/2024 [facility] of Occupat ional Health - [...] any time in the past 12 m [facility], were you homeless or living in a mcc (including now)? No 11/08/2024 Comments Unknown Sex and Gender Information Value Date Recorded Sex Assigned at Not on file Legal Sex Female 6:46 PM EDT Gender Identity Not on file Sexual Orientation Not on file documented as of this encounter Functional Status * Audit-C Score Answer Date of Assessment Author 0 11/08/2024 11:14 AM EDT Mychart, Generic * Q1: How often do you have a drink containing alcohol? Answer Date of Assessment Author Never 11/08/2024 11:14 AM EDT Mychart, Generic * Q2: How many drinks containing alcohol do you have on a typical day when you are drinking? Answer Date of Assessment Author Patient does not drink 11/08/2024 11:14 AM EDT M ychart, Generic * Q3: How often do you have six or more drinks on one occasion? Answer Date of Assessment Author Never 11/08/2024 11:14 AM EDT Mychart, Generic documented as of this encounter Plan of Treatment Not on file documented as of this encounter Visit Diagnoses Not on filedocumented in this encounter Care Teams Petroleum Refining Firer Relationship Specialty Start Date End Date Fahad Pederson DO PCP - General Family Medicine 07/04/24 02/11/25 Fahad Pederson DO [address] [address] PCP - General Family Medicine 02/12/25 documented as of this encounter
--- OUTSIDE RECORDS SUMMARY | 2025-04-04 07:32 | XMS_ITS | Encounter Summary ---
Author Organization [facility] Address [address] [place] [address] Care Team Providers Care Acid Conditioning Worker Name Role Phone Fahad Pederson DO Primary Care Provider [phone] Fahad Pederson DO Primary Care Provider [phone] Encounter Details Date Type Department Care Team (Late st Contact Info) Description 12/12/2024 Orders Only [facility] [address] [place] [address] Fahad Pederson DO [address] [address] Social History Tobacco Use Types Packs/Day Years [...] week 11/08/2024 How often do you attend [facility] or zoroastrian services? More than 4 times per year 11/08/2024 Do you belong to any clubs o r organizations such as synagogue groups, unions, fraternal or athletic groups, or [...] Recorded Patient Health Questionnaire-2 Score 0 10/15/2024 [facility] of Occupat ional Health - Occupational [...] any time in the past 12 m [facility], were you homeless or living [...] Procedure Name Priority Date/Time Associated Diagnosis Comments MAMMOGRAM* Routine 12/12/2024 11:03 AM EDT MAMMOGRAM* Routine 12/12/2024 10:57 AM EDT documented in this encounter Results * MAMMOGRAM* (12/12/2024 11:03 AM EDT) Anatomical Region Laterality Modality Radiographic Agata ging Fahad Pederson DO IMG XR PROCEDURES Final Result * MAMMOGRAM* (12/12/2024 10:57 AM EDT) Anatomical Region Laterality Modality Radiographic Agata ging us Fahad Pederson DO IMG XR PROCEDURES Final Result documented in this encounter Visit Diagnoses Not on filedocumented in this encounter Care Teams Acid Conditioning Worker Relationship Specialty Start Date End Date Fahad Pederson DO PCP - General Family Medicine 07/04/24 02/11/25 Fahad Pederson DO [address] [place] [id number] PCP - General Family Medicine 02/12/25 documented as of this encounter
--- OUTSIDE RECORDS SUMMARY | 2025-04-04 07:32 | XMS_ITS | Encounter Summary ---
Author Organization [facility] Address [address] [place] [address] Care Team Providers Care Qual Research Manager Name Role Phone Fahad Pederson DO Primary Care Provider [phone] Fahad Pederson DO Primary Care Provider [phone] Reason for Visit * Reason Comments Med Refill Encounter Details Date Type Department Care Team (Late st Contact Info) Description 11/07/2024 Refill [facility] [address] [place] [place] [address] Fahad Pederson DO [address] [address] Left hip pain; Hematoma Social History Tobacco Use Types Packs/Day Years [...] How often do you attend [facility] or congregation services? More than 4 times per year 11/08/2024 Do you belong to any clubs o r organizations such as sabianist groups, unions, fraternal or athletic groups, or [...] Recorded Patient Health Questionnaire-2 Score 0 10/15/2024 [facility] - Occupational Stress Questionnaire Answer Date [...] any time in the past 12 m [facility], were you homeless or living in a jail (including now)? No 11/08/2024 Comments Unknown Sex [...] Mychart, Generic documented as of this encounter Miscellaneous Notes * Telephone Encounter - JUSTINO CHOWDHURY - 11/07/2024 7:48 AM EDT refuse documented in this encounter Plan of Treatment Not on file documented as of this encounter Visit Diagnoses Diagnosis Left hip pain Pain in joint, pelvic region and thigh Hematoma Contusion of unspecified site documented in this encounter Care Teams Qual Research Manager Relationship Specialty Start Date End Date Fahad Pederson DO PCP - General Family Medicine 07/04/24 02/11/25 Fahad Pederson DO [address] [place] [address] PCP - General Family Medicine 02/12/25 documented as of this encounter
--- OUTSIDE RECORDS SUMMARY | 2025-04-04 07:32 | XMS_ITS | Clinical Summary ---
Author Organization [facility] Address [address] [place] [address] Care Team Providers Care Last Greaser Name Role Phone Unavailable Primary Care Provider Unavailabl e Allergies Active Allergy Reactions Criticality Noted Date Comments Codeine Nausea And Vomiting, GI intolerance Low 09/11/2007 Other reaction(s): Vomiting All codeine drugs. All codeine drugs. Mold Unknown 06/11/2021 Other reaction(s): Unknown Penicillins Hives 04/08/2004 Other reaction(s): hives, hives Active Problems Problem Noted Date Diagnosed Date Body mass index less than 19, adult 08/08/2022 Cigarette nicotine dependence without complicati on 08/08/2022 VALENTINA (generalized anxiety disorder) 08/08/2022 Mild protein-calorie malnutrition 08/08/2022 Routine health maintenance 08/08/2022 Acute cystitis with hematuria 12/15/2017 Gross hematuria 12/15/2017 Chronic pain 2012 Depression 2012 Chronic hepatitis C without mention of hepatic c glory 04/08/2004 Immunizations Immunization Administration Dates Next Due DTP 11/25/2020 Influenza, Recombinant, injectable, preservative free 07/17/2024 Influenza, injectable, MDCK, preservative free, quadrivalent 06/02/2023 Influenza, injectable, quadrivalent, preservativ e free 06/08/2021,05/21/2020 Pfizer SARS-CoV-2 Vaccination 07/13/2021 Tdap 11/25/2020 Social History Tobacco Use Types Packs/Day Years Used Date Smoking Tobacco: Never Assessed Comments Unknown Sex and Gender Information Value Date Recorded Sex Assigned at Not on file Legal Sex Female 11:23 AM EDT Gender Identity Not on file Sexual Orientation Not on file Plan of Treatment Upcoming Encounters Date Type Department Care Team (Late st Contact Info) Description 06/27/2025 10:30 AM EST Office Visit [facility] [address] [place] [id number] Mai Patterson, RAILROAD INSPECTOR [address] [facility] [address] [facility] [place] [address] Health Maintenance Due Date Last Done Comments CT Colonography 1961 FIT-DNA 1961 FIT 1961 FOBT 1961 Sigmoidoscopy 1961 Depression Screening 1973 Pneumococcal Vaccine: Pediatrics (0 to 5 Years) and At-Risk Patients (6 to 64 Years) (1 of 2 - PCV) 1980 Pap Smear 1982 Cervical Cancer Screening 1991 HPV/Cotest 1991 Mammogram 2001 Zoster Vaccines (1 of 2) 2011 COVID-19 Vaccine ( season) 2024 07/17/2024, 06/02/2023, 06/14/2022, Additional history exists Influenza Vaccine (#1) 2025 , 06/02/2023, 06/08/2021, Additional history exists Adult Tetanus 11/25/2030 11/25/2020 Colonoscopy 12/02/2031 12/01/2021 Colorectal Cancer Screening 12/02/2031 HIB Vaccines Aged Out No longer eligi ble based on patient's age to complete this topic HPV Vaccines Aged Out No longer eligi ble based on patient's age to complete this topic IPV Vaccines Aged Out No longer eligi ble based on patient's age to complete this topic Meningococcal B Vaccine Aged Out No l onger eligible based on patient's age to complete this topic Meningococcal Vaccine Aged Out No betsy cory eligible based on patient's age to complete this topic Rotavirus Vaccines Aged Out No longer eligible based on patient's age to complete this topic Insurance [employer]
--- OUTSIDE RECORDS SUMMARY | 2025-04-04 07:32 | XMS_ITS | Encounter Summary ---
Author Organization [facility] Address [address] [place] [address] Care Team Providers Care Patient Access Representative Name Role Phone Fahad Pederson DO Primary Care Provider [phone] Fahad Pederson DO Primary Care Provider [phone] Reason for Visit * Reason Onset Date Comments Med Refill 02/01/2025 Encounter Details Date Type Department Care Team (Late st Contact Info) Description [facility] [address], [facility] [address] [place] [address] Fahad Pederson DO [address] [facility] [address] [place] [address] Social History Tobacco Use Types Packs/Day Years [...] week 11/08/2024 How often do you attend [facility] or latter-day services? More than 4 times per year 11/08/2024 Do you belong to any clubs o r organizations such as buddhist groups, unions, fraternal or athletic groups, or school groups? No 11/08/2024 How often do you attend meet ings of the clubs or organizations you belong to? Never 11/08/2024 Are you , , di vorced, , never , or living with a partner? 11/08/2024 AUDIT-C Answer Date Recorded Q1: How often do you have a drink containing alcohol? Never 12/26/2024 Q2: How many drinks containi ng alcohol do you have on a typical day when you are drinking? Patient does not drink Q3: How often do you have si x or more drinks on one occasion? Never 12/26/2024 Overall Financial Resource Strain (CARDIA) Answe r Date Recorded How hard is it for you to pa y for the very basics like food, housing, medical care, and heating? Somewhat hard 11/08/2024 PHQ-2 Answer Date Recorded Patient Health Questionnaire-2 Score 0 12/26/2024 [facility] - Occupational [...] any time in the past 12 m [facility], were you homeless or living in a [facility] (including now)? No 11/08/2024 Comments Unknown Sex and Gender Information Value Date Recorded Sex Assigned at Not on file Legal Sex Female 6:46 PM EDT Gender Identity Not on file Sexual Orientation Not on file documented as of this encounter Miscellaneous Notes * Telephone Encounter - Fahad Pederson DO - 02/12/2025 10:05 AM EDT See my last note, is that a duplicate or a new message from her? * Telephone Encounter - Laquita Ward MA - 02/12/2025 9:33 AM EDT Patient is requesting a refill of pain medication (norco) due to back pain. * Telephone Encounter - Fahad Pederson DO - 02/11/2025 3:07 PM EDT okay * Telephone Encounter - Jennifer Del Valle MA - 02/11/2025 10:02 AM EDT Patient called stated she went to Urgent Care again for her back pain and is in more back pain now.Should she come in for another appt? documented in this encounter Plan of Treatment Not on file documented as of this encounter Visit Diagnoses Not on filedocumented in this encounter Additional Health Concerns Assessment Noted Time PHQ-9 Depression Total Score: 1 12/18/19 25 4:12 PM EDT documented as of this encounter Care Teams Patient Access Representative Relationship Specialty Start Date End Date Fahad Pederson DO PCP - General Family Medicine 07/04/24 02/11/25 Fahad Pederson DO [address] [address] PCP - General Family Medicine 02/12/25 documented as of this encounter
--- OUTSIDE RECORDS SUMMARY | 2025-04-04 07:32 | XMS_ITS | Clinical Summary ---
Author Organization [facility] Address [address] [place] [address] Care Team Providers Care Remotely Operated Vehicle Name Role Phone Fahad Pederson DO Primary Care Provider [phone] Allergies Active Allergy Reactions Criticality Noted Date Comments Penicillins 02/09/2025 Medications Krill Oil 500 MG capsule Take 1 tablet by mouth Daily Active Multiple Vitamin (multivitamin) tabletIndicati ons:Vitamin Deficiency Take 1 tablet by mouth Daily Active cholecalcifero l (Vitamin D-3) 10 MCG (400 UNIT) capsuleIndicat ions:Vitamin D Deficiency Take 400 Units by mouth Daily Active loratadine (Claritin) 10 MG tablet Take 10 mg by mouth Daily Active cyclobenzaprin e (Flexeril) 10 MG tabletIndicati ons:Low back strain, subsequent encounter Take 1 tablet (10 mg) by mouth 3 (three) times a day as needed for muscle spasms 90 tablet 2 03/20/20 25 025 Active gabapentin (Neurontin) 300 MG capsuleIndicat ions:Neuropath ic pain Take 1 capsule (300 mg) by mouth at bedtime 30 capsule 03/20/20 25 025 Active prednisoLONE acetate (Pred-Forte) 1 % ophthalmic suspension Administer 1 drop into both eyes in the morning and 1 drop at noon and 1 drop in the evening and 1 drop before bedtime. Active neomycin-bacit racin-polymyxi n (Polysporin) ophthalmic ointmentIndica tions:Irritati on of eye Apply 1 application to both eyes in the morning and 1 application in the evening and 1 application before bedtime. 3.5 g 04/01/20 25 025 Active ALPRAZolam (Xanax) 1 MG tabletIndicati ons:Insomnia, unspecified type,Anxiety attack Take 1 tablet (1 mg) by mouth as needed at bedtime for anxiety or sleep 30 tablet 04/01/20 25 025 Active ALPRAZolam (Xanax) 1 MG tabletIndicati ons:Anxiety attack,Insomni a, unspecified type Take 1 tablet (1 mg) by mouth as needed at bedtime for anxiety or sleep Do not start before February 06, 2025. 30 tablet 02/07/20 25 025 Discontinued(R eorder) triamcinolone (Kenalog) 0.1 % creamIndicatio ns:Dermatitis Apply 1 application topically in the morning and 1 application before bedtime. Use for max of 14 days in a row on outbreaks. 15 g 02/05/20 25 025 gabapentin (Neurontin) 300 MG capsuleIndicat ions:Neuropath ic pain TAKE 1 CAPSULE BY MOUTH NEEDED AT BEDTIME FOR PAIN 30 capsule 02/20/20 25 025 Discontinued(R eorder) cyclobenzaprin e (Flexeril) 10 MG tabletIndicati ons:Low back strain, subsequent encounter Take 1 tablet (10 mg) by mouth 3 (three) times a day as needed for muscle spasms 90 tablet 02/21/20 25 025 Discontinued neomycin-bacit racin-polymyxi n (Polysporin) ophthalmic ointment Apply 1 application to both eyes in the morning and 1 application before bedtime. 025 Discontinued(R eorder) Active Problems No known active problems Encounters Date Type Department Care Team Description 04/03/2025 Bamboo flowsheet [facility] [address], [address] [place] [address] Fahad Pederson DO 04/01/2025 9:00 AM EDT Office Visit [facility] [address], [address] [place] [address] Fahad Pederson DO Irritation of eye (Primary Dx); Insomnia, unspecified type; Anxiety attack 04/01/2025 Bamboo flowsheet [facility] [address], [address] [place] [phone] Fahad Pederson DO 03/27/2025 Travel 03/20/2025 Refill [facility] [address], [address] [place] [phone] Fahad Pederson DO Neuropathic pain 03/19/2025 Refill [facility] [address], [address] [place] [phone] Fahad Pederson DO Low back strain, subsequent encounter 02/20/2025 8:40 AM EDT Follow-Up [facility] [address], [address] [place] [phone] Fahad Pederson DO Fall, subsequent encounter (Primary Dx); Low back strain, subsequent encounter; Spasm of thoracic back muscle 02/17/2025 Refill [facility] [address] [place] [phone] Fahad Pederson DO Neuropathic pain 02/13/2025 8:00 AM EDT Office Visit [facility] [address], [address] [place] [phone] Fahad Pederson DO Fall, subsequent encounter (Primary Dx); Acute bilateral low back pain without sciatica; Low back strain, subsequent encounter; Osteoarthritis of lumbar spine, unspecified spinal osteoarthritis complication status 02/13/2025 Bamboo flowsheet [facility] [address], [address] [place] [phone] Fahad Pederson DO 02/11/2025 Refill [facility] [address] [place] [phone] Ciarra Bustamante, VALE Acute bilateral low back pain without sciatica; Low back strain, initial encounter; Osteoarthritis of lumbar spine, unspecified spinal osteoarthritis complication status 02/09/2025 12:00 PM EDT Ancillary Procedure [facility] [address] [place] [address] Acute bilateral low back pain without sciatica 02/09/2025 11:10 AM EDT Office Visit [facility] [address] [place] [address] Ciarra Bustamante, VALE Acute bilateral low back pain without sciatica (Primary Dx); Low back strain, initial encounter; Osteoarthritis of lumbar spine, unspecified spinal osteoarthritis complication status 02/09/2025 Travel 02/08/2025 11:15 AM EDT Ancillary Procedure [facility] [address] [place] [address] 02/08/2025 11:00 AM EDT Office Visit [facility] [address], [address] [place] [address] Fahad Pederson DO Fall, initial encounter (Primary Dx); Right forearm pain; Dermatitis 02/08/2025 Travel 02/08/2025 Bamboo flowsheet [facility] [address], [address] [place] [address] Fahad Pederson DO 02/04/2025 Telephone [facility] [address] [place] [address] Laquita Ward MA 02/01/2025 Refill [facility] [address], [address] [place] [address] Fahad Pederson DO 02/01/2025 Refill [facility] [address] [place] [address] Fahad Pederson DO Anxiety attack ; Insomnia, unspecified type 01/09/2025 Telephone [facility] [address] [place] [address] Laquita Ward MA 01/08/2025 Refill [facility] [place] [facility] [address] [place] [address] Fahad Pederson DO Anxiety attack ; Insomnia, unspecified type from Last 3 Months Immunizations Immunization Administration Dates Next Due DTP 11/25/2020 Influenza, Recombinant, injectable, preservative free 07/17/2024 Influenza, injectable, MDCK, preservative free, quadrivalent 06/02/2023 Influenza, injectable, quadrivalent, preservativ e free 06/08/2021,05/21/2020 Pfizer Purple Cap SARS-CoV-2 Vaccination 021 Tdap 11/25/2020 Family History * Patient is adopted Medical History Relation Name Comments No Known Problems Father No Known Problems Mother Relation Name Status Comments Father Mother Social History Tobacco Use Types Packs/Day Years Used Date Smoking Tobacco: Every Day Cigarettes Smokeless Tobacco: Never Tobacco Cessation:Ready to Q uit: Not Asked; [...] often do you attend chur ch or congregation services? More than 4 times per year 11/08/2024 Do you belong to any clubs o r organizations such as hoahaoism groups, unions, fraternal or athletic groups, or [...] Recorded Patient Health Questionnaire-2 Score 0 04/01/2025 [facility] [...] any time in the past [address] [facility], were you homeless or living in a fdc (including now)? No 11/08/2024 Comments Unknown Sex and Gender Information Value Date Recorded Sex Assigned at Not on file Legal Sex Female 6:46 PM EDT Gender Identity Not on file Sexual Orientation Not on file Last Filed Vital Signs Vital Sign Reading [...] Mass Index 18.19 04/01/2025 9:06 AM EDT Plan of Treatment Health Maintenance Due Date Last Done Comments CT Colonography 1961 FIT-DNA 1961 FIT 1961 FOBT 1961 Sigmoidoscopy 1961 Influenza Vaccine (#1) 2025 , 06/02/2023, 06/08/2021, Additional history exists Mammogram 03/13/2027 12/12/2024, 2 10/2024, 04/29/2021, Additional history exists Colonoscopy 12/02/2031 12/01/2021, 12/01/2021 Colorectal Cancer Screening 12/02/2031 Procedures Procedure Name Priority Date/Time Associated Diagnosis Comments XR LUMBAR SPINE COMPLETE 4+ VIEWS Routine 02/09/2025 12:02 PM EDT Acute bilateral low back pain without sciatica XR WRIST 1-2 VIEWS RIGHT STAT 02/08/2025 11:28 AM EDT Fall, initial encounter Right forearm pain XR FOREARM 2 VIEWS RIGHT STAT 02/08/2025 11:28 AM EDT Fall, initial encounter Right forearm pain MAMMOGRAM* Routine 12/12/2024 10:57 AM EDT COLONOSCOPY Routine 12/01/2021 12:00 PM EDT from Last 3 Months or Most Recently Relevant to Health Maintenance Results * XR lumbar spine complete 4+ views (02/09/2025 12:02 PM EDT) Anatomical Region Laterality Modality Spine, L-spine Radiographic Agata ging 02/11/2025 10:4 5 AM EDT Narrative 02/11/2025 10:45 AM EDT Exam: XR LUMBAR SPINE COMPLETE 4+ VIEWS Reason for exam: Fall on Tuesday, pain into left buttockes Prior comparative studies: None Findings: There is a broad scoliosis convex to the right in the thoracolumbar spine estimated at 27 degrees between the levels of T11 and L4. No spondylolysis is apparent. Vertebral heights are maintained. No subluxation is identified. There is endplate sclerosis and osteophyte formation to a moderate degree at all levels. Facet sclerosis is pronounced L3-S1. Arterial calcifications are present. IMPRESSION: 1. No acute abnormality identified. 2. Moderate degenerative changes throughout the lumbar spine. 3. Dextroconvex scoliosis. Dictated on: 02/11/2025 8:34 AM This report has been electronically signed and approved by the interpreting radiologist. Procedure Note Mayank Pérez MD - 02/11/2025 Exam: XR LUMBAR SPINE COMPLETE 4+ VIEWS Reason for exam: Fall on Tuesday, pain into left buttockes Prior comparative studies: None Findings: There is a broad scoliosis convex to the right in thethoracolumbar spine estimated at 27 degrees between the levels of T11 andL4. No spondylolysis is apparent. Vertebral heights are maintained. Nosubluxation is identified. There is endplate sclerosis and osteophyteformation to a moderate degree at all levels. Facet sclerosis ispronounced L3-S1. Arterial calcifications are present. IMPRESSION: 1. No acute abnormality identified. 2. Moderate degenerative changes throughout the lumbar spine. 3. Dextroconvex scoliosis. Dictated on: 02/11/2025 8:34 AM This report has been electronically signed and approved by theinterpreting radiologist. Ciarra Hannah Bustamante [employer] AND [employer] INSTRUCTOR IMG XR PROCEDURES Final Res ult * XR wrist 1 or 2 views right (02/08/2025 11:28 AM EDT) Anatomical Region Laterality Modality Upper Extremities, Wrist Right Radiogr aphic Imaging Specimen from upper limb / Unknown 02/08/2025 11:54 AM EDT Narrative 02/08/2025 11:54 AM EDT Title of exam: XR WRIST 1-2 VIEWS RIGHT Reason for exam: Right wrist pain, post fall Comparison: None 2 images. Bony alignment and joint spaces are maintained. Ulnar positive variance of 3 mm. Chronic ulnar styloid avulsion. Radioscaphoid spurring is present. The scaphoid bone itself is intact. Chronic deformity of the distal radius with a dorsal avulsion and periosteal reaction noted. IMPRESSION: 1. No acute bony abnormalities radiographically. 2. Chronic radial and ulnar styloid avulsion fractures with resultant ulnar positive variance. 3. Chondrocalcinosis. Consistent with gout/pseudogout/CPPD arthropathy. Dictated on: 02/08/2025 9:43 AM This report has been electronically signed and approved by the interpreting Radiologist. This report is generated using voice recognition reporting ([employer]). On occasion, ttwicke erroneously drops words from the report or replaces the spoken word with a similar sounding word. Please call with any questions/concerns regarding the report. Procedure Note Casey Berger MD - 02/08/2025 Title of exam: XR WRIST 1-2 VIEWS RIGHT Reason for exam: Right wrist pain, post fall Comparison: None 2 images. Bony alignment and joint spaces are maintained. Ulnar positivevariance of 3 mm. Chronic ulnar styloid avulsion. Radioscaphoid spurringis present. The scaphoid bone itself is intact. Chronic deformity of thedistal radius with a dorsal avulsion and periosteal reaction noted. IMPRESSION: 1. No acute bony abnormalities radiographically. 2. Chronic radial and ulnar styloid avulsion fractures with resultantulnar positive variance. 3. Chondrocalcinosis. Consistent with gout/pseudogout/CPPD arthropathy. Dictated on: 02/08/2025 9:43 AM This report has been electronically signed and approved by theinterpreting Radiologist. This report is generated using voice recognition reporting ([email or web address]).On occasion, [employer] erroneously drops words from the report orreplaces the spoken word with a similar sounding word. Please call withany questions/concerns regarding the report. Fahad Pederson DO IMG XR PROCEDURES Final Result * XR forearm 2 views right (02/08/2025 11:28 AM EDT) Anatomical Region Laterality Modality Upper Extremities, Forearm Right Radio graphic Imaging 02/08/2025 11:5 3 AM EDT Narrative 02/08/2025 11:53 AM EDT Title of exam: XR FOREARM 2 VIEWS RIGHT Reason for exam: Right midshaft forearm pain ulnar area, post fall Comparison: None 2 images. Bones osteopenic. Bony cortices, joint spaces alignment are maintained. There is slight dorsal angulation of the distal shaft of the radius with periosteal reaction. Articular irregularity is present. Foreshortening of the distal ulna is present. Corticated nondisplaced defect of the ulnar styloid. Soft tissue prominence of the distal volar forearm noted. IMPRESSION: 1. No acute bony abnormalities radiographically. 2. Chronic appearing distal radial and ulnar styloid fractures with resultant ulnar positive variance. 3. Soft tissue swelling. Dictated on: 02/08/2025 9:41 AM This report has been electronically signed and approved by the interpreting Radiologist. This report is generated using voice recognition reporting ([email or web address]). On occasion, [employer] erroneously drops words from the report or replaces the spoken word with a similar sounding word. Please call with any questions/concerns regarding the report. Procedure Note Casey Berger MD - 02/08/2025 Title of exam: XR FOREARM 2 VIEWS RIGHT Reason for exam: Right midshaft forearm pain ulnar area, post fall Comparison: None 2 images. Bones osteopenic. Bony cortices, joint spaces alignment aremaintained. There is slight dorsal angulation of the distal shaft of theradius with periosteal reaction. Articular irregularity is present.Foreshortening of the distal ulna is present. Corticated nondisplaceddefect of the ulnar styloid. Soft tissue prominence of the distal volarforearm noted. IMPRESSION: 1. No acute bony abnormalities radiographically. 2. Chronic appearing distal radial and ulnar styloid fractures withresultant ulnar positive variance. 3. Soft tissue swelling. Dictated on: 02/08/2025 9:41 AM This report has been electronically signed and approved by theinterpreting Radiologist. This report is generated using voice recognition reporting ([employer]).On occasion, [employer] erroneously drops words from the report orreplaces the spoken word with a similar sounding word. Please call withany questions/concerns regarding the report. Fahad Pederson DO IMG XR PROCEDURES Final Result * MAMMOGRAM* (12/12/2024 10:57 AM EDT) Anatomical Region Laterality Modality Radiographic Agata ging Fahad Pederson DO IMG XR PROCEDURES Final Result * Colonoscopy (12/01/2021 12:00 PM EDT) Anatomical Region Laterality Modality Endoscopy 12/01/2021 12:0 0 PM EDT Narrative 12/01/2021 12:00 PM EDT PERFORMED AT [facility] LOCATION:[id number] repeat 7 years Procedure Note CONVERSION, GENERIC - 01/05/2023 PERFORMED AT [facility] LOCATION:[id number] repeat 7 years Nomi Velez DO ENDOSCOPY PROCEDURE ORDERAB LES Final Result from Last 3 Months or Most Recently Relevant to Health Maintenance Insurance PERSON [email or web address] [address] [id number] Care Teams Remotely Operated Vehicle Relationship Specialty Start Date End Date Fahad Pederson DO [address] [place] [address] PCP - General Family Medicine 02/12/25
--- OUTSIDE RECORDS SUMMARY | 2025-04-04 07:32 | XMS_ITS | Clinical Summary ---
Author Organization [facility] Address [address], [address] [place] [address] Care Team Providers Care Pooling Operator Name Role Phone Unavailable Primary Care Provider Unavailabl e Allergies Active Allergy Reactions Criticality Noted Date Comments Codeine Nausea And Vomiting Low 01/07/2016 Penicillins Hives 06/30/2012 Medications loratadine (CLARITIN) 10 MG tablet Take 1 tablet by mouth daily 90 tablet 1 9 Active albuterol sulfate HFA 108 (90 Base) MCG/ACT inhaler Inhale 2 puffs into the lungs every 6 hours as needed for Wheezing or Shortness of Breath 1 Inhaler 5 9 Active fluticasone (FLONASE) 50 MCG/ACT nasal spray 1 spray by Each Nare route 2 times daily 1 Pinson in each nostril 1 Bottle 1 9 Active albuterol sulfate HFA (PROVENTIL HFA) 108 (90 Base) MCG/ACT inhaler Inhale 2 puffs into the lungs every 4 hours as needed for Shortness of Breath 1 Inhaler 3 9 Active Active Problems Problem Noted Date Diagnosed Date Acute cystitis with hematuria 12/15/2017 Gross hematuria 12/15/2017 Depression 2012 Chronic pain 2012 Social History Tobacco Use Types Packs/Day Years Used Date Smoking Tobacco: Every Day Cigarettes 0.5 30 Smokeless Tobacco: Never Tobacco Cessation:Ready to Q uit: Yes; Counseling Given: Yes Alcohol Use Standard Drinks/Week Comments No 0 (1 standard drink = 0.6 oz pur e alcohol) PHQ-2 Answer Date Recorded PHQ-2 Score 0 12/28/2018 Comments No Sex and Gender Information Value Date Recorded Sex Assigned at Not on file Legal Sex Female 4:18 PM EST Gender Identity Not on file Sexual Orientation Not on file Last Filed Vital Signs Vital Sign Reading Time Taken Comments Blood Pressure 126/82 12/28/2018 3:09 PM EDT Pulse 89 12/28/2018 3:09 PM EDT Temperature 36.4 C (97.5 F) 05/29/2018 12:59 PM EDT Respiratory Rate 18 10/15/2015 10:56 AM EST Oxygen Saturation 92% 05/29/2018 12:59 PM EDT Inhaled Oxygen Concentration - - Weight 49.4 kg (109 lb) 12/28/2018 3:09 PM EDT Height 160 cm (5' 3 ) 12/28/2018 3:09 PM EDT Body Mass Index 19.31 12/28/2018 3:09 PM EDT Plan of Treatment Not on file Goals Goal Patient Goal Type Associated Problems Recent Progress Patient-Stated? Author To be able to sleep Lifestyle Not on track( 013 1:25 PM EDT) No [facility] [place] Get rid of back pain. Lifestyle On track( 014 4:39 PM EDT) No [facility] [place] get mammogram Lifestyle On track( 014 2:45 PM EDT) No [employer] control shingles Lifestyle On track( 014 4:39 PM EDT) No [employer] [address] Get Rx for Xanax Lifestyle No [address] [place] Insurance [employer]
--- OUTSIDE RECORDS SUMMARY | 2025-04-04 07:32 | XMS_ITS | Clinical Summary ---
Author Organization [facility] Address [address] [place], [place] [id number] Care Team Providers Care Communications Professional Name Role Phone Unavailable Primary Care Provider Unavailabl e Allergies Active Allergy Reactions Criticality Noted Date Comments Codeine 09/11/2007 All codeine drugs. 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 04/08/2004 Social History Tobacco Use Types Packs/Day Years Used Date Smoking Tobacco: Every Day Alcohol Use Standard Drinks/Week Comments No 0 (1 standard drink = 0.6 oz pur e alcohol) Comments No Sex and Gender Information Value Date Recorded Sex Assigned at Not on file Legal Sex Female 10:03 AM EST Gender Identity Not on file Sexual Orientation Not on file Last Filed Vital Signs Vital Sign Reading Time Taken Comments Blood Pressure 122/84 09/11/2007 9:07 AM EST Pulse 51 09/11/2007 9:07 AM EST Temperature 36.6 C (97.9 F) 07/22/2007 11:09 AM EST Respiratory Rate 20 09/11/2007 9:07 AM EST Oxygen Saturation - - Inhaled Oxygen Concentration - - Weight 49.9 kg (110 lb) 09/11/2007 9:07 AM EST Height 160 cm (5' 3 ) 09/11/2007 9:07 AM EST Body Mass Index 19.49 09/11/2007 9:07 AM EST Plan of Treatment Health Maintenance Due Date Last Done Comments Anxiety Screening 1979 Depression Screening 1979 HIV Screening 1979 DTaP,Tdap,Td Vaccine (1 - Tdap) 1980 Cervical Cancer Screening [address] Colonography 2006 Cologuard (FIT-DNA) 2006 Colonoscopy 2006 Colorectal Cancer Screening 2006 Fecal Occult Blood 2006 Lipid Screening 2006 Sigmoidoscopy 2006 Diabetes Screening 09/11/2010 09/11/2007 Pneumococcal Vaccine: 50+ (1 of 1 - PCV) 2011 Shingrix Vaccine (1 of 2) 2011 Influenza Vaccine (#1) 2025 RSV Vaccine (1 - 1-dose 75+ series) 2036 Hepatitis C Screening Completed 04/08/2004, 004 Procedures Procedure Name Priority Date/Time Associated Diagnosis Comments COMPREHENSIVE METABOLIC PANEL Routine 09/11/2007 11:11 AM EST Vertebral Fx Nos-Closed from Last 3 Months or Most Recently Relevant to Health Maintenance Results * (ABNORMAL) COMP METABOLIC PANEL (09/11/2007 11:11 AM EST) Protein, Total 7.3 6.0 - 8.4 g/dL [facility] Albumin 4.6 3.5 - 5.0 g/dL [facility] Calcium 10.0 8.5 - 10.5 mg/dL [facility] Bilirubin, Total 0.4 0.0 - 1.5 mg/dL [facility] Alkaline Phosphatase 75 40 - 150 U/L [facility] AST 57(H) 7 - 40 U/L [facility] Glucose 89 65 - 100 mg/dL [facility] BUN 21 8 - 25 mg/dL [facility] Creatinine 0.6(L) 0.7 - 1.4 mg/dL [facility] Sodium 142 132 - 148 mmol/L [facility] Potassium 4.1 3.5 - 5.0 mmol/L [facility] Chloride 104 98 - 110 mmol/L [facility] CO2 24 23 - 32 mmol/L [facility] Anion Gap 14 0 - 15 mmol/L [facility] ALT 77(H) 0 - 45 U/L [facility] Blood specimen (specimen) BLOOD SPECIMEN / Unknown 09/11/2007 11:11 AM EST us Jefry Fleming MD LABORATORY Final Result [facility] [address] [place] [address] from Last 3 Months or Most Recently Relevant to Health Maintenance Insurance NAYA BARTH
--- OUTSIDE RECORDS SUMMARY | 2025-04-04 07:33 | XMS_ITS | CCD ---
Author Organization [facility] Care Team Providers Care Atm Technician Name Role Phone DERAS, LETY VIOLETTA Unavailable Unavailabl e DERAS, LETY VIOLETTA Unavailable Unavailabl e DERAS, LETY VIOLETTA Unavailable Unavailabl e DERAS, LETY VIOLETTA Unavailable Unavailabl e DERAS, LETY VIOLETTA Unavailable Unavailabl e DERAS, LETY VIOLETTA Unavailable Unavailabl e DERAS, LETY VIOLETTA Unavailable Unavailabl e EDRAS, LETY VIOLETTA Unavailable Unavailabl e ELIZABETH, GURPREET Unavailable Unavailable DERAS, LETY VIOLETTA Unavailable Unavailabl e SUNSHINEKI, GURPREET Unavailable Unavailable DERAS, LETY VIOLETTA Unavailable Unavailabl e Lupe Snider Primary Care Provider [phone] Herson Amin Unavailable Unavailable Primary Care Provider UnavailVilma Recinos Unavailable RODRIGO, DR ARCEO Consulting Unavailable MISC, DR ARCEO Primary Care Unavailable MISC, DR ARCEO Attending Unavailable MISC, DR ARCEO Admitting Unavailable KATHE WHITMAN Consulting Unavailable ARLINGTON, DR HERSON Martinez Consulting Unavailable REQUEST, DR [...] Dawkins Consulting Unavailable BETTY VIDES Attending Unavailable MAHESH ., BETTY Admitting Unavailable MISC, DR ARCEO Primary Care Unavailable MAHESH ., BETTY Consulting Unavailable ISIDORO STONE Consulting Unavailable ARMINDA NELSON Consulting Unavailable PAY ., DR MONTANO Consulting Unavailable MISC, DR ARCEO Primary Care Unavailable PAY ., DR MONTANO Attending Unavailable PAY ., DR MONTANO Admitting Unavailable KATJUANA BROWNING Consulting Unavailable JUANA BOB Attending Unavailable KATJUANA [...] Provider Fahad Portillo DO Primary Care Provider Fahad Portillo DO Primary Care Provider Fahad Portillo DO Primary Care Provider FAHAD PORTILLO Attending Unavailable FAHAD PORTILLO Attending Unavailable BGFAHAD OLIVAREZ Attending Unavailable BGFAHAD OLIVAREZ Attending Unavailable BGFAHAD OLIVAREZ Attending Unavailable FAHAD PORTILLO Attending Unavailable FAHAD PORTILLO Referring Unavailable CHANTELKARLA Attending Unavailable CHANTELKARLA L Referring Unavailable BGFAHAD OLIVAREZ Attending Unavailable BGFAHAD OLIVAREZ Attending Unavailable BGFAHAD OLIVAREZ Attending Unavailable BGFAHAD Attending Unavailable BGFAHAD OLIVAREZ Attending Unavailable BG, FAHAD Attending Unavailable Allergies Allergy Classification Reported Allergen(s) Allergy Type Date of Onset Reaction(s) Facility (2 sources) Erythromycin Drug Allergy erythromycin [facility] Work Phone: (16 sources) Penicillins; Translations: [Penicillins] Allergy to substance [facility] Repository (2 sources) -No Environmental Allergies Allergy to substance [facility] Work Phone: (7 sources) Mold Extract Drug Allergy Unknown [facility] Other (7 sources) Penicillin G Drug Allergy hives [facility] Other (6 sources) Substance with sulfonamide structure and antibacterial mechanism of action (substance) Drug allergy Unknown [facility] Other (1 source) Penicillin Drug Allergy [facility] Repository (1 source) Sulfonamides (Antibiotic) Drug allergy (disorder) [facility] Repository Medications Current Medications Medication Drug Class(es) Dates Sig (Normalized) Sig (Original) acetaminophen 325 mg / HYDROcodone bitartrate 5 mg oral tablet (20 sources) Opioid Agonist Start: 02-09-2025 End: 02-20-2025 take 1 tablet by mouth once HYDROcodone-acetamin ophen ([place]) 5-325 MG tablet Indications: Acute bilateral low back pain without sciatica , Low back strain, subsequent encounter , Osteoarthritis of lumbar spine, unspecified spinal osteoarthritis complication status Take 1 tablet by mouth every 12 (twelve) hours if needed for severe pain for up to 7 days 14 tablet 02/13/2025 02/20/2025 Discontinued (Therapy completed) Start: 12-16-2022 take 1 tablet by wilber th every six hours HYDROcodone-Acetaminophen 5-325 MG 1 tab let as needed Orally every 6 hrs for [...] tablet (20 sources) Benzodiazepine Start: 11-08-2024 End: 05-01-2025 ALPRAZolam (Xanax) 1 MG tablet Indications: Insomnia, unspecified type , Anxiety attack Take 1 tablet (1 mg) by mouth as needed at bedtime for anxiety or sleep 30 tablet 04/01/2025 05/01/2025 Active Start: 10-03-2024 End: 11-03-2024 ALPRAZolam (Xanax) [...] PO Twice daily December 01, 2021 12:00am bacitracin 0.4 unt/mg / neomycin 0.0035 mg/mg / polymyxin b 10 unt/mg ophthalmic ointment (5 sources) Aminoglycoside Antibacterial, Polymyxin-class Antibacterial Start: 04-01-2025 End: 05-01-2025 [id number]-[id number]-pcwhaynq n (Polysporin) ophthalmic ointment Indications: Irritation of eye Apply 1 application to both eyes in the morning and 1 application in the evening and 1 application before bedtime. 3.5 g 04/01/2025 05/01/2025 Active End: 04-01-2025 [id number]-rvmhtcrj n (Polysporin) ophthalmic ointment Apply 1 application to both eyes in the morning and 1 application before bedtime. 04/01/2025 Discontinued (Reorder) cholecalciferol 0.01 mg oral capsule (20 sources) Vitamin D take 1 capsule by mouth once daily cholecalciferol (Vitamin D-3) 10 MCG (400 UNIT) capsule Indications: Vitamin D Deficiency Take 400 Units by mouth Daily Active cyclobenzaprine hydrochloride 10 mg oral tablet (8 sources) Muscle Relaxant Start: 02-21-20 End: 06-18-20 take 1 tablet by mouth three times daily as needed for muscle spasms cyclobenzaprine (Flexeril) 10 MG tablet Indications: Low back strain, subsequent encounter Take 1 tablet (10 mg) by mouth 3 (three) times a day as needed for muscle spasms 90 tablet 2 03/20/2025 06/18/2025 Active gabapentin 300 mg oral capsule (18 sources) Anti-epileptic Agent Start: 03-20-20 End: 04-19-20 take 1 capsule by mouth at bedtime gabapentin (Neurontin) 300 MG capsule Indications: Neuropathic pain Take 1 capsule (300 mg) by mouth at bedtime 30 capsule 03/20/2025 04/19/2025 Active Start: 01-21-2025 End: 02-20-2025 gabapentin (Neurontin) 300 M G capsule Indications: Neuropathic pain TAKE 1 CAPSULE BY MOUTH NEEDED AT BEDTIME FOR PAIN 30 capsule 02/19/2025 Active ibuprofen 200 mg oral tablet (1 [...] 11/20/2024 Active loratadine 10 mg oral tablet (20 sources) Start: 08-01-2019 Loratadine 10 MG Oral Tablet 08/01/2019 Provider: meloxicam 15 mg oral tablet (15 sources) Nonsteroidal Anti-inflammatory Drug Start: 02-08-2025 End: 02-23-2025 take 1 tablet by mouth once daily meloxicam (Mobic) 15 MG tablet Indications: Right forearm pain Take 1 tablet (15 mg) by mouth Daily for 15 days 15 tablet 02/08/2025 02/23/2025 Active Start: 10-09-2024 End: 11-08-2024 take 1 tablet by mouth once daily meloxicam (Mobic) 15 MG tablet Indications: Left hip pain , Hematoma Take 1 tablet (15 mg) by mouth Daily 30 tablet 10/09/2024 11/08/2024 Active Multiple Vitamin (multivitamin) tablet (20 sources) take 1 tablet by mouth once daily Multiple Vitamin (multivitamin) tablet Indications: Vitamin Deficiency Take 1 tablet by mouth Daily Active nystatin 571341 unt/ml oral suspension (1 source) Polyene Antifungal Start: 08-01-20 Nystatin [id number] UNIT/ML Mouth/Throat Suspension 08/01/2019 Provider: Lupe Snider CNP prednisoLONE acetate 10 mg/ml ophthalmic suspension (3 sources) Corticosteroid prednisoLONE pavel lugo (Pred-Forte) 1 % ophthalmic suspension Administer 1 drop into both eyes in the morning and 1 drop at noon and 1 drop in the evening and 1 drop before bedtime. Active triamcinolone acetonide 1 mg/ml topical cream (20 sources) Corticosteroid Start: 02-05-20 End: 03-06-20 triamcinolone (Kenalog) 0.1 % cream Indications: Dermatitis Apply 1 application topically in the morning and 1 application before bedtime. Use for max of 14 days in a row on outbreaks. 15 g 02/04/2025 03/06/2025 Active Start: 07-04-2024 End: 07-18-2024 triamcinolone (Kenalog) 0.1 [...] Conversion Provider azithromycin 250 mg oral tablet (17 sources) Macrolide Antimicrobial Start: 11-08-2024 End: 02-13-2025 azithromycin (Zithromax Z-Franklin) 250 MG tablet Indications: Bronchitis Take as directed 6 tablet 11/08/2024 02/13/2025 Discontinued (Therapy completed) Start: 09-06-2017 End: 09-06-2017 Azithromycin 250 MG [...] Date Documented Da te Episodic/Chronic Allergic reactions (8 sources) Inflammatory dermatosis; Translations: [Dermatitis, unspecified] 07-11-2024 Episodic Anxiety disorders (16 sources) Anxiety disorder; Translations: [Anxiety disorder, unspecified] [...] unspecified] Onset: 08-11-2022 Chronic E Codes: Fall (11 sources) Unspecified fall, initial encounter; Translations: [Fall] [...] Translations: [Chronic viral hepatitis C] Chronic Hepatitis (6 sources) Unspecified viral hepatitis C without hepatic [...] 07-04-2024 Chronic Other aftercare (1 source) Other corporate health consultant (current) drug therapy; Translations: [OTH CARE HOME CURRENT DRUG THERAPY] Onset: 12-14-2022 Episodic Other aftercare (1 source) 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; 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] Onset: 12-13-2022 Episodic Other connective tissue disease (2 sources) Pain of right forearm; Translations: [Pain in right forearm] 02-08-2025 Episodic Other connective tissue disease (1 source) Neuropathic pain; Translations: [Neuralgia and neuritis, unspecified] 02-17-2025 Episodic Other eye disorders (2 sources) Disorder of eye; Translations: [Other specified disorders of eye and adnexa] 04-01-2025 Episodic Other fractures (1 source) Unspecified displaced [...] for closed fracture Episodic Other gastrointestinal disorders (3 sources) Diarrhea; Translations: [Diarrhea, unspecified] 11-15-2024 Episodic Other injuries and conditions due to external causes (4 sources) Hematoma; Translations: [Other injury of unspecified body region, initial encounter] 10-09-2024 Episodic Other lower respiratory disease (1 source) Cough; Translations: [Cough, unspecified type] Episodic Other nervous system disorders (1 source) Other chronic pain; Translations: [OTHER CHRONIC PAIN] Onset: 12-30-2021 Chronic Other nervous system disorders (2 sources) Chronic pain; Translations: [Other chronic pain] 12-26-2024 Chronic Other non-traumatic joint disorders (4 sources) Hip pain; Translations: [Pain in left hip] 10-09-2024 Episodic Other screening for suspected conditions (not mental disorders or infectious disease) (10 sources) Encounter for screening for diabetes mellitus; Translations: [Encounter for screening for malignant neoplasm of colon] Onset: 2019 Resolved: 10-20-2021 Episodic Other upper respiratory disease (9 sources) Seasonal allergy; Translations: [Other allergic rhinitis] 07-04-2024 Chronic Residual codes; unclassified (6 sources) Menopause present; Translations: [Asymptomatic menopausal state] Episodic Residual codes; unclassified (9 sources) Insomnia; Translations: [Insomnia, unspecified] 07-04-2024 Episodic Residual codes; unclassified (2 sources) Nicotine user; Translations: [Tobacco use] 07-04-2024 Episodic Spondylosis; intervertebral disc disorders; other back problems (4 sources) Lumbar spondylosis; Translations: [Spondylosis without myelopathy or radiculopathy, lumbar region] 02-13-2025 Chronic Spondylosis; intervertebral disc disorders; other back problems (18 sources) Cervicalgia; Translations: [Dorsalgia, unspecified] Onset: 12-30-2021 Episodic Sprains and strains (7 sources) Low back strain; Translations: [Strain of muscle, fascia and tendon of lower back, subsequent encounter] 02-13-2025 Episodic Substance-related disorders (8 sources) Cigarette smoker [...] and From Stairs and Steps] Onset: 2019 Mood disorders (20 sources) Mood disorders Onset: 12-17-2024 12-17-2024 Nonspecific chest pain (3 sources) Other chest [...] Test Name Value Interpretation Reference Range Facility XR Lumbar spine 4 [facility] Exam: XR LUMBAR SPIN E COMPLETE 4+ VIEWS Reason for exam: Fall [...] signed and approved by the interpreting radiologist. IMAGING Mayank Pérez MD - 02/11/2025 Exam: XR [...] signed and approved by the interpreting radiologist. [facility] XR Lumbar spine 4 ViewsOrder ed By: Mayank Pérez on 02-11-2025 [facility] Work Phone: XR LUMBAR SPINE COMPLETE 4+ VIEWSon 02-09-2025 XR LUMBAR SPINE COMPLETE 4+ VIEWS Exam: XR LUMBAR SPINE COMPLETE 4+ VIEWS [...] signed and approved by the interpreting radiologist. Normal Not Available XR Lumbar spine 4 [facility] Radiology Study observation (narrative) [facility] No Panel Informationon 02-08 Radiology Study observation (narrative) [facility] XR FOREARM 2 VIEWS RIGHTon 0 02-08-2025 XR FOREARM 2 VIEWS RIGHT Title of exam: XR FOREARM 2 VIEWS [...] report is generated using voice recognition reporting ([employer]). On occasion, Powerscribe erroneously drops words from the report or replaces the spoken word with a similar sounding word. Please call with any questions/concerns regarding the report. Normal Not Available XR Radius and Ulna - right 2 [facility] 02-08-2025 Title of exam: XR FOREARM 2 VIEWS [...] report is generated using voice recognition reporting ([employer] [place]). On occasion, [employer] erroneously drops words from the report or replaces the spoken word with a similar sounding word. Please call with any questions/concerns regarding the report. IMAGING Casey Berger MD - 02/08/2025 Title of [...] report is generated using voice recognition reporting ([employer]). On occasion, [employer] erroneously drops words from the report or replaces the spoken word with a similar sounding word. Please call with any questions/concerns regarding the report. [facility] [employer] XR Radius and Ulna - right 2 ViewsOrdered By: Casey Berger on 02-08-2025 [facility] [employer] Work Phone: XR WRIST 1-2 VIEWS RIGHTon 0 02-08-2025 XR WRIST 1-2 VIEWS RIGHT Title of exam: XR WRIST 1-2 VIEWS [...] report is generated using voice recognition reporting ([employer]). On occasion, [employer] erroneously drops words from the report or replaces the spoken word with a similar sounding word. Please call with any questions/concerns regarding the report. Normal Not Available XR Wrist - right 2 [facility] 0 02-08-2025 Title of exam: XR WRIST 1-2 VIEWS [...] report is generated using voice recognition reporting ([employer]). On occasion, [employer] erroneously drops words from the report or replaces the spoken word with a similar sounding word. Please call with any questions/concerns regarding the report. IMAGING Casey Berger MD - 02/08/2025 Title of [...] report is generated using voice recognition reporting ([employer]). On occasion, [employer] erroneously drops words from the report or replaces the spoken word with a similar sounding word. Please call with any questions/concerns regarding the report. [facility] Healthcare [facility] Healthcare Provider Letteron 01-28-2025 Provider Letter Provider Letter January 28, 2025 BRIE FARRELL [address] [place] [id number] : 1960 Dear Brie Buck , We have been trying to reach you with no success. It is important that you return our call regarding your referral upon receiving this letter. Also, at the time of your call, please provide us with your current information. Thank you for your prompt attention to this matter. Sincerely, [facility] [phone] [facility] CT CSPINE WO CONon 3 CT CSPINE [...] ISIDORO STONE Date: 2022-12-09 15:10 Normal [facility] CT TSPINE WO CONon 3 CT [...] by: TREV PHILLIPS Date: 2022-12-09 13:45 Normal [facility] XR CSPINE 2_3 VIEWSon 2022 XR [...] ARMINDA NELSON Date: 2022-12-09 18:07 Normal [facility] XR HAND RT MIN 3Von 12-01-19 [...] NATI PRADO Date: 2022-11-30 01:36 Normal [facility] CBC AUTO DIFFon 08-06-2022 BASO # 0.0 103/ul Normal 0.0-0.1 [facility] Comment on above: Performed By: #### C BC #### [facility] [address] [address] [address] Ana Belcher Basophils/100 WBC (Bld) 0.4 % Normal 0.2-2.0 [facility] Comment on above: Performed By: #### C BC #### [facility] [address] [place] [address] Dr. Ana Belcher EO # 0.0 103/ul Normal 0.0-0.7 [facility] Comment on above: Performed By: #### C BC #### [facility] [address] [place] [address] Dr. Ana Belcher Eosinophils/100 WBC (Bld) 0.4 % Critically low 0.9-7.0 [facility] Comment on above: Performed By: #### C BC #### [facility] [address] [place] [address] Dr. Ana Belcher Erythrocyte distribution width (RBC) [Ratio] 13.2 % Normal 11.0-15.0 [facility] Comment on above: Performed By: #### C BC #### [facility] [address] [place] [address] Dr. Ana Belcher Hematocrit (Bld) [Volume fraction] 48.0 % Normal 36.0-48.0 [facility] Comment on above: Performed By: #### C BC #### [facility] [address] [place] [address] Dr. Ana Belcher Hemoglobin (Bld) [Mass/Vol] 16.0 g/dL Normal 12.0-16.0 [facility] Comment on above: Performed By: #### C BC #### [facility] [address] [place] [address] Dr. nAa Belcher IG # 0.04 10e3/ul Critically high 0.00-0.03 [facility] Comment on above: Performed By: #### C BC #### [facility] [address] [place] [address] Dr. Ana Belcher IG % 0.4 % Normal 0.0-0.5 [facility] Comment on above: Performed By: #### C BC #### [facility] [address] [place] [address] Dr. Ana Belcher LYMPH # 2.4 103/ul Normal 1.2-3.8 [facility] Comment on above: Performed By: #### C BC #### [facility] [address] [place] [address] Dr. Ana Belcher Lymphocytes/100 WBC (Bld) 25.9 % Normal 20.5-60.0 [facility] Comment on above: Performed By: #### C BC #### [facility] [address] [place] [address] Dr. Ana Belcher MANUAL DIFF REQ NO Normal [facility] Comment on above: Performed By: #### C BC #### [facility] [address] [place] [address] Dr. Ana Belcher MCH (RBC) [Entitic mass] 29.7 pg Normal 26.7-34.0 [facility] Comment on above: Performed By: #### C BC #### [facility] [address] [place] [address] Dr. Ana Belcher MCHC (RBC) [Mass/Vol] 33.3 g/dL Normal 29.9-35.2 [facility] Comment on above: Performed By: #### C BC #### [facility] [address] [place] [address] Dr. Ana Belcher MCV (RBC) [Entitic vol] 89.2 fL Normal 81.0-99.0 [facility] Comment on above: Performed By: #### C BC #### [facility] [address] [place] [address] Dr. Ana Belcher MONO # 0.7 103/ul Normal 0.3-0.8 [facility] Comment on above: Performed By: #### C BC #### [facility] [address] [place] [address] Dr. Ana Belcher Monocytes/100 WBC (Bld) 7.7 % Normal 1.7-12.0 [facility] Comment on above: Performed By: #### C BC #### [facility] [address] [place] [address] Dr. Ana Belcher NEUT # 6.0 103/ul Normal 1.4-6.5 [facility] Comment on above: Performed By: #### C BC #### [facility] [address] [place] [address] Dr. Ana Belcher Neutrophils/100 WBC (Bld) 65.2 % Normal 43.0-75.0 [facility] Comment on above: Performed By: #### C BC #### [facility] [address] [place] [address] Dr. Ana Belcher Platelet mean volume (Bld) [Entitic vol] 10.1 fL Normal 9.5-13.5 [facility] Comment on above: Performed By: #### C BC #### [facility] [address] [place] [address] Dr. Ana Belcher PLT 261 103/ul Normal 150-450 [facility] Comment on above: Performed By: #### C BC #### [facility] [address] [place] [address] Dr. Ana Belcher RBC 5.38 106/ul Normal 4.20-5.40 [facility] Comment on above: Performed By: #### C BC #### [facility] [address] [place] [address] Dr. Ana Belcher WBC 9.3 103/ul Normal 4.0-11.0 [facility] Comment on above: Performed By: #### C BC #### [facility] [address] [place] [address] Dr. Ana Belcher GLYCOHEMOGLOBIN A1Con 2021 ADA RECOMMENDATION SEE BELOW Normal [facility] Comment on above: Result Comment: ADA RECOMMENDED LIMIT 4.0 - 6.0 ADA THERAPEUTIC TARGET < 7.0 ACTION SUGGESTED > 7.0 Performed By: #### A 1C #### [facility] [address] [place] [address] Dr. Ana Belcher Glucose [Mass/Vol] 111 mg/dL Normal [facility] Comment on above: Performed By: #### A 1C #### [facility] [address] [place] [address] Dr. Ana Belcher HbA1c (Bld) [Mass fraction] 5.5 % Normal 4.5-6.2 [facility] Comment on above: Performed By: #### A 1C #### [facility] [address] [place] [id number] [address] Ana Belcher LIPID PROFILEon 08-06-2022 CHOL-HDL RATIO NORM SEE BELOW Normal [facility] Comment on above: Result Comment: 3.3 - 4.4 LOW RISK 4.4 - 7.1 AVERAGE RISK 7.1 - 11.0 MODERATE RISK >11.0 HIGH RISK Performed By: #### L IPID, CMP ####[facility] [id number] [id number][address] Ana Belcher Cholesterol [Mass/Vol] 191 mg/dL Normal <=200 [facility] Comment on above: Performed By: #### L IPID, CMP ####[facility] [id number] [id number]. Ana Belcher Cholesterol in HDL [Mass/Vol] 61 mg/dL Critically high 40-60 [facility] Comment on above: Performed By: #### L IPID, CMP ####[facility] [id number] [id number]. Ana Belcher Cholesterol in LDL [Mass/Vol] 117.0 mg/dL Normal [facility] Comment on above: Performed By: #### L IPID, CMP ####[facility] [id number] [id number]. Ana Belcher Cholesterol.total/C holesterol in HDL [Mass ratio] 3.1 {ratio} Normal [facility] Comment on above: Performed By: #### L IPID, CMP ####[facility] [id number] [id number]. Ana Belcher HDL NORMAL > or = 60 mg/dl - LO W CARDIOVASCULAR RISK <40 mg/dl - HIGH CARDIOVASCULAR RISK Normal [facility] Comment on above: Performed By: #### L IPID, CMP ####[facility] [id number] [id number]. Ana Belcher LDL CALC NORMAL SEE BELOW Normal [facility] Comment on above: Result Comment: <100 mg/dl OPTIMAL 100 - 129 mg/dl NEAR OR ABOVE OPTIMAL 130 - 159 mg/dl BORDERLINE HIGH 160 - 189 mg/dl HIGH >190 mg/dl VERY HIGH Performed By: #### L IPID, CMP ####[facility] [id number] [address]Dr. Ana Belcher Triglyceride [Mass/Vol] 65 mg/dL Normal <=150 [facility] Comment on above: Performed By: #### L IPID, CMP ####[facility] [address] [address]Dr. Ana Belcher VLDL CALC 13.0 mg/dL Normal [facility] Comment on above: Performed By: #### L IPID, CMP ####[facility] [id number] [address]Dr. Ana Belcher PROF 14(COMP METB)on 022 Albumin [Mass/Vol] 4.1 g/dL Normal 3.4-5.0 [facility] Comment on above: Performed By: #### L IPID, CMP ####[facility] Aopxi[address]we[address] [place], [place] [address]Dr. Ana Belcher Albumin/Globulin [Mass ratio] 1.0 {ratio} Normal [facility] Comment on above: Performed By: #### L IPID, CMP ####[facility] Hrgiotagto[address] [place], [place] [address]Dr. Ana Belcher ALP [Catalytic activity/Vol] 69 U/L Normal 46-116 [facility] Comment on above: Performed By: #### L IPID, CMP ####[facility] Sqfnviagji67[address] [place], [place] [address]Dr. Ana Belcher ALT [Catalytic activity/Vol] 67 U/L Critically high 14-59 [facility] Comment on above: Performed By: #### L IPID, CMP ####[facility] [address] [address]Dr. Ana Belcher Anion gap [Moles/Vol] 13.9 mmol/L Normal [facility] Comment on above: Performed By: #### L IPID, CMP ####[facility] Pcsbcwvvnj[address] [place], [place] [address]Dr. Ana Belcher AST [Catalytic activity/Vol] 53 U/L Critically high 15-37 [facility] Comment on above: Performed By: #### L IPID, CMP ####[facility] Xnsmnifoxv[address] [place], [place] [address]Dr. Ana Belcher Bilirubin [Mass/Vol] 0.6 mg/dL Normal 0.2-1.0 [facility] Comment on above: Performed By: #### L IPID, CMP ####[facility] Iyggwennmr[address] [place], [place] [address]Dr. Ana Belcher Calcium [Mass/Vol] 9.6 mg/dL Normal 8.5-10.1 [facility] Comment on above: Performed By: #### L IPID, CMP ####[facility] Mmacbdbdcr[address] [place], [place] [address]Dr. Ana Belcher Chloride [Moles/Vol] 102 mmol/L Normal 98-107 [facility] Comment on above: Performed By: #### L IPID, CMP ####[facility] Jjjzevrivm[address] [place], [place] [address]Dr. Ana Belcher CO2 [Moles/Vol] 25.5 mmol/L Normal 21.0-32.0 [facility] Comment on above: Performed By: #### L IPID, CMP ####[facility] Vzdbtqqjjy[address] [place], [place] [address]Dr. Ana Belcher Creatinine [Mass/Vol] 0.70 mg/dL Normal 0.55-1.02 [facility] Comment on above: Performed By: #### L IPID, CMP ####[facility] Utijpaswrp[address] [place], [place] [address]Dr. Ana Belcher EGFR-AF SIERRA LEONEAN >60 Normal >=60 [facility] Comment on above: Performed By: #### L IPID, CMP ####[facility] Ogiwhhpbjg[address] [place], [place] [address]Dr. Jazmynekylee Ye EGFR-NON AF SIERRA LEONEAN >60 Normal >=60 [facility] Comment on above: Performed By: #### L IPID, CMP ####[facility] Ixqwtemgjk[address] [place], [place] [address]Dr. Jazmynekylee Belcher Globulin (S) [Mass/Vol] 4.0 g/dL Normal [facility] Comment on above: Performed By: #### L IPID, CMP ####[facility] Rvmznjrmbb[address] [place], [place] [address]Dr. Ana Belcher Glucose [Mass/Vol] 109 mg/dL Critically high 74-106 T [facility] Comment on above: Performed By: #### L IPID, CMP ####[facility] Iequwxjbrs[address] [place], [place] [address]Dr. Ana Belcher Potassium [Moles/Vol] 3.4 mmol/L Critically low 3.5-5.1 [facility] Comment on above: Performed By: #### L IPID, CMP ####[facility] Zglwdoienc[address] [place], [place] [address]Dr. Ana Belcher Protein [Mass/Vol] 8.1 g/dL Normal 6.4-8.2 [facility] Comment on above: Performed By: #### L IPID, CMP ####[facility] Ruxmfglzka[address] [place], [place] [address]Dr. Ana Belcher Sodium [Moles/Vol] 138 mmol/L Normal 136-145 [facility] Comment on above: Performed By: #### L IPID, CMP ####[facility] Bhketglndy09[address] [place], [place] [address]Dr. Ana Belcher Urea nitrogen [Mass/Vol] 23.0 mg/dL Critically high 7.0-18.0 [facility] Comment on above: Performed By: #### L IPID, CMP ####[facility] Yotbpllmsk[address] [place], [place] [address]Dr. Ana Belcher Urea nitrogen/Creatinine [Mass ratio] 32.9 mg/mg Normal [facility] Comment on above: Performed By: #### L IPID, CMP ####[facility] Kxpemfwbmz[address] [place], [place] [address]Dr. 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 Ana Belcher Clarity (U) CLEAR Normal CLEAR [facility] Comment on above: Performed By: #### U ACSIND, UMICRO #### [facility] [address] [place] [address] Dr. Ana Belcher Color (U) DK. YELLOW Normal YELLOW [facility] Comment on above: Performed By: #### U ACSIND, UMICRO #### [facility] [address] [address] [address] Ana Belcher Glucose Ql (U) Negative Normal NEGATIVE [facility] Comment on above: Performed By: #### U ACSIND, UMICRO #### [facility] [address] [address] [address] Ana Belcher Hemoglobin Ql (U) MODERATE Abnormal NEGATIVE [facility] Comment on above: Performed By: #### U ACSIND, UMICRO #### [facility] [address] [place] [address] Dr. Ana Belcher Ketones Ql (U) TRACE Abnormal NEGATIVE [facility] Comment on above: Performed By: #### U ACSIND, UMICRO #### [facility] [address] [place] [address] Dr. Ana Belcher LEUKOCYTES Negative Normal NEGATIVE [facility] Comment on above: Performed By: #### U ACSIND, UMICRO #### [facility] [address] [place] [address] Dr. Ana Belcher Nitrite Ql (U) Negative Normal NEGATIVE [facility] Comment on above: Performed By: #### U ACSIND, UMICRO #### [facility] [address] [address] [address] Ana Belcher pH (U) 5.0 [pH] Normal 5-9 [facility] Comment on above: Performed By: #### U ACSIND, UMICRO #### [facility] [address] [place] [address] Dr. Ana Belcher SPEC GRAVITY >=1.030 Abnormal 1.005-<=1.0 25 [facility] Comment on above: Performed By: #### U ACSIND, UMICRO #### [facility] [address] [address] [address] Ana Belcher UA PROTEIN TRACE Normal NEGATIVE/ TRACE [facility] Comment on above: Performed By: #### U ACSIND, UMICRO #### [facility] [address] [address] [address] Ana Belcher UR MICRO IND INDICATED Normal [facility] Comment on above: Performed By: #### U ACSIND, UMICRO #### [facility] [address] [address] [address] Ana Belcher Urobilinogen Qn (U) 0.2 {Bi'U}/dL Normal 0.2 - 1. 0 [facility] Comment on above: Performed By: #### U ACSIND, UMICRO #### [facility] [address] [address] [address] Ana Belcher URINE MICROSCOPIC ONLYon BACTERIA NONE SEEN Normal NONE SEEN [facility] Comment on above: Performed By: #### U ACSFIDENCIO, UMICRO ####[facility] [address] [address]DrGavin Belcher Bacteria identified Cx Nom (U) NOT INDICATED Normal [facility] Comment on above: Performed By: #### U ACSFIDENCIO, UMICRO ####[facility] [address] [address]DrGavin Belcher CAST NONE SEEN Normal NONE SEEN [facility] Comment on above: Performed By: #### U ACSIND, UMICRO ####[facility] [address] [address]DrGavin Belcher Crystals LM Nom (Urine sed) NONE SEEN Normal NONE SEEN [facility] Comment on above: Performed By: #### U ACSIND, UMICRO ####[facility] [address] [address]DrGavin Belcher Epithelial cells LM Ql (Urine sed) FEW Abnormal NONE SEEN /RARE [facility] Comment on above: Performed By: #### U ACSIND, UMICRO ####[facility] [address] [id number]. Ana Belcher MUCOUS NONE SEEN Normal NONE SEEN [facility] Comment on above: Performed By: #### U TRENT UMICRO ####[facility] [address] [phone]. Ana Belcher RBC 5-10 Abnormal 0-2 [facility] Comment on above: Performed By: #### U TRENT UMICRO ####[facility] [address] [phone]. Ana Belcher WBC NONE SEEN Normal NONE SEEN [facility] Comment on above: Performed By: #### U [place] NEW[place]RO ####[facility] [address] [address]Dr. Ana Ye VITAMIN D 25 OHon 08-06-2022 VIT D 25-OH 47.2 ng/mL Normal [facility] Comment on above: Performed By: #### V ITAD ####[facility] [address] [phone]. Ana Belcher VIT D RANGES SEE BELOW Normal [facility] Comment on above: Result Comment: <20 ng/mL Vit D deficient 20 - <30 ng/mL Vit D insufficient 30 - 100 ng/mL Vit D sufficient >100 ng/mL Potential Toxicity Performed By: #### V ITAD ####[facility] [address]ks[address] [place], [place] [address]Dr. Ana Belcher XR KUB 1 VIEWon 08-06-2022 [...] HERSON VANCE Date: 2022-08-06 15:26 Normal [facility] Neurosurgery Office/Clinic N oteon 03-01-2022 Neurosurgery [...] pain. She went to the ED in [place], a CTA chest was done which showed [...] CT thorac (more content not included)... Normal [facility] Provider Letteron 03-01-2022 Provider Letter (Inserted Image. Demetria ble to display) Nomi Corcoran DO [address] [address] Re: Brie Farrell Date of Visit: 03/01/2022 Dear Nomi Corcoran DO, Thank you for allowing me to contribute to the care of your patient: Brie Farrell. Attached is my office note where you will find my assessment and recommendations from our encounter. My office?s contact information: [facility] [address], [phone] Let me know if you have any questions or concerns. Sincerely, ROHIT Myles Providers: The following document(s) were included in the letter: March 01, 2022 12:05:06 EDT - (03/01/2022) Neurosurgery Office Visit Note Normal [facility] MRI LSPINE WO CONon 02-18-20 MRI LSPINE [...] HERSON VANCE Date: 2022-02-17 17:39 Normal [facility] MRI CSPINE WO CONon 02-17-20 22 MRI [facility] WO CON EXAM: MRI CSPINE WO CON [...] KATHE WHITMAN Date: 2022-02-16 14:44 Normal [facility] MRI TSPINE WO CONon 02-17-20 22 MRI TSPINE WO CON EXAM: MRI TSPINE [...] KATHE WHITMAN Date: 2022-02-16 14:55 Normal [facility] Neurosurgery Office/Clinic N oteon 01-21-2022 Neurosurgery [...] pain. She went to the ED in [place], a CTA chest was done which showed [...] thoracic spine (more content not included)... Normal [facility] Provider Letteron 06-02-2022 Provider Letter (Inserted Image. Demetria ble to display) Nomi Corcoran DO [address] [place] [address] Re: Brie Farrell Date of Visit: 01/21/2022 Dear Nomi Corcoran DO, Thank you for your referral and allowing me to contribute to the care of your patient: Brie Farrell. Attached is my office note where you will find my assessment and recommendations from our encounter. My office?s contact information: [facility] [address] [place], [phone] Let me know if you have any questions or concerns. Sincerely, ROHIT Myles Providers: The following document(s) were included in the letter: January 21, 2022 09:52:54 EDT - (01/21/2022) Neurosurgery Office Visit Note Normal [facility] Progress Noteon 01-13-2018 HIM IP Note OR Lye Boiler Normal [facility] Cult,Urine,CCon 12-27-2017 Cult,Urine,CC Specimen Description .URINE Performed at [address] [place], [place] [id number] [phone] Special Requests NOT REPORTEDCulture NO GROWTH Performed at [address] [id number] [phone] Report Status FINAL 12/27/[address] [facility] Comment on above: Performed By: #### U AMIC ####[address] [place] [address] Progress Noteon 12-26-2017 HIM IP Note OR Lye Boiler Normal [facility] HIM IP Note OR Lye Boiler Normal [facility] Urinalysis w/ Microon 2017 ----- Normal [facility] Comment on above: Performed By: #### U AMIC ####[address] [place] [address] Acetaminophen mass conc Negative Normal NEG [facility] Comment on above: Performed By: #### U AMIC ####[address] [place] [address] Bilirubin (direct) Negative Normal NEG [facility] Comment on above: Performed By: #### U AMIC ####[address] [place] [address] Hemoglobin mass conc (Bld) 2+ Abnormal NEG [facility] Comment on above: Performed By: #### U AMIC ####[address] [place] [address] Nitrite,Ur Negative Normal NEG [facility] Comment on above: Performed By: #### U AMIC ####[address] [place] [address] Turbidity CLEAR Normal CLEAR [facility] Comment on above: Performed By: #### U AMIC ####[address] [place] [address] Urine WBC's None Normal 0-5 [facility] Comment on above: Performed By: #### U AMIC ####[address] [place] [address] Urine, color YELLOW Normal YEL [facility] Comment on above: Performed By: #### U AMIC ####[address] [place] [address] Urine, epithelial cells in sediment 0 TO 2 Normal 0-25 [facility] Comment on above: Result Comment: Perf ormed at [facility] [address] [place] [address] Performed By: #### U AMIC ####[address] [place] [address] Urine, erythrocytes None Normal 0-2 [facility] Comment on above: Performed By: #### U AMIC ####[address] [place] [address] Urine, glucose presence Negative Normal NEG [facility] Comment on above: Performed By: #### U AMIC ####[address] [place] [address] Urine, leukocyte esterase presence Negative Normal NEG [facility] Comment on above: Performed By: #### U AMIC ####[address] [place] [address] Urine, pH 5.5 [pH] Normal 5.0-9.0 [facility] Comment on above: Performed By: #### U AMIC ####[address] [place] [address] Urine, protein presence Negative Normal NEG [facility] Comment on above: Performed By: #### U AMIC ####[address] [place] [address] Urine, specific gravity 1.015 Normal 1.010-1.020 [facility] Comment on above: Performed By: #### U AMIC ####[address] [place] [address] Urobilinogen,Ur Normal Normal NORM [facility] Comment on above: Performed By: #### U AMIC ####[address] [place] [address] Comment NOT REPORTED Normal [facility] Comment on above: Performed By: #### U AMIC ####[address] [place] [address] Epithelial, Renal NOT REPORTED Normal 0 [facility] Comment on above: Performed By: #### U AMIC ####[address] [place] [address] Mucus Strands NOT REPORTED Normal NONE [facility] Comment on above: Performed By: #### U AMIC ####[address] [place] [address] Other Observations NOT REPORTED Normal NREQ [facility] Comment on above: Performed By: #### U AMIC ####[address] [place] [address] Trichomonas NOT REPORTED Normal NONE [facility] Comment on above: Performed By: #### U AMIC ####[address] [place] [address] Urine, amorphous sediment presence in sediment NOT REPORTED Normal NONE [facility] Comment on above: Performed By: #### U AMIC ####[address] [place] [address] Urine, bacteria in sediment NOT REPORTED Normal NONE [facility] Comment on above: Performed By: #### U AMIC ####[address] [place] [address] Urine, casts in sediment NOT REPORTED Normal [facility] Comment on above: Performed By: #### U AMIC ####[address] [place] [address] Urine, crystals in sediment NOT REPORTED Normal [facility] Comment on above: Performed By: #### U AMIC ####[address] [place] [address] Urine, yeast presence in sediment NOT REPORTED Normal [facility] Comment on above: Performed By: #### U AMIC ####[address] [place] [address] HCV RNA,Quant,PCRon 12-21-19 18 HCV RNA,Quant,PCR Specimen Description .PLASMA Performed at [address] [place] [address] Special Requests NOT REPORTEDDirect Exam HCV RNA DETECTED [id number] IU/ML (6.79 LOG IU/ML) This test is [...] to the appropriate Health Department Performed at [address] [address] Report Status FINAL 12/20/2017 Normal [facility] Comment on above: Performed By: #### H CVQ ####[address] [phone] [place] [address] HIV Ag/Abon 12-15-2017 HIV Ag/Ab NONREACTIVE Normal NR [facility] Comment on above: Result Comment: No l aboratory evidence of HIV infection. If acute HIV infection is suspected, consider testing for HIV-1 RNA.Performed at [address] [address] Performed By: #### C BC, AHCV, HIVCMB ####[address] [address] #### CP, LIPR ####[address] [place] [address] Hep C Abon 12-15-2017 Hep C Ab REACTIVE Abnormal NR [facility] Comment on above: Result Comment: The [...] ordering HCV RNA by PCR.Performed at [address] [address] Performed By: #### C BC, AHCV, HIVCMB ####[address] [address] #### CP, LIPR ####[address] [place] [id number] Progress Noteon 12-15-2017 HIM IP Note OR Lye Boiler Normal [facility] CBCon 12-14-2017 Erythrocyte distribution width Auto Ratio (RBC) 13.1 % Normal 11.8-14.4 [facility] Comment on above: Performed By: #### C BC, AHCV, HIVCMB ####[address] [address] #### CP, LIPR ####[address] [place] [address] Erythrocytes (RBC) 0.0 per 100 WBC Normal 0.0 [facility] Comment on above: Result Comment: Perf ormed at [address] [address] Performed By: #### C BC, AHCV, HIVCMB ####[address] [address] #### CP, LIPR ####[address] [place] [address] Erythrocytes (RBC) 4.94 10*6/uL Normal 3.95-5.11 [facility] Comment on above: Performed By: #### C BC, AHCV, HIVCMB ####[address] [address] #### CP, LIPR ####[address] [place] [address] Hematocrit (HCT) 44.6 % Normal 36.3-47.1 [facility] Comment on above: Performed By: #### C BC, AHCV, HIVCMB ####[address] [address] #### CP, LIPR ####[address] [place] [address] Hemoglobin mass conc (Bld) 14.5 g/dL Normal 11.9-15.1 [facility] Comment on above: Performed By: #### C BC, AHCV, HIVCMB ####[address] [address] #### CP, LIPR ####[address] [place] [address] MCH 29.4 pg Normal 25.2-33.5 [facility] Comment on above: Performed By: #### C BC, AHCV, HIVCMB ####[address] [address] #### CP, LIPR ####[address] , [facility] MCHC mass conc (RBC) 32.5 g/dL Normal 28.4-34.8 [facility] Comment on above: Performed By: #### C BC, AHCV, HIVCMB ####[address] [address] #### CP, LIPR ####[address] [place] [address] MCV 90.3 fL Normal 82.6-102.9 [facility] Comment on above: Performed By: #### C BC, AHCV, HIVCMB ####[address] [address] #### CP, LIPR ####[address] [place] [address] Platelet mean volume (PMV) 9.1 fL Normal 8.1-13.5 [facility] Comment on above: Performed By: #### C BC, AHCV, HIVCMB ####[address] [place] [address] #### CP, LIPR ####[address] [place] [address] Platelets 271 10*3/uL Normal 138-453 [facility] Comment on above: Performed By: #### C BC, AHCV, HIVCMB ####[address] [address] #### CP, LIPR ####[address] [place] [address] WBC (Leukocytes) 5.0 10*3/uL Normal 3.5-11.3 [facility] Comment on above: Performed By: #### C BC, AHCV, HIVCMB ####[address] [address] #### CP, LIPR ####[address] [place] [address] Comp Metabolic Profon 2017 (cont.) Normal [facility] Comment on above: Result Comment: Aver age GFR for 50-59 years old: 93 mL/min/1.73sq mChronic Kidney Disease: <60 mL/min/1.73sq mKidney failure: <15 mL/min/1.73sq meGFR calculated using average adult body mass. Additional eGFR calculator available at:http://www.[employer]/multiple_crcl_2012.htm Performed By: #### C BC, AHCV, HIVCMB ####[address] [address] #### CP, LIPR ####[address] [place] [address] Alanine aminotransferase (ALT) 39 U/L High 5-33 [facility] Comment on above: Performed By: #### C BC, AHCV, HIVCMB ####[address] [address] #### CP, LIPR ####[address] [place] [address] Albumin 4.3 g/dL Normal 3.5-5.2 [facility] Comment on above: Performed By: #### C BC, AHCV, HIVCMB ####[address] [address] #### CP, LIPR ####[address] [place] [address] Albumin/Globulin Ratio 1.3 {ratio} Normal 1.0-2.5 [facility] Comment on above: Performed By: #### C BC, AHCV, HIVCMB ####[address] [address] #### CP, LIPR ####[address] [place] [address] Alkaline Phos 54 U/L Normal 35-104 [facility] Comment on above: Performed By: #### C BC, AHCV, HIVCMB ####[address] [address] #### CP, LIPR ####[address] [place] [address] Anion gap 10 mmol/L Normal 9-17 [facility] Comment on above: Performed By: #### C BC, AHCV, HIVCMB ####[address] [address] #### CP, LIPR ####[address] [place] [address] Aspartate aminotransferase (AST) 37 U/L High <32 [facility] Comment on above: Performed By: #### C BC, AHCV, HIVCMB ####[address] [address] #### CP, LIPR ####[address] [place] [address] Bilirubin Ql (U) 0.51 mg/dL Normal 0.3-1.2 [facility] Comment on above: Performed By: #### C BC, AHCV, HIVCMB ####[address] [address] #### CP, LIPR ####[address] [place] [address] BUN/CRE Ratio 25 High 9-20 [facility] Comment on above: Performed By: #### C BC, AHCV, HIVCMB ####[address] [address] #### CP, LIPR ####[address] [place] [address] Calcium 9.6 mg/dL Normal 8.6-10.4 [facility] Comment on above: Performed By: #### C BC, AHCV, HIVCMB ####[address] [address] #### CP, LIPR ####[address] [place] [address] Chloride 101 mmol/L Normal 98-107 [facility] Comment on above: Performed By: #### C BC, AHCV, HIVCMB ####[address] [address] #### CP, LIPR ####[address] [place] [address] CO2 28 mmol/L Normal 20-31 [facility] Comment on above: Performed By: #### C BC, AHCV, HIVCMB ####[address] [address] #### CP, LIPR ####[address] [place] [address] Creatinine 0.57 mg/dL Normal 0.50-0.90 [facility] Comment on above: Performed By: #### C BC, AHCV, HIVCMB ####[address] [address] #### CP, LIPR ####[address] [place] [address] eGFR (non-black) mL/min/{1.73_m2} Normal >60 Me [facility] Comment on above: Performed By: #### C BC, AHCV, HIVCMB ####[address] [address] #### CP, LIPR ####[address] [place] [address] Glucose mass conc 99 mg/dL Normal 70-99 [facility] Comment on above: Performed By: #### C BC, AHCV, HIVCMB ####[address] [address] #### CP, LIPR ####[address] [place] [address] Potassium molar conc 4.5 mmol/L Normal 3.7-5.3 [facility] Comment on above: Performed By: #### C BC, AHCV, HIVCMB ####[address] [address] #### CP, LIPR ####[address] [place] [address] Protein 7.6 g/dL Normal 6.4-8.3 [facility] Comment on above: Performed By: #### C BC, AHCV, HIVCMB ####[address] [address] #### CP, LIPR ####[address] [place] [address] Sodium 139 mmol/L Normal 135-144 [facility] Comment on above: Performed By: #### C BC, AHCV, HIVCMB ####[address] [address] #### CP, LIPR ####[address] [place] [address] Staging: Normal [facility] Comment on above: Result Comment: Stag e 1: Some kidney damage normal GFRStage 2: Mild kidney damage GFR 60-89Stage 3: Moderate kidney damage GFR 30-59Stage 4: Severe kidney damage GFR 15-29Stage 5: Severe kidney damage GFR <15ESRD - chronic treatment by dialysis or transplantPerformed at [address] [place] [address] Performed By: #### C BC, AHCV, HIVCMB ####[address] [address] #### CP, LIPR ####[address] [place] [address] Urea nitrogen 14 mg/dL Normal 6-20 [facility] Comment on above: Performed By: #### C BC, AHCV, HIVCMB ####[address] [address] #### CP, LIPR ####[address] [place] [address] Cult,Urineon 12-14-2017 Cult,Urine Specimen Description .CLEAN CATCH URINE Performed at [address] [place], [place] [id number] [phone] Special Requests NOT REPORTEDCulture ESCHERICHIA COLI 50 to 100,000 CFU/ML Performed at [address] [address] Report Status FINAL 12/14/2017SUSCEPTIBILITYOrg anism ECMethod MICAmikacin [...] fa <=20 SUSCEPTIBLEPiperacillin/Darrick obactam <=4 SUSCEPTIBLE Normal [facility] Comment on above: Performed By: #### U RC ####[address] [phone] [place] [address] Lipid Profileon 12-14-2017 Cholesterol 211 mg/dL High <200 [facility] Comment on above: Result Comment: Chol esterol Guidelines: <200 Desirable 200-240 Borderline >240 Undesirable Performed By: #### C BC, AHCV, HIVCMB ####[address] [address] #### CP, LIPR ####[address] [place], [place] [id number] Cholesterol to HDL Ratio 2.6 {ratio} Normal <5 [facility] Comment on above: Performed By: #### C BC, AHCV, HIVCMB ####[address] [address] #### CP, LIPR ####[address] [place] [address] HDL Cholesterol 80 mg/dL Normal >40 [facility] Comment on above: Result Comment: HDL Guidelines: <40 Undesirable 40-59 Borderline >59 Desirable Performed By: #### C BC, AHCV, HIVCMB ####[address] [address] #### CP, LIPR ####[address] [place] [address] LDL Cholesterol 116 mg/dL Normal 0-130 [facility] Comment on above: Result Comment: LDL Guidelines: <100 Desirable 100-129 Near to/above Desirable 130-159 Borderline >159 UndesirableDirect (measured) LDL and calculated LDL are not interchangeable tests. Performed By: #### C BC, AHCV, HIVCMB ####[address] [address] #### CP, LIPR ####[address] [place] [address] Triglyceride 76 mg/dL Normal <150 [facility] Comment on above: Result Comment: Trig lyceride Guidelines: <150 Desirable 150- 199 Borderline 200-499 High >499 Very high Based on AHA Guidelines for fasting triglyceride, May 2012.Performed at [address] [place] [address] Performed By: #### C BC, AHCV, HIVCMB ####[address] [address] #### CP, LIPR ####[address] [place] [address] Cholesterol in VLDL mass conc NOT REPORTED Normal 1-30 [facility] Comment on above: Performed By: #### C BC, AHCV, HIVCMB ####[address] [address] #### CP, LIPR ####[address] [place], [place] [id number] Progress Noteon 12-14-2017 HIM IP Note OR Lye Boiler Normal [facility] CT ABDOMEN PELVIS WO CONTRAS Ton [...] No significant findings. Interpreted by:IVANNA Leblancigned by:Herson Gregorio MD12/13/18Final result Normal [facility] Urinalysis w/ Microon 2017 ----- Normal [facility] Comment on above: Performed By: #### U AMIC ####[address] [place] [address] Acetaminophen mass conc Negative Normal NEG [facility] Comment on above: Performed By: #### U AMIC ####[address] [place] [address] Bilirubin (direct) Negative Normal NEG [facility] Comment on above: Performed By: #### U AMIC ####[address] [place] [address] Hemoglobin mass conc (Bld) 1+ Abnormal NEG [facility] Comment on above: Performed By: #### U AMIC ####[address] [place] [address] Nitrite,Ur Negative Normal NEG [facility] Comment on above: Performed By: #### U AMIC ####[facility] [place] [address] Turbidity CLEAR Normal CLEAR [facility] Comment on above: Performed By: #### U AMIC ####[address] [place] [address] Urine WBC's 20 TO 50 Normal 0-5 [facility] Comment on above: Performed By: #### U AMIC ####[address] [place] [address] Urine, bacteria in sediment TRACE Abnormal NONE [facility] Comment on above: Result Comment: Perf ormed at [facility] [address] [place] [address] Performed By: #### U AMIC ####[address] [place] [address] Urine, color YELLOW Normal YEL [facility] Comment on above: Performed By: #### U AMIC ####[address] [place] [address] Urine, epithelial cells in sediment 2 TO 5 Normal 0-25 [facility] Comment on above: Performed By: #### U AMIC ####[address] [place] [address] Urine, erythrocytes 0 TO 2 Normal 0-2 [facility] Comment on above: Performed By: #### U AMIC ####[address] [place] [address] Urine, glucose presence Negative Normal NEG [facility] Comment on above: Performed By: #### U AMIC ####[address] [place] [address] Urine, leukocyte esterase presence SMALL Abnormal NEG [facility] Comment on above: Performed By: #### U AMIC ####[address] [place] [address] Urine, pH 5.5 [pH] Normal 5.0-9.0 [facility] Comment on above: Performed By: #### U AMIC ####[address] [place] [address] Urine, protein presence Negative Normal NEG [facility] Comment on above: Performed By: #### U AMIC ####[address] [place] [address] Urine, specific gravity 1.010 Normal 1.010-1.020 [facility] Comment on above: Performed By: #### U AMIC ####[address] [place] [address] Urobilinogen,Ur Normal Normal NORM [facility] Comment on above: Performed By: #### U AMIC ####[address] [place] [address] Comment NOT REPORTED Normal [facility] Comment on above: Performed By: #### U AMIC ####[address] [place] [address] Epithelial, Renal NOT REPORTED Normal 0 [facility] Comment on above: Performed By: #### U AMIC ####[address] [place] [address] Mucus Strands NOT REPORTED Normal NONE [facility] Comment on above: Performed By: #### U AMIC ####[address] [place] [address] Other Observations NOT REPORTED Normal NREQ [facility] Comment on above: Performed By: #### U AMIC ####[address] [place] [address] Trichomonas NOT REPORTED Normal NONE [facility] Comment on above: Performed By: #### U AMIC ####[address] [place] [address] Urine, amorphous sediment presence in sediment NOT REPORTED Normal NONE [facility] Comment on above: Performed By: #### U AMIC ####[address] [place] [address] Urine, casts in sediment NOT REPORTED Normal [facility] Comment on above: Performed By: #### U AMIC ####[address] [place] [address] Urine, crystals in sediment NOT REPORTED Normal NONE [facility] Comment on above: Performed By: #### U AMIC ####[address] [place] [address] Urine, yeast presence in sediment NOT REPORTED Normal NONE [facility] Comment on above: Performed By: #### U AMIC ####[address] [place] [address] Vital Signs Date Time Vital Sign Value Performing Clinician Facility 04-01-2025 09:06-0400 Body height 162.6 cm aFhad Portillo DO Work Phone: [facility] 04-01-2025 09:06-0400 Body mass index (BMI) [Ratio] 18.19 kg/m2 Fahad Portillo DO Work Phone: [facility] 04-01-2025 09:06-0400 Body temperature 96.01 [degF] Fahad Portillo DO Work Phone: [facility] 04-01-2025 09:06-0400 Body weight 48.08 kg Fahad Portillo DO Work Phone: [facility] 04-01-2025 09:06-0400 Diastolic blood pressure 72 mm[Hg] Fahad Portillo DO Work Phone: [facility] 04-01-2025 09:06-0400 Heart rate 78 /min Fahad Bg DO Work Phone: [facility] 04-01-2025 09:06-0400 Respiratory rate 20 /min Fahad Bg DO Work Phone: [facility] 04-01-2025 09:06-0400 SaO2% (BldA) [Mass fraction] 97 % Fahad Bg DO Work Phone: [facility] 04-01-2025 09:06-0400 Systolic blood pressure 112 mm[Hg] Fahad Bg DO Work Phone: [facility] 02-20-2025 08:49-0400 Body height 162.6 cm Fahad Bg DO Work Phone: [facility] 02-20-2025 08:49-0400 Body mass index (BMI) [Ratio] 18.02 kg/m2 Fahad Bg DO Work Phone: [facility] 02-20-2025 08:49-0400 Body temperature 98.2 [degF] Fahad Bg DO Work Phone: [facility] 02-20-2025 08:49-0400 Body weight 47.63 kg Fahad Bg DO Work Phone: [facility] 02-20-2025 08:49-0400 Diastolic blood pressure 86 mm[Hg] Fahad Bg DO Work Phone: [facility] 02-20-2025 08:49-0400 Heart rate 88 /min Fahad Bg DO Work Phone: [facility] 02-20-2025 08:49-0400 Respiratory rate 20 /min Fahad Bg DO Work Phone: [facility] 02-20-2025 08:49-0400 SaO2% (BldA) [Mass fraction] 97 % Fahad Bg DO Work Phone: [facility] 02-20-2025 08:49-0400 Systolic blood pressure 132 mm[Hg] Fahad Bg DO Work Phone: [facility] 02-13-2025 08:05-0400 Body height 160 cm Fahad Portillo DO Work Phone: [facility] 02-13-2025 08:05-0400 Body mass index (BMI) [Ratio] 19.13 kg/m2 Fahad Portillo DO Work Phone: [facility] 02-13-2025 08:05-0400 Body weight 48.99 kg Fahad Portillo DO Work Phone: [facility] 02-13-2025 08:05-0400 Diastolic blood pressure 72 mm[Hg] Fahad Portillo DO Work Phone: [facility] 02-13-2025 08:05-0400 Heart rate 77 /min Fahad Portillo DO Work Phone: [facility] 02-13-2025 08:05-0400 Respiratory rate 20 /min Fahad Portillo DO Work Phone: [facility] 02-13-2025 08:05-0400 SaO2% (BldA) [Mass fraction] 94 % Fahad Portillo DO Work Phone: [facility] 02-13-2025 08:05-0400 Systolic blood pressure 140 mm[Hg] Fahad Portillo DO Work Phone: [facility] 02-09-2025 11:17-0400 Body temperature 97.7 [degF] Karlarabia Morenook MULTI CARE TECHNICIAN Work Phone: [facility] 02-09-2025 11:17-0400 Diastolic blood pressure 84 mm[Hg] Karla Summerhill MULTI CARE TECHNICIAN Work Phone: [facility] 02-09-2025 11:17-0400 Heart rate 88 /min Karla Summerhill MULTI CARE TECHNICIAN Work Phone: [facility] 02-09-2025 11:17-0400 SaO2% (BldA) [Mass fraction] 96 % Karla Summerhill MULTI CARE TECHNICIAN Work Phone: [facility] 02-09-2025 11:17-0400 Systolic blood pressure 122 mm[Hg] Karla Bustamante MULTI CARE TECHNICIAN Work Phone: [facility] 02-08-2025 11:48-0400 Body height 160 cm Fahad Bg DO Work Phone: [facility] 02-08-2025 11:48-0400 Body mass index (BMI) [Ratio] 18.42 kg/m2 Fahad Bg DO Work Phone: [facility] 02-08-2025 11:48-0400 Body temperature 97.59 [degF] Fahad Bg DO Work Phone: [facility] 02-08-2025 11:48-0400 Body weight 47.17 kg Fahad Bg DO Work Phone: [facility] 02-08-2025 11:48-0400 Diastolic blood pressure 60 mm[Hg] Fahad Bg DO Work Phone: [facility] 02-08-2025 11:48-0400 Heart rate 68 /min Fahad Bg DO Work Phone: [facility] 02-08-2025 11:48-0400 Respiratory rate 20 /min Fahad Bg DO Work Phone: [facility] 02-08-2025 11:48-0400 SaO2% (BldA) [Mass fraction] 97 % Fahad Bg DO Work Phone: [facility] 02-08-2025 11:48-0400 Systolic blood pressure 100 mm[Hg] Fahad Bg DO Work Phone: [facility] 10-15-2024 10:26-0500 Body height 160 cm Fahad Bg DO Work Phone: [facility] 10-15-2024 10:26-0500 Body mass index (BMI) [Ratio] 18.6 kg/m2 Fahad Bg DO Work Phone: [facility] 10-15-2024 10:26-0500 Body temperature 98.1 [degF] Fahad Bg DO Work Phone: [facility] 10-15-2024 10:26-0500 Body weight 47.63 kg Fahad Bg DO Work Phone: [facility] 10-15-2024 10:26-0500 Diastolic blood pressure 64 mm[Hg] Fahad Bg DO Work Phone: [facility] 10-15-2024 10:26-0500 Heart rate 87 /min Fahad Bg DO Work Phone: [facility] 10-15-2024 10:26-0500 Respiratory rate 20 /min Fahad Bg DO Work Phone: [facility] 10-15-2024 10:26-0500 SaO2% (BldA) [Mass fraction] 97 % Fahad Bg DO Work Phone: [facility] 10-15-2024 10:26-0500 Systolic blood pressure 104 mm[Hg] Fahad Bg DO Work Phone: [facility] 10-09-2024 08:25-0500 Body height 160 cm Fahad Bg DO Work Phone: [facility] 10-09-2024 08:25-0500 Body mass index (BMI) [Ratio] 19.13 kg/m2 Fahad Bg DO Work Phone: [facility] 10-09-2024 08:25-0500 Body temperature 98.29 [degF] Fahad Bg DO Work Phone: [facility] 10-09-2024 08:25-0500 Body weight 48.99 kg Fahad Bg DO Work Phone: [facility] 10-09-2024 08:25-0500 Diastolic blood pressure 60 mm[Hg] Fahad Bg DO Work Phone: [facility] 10-09-2024 08:25-0500 Heart rate 78 /min Fahad Bg DO Work Phone: [facility] 10-09-2024 08:25-0500 Respiratory rate 20 /min Fahad Bg DO Work Phone: [facility] 10-09-2024 08:25-0500 SaO2% (BldA) [Mass fraction] 95 % Fahad Bg DO Work Phone: [facility] 10-09-2024 08:25-0500 Systolic blood pressure 98 mm[Hg] Fahad Bg DO Work Phone: [facility] 10-03-2024 15:49-0500 Body height 160 cm Fahad Bg DO Work Phone: [facility] 10-03-2024 15:49-0500 Body mass index (BMI) [Ratio] 19.13 kg/m2 Fahad Bg DO Work Phone: [facility] 10-03-2024 15:49-0500 Body temperature 98.01 [degF] Fahad Bg DO Work Phone: [facility] 10-03-2024 15:49-0500 Body weight 48.99 kg Fahad Rinconuitt DO Work Phone: [facility] 10-03-2024 15:49-0500 Diastolic blood pressure 60 mm[Hg] Fahad Bg DO Work Phone: [facility] 10-03-2024 15:49-0500 Heart rate 68 /min Fahad Bg DO Work Phone: [facility] 10-03-2024 15:49-0500 Respiratory rate 20 /min Fahad Bg DO Work Phone: [facility] 10-03-2024 15:49-0500 SaO2% (BldA) [Mass fraction] 96 % Fahad Bg DO Work Phone: [facility] 10-03-2024 15:49-0500 Systolic blood pressure 100 mm[Hg] Fahad Bg DO Work Phone: [facility] 07-17-2024 15:10-0500 Body height 160 cm Fahad Corbettt DO Work Phone: [facility] 07-17-2024 15:10-0500 Body mass index (BMI) [Ratio] 18.25 kg/m2 Fahad Rinconuitt DO Work Phone: [facility] 07-17-2024 15:10-0500 Body temperature 98.01 [degF] Fahad Rinconuitt DO Work Phone: [facility] 07-17-2024 15:10-0500 Body weight 46.72 kg Fahad Rinconuitt DO Work Phone: [facility] 07-17-2024 15:10-0500 Diastolic blood pressure 82 mm[Hg] Fahad Rinconuitt DO Work Phone: [facility] 07-17-2024 15:10-0500 Heart rate 77 /min Fahad Rinconuitt DO Work Phone: [facility] 07-17-2024 15:10-0500 Respiratory rate 20 /min Fahad Rinconuitt DO Work Phone: [facility] 07-17-2024 15:10-0500 SaO2% (BldA) [Mass fraction] 96 % Fhaad Rinconuitt DO Work Phone: [facility] 07-17-2024 15:10-0500 Systolic blood pressure 126 mm[Hg] Fahad Rinconuitt DO Work Phone: [facility] 07-11-2024 10:19-0500 Body height 160 cm Fahad Rinconuitt DO Work Phone: [facility] 07-11-2024 10:19-0500 Body mass index (BMI) [Ratio] 18.42 kg/m2 Fahad Bg DO Work Phone: [facility] 07-11-2024 10:19-0500 Body temperature 98.29 [degF] Fahad Rinconuitt DO Work Phone: [facility] 07-11-2024 10:19-0500 Body weight 47.17 kg Fahad Bg DO Work Phone: [facility] 07-11-2024 10:19-0500 Diastolic blood pressure 84 mm[Hg] Fahad Bg DO Work Phone: [facility] 07-11-2024 10:19-0500 Heart rate 84 /min Fahad Bg DO Work Phone: [facility] 07-11-2024 10:19-0500 Respiratory rate 20 /min Fahad Bg DO Work Phone: [facility] 07-11-2024 10:19-0500 SaO2% (BldA) [Mass fraction] 96 % Fahad Rinconuitt DO Work Phone: [facility] 07-11-2024 10:19-0500 Systolic blood pressure 132 mm[Hg] Fahad Bg DO Work Phone: [facility] 07-04-2024 14:51-0500 Body height 160 cm Fahad Rinconuitt DO Work Phone: [facility] 07-04-2024 14:51-0500 Body mass index (BMI) [Ratio] 18.78 kg/m2 Fahad Rinconuitt DO Work Phone: [facility] 07-04-2024 14:51-0500 Body temperature 98.2 [degF] Fahad Rinconuitt DO Work Phone: [facility] 07-04-2024 14:51-0500 Body weight 48.08 kg Fahad Rinconuitt DO Work Phone: [facility] 07-04-2024 14:51-0500 Diastolic blood pressure 82 mm[Hg] Fahad Bg DO Work Phone: [facility] 07-04-2024 14:51-0500 Heart rate 78 /min Fahad Bg DO Work Phone: [facility] 07-04-2024 14:51-0500 Respiratory rate 20 /min Fahad Bg DO Work Phone: [facility] 07-04-2024 14:51-0500 SaO2% (BldA) [Mass fraction] 98 % Fahad Portillo DO Work Phone: [facility] 07-04-2024 14:51-0500 Systolic blood pressure 120 mm[Hg] Fahad Portillo DO Work Phone: [facility] 12-23-2022 16:40-0400 Body height 160.02 cm Awais Comer Other [employer] Other 12-23-2022 16:40-0400 Body mass index (BMI) [Ratio] 21.25 kg/m2 Awais Comer Other [employer] Other 12-23-2022 16:40-0400 Body weight 54.43 kg Awais Comer Other [employer] Other 12-14-2022 15:30-0400 Body height 160.02 cm Vilma Sharma Other [employer] Other 12-14-2022 15:30-0400 Body mass index (BMI) [Ratio] 21.25 kg/m2 Vilma Sharma Other [facility] Other 12-14-2022 15:30-0400 Body weight 54.43 kg Vilma Sharma Other [facility] Other 10-20-2021 16:45-0500 Body height 160.02 cm Herson Amin Other [employer] Other 10-20-2021 16:45-0500 Body mass index (BMI) [Ratio] 21.61 kg/m2 Herson Amin Other [facility] Other 10-20-2021 16:45-0500 Body weight 55.34 kg Herson Amin Other [employer] Other 08-13-2019 10:12-0500 BMI (Body Mass Index) 21.5 kg/m2 [facility] Work Phone: 08-13-2019 10:12-0500 Body Temperature 99.6 [degF] [facility] Work Phone: 08-13-2019 10:12-0500 Body weight 49.9 kg [facility] Work Phone: 08-13-2019 10:12-0500 BP Diastolic 78 mm[Hg] [facility] Work Phone: 08-13-2019 10:12-0500 BP Systolic 110 mm[Hg] [facility] Work Phone: 08-13-2019 10:12-0500 BSA (Body Surface Area) 1.45 m2 [facility] Work Phone: 08-13-2019 10:12-0500 Height 152.4 cm [facility] Work Phone: 08-13-2019 10:12-0500 Pulse (Heart Rate) 80 /min [facility] Work Phone: 08-13-2019 10:12-0500 Pulse Oximetry 96 % [facility] Work Phone: 08-13-2019 10:12-0500 Respiratory Rate 14 /min [facility] Work Phone: 08-01-2019 12:12-0500 BMI (Body Mass Index) 21.5 kg/m2 [facility] Work Phone: 08-01-2019 12:12-0500 Body Temperature 98.8 [degF] [facility] Work Phone: 08-01-2019 12:12-0500 Body weight 49.9 kg Lupe [facility] Work Phone: 08-01-2019 12:12-0500 BP Diastolic 80 mm[Hg] Lupe [facility] Work Phone: 08-01-2019 12:12-0500 BP Systolic 130 mm[Hg] [facility] Work Phone: 08-01-2019 12:12-0500 BSA (Body Surface Area) 1.45 m2 [facility] Work Phone: 08-01-2019 12:12-0500 Height 152.4 cm [facility] Work Phone: 08-01-2019 12:12-0500 Pulse (Heart Rate) 87 /min [facility] 08-01-2019 12:12-0500 Pulse Oximetry 96 % [facility] Work Phone: 08-01-2019 12:12-0500 Respiratory Rate 14 /min [facility] Work Phone: 2019 15:40-0500 BMI (Body Mass Index) 21.5 kg/m2 [facility] Work Phone: 2019 15:40-0500 Body Temperature 98 [degF] [facility] Work Phone: 2019 15:40-0500 Body weight 49.9 kg [facility] Work Phone: 2019 15:40-0500 BP Diastolic 80 mm[Hg] [facility] Work Phone: 2019 15:40-0500 BP Systolic 104 mm[Hg] [facility] Work Phone: 2019 15:40-0500 BSA (Body Surface Area) 1.45 m2 [facility] Work Phone: 2019 15:40-0500 Height 152.4 cm [facility] Work Phone: 2019 15:40-0500 Pulse (Heart Rate) 84 /min [facility] Work Phone: 2019 15:40-0500 Pulse Oximetry 95 % [facility] Work Phone: Encounters Encounter Date Encounter Type Care Provider Facility Start: 04-03-2025 End: 04-03-2025 Bamboo flowsheet Fahad Bg DO Work Phone: [facility] Start: 04-03-2025 End: 04-03-2025 Bamboo flowsheet Fahad Bg DO Work Phone: [facility] Start: 04-01-2025 End: 04-01-2025 Bamboo flowsheet Fahad Bg DO Work Phone: [facility] Start: 04-01-2025 End: 04-01-2025 Bamboo flowsheet Fahad Bg DO Work Phone: [facility] Start: 04-01-2025 End: 04-01-2025 Office outpatient visit 25 minutes Fahad Bg DO Work Phone: [facility] Comment on above: Irritation of eye (P rimary Dx); Insomnia, unspecified type; Anxiety attack Start: 04-01-2025 End: 04-01-2025 ambulatory FAHAD BG Not Available Start: 03-19-2025 End: 03-20-2025 Refill Fahad Bg DO Work Phone: [facility] Comment on above: Low back strain, sub sequent encounter Start: 02-20-2025 End: 02-20-2025 ambulatory FAHAD BG Not Available Start: 02-20-2025 End: 02-20-2025 Office outpatient visit 25 minutes Fahad Portillo DO Work Phone: [facility] Comment on above: Fall, subsequent enc ounter (Primary Dx); Low back strain, subsequent encounter; Spasm of thoracic back muscle Start: 02-17-2025 End: 02-19-2025 Refill Fahad Portillo DO Work Phone: [facility] Comment on above: Neuropathic pain Start: 02-13-2025 End: 02-13-2025 Bamboo flowsheet Fahad Portillo DO Work Phone: [facility] Start: 02-13-2025 End: 02-13-2025 Bamboo flowsheet Fahad Portillo DO Work Phone: [facility] Start: 02-13-2025 End: 02-13-2025 ambulatory FAHAD PORTILLO Not Available Start: 02-13-2025 End: 02-13-2025 Office outpatient visit 25 minutes Fahad Portillo DO Work Phone: [facility] Comment on above: Fall, subsequent enc ounter (Primary Dx); Acute bilateral low back pain without sciatica; Low back strain, subsequent encounter; Osteoarthritis of lumbar spine, unspecified spinal osteoarthritis complication status Start: 02-09-2025 End: 02-09-2025 ambulatory KARLA BUSTAMANTE Not Available Start: 02-09-2025 End: 02-09-2025 Office outpatient visit 25 minutes Karla Bustamante MULTI CARE TECHNICIAN Work Phone: [facility] Comment on above: Acute bilateral low back pain without sciatica (Primary Dx); Low back strain, initial encounter; Osteoarthritis of lumbar spine, unspecified spinal osteoarthritis complication status Start: 02-08-2025 End: 02-08-2025 Bamboo flowsheet Fahad Portillo DO Work Phone: [facility] Start: 02-08-2025 End: 02-08-2025 Bamboo flowsheet Fahad Corbettt DO Work Phone: [facility] Start: 02-08-2025 End: 02-08-2025 ambulatory FAHAD PORTILLO Not Available Start: 02-08-2025 End: 02-08-2025 Office outpatient visit 25 minutes Fahad Portillo DO Work Phone: [facility] Comment on above: Fall, initial encoun ter (Primary Dx); Right forearm pain; Dermatitis Start: 02-01-2025 End: 02-04-2025 Refill Fahad Corbettt DO Work Phone: [facility] Comment on above: Anxiety attack ; Insomnia, unspecified type Start: 01-15-2025 ambulatory Facility:[facility] Start: 01-08-2025 End: 01-08-2025 Refill Fahad Corbettt DO Work Phone: [facility] Comment on above: Anxiety attack (CMS/ HCC); Insomnia, unspecified type Start: 12-26-2024 End: 12-26-2024 ambulatory FAHAD PORTILLO Not Available Start: 12-26-2024 End: 12-26-2024 Patient encounter procedure Fahad Portillo DO Work Phone: [facility] Comment on above: Diarrhea, unspecifie d type (Primary Dx); Elevated LFTs; Hepatitis C virus infection without hepatic coma, unspecified chronicity (CMS/HCC); Other chronic pain Start: 12-26-2024 End: 12-26-2024 Bamboo flowsheet Fahad Corbettt DO Work Phone: [facility] Start: 12-26-2024 End: 12-26-2024 Bamboo flowsheet Fahad Rinconuitt DO Work Phone: [facility] Start: 12-10-2024 End: 12-10-2024 Refill Fahad Corbettt DO Work Phone: [facility] Comment on above: Anxiety attack (CMS/ HCC); Insomnia, unspecified type Start: 11-15-2024 End: 11-15-2024 Telephone encounter Fahad Portillo DO Work Phone: [facility] Start: 11-08-2024 End: 11-08-2024 ambulatory FAHAD CORBETTT Not Available Start: 10-15-2024 End: 10-15-2024 Bamboo flowsheet Fahad Rinconuitt DO Work Phone: [facility] Start: 10-15-2024 End: 10-15-2024 Bamboo flowsheet Fahad Rinconuitt DO Work Phone: [facility] Start: 10-15-2024 End: 10-15-2024 ambulatory FAHAD CORBETTT Not Available Start: 10-15-2024 End: 10-15-2024 Office outpatient visit 15 minutes Fahad Rinconuitt DO Work Phone: [facility] Comment on above: Left hip pain (Prima ry Dx); Hematoma; Fall, subsequent encounter Start: 10-09-2024 End: 10-09-2024 Bamboo flowsheet Fahad Rinconuitt DO Work Phone: [facility] Start: 10-09-2024 End: 10-09-2024 Bamboo flowsheet Fahad Rinconuitt DO Work Phone: [facility] Start: 10-09-2024 End: 10-09-2024 ambulatory FAHAD RINCONUITT Not Available Start: 10-09-2024 End: 10-09-2024 Office outpatient visit 15 minutes Fahad Rinconuitt DO Work Phone: [facility] Comment on above: Left hip pain (Prima ry Dx); Hematoma; Fall, initial encounter Start: 10-03-2024 End: 10-03-2024 Office outpatient visit 25 minutes Fahad Rinconuitt DO Work Phone: [facility] Comment on above: Anxiety attack (CMS/ HCC) (Primary Dx); Insomnia, unspecified type Start: 10-03-2024 End: 10-03-2024 ambulatory FAHAD BG Not Available Start: 07-17-2024 End: 07-17-2024 Office outpatient visit 15 minutes Fahad Bg DO Work Phone: [facility] Comment on above: Dermatitis (Primary Dx); Mucocele of mouth Start: 07-17-2024 End: 07-17-2024 ambulatory FAHAD PORTILLO Not Available Start: 07-11-2024 End: 07-11-2024 Office outpatient visit 15 minutes Fahad Portillo DO Work Phone: [facility] Comment on above: Dermatitis (Primary Dx) Start: 07-11-2024 End: 07-11-2024 ambulatory FAHAD PORTILLO Not Available Start: 07-04-2024 End: 07-04-2024 ambulatory FAHAD CORBETTT Not Available Start: 07-04-2024 End: 07-04-2024 Office outpatient new 45 minutes Fahad Portillo DO Work Phone: [facility] Comment on above: Anxiety attack (CMS/ HCC) (Primary Dx); Insomnia, unspecified type; Dermatitis; Screening for lipid disorders; Hepatitis C virus infection without hepatic coma, unspecified chronicity (CMS/HCC); Seasonal allergies; Age related osteoporosis, unspecified pathological fracture presence (CMS/HCC); Encounter for screening mammogram for malignant neoplasm of breast; Nicotine use Start: 07-04-2024 End: 07-04-2024 Bamboo flowsheet Fahad Portillo DO Work Phone: [facility] Start: 07-04-2024 End: 07-04-2024 Bamboo flowsheet Fahad Portillo DO Work Phone: [facility] Start: 12-23-2022 End: 12-23-2022 ambulatory Awais Comer Other [facility] Other Start: 12-23-2022 Office outpatient vi sit 15 minutes Awais Comer [facility] Start: 12-21-2022 End: 12-21-2022 ambulatory Vilma Sharma Facility:[facility] Start: 12-21-2022 End: 12-21-2022 ambulatory DO Nomi Corcoran Work Phone: [facility] Work Phone: Start: 12-21-2022 End: 12-21-2022 Patient encounter procedure DO Nomi Corcoran Work Phone: [facility] Work Phone: Start: 12-16-2022 End: 12-16-2022 ambulatory Vilma Sharma Other [place] Other Start: 12-16-2022 Telephone encounter Vilma [employer] [facility] Start: 12-15-2022 End: 12-15-2022 ambulatory Vilma [employer] Other [place] Other Start: 12-15-2022 Telephone encounter Vilma Sharma [facility] Start: 12-14-2022 End: 12-14-2022 ambulatory Vilma [employer] Other [employer] Other Start: 12-14-2022 Office outpatient ne w 45 minutes Vilma Sharma [facility] Start: 12-14-2022 [facility] Start: 12-13-2022 End: 12-13-2022 ambulatory JUANA BOB Facility:[facility] Start: 12-09-2022 End: 12-09-[address] TREV PHILLIPS Facility:[facility] Start: 11-30-2022 End: 11-30-[address] ISHA VIVEROS . Facility:[facility] Start: 11-26-2022 ambulatory NONE LISTED REQUEST Facility:[facility] Start: 08-24-2022 End: 08-24-2022 Phys/qhp telephone evaluation 11-20 min Aliza Guadarrama MD Work Phone: [facility] Comment on [...] 10-20-2021 End: 10-20-2021 ambulatory Herson Amin Other [place] Other Start: 10-20-2021 Office outpatient ne w 45 minutes Herson Amin [facility] G[facility] Start: 08-13-2019 End: 08-13-2019 Established patient Porsche Vega Work Phone: [facility] Work Phone: Start: 08-01-2019 End: 08-01-2019 Established patient Lupe Snider Work Phone: [facility] Work Phone: Start: 2019 End: 2019 New patient Lupe Snider Work Phone: [facility] Work Phone: Start: 12-26-2017 End: 12-27-2017 Ambulatory GURPREET JOHNSON [facility] Start: 12-16-2017 End: 12-17-2017 Ambulatory [facility] Start: 12-14-2017 End: 12-15-2017 Ambulatory [facility] Start: 12-13-2017 End: 12-16-2017 Ambulatory [facility] Procedures Date Procedure Procedure Detail Performing Clinician Start: 02-08-2025 Radex forearm 2 rachid Portillo DO Work Phone: Start: 12-12-2024 Mammography Fahad Lucio itt DO Work Phone: Start: 12-21-2022 Dual energy X-ray absorptiometry DO [...] Phone: Start: 12-26-2017 EKG 12-LEAD LETY AKERS AN Start: 12-26-2017 URINE CULTURE CLEAN CATCH LETY DERAS Start: 12-26-2017 URINALYSIS WITH MICROSCOPIC LETY DERAS Start: 12-16-2017 HEPATITIS C RNA, PCR NO WILFRID DERAS Start: 12-14-2017 CBC LETY AKERS AN Start: 12-14-2017 COMPREHENSIVE METABO LIC PANEL LETY DERAS Start: 12-14-2017 HEPATITIS C ANTIBODY NO WILFRID DERAS Start: 12-14-2017 [facility] Start: 12-14-2017 [facility]id [facility] Start: 12-13-2017 Ct abdomen & pelvis w/o contrast material LETY DERAS Start: 12-13-2017 URINALYSIS WITH MICROSCOPIC LETY DERAS Start: 12-13-2017 URINE CULTURE LETY SAGE H/O: hysterectomy Herson garcia Other Screening for malign ant neoplasm of colon Herson Amin Other Plan of Treatment Date Care Activity Detail Author Start: 12-02-2031 Screening for malign ant neoplasm of colon [facility] Start: 03-13-2027 Screening for malign ant neoplasm of breast Mammogram [facility] Start: 02-03-2026 Cholesterol [Mass/volume] in Serum or Plasma Cholesterol [facility] Start: 04-22-2025 Influenza vaccination Influenza Vacc ine (#1) [facility] Start: 04-03-2025 End: 04-03-2025 Patient encounter procedure 04/03/2025 11:20 AM EDT Office Visit [facility] [address] [place] [id number] Fahad Portillo DO [address] [place] [address] Arrived [facility] [address] Comment on above: Arrived Start: 04-01-2025 End: 04-01-2025 Patient encounter procedure [facility] Comment on above: Arrived Start: 03-27-2025 End: 03-27-2025 Patient encounter procedure [facility] Start: 02-20-2025 End: 02-20-2025 Patient encounter procedure 02/20/2025 8:40 AM EDT Office Visit [facility] [address] [place] [address] Fahad Portillo DO [address] [place] [address] [facility] Start: 12-26-2024 End: 12-26-2024 Patient encounter procedure 12/26/2024 3:40 PM EDT Office Visit [facility] [address] [place] [address] Fahad Portillo, DO [address] [place] [address] [facility] Start: 10-15-2024 End: 10-15-2024 Patient encounter procedure 10/15/2024 10:20 AM EST Office Visit [facility] [address] [place] [address] Fahad Portillo, DO [address] [place] [address] [facility] Start: 10-03-2024 End: 10-03-2024 Patient encounter procedure 10/03/2024 3:40 PM EST Office Visit [facility] [address] [place] [address] Fahad Portillo, DO [address] [place] [address] [facility] Start: 07-04-2024 End: 07-04-2025 CBC panel - Blood by Automated count CBC Lab Routine Hepatitis C virus infection without hepatic coma, unspecified chronicity (CMS/HCC) Seasonal allergies Expected: 07/04/2024 (Approximate), Expires: 07/04/2025 [facility] Comment on above: Expected: 07/04/2024 (Approximate), Expires: 07/04/2025 Start: 07-04-2024 End: 07-04-2025 Comprehensive metabolic 2000 panel - Serum or Plasma Comprehensive metabolic panel Lab Routine Hepatitis C virus infection without hepatic coma, unspecified chronicity (CMS/HCC) Seasonal allergies Expected: 07/04/2024 (Approximate), Expires: 07/04/2025 [facility] Work Phone: Comment on above: Expected: 07/04/2024 (Approximate), Expires: 07/04/2025 Start: 07-04-2024 End: 07-04-2025 Lipid 1996 panel - Serum or Plasma Lipid panel Lab Routine Screening for lipid disorders Expected: 07/04/2024 (Approximate), Expires: 07/04/2025 [facility] Comment on above: Expected: 07/04/2024 (Approximate), Expires: 07/04/2025 Start: 07-04-2024 End: 09-03-2025 MG Breast - bilateral Screening Bilateral screening mammogram Imaging Routine Encounter for screening mammogram for malignant neoplasm of breast Expected: 07/04/2024, Expires: 09/03/2025 [facility] Comment on above: Expected: 07/04/2024 , Expires: 09/03/2025 Start: 04-22-2024 Influenza vaccination Influenza Vacc ine (#1) [facility] Start: 05-22-2022 Influenza vaccination Influenza Vacc ine (#1) [facility] Start: 04-29-2022 Screening for malign ant neoplasm of breast Mammogram [facility] Start: 2011 Measurement of occul t blood in single stool specimen FIT [facility] Start: 2011 Screening for malign ant neoplasm of colon CRC Screening [facility] Start: 2011 Shingles (RZV) Vacci ne (1 of 2) Shingles (RZV) Vaccine (1 of 2) [facility] Start: 2001 Screening for malign ant neoplasm of breast Mammography [facility] Start: 1982 Screening for malign ant neoplasm of cervix Pap Smear [facility] Start: 1979 Hepatitis C screening Hepatitis C An tibody [facility] Start: 1979 Tetanus + diphtheria + acellular pertussis vaccine (product) Tdap Booster [facility] Start: 1976 HIV screening HIV Test [facility] Start: 1961 Screening for malign ant neoplasm of colon [facility] Immunizations Immunization Date Immunization Notes Care Provider Stacy munoz 07-17-2024 Seasonal, trivalent, recombinant, injectable influenza vaccine, preservative free Fahad Portillo DO Work Phone: [facility] 07-17-2024 influenza virus vaccine, unspecified formulation Fahad Portillo DO Work Phone: [facility] 06-02-2023 Influenza, injectabl e, Madin Hemingway Canine Kidney, preservative free, quadrivalent Fahad Bg DO Work Phone: [facility] 06-02-2023 influenza virus vaccine, unspecified formulation Fahad Bg DO Work Phone: [facility] 07-13-2021 COVID-19 mRNA, Comirnaty (Pfizer) DO Nomi Nilo Work Phone: [facility] 06-08-2021 influenza, injectabl e, quadrivalent, preservative free Fahad Bg DO Work Phone: [facility] 12-10-2020 COVID-19 mRNA, Comirnaty (Pfizer) DO [employer] Work Phone: [facility] 11-25-2020 diphtheria, tetanus toxoids and pertussis vaccine Aliza Guadarrama MD Work Phone: [facility] 11-25-2020 tetanus toxoid, reduced diphtheria toxoid, and acellular pertussis vaccine, adsorbed Fahad Bg DO Work Phone: [facility] 11-13-2020 COVID-19 mRNA, Comirnaty (Pfizer) DO Nomi Nilo Work Phone: [facility] 05-21-2020 influenza, injectabl e, quadrivalent, preservative free Fahad Bg DO Work Phone: [facility] Healthcare Payers Date Payer Category Payer Unknown [id number] 2024 Private Health Insurance [id number] 2024 Private Health Insurance [id number] 2020 Medicaid PERSON MEDICAID PERSON MEDICAID [id number] 2020-Present [address] [address] [place] [address] Medicaid HMO [id number] 2017 Unknown [id number] 2014 Unknown [id number] 1961 Unknown [id number] 2.16.840.1.074475.3.579.2.5 93 1961 Unknown [id number] 2.16.840.1.087911.3.579.2.5 93 1961 Unknown [id number] 2.16.840.1.042929.3.579.2.5 93 1961 Unknown [id number] 2.16.840.1.033872.3.579.2.5 93 1961 Unknown [id number] 2.16.840.1.534663.3.579.2.5 93 1961 Unknown [id number] 2.16.840.1.557133.3.579.2.5 93 1961 Unknown [id number] 2.16.840.1.195868.3.579.2.5 93 1961 Unknown [id number] 2.16.840.1.953902.3.579.2.5 93 1961 Unknown [id number] 2.16.840.1.692023.3.579.2.5 93 1961 Unknown [id number] 2.16.840.1.877645.3.579.2.5 93 1961 Unknown [id number] 2.16.840.1.317307.3.579.2.5 93 1961 Unknown [id number] 2.16.840.1.426913.3.579.2.5 93 1961 Unknown [id number] 2.16.840.1.113469.3.579.2.5 93 1961 Unknown [id number] 2.16.840.1.561705.3.579.2.1 259 1961 Unknown [id number] 2.16.840.1.502380.3.579.2.1 259 1961 Unknown [id number] 2.16.840.1.648675.3.579.2.1 259 1961 Unknown [id number] 2.16.840.1.573828.3.579.2.1 259 1961 Unknown [id number] 2.16.840.1.642370.3.579.2.1 259 1961 Unknown [id number] 2.16.840.1.085256.3.579.2.1 259 1961 Unknown [id number] 2.16.840.1.112445.3.579.2.1 259 1961 Unknown [id number] 2.16.840.1.966342.3.579.2.1 259 1961 Unknown [id number] 2.16.840.1.606858.3.579.2.1 259 1961 Unknown [id number] 2.16.840.1.292214.3.579.2.1 259 1961 Unknown [id number] 2.16.840.1.162316.3.579.2.1 259 1961 Unknown [id number] 2.16.840.1.419502.3.579.2.1 259 1961 Unknown [id number] 2.16.840.1.342821.3.579.2.1 259 1961 Unknown [id number] 2.16.840.1.136986.3.579.2.1 259 1961 Unknown [id number] 2.16.840.1.111509.3.579.2.1 259 1959 Medicaid [id number] 2.16.840.1.452559.19 1959 Self-pay Self-pay [id number] 2.16.840.1.803156.3.140.1.7 2999.5.4 Unknown [id number] 2.16.840.1.643482.3.579.2.[address] [facility] [id number] Social History Date Type Detail Facility Assertion [facility] Work Phone: Assertion Alcohol consumpt ion screening (procedure) [facility] Work Phone: Assertion Gender identity finding (finding) [facility] Work Phone: Assertion Finding of sexua l orientation (finding) [facility] Work Phone: Assertion Tobacco user (finding) [facility] Work Phone: Tobacco smoking status Unknown i f ever smoked [facility] Work Phone: Start: 07-11-2024 End: 11-08-2024 Sex Assigned At [place] Other Start: 1960 Sex Assigned At Not [facility] file [facility] Start: 12-01-2021 Tobacco smoking stat [facility] Smoker (finding) [facility] Start: 1960 Sex Assigned At Female F [facility] Start: 07-04-2024 Tobacco smoking stat [facility] Smokes tobacco daily [facility] History of tobacco use Cigarette Smoker [facility] Start: 07-04-2024 Tobacco use and exposure Smokeless tobacco non-user [facility] Start: 07-11-2024 End: 04-01-2025 Alcoholic beverage intake Ex-drinker (finding) [facility] [...] to any clubs or organizations such as jewish groups, unions, fraternal or athletic groups, or [...] Highlighted row Assertion Illicit drug use (finding) [facility] Work Phone: NEGATED: Highlighted row Assertion Misuse of prescription only drugs (finding) [facility] Work Phone: NEGATED: Highlighted row Assertion She has not had 4 or more drinks in a day within the past year. [facility] Work Phone: NEGATED: Highlighted row Assertion Current drinker of alcohol (finding) [facility] Work Phone: NEGATED: Highlighted row Assertion Finding relating to drug misuse behavior (finding) [facility] Work Phone: NEGATED: Highlighted row Assertion Exposure to pollution (event) [facility] Work Phone: NEGATED: Highlighted row Assertion Tobacco user (finding) [facility] Work Phone: Functional Status Date Assessment Result Facility 04-01-2025 Total score [AUDIT-C] 0 04/01/20 25 9:05 AM Jennifer Galdamez LPN [facility] 04-01-2025 Patient Health [facility] ionnaire 2 item (PHQ-2) [Reported] [facility] 02-20-2025 Total score [AUDIT-C] 0 02/21/20 25 8:49 AM EDJennifer Suarez MA [facility] 02-20-2025 Patient Health [facility] ionnaire 2 item (PHQ-2) [Reported] [facility] 02-13-2025 Patient Health [facility] ionnaire 2 item (PHQ-2) [Reported] [facility] 02-13-2025 Total score [AUDIT-C] 0 02/14/20 8:03 AM EDT Jennifer Del Valle MA [facility] 02-08-2025 Total score [AUDIT-C] 0 02/09/20 11:37 AM EDT Jennifer Del Valle MA [facility] 02-08-2025 Patient Health [facility] ionnaire 2 item (PHQ-2) [Reported] [facility] 12-26-2024 Total score [AUDIT-C] 0 12/27/19 3:53 PM EDT Jennifer Del Valle MA [facility] 12-26-2024 Patient Health [facility] ionnaire 2 item (PHQ-2) [Reported] [facility] Mental Status Date Assessment Result Facility Cognitive function No disorienta tion was observed Finding related to orientation (finding) [facility] Work Phone: Clinical Notes 10-20-2021 to 04-01-2025 [facility] Patient Education - Fahad Portillo, DO - 04/01/2025 9:24 AM [id number] Patient Education - Fahad Portillo, DO - 04/01/2025 9:24 AM EDTDakeshia Portilol, DO - 04/01/2025 9:00 AM EDT Note Date & Type Note Facility 04-01-2025 Note Formatting of this n ote is different from the original. Images from the original note were not included. [id number] Insomnia: Care Instructions Overview Insomnia is the [...] your thoughts and behaviors that may interfere with sleep. Your doctor can recommend specific things you [...] a good idea to know your test results and keep a list of the medicines you [...] book. Well before bedtime, write down your worries, and then set the book and your concerns [...] Nicotine is a stimulant and can keep you awake. o Avoid drinking alcohol late in the evening, because it can cause you to wake in the middle of the night. o Do not eat a big meal [...] with your doctor before you try an rcse-czj-laasmjy medicine, herbal product, or supplement to try [...] this instruction, always ask your healthcare professional. [facility] disclaims any warranty or liability for your use of this information. [id number] [facility]. [facility] 04-01-2025 Note Formatting of this n ote is different from the original. Images from the original note were not included. [id number] Insomnia: Care Instructions Overview Insomnia is the [...] your thoughts and behaviors that may interfere with sleep. Your doctor can recommend specific things you [...] a good idea to know your test results and keep a list of the medicines you [...] book. Well before bedtime, write down your worries, and then set the book and your concerns [...] Nicotine is a stimulant and can keep you awake. o Avoid drinking alcohol late in the evening, because it can cause you to wake in the middle of the night. o Do not eat a big meal [...] with your doctor before you try an xwxl-qvl-hypwtki medicine, herbal product, or supplement to try [...] this instruction, always ask your healthcare professional. [facility] disclaims any warranty or liability for your use of this information. [facility]. [facility] 04-01-2025 Miscellaneous Notes Formattin g of this note is different from the original. Images from the original note were not included. [id number] Insomnia: Care Instructions Overview Insomnia is the [...] your thoughts and behaviors that may interfere with sleep. Your doctor can recommend specific things you [...] a good idea to know your test results and keep a list of the medicines you [...] book. Well before bedtime, write down your worries, and then set the book and your concerns [...] Nicotine is a stimulant and can keep you awake. o Avoid drinking alcohol late in the evening, because it can cause you to wake in the middle of the night. o Do not eat a big meal [...] with your doctor before you try an crfj-hyp-kcknpyb medicine, herbal product, or supplement to try [...] this instruction, always ask your healthcare professional. [facility] disclaims any warranty or liability for your use of this information. [facility]. documented in this encounter [facility] 04-01-2025 History of Presen t illness Narrative Images [...] POLYPECTOMY 12/01/2021 HYSTERECTOMY 1992 total LIVER BIOPSY AZ REMOVAL NODES, NECK,CERV CMPLT SKIN GRAFT Right [...] % 97 % 94 % Temp 96 F 98.2 F Resp 20 20 20 Height (in) [...] not refilled; recommendation to follow up with production checker for further management of this med as I do not prescribe it. - Refill of Polysporin ophthalmologic ointment. No refill of prednisolone eye drops; advised to consult production checker. Orders: [id number] (Polysporin) ophthalmic ointment; Apply 1 application to both eyes in [...] Do not start before February 06, 2025. [id number] (POLYSPORIN) OPHTHALMIC OINTMENT [id number] (Polysporin) ophthalmic ointment Apply 1 application to both eyes in the morning and 1 application in the evening and 1 application before bedtime. Apply 1 application to both eyes in the morning and 1 application before bedtime. Discontinued Medications No medications on file Follow up in about 3 months (around 07/02/2025) for chronic recheck. Fahad Portillo DO documented in this encounter [facility] 02-20-2025 History of Presen t illness Narrative Images from the original note were not included. FAMILY MEDICINE NOTE Chief Complaint: Follow up back pain from fall HPI: Back Pain: Complains Of Denies Questions Comments [] [x] Pain radiating to legs [] [x] Numbness/tingling [] [x] Weakness in legs Since the last visit, symptoms have: improved Pain location: middle. Pain severity: mild. Pain description: stabbing and stiffness. Adherence to treatment plan: The patient reports adherence to this regimen. Medication effectiveness: good. Any side effects: no side effects. SUBJECTIVE: Past Medical History SURGICAL/SOCIAL ALLERGIES: Past Medical History: Diagnosis Date Allergies Anxiety Arthritis Hepatitis C IBS (irritable bowel syndrome) Liver disease Osteoarthritis Osteoporosis Past Surgical History: Procedure Laterality Date COLONOSCOPY W/ BIOPSIES AND POLYPECTOMY 12/01/2021 HYSTERECTOMY 1993 total LIVER BIOPSY [place] REMOVAL NODES, NECK,CERV CMPLT SKIN GRAFT Right TOTAL ABDOMINAL HYSTERECTOMY Social History Tobacco Use Smoking status: Every Day Current packs/day: 1.00 Types: Cigarettes Smokeless tobacco: Never Substance Use Topics Alcohol use: Not Currently Comment: caffeine intake: 1-2 cups per day pop and coffee Drug use: Never Allergies Allergen Reactions Penicillins OBJECTIVE: 02/20/2025 8:49 AM 02/13/2025 8:05 AM 02/09/2025 11:17 AM Vitals BMI 18.02 kg/m2 19.13 kg/m2 BSA (m2) 1.47 m2 1.48 m2 Systolic 132 140 122 Diastolic 86 72 84 Heart Rate 88 77 88 SpO2 97 % 94 % 96 % Temp 98.2 F 97.7 F Resp 20 20 Height (in) 5' 4 5' 3 Weight (lb) 105 108 Visit Report Report Report Physical [...] abdominal tenderness. There is no guarding. Musculoskeletal: Thoracic back: Spasms and tenderness present. Decreased range of motion. Lumbar back: Spasms and tenderness present. Decreased range of motion. Negative right straight leg raise test and negative left straight leg raise test. Back: Comments: Back: negative sacral thrust test, no pain with facet loading b/l MSK: 5/5 muscle strength in b/l LE Skin: General: Skin is warm. Neurological: General: No focal deficit present. Mental Status: She is alert. Mental status is at baseline. Psychiatric: Mood and Affect: Mood normal. Behavior: Behavior normal. ASSESSMENT AND PLAN: Assessment & Plan Fall, subsequent encounter Low back strain, subsequent encounter Spasm of thoracic back muscle - Improvement in lower back pain, able to perform activities like vacuuming and assembling a bed frame. Still has hypertonicity of lumbar and thoracic paraspinal musculature - Transition from [place] to Flexeril. Continue low back stretches. Patient is cleared to return to work on February 21, 2025. Orders: cyclobenzaprine (Flexeril) 10 MG tablet; Take 1 tablet (10 mg) by mouth 3 (three) times a day as needed for muscle spasms Patient's Medications New Prescriptions CYCLOBENZAPRINE (FLEXERIL) 10 MG TABLET Take 1 tablet (10 mg) by mouth 3 (three) times a day as needed for muscle spasms Previous Medications ALPRAZOLAM (XANAX) 1 MG TABLET Take 1 tablet (1 mg) by mouth as needed at bedtime for anxiety or sleep Do not start before February 06, 2025. CHOLECALCIFEROL (VITAMIN D-3) 10 MCG (400 UNIT) CAPSULE Take 400 Units by mouth Daily GABAPENTIN (NEURONTIN) 300 MG CAPSULE TAKE 1 CAPSULE BY MOUTH NEEDED AT BEDTIME FOR PAIN KRILL OIL 500 MG CAPSULE Take 1 tablet by mouth Daily LORATADINE (CLARITIN) 10 MG TABLET Take 10 mg by mouth Daily MELOXICAM (MOBIC) 15 MG TABLET Take 1 tablet (15 mg) by mouth Daily for 15 days MULTIPLE VITAMIN (MULTIVITAMIN) TABLET Take 1 tablet by mouth Daily TRIAMCINOLONE (KENALOG) 0.1 % CREAM Apply 1 application topically in the morning and 1 application before bedtime. Use for max of 14 days in a row on outbreaks. Modified Medications No medications on file Discontinued Medications HYDROCODONE-ACETAMINOPHEN (NORCO) 5-325 MG TABLET Take 1 tablet by mouth every 12 (twelve) hours if needed for severe pain for up to 7 days Follow up in about 4 weeks (around 03/20/2025) for back recheck. Fahad Portillo DO documented in this encounter [facility] 02-13-2025 History of Presen t illness Narrative Images from the original note were not included. FAMILY MEDICINE NOTE Chief Complaint: Fall/Back pain follow up HPI: Acute Low Back Pain After Fall Fell and landed flat on back approximately one week prior to visit, resulting in immediate pain and tenderness in the low back and sacral area. Initial pain was mild but worsened by the third day post-injury, prompting urgent care visit on Tuesday. Since then, persistent severe pain described as killing and raw tender, worsened by movement, touch, riding in the car, going to the bathroom, and lying down. No prior history of similar back pain or falls. Reports thigh muscle soreness and cramping, without direct trauma to the legs. Pain not improving, described as intolerable. Took prescribed pain pills over the weekend and on Tuesday, with some relief. Currently taking meloxicam (Mobic) for arthritis, but did not take it on the morning of the visit. SUBJECTIVE: Past Medical History SURGICAL/SOCIAL ALLERGIES: Past Medical History: Diagnosis Date Allergies Anxiety Arthritis Hepatitis C IBS (irritable bowel syndrome) Liver disease Osteoarthritis Osteoporosis Past Surgical History: Procedure Laterality Date COLONOSCOPY W/ BIOPSIES AND POLYPECTOMY 12/01/2021 HYSTERECTOMY 1993 total LIVER BIOPSY [place] REMOVAL NODES, NECK,CERV CMPLT SKIN GRAFT Right TOTAL ABDOMINAL HYSTERECTOMY Social History Tobacco Use Smoking status: Every Day Current packs/day: 1.00 Types: Cigarettes Smokeless tobacco: Never Substance Use Topics Alcohol use: Not Currently Comment: caffeine intake: 1-2 cups per day pop and coffee Drug use: Never Allergies Allergen Reactions Penicillins OBJECTIVE: 02/13/2025 8:05 AM 02/09/2025 11:17 AM 02/08/2025 11:48 AM Vitals BMI 19.13 kg/m2 18.42 kg/m2 BSA (m2) 1.48 m2 1.45 m2 Systolic 140 122 100 Diastolic 72 84 60 Heart Rate 77 88 68 SpO2 94 % 96 % 97 % Temp 97.7 F 97.6 F Resp 20 20 Height (in) 5' 3 5' 3 Weight (lb) 108 104 Visit Report Report Report Report Physical Exam Constitutional: Appearance: [...] abdominal tenderness. There is no guarding. Musculoskeletal: Thoracic back: Tenderness present. Normal range of motion. Lumbar back: Tenderness present. Decreased range of motion. Negative right straight leg raise test and negative left straight leg raise test. Back: Comments: Back: positive sacral thrust test, pain with facet loading to the left MSK: 5/5 muscle strength in b/l LE Skin: General: Skin is warm. Neurological: General: No focal deficit present. Mental Status: She is alert. Mental status is at baseline. Psychiatric: Mood and Affect: Mood normal. Behavior: Behavior normal. ASSESSMENT AND PLAN: Assessment & Plan Fall, subsequent encounter Acute bilateral low back pain without sciatica Low back strain, subsequent encounter Osteoarthritis of lumbar spine, unspecified spinal osteoarthritis complication status - Moderate arthritis at all levels of the lumbar region per Xray report from , likely this pain is an arthritis flare or lumbar strain exacerbated by recent fall. No fractures observed on X-ray. - Refill [place] prescription for a short course of 7 days and explained that we would likely wean back off at that time as this should only be for short term use. Continue taking meloxicam for arthritis. Begin stretching exercises per handout that I gave her today. Follow-up in one week. - Risks and side effects: Advised not to mix Xanax with [place]. Orders: HYDROcodone-acetaminophen ([place]) 5-325 MG tablet; Take 1 tablet by mouth every 12 (twelve) hours if needed for severe pain for up to 7 days Patient's Medications New Prescriptions No medications on file Previous Medications ALPRAZOLAM (XANAX) 1 MG TABLET Take 1 tablet (1 mg) by mouth as needed at bedtime for anxiety or sleep Do not start before February 06, 2025. CHOLECALCIFEROL (VITAMIN D-3) 10 MCG (400 UNIT) CAPSULE Take 400 Units by mouth Daily GABAPENTIN (NEURONTIN) 300 MG CAPSULE Take 1 capsule (300 mg) by mouth as needed at bedtime (pain) KRILL OIL 500 MG CAPSULE Take 1 tablet by mouth Daily LORATADINE (CLARITIN) 10 MG TABLET Take 10 mg by mouth Daily MELOXICAM (MOBIC) 15 MG TABLET Take 1 tablet (15 mg) by mouth Daily for 15 days MULTIPLE VITAMIN (MULTIVITAMIN) TABLET Take 1 tablet by mouth Daily TRIAMCINOLONE (KENALOG) 0.1 % CREAM Apply 1 application topically in the morning and 1 application before bedtime. Use for max of 14 days in a row on outbreaks. Modified Medications Modified Medication Previous Medication HYDROCODONE-ACETAMINOPHEN (NORCO) 5-325 MG TABLET HYDROcodone-acetaminophen ([place]) 5-325 MG tablet Take 1 tablet by mouth every 12 (twelve) hours if needed for severe pain for up to 7 days Take 1 tablet by mouth every 12 (twelve) hours if needed for severe pain for up to 3 days Discontinued Medications AZITHROMYCIN (ZITHROMAX Z-FRANKLIN) 250 MG TABLET Take as directed Follow up in about 1 week (around 02/20/2025) for back pain f/u. Fahad Portillo DO documented in this encounter [facility] 02-09-2025 History of Presen t illness Narrative HPI: Historian of HPI: patient Brie Farrell is a 64 y.o. female who presents today to the Urgent Care with the following complaints and denials due lower lumbar and right wrist pain which has been present for 3 day(s). C/O Denies Symptom Comments [] [x] swelling [] [x] ecchymosis [] [x] erythema [x] [] tingling [x] [] numbness [x] [] Pain radiation Neck to lumbar [x] [] Weakness [x] [] Decreased ROM [x] [] Trauma Additional Comments: pt has not taken any OTC medications Pt admits to cold application to the affected area Pt [facility] Tuesday night and was seen by Dr Portillo yesterday. X-rays were performed of her wrist forearm but not of her back. Pt can not stand up straight. ROS: A complete system ROS was performed and negative aside from the pertinent positives noted in the HPI and PE. Physical Exam Vitals and nursing note reviewed. Constitutional: Appearance: Normal appearance. HENT: Head: Normocephalic and atraumatic. Nose: Nose normal. Eyes: Pupils: Pupils are equal, round, and reactive to light. Cardiovascular: Rate and Rhythm: Normal rate and regular rhythm. Pulmonary: Effort: Pulmonary effort is normal. Breath sounds: Normal breath sounds. Musculoskeletal: Cervical back: Neck supple. Lumbar back: Deformity, spasms, tenderness and bony tenderness present. No swelling or edema. Decreased range of motion. Negative right straight leg raise test and negative left straight leg raise test. Skin: General: Skin is warm and dry. Neurological: General: No focal deficit present. Mental Status: She is alert and oriented to person, place, and time. Sensory: Sensation is intact. Motor: Motor function is intact. Psychiatric: Mood and Affect: Mood normal. Behavior: Behavior normal. 1. Acute bilateral low back pain without sciatica (Primary) Xray of lumbar spine obtained stat. Prelim interp: severe DJD. Reviewed with patient. Awaiting final interp. - XR lumbar spine complete 4+ views; Future - HYDROcodone-acetaminophen ([place]) 5-325 MG tablet; Take 1 tablet by mouth every 12 (twelve) hours if needed for severe pain for up to 3 days Dispense: 6 tablet; Refill: 0 2. Low back strain, initial encounter Diagnosis and treatment discussed. Rest and apply heat for 20 minutes, 4 times a day. PDMP reviewed. Discussed with patient it would be best for her to try prednisone. She declined prednisone, nsaids, muscle relaxers, and toradol. She states she can only take norco. Three day supply provided. Advised she must follow-up with her PCP Tuesday. Immediate eval for new or worsening symptoms. - HYDROcodone-acetaminophen ([place]) 5-325 MG tablet; Take 1 tablet by mouth every 12 (twelve) hours if needed for severe pain for up to 3 days Dispense: 6 tablet; Refill: 0 3. Osteoarthritis of lumbar spine, unspecified spinal osteoarthritis complication status Diagnosis and treatment discussed. Follow-up with PCP. - HYDROcodone-acetaminophen ([place]) 5-325 MG tablet; Take 1 tablet by mouth every 12 (twelve) hours if needed for severe pain for up to 3 days Dispense: 6 tablet; Refill: 0 documented in this encounter [facility] 02-08-2025 History of Presen t illness Narrative Images from the original note were not included. FAMILY MEDICINE NOTE Chief Complaint: Slip and Fall HPI: Patient advises she was at the [facility] Tuesday evening and slipped on the floor due to no mat being on the floor causing her to hurt her back and right forearm. Patient denies hitting her head during this fall. SUBJECTIVE: Past Medical History SURGICAL/SOCIAL ALLERGIES: Past Medical History: Diagnosis Date Allergies Anxiety Arthritis Hepatitis C IBS (irritable bowel syndrome) Liver disease Osteoarthritis Osteoporosis Past Surgical History: Procedure Laterality Date COLONOSCOPY W/ BIOPSIES AND POLYPECTOMY 12/01/2021 HYSTERECTOMY 1992 total LIVER BIOPSY [place] REMOVAL NODES, NECK,CERV CMPLT SKIN GRAFT Right TOTAL ABDOMINAL HYSTERECTOMY Social History Tobacco Use Smoking status: Every Day Current packs/day: 1.00 Types: Cigarettes Smokeless tobacco: Never Substance Use Topics Alcohol use: Not Currently Comment: caffeine intake: 1-2 cups per day pop and coffee Drug use: Never No Known Allergies OBJECTIVE: 02/08/2025 11:48 AM 10/15/2024 10:26 AM 10/09/2024 8:25 AM Vitals BMI 18.42 kg/m2 18.6 kg/m2 19.13 kg/m2 BSA (m2) 1.45 m2 1.45 m2 1.48 m2 Systolic 100 104 98 Diastolic 60 64 60 Heart Rate 68 87 78 SpO2 97 % 97 % 95 % Temp 97.6 F 98.1 F 98.3 F Resp 20 20 20 Height (in) 5' 3 5' 3 5' 3 Weight (lb) 104 105 108 Visit Report Report Report Report Physical Exam Constitutional: Appearance: [...] tenderness. There is no guarding. Musculoskeletal: Right forearm: Tenderness present. Left forearm: No tenderness. Right wrist: Tenderness present. Decreased range of motion. Normal pulse. Left wrist: No tenderness. Normal range of motion. Normal pulse. Right hand: Tenderness present. Decreased range of motion. Decreased strength. Normal capillary refill. Normal pulse. Left hand: No tenderness. Normal range of motion. Normal strength. Normal capillary refill. Normal pulse. Arms: Skin: General: Skin is warm. Neurological: General: No focal deficit present. Mental Status: She is alert. Mental status is at baseline. Psychiatric: Mood and Affect: Mood normal. Behavior: Behavior normal. ASSESSMENT AND PLAN: Assessment & Plan Fall, initial encounter Right forearm pain - Xrays ordered and read as nonacute today -Soft tissue swelling noted in the wrist. No new fractures, but chronic fractures present. Possible gout/pseudogout/CPPD indicated by imaging. - Recommend using a wrist and forearm brace to immobilize the wrist. Prescribe meloxicam. Advise against taking Aleve, naproxen, or ibuprofen while on the meloxicam. Recommend icing the swollen, painful areas for 20 minutes on and 20 minutes off. Chronic fractures: - Chronic fractures present in the wrist, contributing to the appearance and symptoms. - Immobilization with a wrist brace to prevent exacerbation. Orders: XR forearm 2 views right XR wrist 1 or 2 views right meloxicam (Mobic) 15 MG tablet; Take 1 tablet (15 mg) by mouth Daily for 15 days Dermatitis There was mention in the Xray of possible gout pseudogout or CPPD on the right wrist and that is where she has rashes and I wonder there might be a consideration that the rash could be tophi. We will consider workup with uric acid or other lab testing in future Patient's Medications New Prescriptions MELOXICAM (MOBIC) 15 MG TABLET Take 1 tablet (15 mg) by mouth Daily for 15 days Previous Medications ALPRAZOLAM (XANAX) 1 MG TABLET Take 1 tablet (1 mg) by mouth as needed at bedtime for anxiety or sleep Do not start before February 06, 2025. AZITHROMYCIN (ZITHROMAX Z-FRANKLIN) 250 MG TABLET Take as directed CHOLECALCIFEROL (VITAMIN D-3) 10 MCG (400 UNIT) CAPSULE Take 400 Units by mouth Daily GABAPENTIN (NEURONTIN) 300 MG CAPSULE Take 1 capsule (300 mg) by mouth as needed at bedtime (pain) KRILL OIL 500 MG CAPSULE Take 1 tablet by mouth Daily LORATADINE (CLARITIN) 10 MG TABLET Take 10 mg by mouth Daily MULTIPLE VITAMIN (MULTIVITAMIN) TABLET Take 1 tablet by mouth Daily TRIAMCINOLONE (KENALOG) 0.1 % CREAM Apply 1 application topically in the morning and 1 application before bedtime. Use for max of 14 days in a row on outbreaks. Modified Medications No medications on file Discontinued Medications No medications on file Follow up in about 4 weeks (around 03/08/2025), or if symptoms worsen or fail to improve, for chronic recheck. Fahad Portillo DO documented in this encounter [facility] 01-08-2025 Telephone encount er Note Req refill [facility] 01-08-2025 Miscellaneous Notes Formattin g of this note might be different from the original. Req refill documented in this encounter [facility] 12-26-2024 History of Presen t illness Narrative Images from the original note were not included. FAMILY MEDICINE NOTE Chief Complaint: Follow-up HPI: Mode of Communication: Telephone only, secondary technical difficulties Location: Patient was at home Patient verbally consented to televisit and financial responsibility of visit being billed to insurance: Yes Food Poisoning Brie experienced severe gastrointestinal distress after consuming fajitas, which affected her lower abdomen. She reports that it took longer to recover due to her age. She has since reintroduced food into her diet and can now eat anything, including pizza. Hepatitis C Brie is scheduled to see a GI specialist for hx of hepatitis C. She has a history of elevated liver enzymes, specifically AST, and had a liver biopsy in 2002. Her mother had severe liver disease, which prompted her to be vigilant about her liver health. Joint Pain Brie reports persistent generalized joint pain. She also experiences joint pain that she manages with marijuana gummies, which she finds effective in alleviating her discomfort. SUBJECTIVE: PROBLEM LIST SURGICAL/SOCIAL ALLERGIES: There is no problem list on file for this patient. Past Surgical History: Procedure Laterality Date COLONOSCOPY W/ BIOPSIES AND POLYPECTOMY 12/01/2021 HYSTERECTOMY 1993 total LIVER BIOPSY AZ REMOVAL NODES, NECK,CERV CMPLT SKIN GRAFT Right [...] Report Physical Exam Constitutional: Appearance: Normal appearance. Neurological: Mental Status: She is alert. Psychiatric: Mood and Affect: Mood normal. Behavior: Behavior normal. ASSESSMENT AND PLAN: Assessment & Plan Diarrhea, unspecified type Pt reports that her GI s/s including diarrhea is much improved now and she is eating normal diet Advised to continue monitoring for symptoms but it sounds like it was likely a viral infection or food poisoning that is now resolved Elevated LFTs Hepatitis C virus infection without hepatic coma, unspecified chronicity (CMS/HCC) - Elevated AST levels noted in labs. No signs of cirrhosis or fibrosis. - She is scheduled with GI specialist, Dr. Acevedo, for further evaluation and management of elevated LFTS and hx of hepatitis C. Appointment scheduled for January 08, 2025. Other chronic pain - Joint pain reported that is generalized and she sometimes manages successfully with marijuana. - Recommendation to obtain a medical cannabis card for pain management. Advised not to mix cannabis with Xanax. Patient's Medications New Prescriptions No medications on file Previous Medications ALPRAZOLAM (XANAX) 1 MG TABLET Take 1 tablet (1 mg) by mouth as needed at bedtime for anxiety or sleep AZITHROMYCIN (ZITHROMAX Z-FRANKLIN) 250 MG TABLET Take as directed CHOLECALCIFEROL (VITAMIN D-3) 10 MCG (400 UNIT) [...] file Discontinued Medications No medications on file I spent a total of 25 minutes or more on the date of the service which included preparing to see the patient, [id number] patient care including obtaining/reviewing history and performing appropriate medical examination, completing clinical documentation and coordination of care. Follow up in about 3 months (around 03/28/2025) for chronic recheck. Fahad Portillo DO documented in this encounter [facility] 11-15-2024 Telephone encount er Note Patient advised [facility] 11-15-2024 Miscellaneous Notes Formattin g of this note might be different from the original. Patient advised Please inform patient that it is somewhat common to have diarrhea after sinus infections and antibiotics. I have recommended probiotic pill or yogurt [id number]. I will send some Imodium that she [...] she gets better. documented in this encounter [facility] 11-15-2024 Telephone encount er Note Please inform patient that it is somewhat common to have diarrhea after sinus infections and antibiotics. I have recommended probiotic pill or yogurt [id number]. I will send some Imodium that she can take to help with diarrhea as long as she is not having blood with her bowel movements or fevers and chills she can take the Imodium prn [facility] 11-15-2024 Telephone encount er Note Message from Jennifer: Patient states she is still sick with diarrhea and possibly needs another round of antibiotics? Patient states she is unable to work until she gets better. T [facility] 10-15-2024 History of Presen t [...] being hit by a refrigerator door over [place]. The pain was more internal, affecting mobility, [...] POLYPECTOMY 12/01/2021 HYSTERECTOMY 1992 total LIVER BIOPSY [place] REMOVAL NODES, NECK,CERV CMPLT SKIN GRAFT Right [...] Fahad Portillo DO documented in this encounter [facility] 10-09-2024 History of Presen t [...] POLYPECTOMY 12/01/2021 HYSTERECTOMY 1993 total LIVER BIOPSY AZ REMOVAL NODES, NECK,CERV CMPLT SKIN GRAFT Right [...] Fahad Portillo DO documented in this encounter [facility] 10-03-2024 History of Presen t illness Narrative Patient requested note for work to get labs drawn. Printed for patient. Left up front to scrap picker. Images from the original note were [...] and mammogram, but has since changed to [employer] insurance. Plans to visit a specialist on the and intends to complete the necessary lab work and mammogram in the coming weeks. SUBJECTIVE: PROBLEM LIST SURGICAL/SOCIAL ALLERGIES: There is no problem list on file for this patient. Past Surgical History: Procedure Laterality Date COLONOSCOPY W/ BIOPSIES AND POLYPECTOMY 12/01/2021 HYSTERECTOMY 1992 total LIVER BIOPSY [place] REMOVAL NODES, NECK,CERV CMPLT SKIN GRAFT Right [...] Fahad Portillo DO documented in this encounter [facility] 07-17-2024 History of Presen t [...] fail to improve. documented in this encounter [facility] 07-11-2024 History of Presen t illness Narrative [...] ointment on her eyelid and the topical [id number] hydrocortisone on her facial and inguinal regions. [...] 10/11/2024) for Recheck. documented in this encounter [facility] 07-04-2024 History of Presen t [...] being on June 04. She works at [employer] and has contracted COVID-19 from various workplaces [...] 10/04/2024) for Recheck. documented in this encounter [facility] 12-23-2022 Evaluation note Encounter Date [...] cervical spine and a dynamic neck x-ray. [facility] 04-27-2023 Evaluation note* Encounter Date Diagnosis Assessment Notes Treatment Notes Treatment Clinical Notes Nov, Other closed displaced fracture of seventh cervical vertebra, initial encounter (ICD-10 - S12.690A) [facility] 04-26-2023 Evaluation note* Encounter Date Diagnosis Assessment Notes Treatment Notes Treatment Clinical Notes Nov, Other closed displaced fracture of seventh cervical vertebra, initial encounter (ICD-10 - S12.690A) [facility] 04-25-2023 Evaluation note* Encounter Date Diagnosis [...] negative findings were considered in medical decision-making. [facility] 01-03-2023 History of Present illness Narrative* Aliza Guadarrama MD - 08/24/2022 10:25 PM EST Phone numbers Preferred Documentation: Mode: Telephone Patient Patient Work Phone: Patient Cell Phone: Preferred phone: [phone] Consent: I confirmed patient understanding of the [...] pneumoniae Aliza Guadarrama MD documented in this [id number] Evaluation note* Encounter Date Diagnosis Assessment Notes Treatment Notes Treatment Clinical Notes Oct, Hepatitis C (ICD-10 - B19.20) PT WOULD LIKE TO ADDRESS THIS AFTER HER COLONOSCOPY TREATMENT AND TESTING EXPLAINED TO PATIENT IN DETAIL SHE WILL CALL WHEN SHE IS READY TO START THIS PROCESS Oct, Screen for colon cancer (ICD-10 - Z12.11) COLONOSCOPY [facility] Other Evaluation note* Diagnosis Cough, unspecified type- Primary [facility] evaluation noteNo assessment information available [facility] Work Phone: Evaluation note* Diagnosis Dermatitis- Primary [...] type- Primary [facility] Diagnosis Anxiety attack (CMS/HCC) Panic disorder without agoraphobia Insomnia, unspecified type [facility] Diagnosis Diarrhea, unspecified type- Primary Elevated LFTs Other abnormal blood chemistry Hepatitis C virus infection without hepatic coma, unspecified chronicity (CMS/HCC) Other chronic pain [facility] Diagnosis Anxiety attack (CMS/HCC) Panic disorder without agoraphobia Insomnia, unspecified type [facility] Diagnosis Anxiety attack Panic disorder without agoraphobia Insomnia, unspecified type [facility] Diagnosis Fall, initial encounter- Primary Right forearm pain Dermatitis Contact dermatitis and other eczema, due to unspecified cause [facility] Fall, subsequent encounter- Primary Acute bilateral low back pain without sciatica Low back strain, subsequent encounter Osteoarthritis of lumbar spine, unspecified spinal osteoarthritis complication status [facility] Diagnosis Acute bilateral low back pain without sciatica- Primary Low back strain, initial encounter Osteoarthritis of lumbar spine, unspecified spinal osteoarthritis complication status Acute bilateral low back pain without sciatica [facility] Diagnosis Neuropathic pain [facility] Diagnosis Fall, subsequent encounter- Primary Low back strain, subsequent encounter Spasm of thoracic back muscle [facility] Diagnosis Low back strain, subsequent encounter [facility] Diagnosis Irritation of eye- Primary Insomnia, unspecified type Anxiety attack Panic disorder without agoraphobia [facility] - Reported* Type Description Date Medical History allergies Medical History anxiety Medical History arthritis Medical History hepatitis c Medical History IBS Medical History liver disease Medical History osteoarthritis Medical History osteoporosis Surgical History liver biopsy Surgical History total hysterectomy 1992 Surgical History skin graft to right hand Surgical History lymph node removed from necks [facility] Other History general Narrative - Reported* Type Description Date Medical History allergies Medical History anxiety Medical History arthritis Medical History hepatitis c Medical History IBS Medical History liver disease Medical History osteoarthritis Medical History osteoporosis Surgical History liver biopsy Surgical History total hysterectomy 1992 Surgical History skin graft to right hand Surgical History lymph node removed from necks Hospitalization History see surg Hx [facility] Other Summary Purpose Family History Description Last [...] steps Medical 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 2019 Body mass index [Body mass i ndex (BMI) 21.0-21.9 adult] Medical 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 2019 Diabetes Risk Test Score was two score 2019 Medical New Patient with Lupe Snider [facility] 2019 Fagerstrom Score was two 2019 [facility] New Patient with Lupe Snider [facility] 2019 PHQ-9: total score was 0 2019 [facility] New Patient with Lupe Snider [facility] 2019 Findings Encounter Date Contusion of back wall of thorax Medical Established Patient with Porsche Vega [facility] 08/13/2019 Z68.21 - Body mass index (BM I) 21.0-21.9 adult Medical Established Patient with Porsche Vega [facility] 08/13/2019 Body mass index [Body mass i ndex (BMI) 21.0-21.9 adult] Medical Established Patient with Lupe Snider [employer] PROFESS[employer] 08/01/2019 Oral thrush [Candidal stomatitis] Medica l Established Patient with Lupe Snider [facility] 08/01/2019 Assessment of fall on and fr om stairs and steps Medical New 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 Body mass index [Body mass i ndex (BMI) 21.0-21.9 adult] Medical New 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 DATE CREATED AUTHOR AUTHOR'S ORGANIZ ATION 04/16/2022 [facility] DATE CREATED AUTHOR AUTHOR'S ORGANIZ ATION 12/15/2022 [facility] DATE CREATED AUTHOR AUTHOR'S ORGANIZ ATION 12/22/2022 [facility] DATE CREATED AUTHOR AUTHOR'S ORGANIZ ATION 01/29/2025 [facility] DATE CREATED AUTHOR AUTHOR'S ORGANIZ ATION 04/02/2025 [facility] EPIC Evaluations & Outcomes (unre cognized section and content) Includes: Evaluations & Outcomes for active GoalsNo Outcomes Recorded Includes: Evaluations & Outcomes for active GoalsNo Outcomes Recorded REASON FOR VISIT (unrecogniz ed section and content) Reason Comments Cough Reason Comments Follow-up Reason Comments Fall Reason Comments Hip Pain Reason Onset Date Comments Med Refill 12/10/2024 Reason Onset Date Comments Med Refill 01/08/2025 Reason Onset Date Comments Med Refill 02/01/2025 Reason Comments Arm Injury Patient was in [employer] Tuesday night 02/06/25 during the rain and there was no mat in the front area and slipped and fell hitting her back and right forearm. Reason Comments Med Refill Care Teams (unrecognized sec tion and content) Team Status: Active Member Role Status Dates Nomi Corcoran DO Primary Care Provider Active Team Status: Inactive Member Role Status Dates Nomi Corcoran DO Primary Care Provider Active Vilma Sharma , MULTI CARE TECHNICIAN-C Attending Provider Active Atm Technician Relationship Specialty Start Date End Date Fahad Portillo DO [address] [place] [address] PCP - General Family Medicine 07/04/24 Atm Technician Relationship Specialty Start Date End Date Fahad Portillo DO [address] [place] [address] PCP - General Family Medicine 07/04/24 Atm Technician Relationship Specialty Start Date End Date Fahad Portillo [address] [place] [address] PCP - General Family Medicine 07/04/24 Atm Technician Relationship Specialty Start Date End Date BgFahad olivarez [address] [place] [address] PCP - General Family Medicine 07/04/24 Atm Technician Relationship Specialty Start Date End Date Fahad Portillo DO [address] [place] [address] PCP - General Family Medicine 07/04/24 Atm Technician Relationship Specialty Start Date End Date BgFahad olivarez DO [address] [place] [address] PCP - General Family Medicine 07/04/24 Atm Technician Relationship Specialty Start Date End Date BgFahad olivarez [address] [place] [address] PCP - General Family Medicine 07/04/24 Atm Technician Relationship Specialty Start Date End Date Fahad Portillo DO [address] [place] [address] PCP - General Family Medicine 07/04/24 Atm Technician Relationship Specialty Start Date End Date Fahad Portillo DO [address] [place] [address] PCP - General Family Medicine 07/04/24 Atm Technician Relationship Specialty Start Date End Date Fahad Portillo DO [address] [place] [address] PCP - General Family Medicine 07/04/24 Atm Technician Relationship Specialty Start Date End Date Fahad Portillo DO [address] [place] [address] PCP - General Family Medicine 07/04/24 Atm Technician Relationship Specialty Start Date End Date Faahd Portillo DO [address] [facility] [address] [place] [address] PCP - General Family Medicine 02/12/25 Atm Technician Relationship Specialty Start Date End Date Fahad Portillo DO [address] [facility] [address] [place] [address] PCP - General Family Medicine 02/12/25 Atm Technician Relationship Specialty Start Date End Date Fahad Portillo DO PCP - General Family Medicine 07/04/24 02/11/25 Atm Technician Relationship Specialty Start Date End Date Fahad Portillo DO [address] [place] [address] PCP - General Family Medicine 02/12/25 Atm Technician Relationship Specialty Start Date End Date Fahad Portillo DO [address] [place] [address] PCP - General Family Medicine 02/12/25 Atm Technician Relationship Specialty Start Date End Date Fahad Portillo DO [address] [place] [address] PCP - General Family Medicine 02/12/25 Atm Technician Relationship Specialty Start Date End Date Fahad Portillo DO [address] [place] [address] PCP - General Family Medicine 02/12/25 Atm Technician Relationship Specialty Start Date End Date Fahad Portillo DO [address] [place] [address] PCP - General Family Medicine 02/12/25 Goals (unrecognized section and content) Goals may [...] BE BASED ON THE PRIMARY CLINICAL RECORDS. [facility]. provides no warranty or guarantee of the accuracy or completeness of information in this document.
--- NOTE | 2025-04-04 07:35 | ECG_ITS ---
The [facility] Test Date: 2025-04-04 Pat Name: RICARDO ELIAS Department: Room: - Gender: Female Medicare Sales Representative: : 1960 Requested By: [id number] Order Number: [id number] Reading MD: RAMY REYNOLDS M.D. Measurements Intervals [place] Rate: 59 P: 64 CA: 222 QRS: 91 QRSD: 98 T: 69 QT: 452 QTc: 450 Interpretive Statements 1100 Sinus rhythm 2231 First degree AV block 7102 Moderate right axis deviation 9150 abnormal ECG Compared to ECG 12/03/2021 10:09:45 First degree AV block now present Electronically Signed On 04-04-2025 19:31:26 EDT by RAMY REYNOLDS M.D.
--- NOTE | 2025-04-04 07:36 | CT_ITS ---
The [address] [address] Patient Name: RICARDO ELIAS MRN: [id number] date: 1960 Sex: F Assigned Patient Location: ER Current Patient Location: ER Accession/Order Number: [id number] Exam Date: 04/04/2025 08:45 Report Date: 04/04/2025 08:50 At the request of: JUANA BOB MD Procedure: CT abdomen pelvis w con CT ABDOMEN AND PELVIS WITH INTRAVENOUS CONTRAST: CLINICAL HISTORY: Right-sided abdominal pain nausea and vomiting. COMPARISON: None TECHNIQUE: Spiral images were obtained through the abdomen and pelvis following the administration of intravenous contrast. This CT exam was performed using one or more following dose reduction techniques: Automated exposure control, adjustment of the mA and/or kV according to patient size, or use of iterative reconstruction technique. FINDINGS: Lung Bases: [Partially visualized consolidative changes right middle lobe. Organs:Liver demonstrates focal presumed intrahepatic biliary dilatation involving segment 6 of the liver. Gallbladder portal vein spleen pancreas adrenal glands and kidneys all appear unremarkable. Aorta is normal in caliber.[ GI: Stomach is nondistended. Small bowel appears nondilated. No acute colonic abnormality is seen.[ Pelvis:[Urinary bladder is grossly unremarkable. Uterus has been removed.] Peritoneum/Retroperitoneum:No free air or free fluid or lymphadenopathy.[ Abd wall/Bones:Abdominal wall demonstrates no acute process. Osseous structures demonstrate degenerative change.[ CT/CT abdomen pelvis w con IMPRESSION: No acute intra-abdominal process. Partially visualized consolidative changes right middle lobe. Underlying pneumonia cannot be excluded. There appears to be focal intrahepatic ductal dilatation involving segment 6 of the liver. No definitive obstructing lesion is seen. This can be further evaluated by nonemergent MRI/MRCP with and without IV contrast. Impression dictated by: Ilir Baez Jr., D.O. 04/04/2025 8:50 AM Dictation Location: [place] [address] Electronically authenticated by: [id number] Y Date: 04/04/2025 08:50
--- NOTE | 2025-04-04 07:36 | XR_ITS ---
The [address] [address] Patient Name: RICARDO ELIAS MRN: [id number] date: 1960 Sex: F Assigned Patient Location: ER Current Patient Location: ER Accession/Order Number: [id number] Exam Date: 04/04/2025 08:05 Report Date: 04/04/2025 08:06 At the request of: JUANA BOB MD Procedure: XR chest 1V PA CHEST: CLINICAL HISTORY: cough COMPARISON: CT chest 08/18/2023 Unremarkable cardiomediastinal. Lungs clear. No effusion or pneumothorax. XR/XR chest 1V IMPRESSION: Negative acute pleural-parenchymal disease. Impression dictated by: Kenny Jensen M.D. 04/04/2025 8:06 AM Dictation Location: [place] [address] Electronically authenticated by: [id number] Y Date: 04/04/2025 08:06
--- NOTE | 2025-04-04 07:37 | ED.GENADUL1 ---
HPI HPI - General Adult General Chief complaint: Abdominal Pain Stated complaint: GALLBLADDER PAIN Time Seen by Provider: 04/04/25 07:29 Source: patient Mode of arrival: walk-in Limitations: no limitations History of Present Illness HPI narrative: 64-year-old female presents to the emergency department for abdominal pain. She is pointing to her right upper quadrant but tells me the lower abdomen hurts as well. No fever. She has a chronic cough. She vomited yesterday. She went to an urgent care and they said they could not do anything for her and she went to another hospital's emergency department but they were too busy so she left. She has not vomited today. She is worried about her gallbladder. Related Data Home Medications ?Medication ?Instructions ?Recorded ?Confirmed alprazolam 1 mg tablet 1 mg PO .Q24 PRN anxiety 10/05/24 10/05/24 Previous Rx's ?Medication ?Instructions ?Recorded azithromycin 250 mg tablet See Rx Instructions PO .COMPLEX #6 04/04/25 (Zithromax Z-Garrick) tabs Allergies Allergy/AdvReac Type Severity Reaction Status Date / Time Penicillins AdvReac Intermediate Hives Verified 04/04/25 07:06 Opioid HPI Opioid Management Most Recent Opioid Data: Last Pain Scale 4 Today, 07:06 Review of Systems ROS Narrative A ten point review of systems is negative except as noted above. PFSH PFSH Surgical History (Updated 04/04/25 @ 07:12 by Onel Rothman) H/O hysterectomy with oophorectomy Social History Smoking status: Current every day smoker Little interest or pleasure in doing things: not at all Feeling down, depressed, or hopeless: not at all Exam Narrative Exam Narrative: Nurses note and vital signs reviewed and patient is not hypoxic. General: The patient appears in no apparent distress. Patient is resting comfortably on cart. Skin: Warm, dry, no pallor noted. There is no rash noted. Head: Normocephalic, atraumatic Eye: Normal conjunctiva, no drainage Ears, Nose, Mouth, and Throat: oral mucosa is moist. Nares patent. Cardiovascular: Regular Rate and Rhythm, not tachycardic Respiratory: Some rhonchi present bilaterally Back: non-tender GI: She has tenderness in the right upper quadrant but also in the left lower and right lower quadrants as well. No masses. Musculoskeletal: The patient has no evidence of calf tenderness, no pitting edema, symmetrical pulses noted bilaterally Neurological: A&O, normal speech Psychiatric: Cooperative Constitutional Vital Signs, click to edit/add: Last Vital Signs Temp 98.1 F 04/04/25 07:06 Pulse 80 04/04/25 07:06 Resp 20 04/04/25 07:06 BP 123/84 04/04/25 07:06 Pulse Ox 95 04/04/25 07:06 O2 Del Method Room Air 04/04/25 07:06 Course Vital Signs Vital signs: Vital Signs Temperature 98.1 F 04/04/25 07:06 Pulse Rate 80 04/04/25 07:06 Respiratory Rate 20 04/04/25 07:06 Blood Pressure 123/84 04/04/25 07:06 Pulse Oximetry 95 04/04/25 07:06 Oxygen Delivery Method Room Air 04/04/25 07:06 Temperature 98.1 F 04/04/25 07:06 Pulse Rate 80 04/04/25 07:06 Respiratory Rate 20 04/04/25 07:06 Blood Pressure 123/84 04/04/25 07:06 Pulse Oximetry 95 04/04/25 07:06 Oxygen Delivery Method Room Air 04/04/25 07:06 Medical Decision Making MDM Narrative Medical decision making narrative: Chest x-ray indicates right middle lobe pneumonia. Blood work is essentially normal including her LFTs. CT scan shows no gallbladder abnormalities but shows some intrahepatic ductal dilatation. She was informed of this and was recommended follow-up with her family physician repeat regarding this issue which may need an MRI as an outpatient. Treatment diagnosis and follow-up were discussed with the patient. Differential Diagnosis Differential Diagnosis: Cholelithiasis, pancreatitis, hepatitis, pneumonia Lab Data Lab results reviewed: Yes I reviewed the patient's lab results Labs: Lab Results 04/04/25 04/04/25 Range/Units 07:12 08:05 WBC 6.1 (4.0-11.0) 10^3/uL RBC 4.54 (4.20-5.40) 10^6/uL Hgb 13.9 (12.0-16.0) g/dL Hct 41.2 (36.0-48.0) % MCV 90.7 (81.0-99.0) fL MCH 30.6 (26.7-34.0) pg MCHC 33.7 (29.9-35.2) g/dL RDW 13.0 (11.0-15.0) % Plt Count 232 (150-450) 10^3/uL MPV 10.1 (9.5-13.5) fL Neut % (Auto) 50.5 (43.0-75.0) % Lymph % (Auto) 33.7 (20.5-60.0) % [place] % (Auto) 12.0 (1.7-12.0) % Eos % (Auto) 3.1 (0.9-7.0) % Baso % (Auto) 0.5 (0.2-2.0) % Neut # (Auto) 3.1 (1.4-6.5) 10^3/uL Lymph # (Auto) 2.1 (1.2-3.8) 10^3/uL [place] # (Auto) 0.7 (0.3-0.8) 10^3/uL Eos # (Auto) 0.2 (0.0-0.7) 10^3/uL Baso # (Auto) 0.0 (0.0-0.1) 10^3/uL Abs Immat Gran (auto) 0.01 (0.00-0.03) 10^3/uL Imm/Tot Granulo (auto) 0.2 (0.0-0.5) % Sodium 140 (136-145) mmol/L Potassium 4.2 (3.5-5.1) mmol/L Chloride 107 (98-107) mmol/L Carbon Dioxide 25.4 (21.0-32.0) mmol/L Anion Gap 11.8 BUN 17.0 (7.0-18.0) mg/dL Creatinine 0.48 L (0.55-1.02) mg/dL Est GFR ( Amer) >60 (>=60 mL/min/1.73m^2) Est GFR (Non-Af Amer) >60 (>=60 mL/min/1.73m^2) BUN/Creatinine Ratio 35.4 Glucose 102 (74-106) mg/dL Calcium 9.1 (8.5-10.1) mg/dL Total Bilirubin 0.3 (0.2-1.0) mg/dL Direct Bilirubin 0.1 (0.0-0.2) mg/dL AST 40 H (15-37) U/L ALT 55 (14-59) U/L Alkaline Phosphatase 80 (46-116) U/L Total Protein 7.2 (6.4-8.2) g/dL Albumin 3.5 (3.4-5.0) g/dL Globulin 3.7 g/dL Albumin/Globulin Ratio 0.9 Amylase 78 (25-115) U/L Lipase 56.0 (16.0-77.0) U/L Urine Color Lt. yellow (YELLOW) Urine Clarity Clear (CLEAR) Urine pH 6.0 (5.0-9.0) Ur Specific [place] <=1.005 A (1.005-1.025) Urine Protein Negative (NEG/TRACE) mg/dL Urine Glucose (UA) Negative (NEGATIVE) mg/dL Urine Ketones Negative (NEGATIVE) mg/dL Urine Occult Blood Negative (NEGATIVE) Urine Nitrite Negative (NEGATIVE) Urine Bilirubin Negative (NEGATIVE) Urine Urobilinogen 0.2 (0.2-1.0) EU/dL Ur Leukocyte Esterase Negative (NEGATIVE) Urine RBC 0-2 (0-2) #/HPF Urine WBC 0-2 A (NONE SEEN) #/HPF Ur Squamous Epith Cells Rare (NONE/RARE) #/LPF Urine Crystals None seen (None Seen) #/HPF Urine Bacteria None seen (NONE SEEN) #/HPF Urine Casts None seen (NONE SEEN) #/LPF Urine Mucus None seen (NONE SEEN) Ur Culture Indicated? No Imaging Data Chest x-ray: Radiologist's impression: ITS Impressions Abdomen/Pelvis CT 04/04/25 07:36 IMPRESSION: No acute intra-abdominal process. Partially visualized consolidative changes right middle lobe. Underlying pneumonia cannot be excluded. There appears to be focal intrahepatic ductal dilatation involving segment 6 of the liver. No definitive obstructing lesion is seen. This can be further evaluated by nonemergent MRI/MRCP with and without IV contrast. Impression dictated by: Ilir Baez Jr., D.O. 04/04/2025 8:50 AM Dictation Location: [place] [address] Electronically authenticated by: [id number] Y Date: 04/04/2025 08:50 Chest X-Ray 08/14/25 07:36 IMPRESSION: Negative acute pleural-parenchymal disease. Impression dictated by: Kenny Jensen M.D. 04/04/2025 8:06 AM Dictation Location: [place] [address] Electronically authenticated by: [id number] Y Date: 04/04/2025 08:06 ECG Data Attestation: I personally reviewed and interpreted this ECG as follows: (EKG on my interpretation shows normal sinus rhythm with a first-degree block and a rate of 59) Discharge Plan Discharge Chief Complaint: Abdominal Pain Clinical Impression: Right middle lobe pneumonia Patient Disposition: Home, Self-Care Time of Disposition Decision: 09:00 Condition: Good Mode of Transportation: Private Vehicle Prescriptions / Home Meds: New azithromycin [Zithromax Z-Garrick] 250 mg tablet See Rx Instructions .ROUTE .COMPLEX Qty: 6 0RF Rx Instructions: For 250 mg dose pack: take 500 mg today (day 1), then 250 mg for 4 days (days 2-5) No Action alprazolam 1 mg tablet 1 mg PO .Q24 PRN (Reason: anxiety) Print Language: Welsh Instructions: Community Acquired Pneumonia (ED) Additional Instructions: Follow-up with your family doctor regarding the ductal dilatation in your liver. Referrals: Fahad Pederson DO [Primary Care Provider] - 1 week
[2025-04-04 07:40] LABS: Hematocrit 41.2 % (36.0-48.0); Hemoglobin 13.9 g/dL (12.0-16.0); Immature Granulocytes Abs Auto 0.01 10^3/uL (0.00-0.03); Immature Granulocytes Pct Auto 0.2 % (0.0-0.5); Lymphocytes Absolute Auto 2.1 10^3/uL (1.2-3.8); Mean Corpuscular HGB Conc 33.7 g/dL (29.9-35.2); Mean Corpuscular Hemoglobin 30.6 pg (26.7-34.0); Mean Corpuscular Volume 90.7 fL (81.0-99.0); Platelet Count 232 10^3/uL (150-450); Red Blood Count 4.54 10^6/uL (4.20-5.40); White Blood Count 6.1 10^3/uL (4.0-11.0)
[2025-04-04 07:47] LABS: Anion Gap 11.8; Blood Urea Nitrogen 17.0 mg/dL (7.0-18.0); Calcium 9.1 mg/dL (8.5-10.1); Carbon Dioxide 25.4 mmol/L (21.0-32.0); Chloride 107 mmol/L (98-107); Estimated GFR (African America >60 (>=60 mL/min/1.73m^2); Estimated GFR (Non-African Ame >60 (>=60 mL/min/1.73m^2); Glucose 102 mg/dL (74-106); Potassium 4.2 mmol/L (3.5-5.1); Sodium 140 mmol/L (136-145)
[2025-04-04 07:52] LABS: Alanine Aminotransferase 55 U/L (14-59); Albumin Globulin Ratio 0.9; Albumin Level 3.5 g/dL (3.4-5.0); Alkaline Phosphatase 80 U/L (46-116); Amylase 78 U/L (25-115); Aspartate Amino Transferase 40 U/L (15-37); Globulin 3.7 g/dL; Lipase 56.0 U/L (16.0-77.0); Total Protein 7.2 g/dL (6.4-8.2)
[2025-04-04 08:12] LABS: Glucose Urine UA NEGATIVE (NEGATIVE)
[2025-04-04 08:25] LABS: Cast Seen? NONE SEEN #/LPF (NONE SEEN); Crystals Seen? None Seen #/HPF (None Seen); Urine Culture Indicated NO
== END 2025-04-04 09:15 | disposition home or self-care (01) ==
PROVIDERS: Emergency Provider Emergency Medicine; PCP Student in an Organized Health Care Education/Training Program
DX: J18.9 Pneumonia, unspecified organism (principal); R10.84 Generalized abdominal pain; R10.11 Right upper quadrant pain; R11.10 Vomiting, unspecified
CPT/HCPCS: 36415; 71045; 74177; 80048; 80076; 81001; 82150; 83690; 85025; 93005; 99285; Q9967